=== PATIENT | female | born 1960 | race African-American/Black ===

== ENCOUNTER 2018-04-17 14:37 | Emergency (ER) | payer OTHER, SELFPAY ==
[2018-04-17 14:45] VITALS: BP 158/89; PULSE 60; RESP 20; TEMP 37.2; O2SAT 98; BMI 24.2
--- NOTE | 2018-04-17 14:45 | PC.NURSE ---
1438 Pt states has to go to the bathroom prior to Ekg.
--- NOTE | 2018-04-17 15:15 | DI.RAD.S_ITS ---
PROCEDURE: XR CHEST 1V INDICATIONS: chest pain TECHNIQUE: One view of the chest was acquired. COMPARISON: [facility], , CHEST 1 VIEW, 10/02/2017, 14:29. FINDINGS: Surgical changes and devices: None. Lungs and pleura: No pleural effusions or pneumothorax. Lungs are clear. Mediastinum: Mediastinal contours appear normal. Heart size is normal. Bones and chest wall: No suspicious bony lesions. Overlying soft tissues appear unremarkable. IMPRESSION: No acute cardiopulmonary disease process. Dictated by: Ursula Johnson MD, PhD on 04/17/2018 at 15:42 Approved by: Ursula Johnson MD, PhD on 04/17/2018 at 15:43
--- NOTE | 2018-04-17 15:15 | ED.CHESTPAIN ---
HPI - Chest Pain <Jolie Veloz PA-C - Last Filed: 04/17/18 20:27> General Chief Complaint: Chest Pain Stated Complaint: chest pain,numbness and tingling in her head Time Seen by Provider: 04/17/18 15:15 Source: patient Mode of arrival: ambulatory Limitations: no limitations History of Present Illness HPI narrative: This 58-year-old female presents to ED due to headache and chest pain. She has chronic headaches for which she is undergoing specialty workup including just having had cisternogram last week (she does not have results yet). She states she has had her usual headaches all week, but somewhat worse because she intermittently has a tightening and squeezing sensation in the back of her head. She states that she has some intermittent facial tingling that is not unusual for her. She does not have any facial weakness, difficulty chewing or talking. She states that she has had pain in her right arm, leg, and down the right side of her body with this headache that she describes as a dull pain, but denies any weakness or paresthesia. She states that she has also had intermittent pain on the left mid chest since Thursday. She thought that was heartburn initially but did not help with Zantac. She has very minimal nausea, no vomiting and states ?I love to eat?, no appetite change. She states that the pain radiates across her chest into both shoulders, not in her arm or neck. She has not been lightheaded and has been going about her usual activities caring for her grandson. She has not had any new cough, fever, cold symptoms, or other new symptoms with this. She came in mainly due to persistent symptoms not improving with OTC ibuprofen or Tylenol. She states also she did not want to delay her cisternogram so did not seek evaluation earlier. Related Data Home Medications Medication Instructions Recorded Confirmed CA PANTOTHENATE/FOLIC ACID/VIT 1 tab PO QDAY #0 01/25/13 03/03/18 (MULTIVITAMIN) hydrochlorothiazide 12.5 mg PO QDAY #0 10/02/17 03/03/18 Previous Rx's Medication Instructions Recorded metaxalone [Skelaxin] 800 mg PO TID-QID PRN #10 tab 04/17/18 Allergies Allergy/AdvReac Type Severity Reaction Status Date / Time ciprofloxacin [CIPROFLOXACIN] Allergy Unknown LEG PAIN Verified 04/17/18 15:38 levofloxacin [LEVOFLOXACIN] AdvReac Mild CAN'T LIFT Verified 04/17/18 15:38 ARMS AFTERWARD Review of Systems <LILY Peralta Last Filed: 04/17/18 20:27> Review of Systems All systems reviewed & are unremarkable except as noted in HPI and below Exam <LILY Peralta Last Filed: 04/17/18 20:27> Narrative Exam Narrative: GENERAL APPEARANCE: Patient sitting comfortably, in no distress. Appears well HEENT: EOMI, normal oropharynx, TMs intact with normal light reflexes NECK/THYROID: Neck supple, no masses, no JVD noted LUNGS: Clear to auscultation bilaterally. CHEST: Tender over the mid to inferior sternum HEART: Regular rate and rhythm without murmur, normal S1, S2, no S3 or S4. ABDOMEN: Soft, NT, ND, + BS x 4 quadrants EXTREMITIES: No cyanosis or edema. No point tenderness over the calves. Minimal generalized tenderness over the right upper and lower extremities MUSCULOSKELETAL: Moderate tenderness over the cervical strap muscles, more on the left. Decreased right rotation and left lateral bend secondary to tenderness. Normal range of motion of the extremities NEUROLOGIC: Alert and oriented, normal speech, gait and coordination. Initial Vital Signs Initial Vital Signs: Vital Signs Temperature 98.9 F 04/17/18 14:45 Pulse Rate 60 04/17/18 14:45 Respiratory Rate 20 04/17/18 14:45 Blood Pressure 158/89 H 04/17/18 14:45 Pulse Oximetry 98 04/17/18 14:45 <Juan Luis Jones DO - Last Filed: 04/18/18 07:34> Initial Vital Signs Initial Vital Signs: Vital Signs Temperature 98.9 F 04/17/18 14:45 Pulse Rate 60 04/17/18 14:45 Respiratory Rate 20 04/17/18 14:45 Blood Pressure 158/89 H 04/17/18 14:45 Pulse Oximetry 98 04/17/18 14:45 Course <LILY Peralta Last Filed: 04/17/18 20:27> Orders Ordered: ED Orders 04/17/18 15:12 Complete Blood Count AUTO DIFF Stat Comprehensive Metabolic Panel Stat Lipase Stat Partial Thromboplastin Time Stat Prothrombin Time INR Stat Troponin & CK Cardiac Panel Stat 04/17/18 15:15 XR chest 1V Stat EKG-12 Lead Stat 04/17/18 15:39 CT head/brain wo con Stat Vital Signs - 8 hr 04/17/18 14:45 04/17/18 16:30 Temperature 98.9 F Pulse Rate 60 74 Respiratory Rate 20 18 Blood Pressure 158/89 H Blood Pressure [Left Arm] 127/65 Pulse Oximetry 98 100 <Juan Luis Jones DO - Last Filed: 04/18/18 07:34> Orders Ordered: ED Orders 04/17/18 15:12 Complete Blood Count AUTO DIFF Stat Comprehensive Metabolic Panel Stat Lipase Stat Partial Thromboplastin Time Stat Prothrombin Time INR Stat Troponin & CK Cardiac Panel Stat 04/17/18 15:15 XR chest 1V Stat EKG-12 Lead Stat 04/17/18 15:39 CT head/brain wo con Stat Vital Signs - 8 hr 04/17/18 14:45 04/17/18 16:30 Temperature 98.9 F Pulse Rate 60 74 Respiratory Rate 20 18 Blood Pressure 158/89 H Blood Pressure [Left Arm] 127/65 Pulse Oximetry 98 100 MDM - Chest Pain <Jolie Veloz PA-C - Last Filed: 04/17/18 20:27> Lab Data Attestation: I reviewed the patient's lab results. Result diagrams: 04/17/18 15:12 04/17/18 15:12 Lab Results 04/17/18 04/17/18 04/17/18 Range/Units 15:12 15:12 15:12 WBC 4.3 L (4.5-11.0) X10^3/uL RBC 4.52 (4.0-5.2) X10^6/uL Hgb 13.3 (12.0-16.0) g/dL Hct 39.9 (36-46) % MCV 88.2 (80-100) fL MCH 29.4 (26-34) PG MCHC 33.4 (30-36) % RDW 12.8 (11.6-14.8) % Plt Count 216 (150-400) X10^3/uL Neut % (Auto) 53.3 (50-75) % Lymph % (Auto) 33.2 (25-40) % [place] % (Auto) 11.5 (3-14) % Eos % (Auto) 1.2 L (2-4) % Baso % (Auto) 0.8 (0-2) % Neut # (Auto) 2300 L (4352-0312) /uL PT 11.9 (10.1-12.7) SECONDS INR 1.1 (0.9-1.3) APTT 26 L (26.4-36.2) SECONDS Sodium 141 (137-145) mmol/L Potassium 4.0 (3.4-5.1) mmol/L Chloride 102 (98-107) mmol/L Carbon Dioxide 32 (22-32) mmol/L BUN 17 (7-17) mg/dL Creatinine 0.80 (0.52-1.04) mg/dL Estimated GFR > 60.0 (>60) mL/min BUN/Creatinine Ratio 21.3 (6-22) Glucose 79 (70-100) mg/dL Calcium 9.2 (8.4-10.2) mg/dL Total Bilirubin 0.9 (0.2-1.3) mg/dL AST 25 (14-36) IU/L ALT 26 (9-52) IU/L Alkaline Phosphatase 56 (38-126) U/L Total Creatine Kinase 138 H (30-135) U/L CK-MB (CK-2) 0.99 (<2.37) ng/mL CK-MB (CK-2) Rel Index 0.7 L (1.5-5.0) % Troponin I < 0.012 (0.01-0.034) ng/mL Total Protein 7.4 (6.3-8.2) g/dL Albumin 4.2 (3.5-5.0) g/dL Globulin 3.2 (1.7-4.1) g/dL Albumin/Globulin Ratio 1.3 (1.0-2.8) Lipase 60 (23-300) U/L Imaging Data Chest x-ray: Radiologist's impression: [address] [address] XRay Report Signed Patient: Mony Perez [facility]#: [id number] : 1Acct:[id number] Age/Sex: 79 / FDate of Service: 04/17/18 Loc: ED Accession Number: [id number] Procedure: XR ankle RT min 3V Ordering Provider: Jolie Veloz P.A-C PROCEDURE: XR ANKLE RT MIN 3V INDICATIONS: pain/fall TECHNIQUE: 3 views of the ankle were acquired. COMPARISON: None. FINDINGS: Bones: No fractures or dislocations. Ankle mortise is normally aligned. No suspicious bony lesions. Soft tissues: No tibiotalar joint effusion. Achilles tendon appears normal. Lateral soft tissue swelling is noted and ligamentous injury cannot be excluded. IMPRESSION: No fracture. No osseous lesion. If there are persistent symptoms or clinical suspicion for pathology, then repeat radiographs or advanced imaging (CT, MRI or bone scan) should be considered for further evaluation. Dictated by: Ursula Johnson MD, PhD on 04/17/2018 at 15:04 Approved by: Ursula Johnson MD, PhD on 04/17/2018 at 15:05 CT scan - head: Radiologist's impression: [place] [address] CT Scan Report Signed Patient: Krystal Kaminski [facility]#: [id number] : 2Acct:[id number] Age/Sex: 58 / FDate of Service: 04/17/18 Loc: ED Accession Number: [id number] Procedure: CT head/brain wo con Ordering Provider: Jolie Veloz P.A-C PROCEDURE: CT HEAD/BRAIN WO CON INDICATIONS: atypical DAVALOS, R. sided extremity pain TECHNIQUE: Noncontrast 4.5 mm thick angled axial sections acquired from the foramen magnum to the vertex, with coronal and sagittal reformats. For radiation dose reduction, the following was used: automated exposure control, adjustment of mA and/or kV according to patient size. COMPARISON: [facility], CT, HEAD WITHOUT CONTRAST, 10/02/2017, 14:40. FINDINGS: Image quality: Excellent. CSF spaces: Basal cisterns are patent. No extra-axial fluid collections. Ventricles are normal in size and shape. Brain: No midline shift. No intracranial masses or hemorrhage. Colby-white matter interface is normal. Skull and face: Calvarium and visualized facial bones are intact, without suspicious lesions. Sinuses: Visualized sinuses and mastoids are clear. IMPRESSION: No acute intracranial disease process. Dictated by: Ursula Johnson MD, PhD on 04/17/2018 at 15:50 Approved by: rUsula Johnson MD, PhD on 04/17/2018 at 15:52 ECG Data Attestation: I personally reviewed and interpreted this ECG as follows: (NSR, rate 61, normal axis) <Juan Luis Jones DO - Last Filed: 04/18/18 07:34> Lab Data Lab Results 04/17/18 04/17/18 04/17/18 Range/Units 15:12 15:12 15:12 WBC 4.3 L (4.5-11.0) X10^3/uL RBC 4.52 (4.0-5.2) X10^6/uL Hgb 13.3 (12.0-16.0) g/dL Hct 39.9 (36-46) % MCV 88.2 (80-100) fL MCH 29.4 (26-34) PG MCHC 33.4 (30-36) % RDW 12.8 (11.6-14.8) % Plt Count 216 (150-400) X10^3/uL Neut % (Auto) 53.3 (50-75) % Lymph % (Auto) 33.2 (25-40) % [place] % (Auto) 11.5 (3-14) % Eos % (Auto) 1.2 L (2-4) % Baso % (Auto) 0.8 (0-2) % Neut # (Auto) 2300 L (5482-0742) /uL PT 11.9 (10.1-12.7) SECONDS INR 1.1 (0.9-1.3) APTT 26 L (26.4-36.2) SECONDS Sodium 141 (137-145) mmol/L Potassium 4.0 (3.4-5.1) mmol/L Chloride 102 (98-107) mmol/L Carbon Dioxide 32 (22-32) mmol/L BUN 17 (7-17) mg/dL Creatinine 0.80 (0.52-1.04) mg/dL Estimated GFR > 60.0 (>60) mL/min BUN/Creatinine Ratio 21.3 (6-22) Glucose 79 (70-100) mg/dL Calcium 9.2 (8.4-10.2) mg/dL Total Bilirubin 0.9 (0.2-1.3) mg/dL AST 25 (14-36) IU/L ALT 26 (9-52) IU/L Alkaline Phosphatase 56 (38-126) U/L Total Creatine Kinase 138 H (30-135) U/L CK-MB (CK-2) 0.99 (<2.37) ng/mL CK-MB (CK-2) Rel Index 0.7 L (1.5-5.0) % Troponin I < 0.012 (0.01-0.034) ng/mL Total Protein 7.4 (6.3-8.2) g/dL Albumin 4.2 (3.5-5.0) g/dL Globulin 3.2 (1.7-4.1) g/dL Albumin/Globulin Ratio 1.3 (1.0-2.8) Lipase 60 (23-300) U/L Discharge Plan Departure Patient Disposition: Home Clinical Impression: Atypical chest pain, Headache, Cervical muscle strain Discharge Date/Time: 04/17/18 17:32 Interventions: ED Discharge Assessment Last Done: 04/17/18 17:32 Instructions: DI for Atypical Chest Pain, DI for Headache Activity Restrictions/Additional Instructions: Your tests on your heart and chest as well as your CT scan of your head do not show any acute findings today. It seems like your chronic headache may be exacerbated by significant muscle tension in your neck, so I have sent in a prescription for a new muscle relaxant for you to try since you were to sleepy to tolerate the 1 you tried before. The prescription that I sent in tends to cause less drowsiness then other muscle relaxant, and you may start with half a tab if you wish. (Do not drive until you know whether you get drowsy with it). Please try adding [id number] ibuprofen (Motrin) 400 mg every 6-8 hours with this to see if it helps your headache and chest and the pain. You should return as we talked about if you have any acutely worsening pain, or new symptoms such as vomiting, vision change or weakness. Otherwise, please follow-up with your headache specialist next week, and also see your PCP to determine whether to do any further heart workup such as a stress test. Prescriptions: New metaxalone [Skelaxin] 800 mg tablet 800 mg PO TID-QID PRN (Reason: muscle pain) Qty: 10 RF: 0 No Action CA PANTOTHENATE/FOLIC ACID/VIT (MULTIVITAMIN) 1 tab PO QDAY Qty: 0 RF: 0 hydrochlorothiazide 12.5 MG tablet 12.5 mg PO QDAY Qty: 0 RF: 0 Referrals: Sunday Giraldo CNP [Primary Care Provider] - Riaz López MD [Non-Staff] - <Juan Luis Jones DO - Last Filed: 04/18/18 07:34> Cosign ED Attending Giovannaature Attestation: I was immediately available in the department for consultation. Documentation has been reviewed. I agree with assessment and plan.
[2018-04-17 15:36] LABS: Add Manual Diff / Slide Review NO; Basophils Percent Auto 0.8 % (0-2); Eosinophils Percent Auto 1.2 % (2-4); Hematocrit 39.9 % (36-46); Hemoglobin 13.3 g/dL (12.0-16.0); Lymphocytes Percent Auto 33.2 % (25-40); Mean Corpuscular HGB Conc 33.4 % (30-36); Mean Corpuscular Hemoglobin 29.4 PG (26-34); Mean Corpuscular Volume 88.2 fL (80-100); Monocytes Percent Auto 11.5 % (3-14); Neutrophils Absolute Auto 2300 /uL (3000-5900); Neutrophils Percent Auto 53.3 % (50-75); Platelet Count 216 X10^3/uL (150-400); Red Blood Cell Count 4.52 X10^6/uL (4.0-5.2); Red Cell Distribution Width 12.8 % (11.6-14.8); White Blood Cell Count 4.3 X10^3/uL (4.5-11.0)
[2018-04-17 15:37] LABS: INR 1.1 (0.9-1.3); Prothrombin Time 11.9 SECONDS (10.1-12.7)
--- NOTE | 2018-04-17 15:39 | DI.CT.S_ITS ---
PROCEDURE: CT HEAD/BRAIN WO CON INDICATIONS: atypical DAVALOS, R. sided extremity pain TECHNIQUE: Noncontrast 4.5 mm thick angled axial sections acquired from the foramen magnum to the vertex, with coronal and sagittal reformats. For radiation dose reduction, the following was used: automated exposure control, adjustment of mA and/or kV according to patient size. COMPARISON: [facility], CT, HEAD WITHOUT CONTRAST, 10/02/2017, 14:40. FINDINGS: Image quality: Excellent. CSF spaces: Basal cisterns are patent. No extra-axial fluid collections. Ventricles are normal in size and shape. Brain: No midline shift. No intracranial masses or hemorrhage. Colby-white matter interface is normal. Skull and face: Calvarium and visualized facial bones are intact, without suspicious lesions. Sinuses: Visualized sinuses and mastoids are clear. IMPRESSION: No acute intracranial disease process. Dictated by: Ursula Johnson MD, PhD on 04/17/2018 at 15:50 Approved by: Ursula Johnson MD, PhD on 04/17/2018 at 15:52
[2018-04-17 15:40] LABS: PTT Partial Thromboplastin Tim 26 SECONDS (26.4-36.2)
[2018-04-17 15:43] LABS: Alanine Aminotransferase 26 IU/L (9-52); Albumin 4.2 g/dL (3.5-5.0); Albumin Globulin Ratio 1.3 (1.0-2.8); Alkaline Phosphatase 56 U/L (38-126); Aspartate Aminotransferase 25 IU/L (14-36); BUN Creatinine Ratio 21.3 (6-22); Bilirubin Total 0.9 mg/dL (0.2-1.3); Blood Urea Nitrogen 17 mg/dL (7-17); Calcium 9.2 mg/dL (8.4-10.2); Carbon Dioxide 32 mmol/L (22-32); Chloride 102 mmol/L (98-107); Creatine Kinase 138 U/L (30-135); Estimated Glomerular Filt Rate > 60.0 mL/min (>60); Globulin 3.2 g/dL (1.7-4.1); Glucose 79 mg/dL (70-100); HEMOLYSIS < 15 (0-50); Lipase 60 U/L (23-300); Sodium 141 mmol/L (137-145); Total Protein 7.4 g/dL (6.3-8.2)
--- NOTE | 2018-04-17 15:46 | ED_ITS ---
HPI - Chest Pain <Jolie Veloz PA-C - Last Filed: 04/17/18 20:27> General Chief Complaint: Chest Pain Stated Complaint: chest pain,numbness and tingling in her head Time Seen by Provider: 04/17/18 15:15 Source: patient Mode of arrival: ambulatory Limitations: no limitations History of Present Illness HPI narrative: This 58-year-old female presents to ED due to headache and chest pain. She has chronic headaches for which she is undergoing specialty workup including just having had cisternogram last week (she does not have results yet) . She states she has had her usual headaches all week, but somewhat worse because she intermittently has a tightening and squeezing sensation in the back of her head. She states that she has some intermittent facial tingling that is not unusual for her. She does not have any facial weakness, difficulty chewing or talking. She states that she has had pain in her right arm, leg, and down the right side of her body with this headache that she describes as a dull pain , but denies any weakness or paresthesia. She states that she has also had intermittent pain on the left mid chest since Thursday. She thought that was heartburn initially but did not help with Zantac. She has very minimal nausea, no vomiting and states ?I love to eat?, no appetite change. She states that the pain radiates across her chest into both shoulders, not in her arm or neck. She has not been lightheaded and has been going about her usual activities caring for her grandson. She has not had any new cough, fever, cold symptoms, or other new symptoms with this. She came in mainly due to persistent symptoms not improving with OTC ibuprofen or Tylenol. She states also she did not want to delay her cisternogram so did not seek evaluation earlier. Related Data Home Medications Medication Instructions Recorded Confirmed CA PANTOTHENATE/FOLIC ACID/VIT 1 tab PO QDAY #0 01/25/13 03/03/18 (MULTIVITAMIN) hydrochlorothiazide 12.5 mg PO QDAY #0 10/02/17 03/03/18 Previous Rx's Medication Instructions Recorded metaxalone [Skelaxin] 800 mg PO TID-QID PRN #10 tab 04/17/18 Allergies Allergy/AdvReac Type Severity Reaction Status Date / Time ciprofloxacin [CIPROFLOXACIN] Allergy Unknown LEG PAIN Verified 04/17/18 15:38 levofloxacin [LEVOFLOXACIN] AdvReac Mild CAN'T LIFT Verified 04/17/18 15:38 ARMS AFTERWARD Review of Systems <LILY Peralta Last Filed: 04/17/18 20:27> Review of Systems All systems reviewed & are unremarkable except as noted in HPI and below Exam <LILY Peralta Last Filed: 04/17/18 20:27> Narrative Exam Narrative: GENERAL APPEARANCE: Patient sitting comfortably, in no distress. Appears well HEENT: EOMI, normal oropharynx, TMs intact with normal light reflexes NECK/THYROID: Neck supple, no masses, no JVD noted LUNGS: Clear to auscultation bilaterally. CHEST: Tender over the mid to inferior sternum HEART: Regular rate and rhythm without murmur, normal S1, S2, no S3 or S4. ABDOMEN: Soft, NT, ND, + BS x 4 quadrants EXTREMITIES: No cyanosis or edema. No point tenderness over the calves. Minimal generalized tenderness over the right upper and lower extremities MUSCULOSKELETAL: Moderate tenderness over the cervical strap muscles, more on the left. Decreased right rotation and left lateral bend secondary to tenderness. Normal range of motion of the extremities NEUROLOGIC: Alert and oriented, normal speech, gait and coordination. Initial Vital Signs Initial Vital Signs: Vital Signs Temperature 98.9 F 04/17/18 14:45 Pulse Rate 60 04/17/18 14:45 Respiratory Rate 20 04/17/18 14:45 Blood Pressure 158/89 H 04/17/18 14:45 Pulse Oximetry 98 04/17/18 14:45 <Juan Luis Jones DO - Last Filed: 04/18/18 07:34> Initial Vital Signs Initial Vital Signs: Vital Signs Temperature 98.9 F 04/17/18 14:45 Pulse Rate 60 04/17/18 14:45 Respiratory Rate 20 04/17/18 14:45 Blood Pressure 158/89 H 04/17/18 14:45 Pulse Oximetry 98 04/17/18 14:45 Course <LILY Peralta Last Filed: 04/17/18 20:27> Orders Ordered: ED Orders 04/17/18 15:12 Complete Blood Count AUTO DIFF Stat Comprehensive Metabolic Panel Stat Lipase Stat Partial Thromboplastin Time Stat Prothrombin Time INR Stat Troponin & CK Cardiac Panel Stat 04/17/18 15:15 XR chest 1V Stat EKG-12 Lead Stat 04/17/18 15:39 CT head/brain wo con Stat Vital Signs - 8 hr 04/17/18 14:45 04/17/18 16:30 Temperature 98.9 F Pulse Rate 60 74 Respiratory Rate 20 18 Blood Pressure 158/89 H Blood Pressure [Left Arm] 127/65 Pulse Oximetry 98 100 <Juan Luis Jones DO - Last Filed: 04/18/18 07:34> Orders Ordered: ED Orders 04/17/18 15:12 Complete Blood Count AUTO DIFF Stat Comprehensive Metabolic Panel Stat Lipase Stat Partial Thromboplastin Time Stat Prothrombin Time INR Stat Troponin & CK Cardiac Panel Stat 04/17/18 15:15 XR chest 1V Stat EKG-12 Lead Stat 04/17/18 15:39 CT head/brain wo con Stat Vital Signs - 8 hr 04/17/18 14:45 04/17/18 16:30 Temperature 98.9 F Pulse Rate 60 74 Respiratory Rate 20 18 Blood Pressure 158/89 H Blood Pressure [Left Arm] 127/65 Pulse Oximetry 98 100 MDM - Chest Pain <Jolie Veloz PA-C - Last Filed: 04/17/18 20:27> Lab Data Attestation: I reviewed the patient's lab results. Result diagrams: 04/17/18 15:12 04/17/18 15:12 Lab Results 04/17/18 04/17/18 04/17/18 Range/Units 15:12 15:12 15:12 WBC 4.3 L (4.5-11.0) X10^3/uL RBC 4.52 (4.0-5.2) X10^6/uL Hgb 13.3 (12.0-16.0) g/dL Hct 39.9 (36-46) % MCV 88.2 (80-100) fL MCH 29.4 (26-34) PG MCHC 33.4 (30-36) % RDW 12.8 (11.6-14.8) % Plt Count 216 (150-400) X10^3/uL Neut % (Auto) 53.3 (50-75) % Lymph % (Auto) 33.2 (25-40) % Dunn % (Auto) 11.5 (3-14) % Eos % (Auto) 1.2 L (2-4) % Baso % (Auto) 0.8 (0-2) % Neut # (Auto) 2300 L (0184-9199) /uL PT 11.9 (10.1-12.7) SECONDS INR 1.1 (0.9-1.3) APTT 26 L (26.4-36.2) SECONDS Sodium 141 (137-145) mmol/L Potassium 4.0 (3.4-5.1) mmol/L Chloride 102 (98-107) mmol/L Carbon Dioxide 32 (22-32) mmol/L BUN 17 (7-17) mg/dL Creatinine 0.80 (0.52-1.04) mg/dL Estimated GFR > 60.0 (>60) mL/min BUN/Creatinine Ratio 21.3 (6-22) Glucose 79 (70-100) mg/dL Calcium 9.2 (8.4-10.2) mg/dL Total Bilirubin 0.9 (0.2-1.3) mg/dL AST 25 (14-36) IU/L ALT 26 (9-52) IU/L Alkaline Phosphatase 56 (38-126) U/L Total Creatine Kinase 138 H (30-135) U/L CK-MB (CK-2) 0.99 (<2.37) ng/mL CK-MB (CK-2) Rel Index 0.7 L (1.5-5.0) % Troponin I < 0.012 (0.01-0.034) ng/mL Total Protein 7.4 (6.3-8.2) g/dL Albumin 4.2 (3.5-5.0) g/dL Globulin 3.2 (1.7-4.1) g/dL Albumin/Globulin Ratio 1.3 (1.0-2.8) Lipase 60 (23-300) U/L Imaging Data Chest x-ray: Radiologist's impression: [address] [address] XRay Report Signed Patient: Mony Perez [facility]#: [id number] : 1Acct:[id number] Age/Sex: 79 / FDate of Service: 04/17/18 Loc: ED Accession Number: [id number] Procedure: XR ankle RT min 3V Ordering Provider: Jolie Veloz P.A-C PROCEDURE: XR ANKLE RT MIN 3V INDICATIONS: pain/fall TECHNIQUE: 3 views of the ankle were acquired. COMPARISON: None. FINDINGS: Bones: No fractures or dislocations. Ankle mortise is normally aligned. No suspicious bony lesions. Soft tissues: No tibiotalar joint effusion. Achilles tendon appears normal. Lateral soft tissue swelling is noted and ligamentous injury cannot be excluded. IMPRESSION: No fracture. No osseous lesion. If there are persistent symptoms or clinical suspicion for pathology, then repeat radiographs or advanced imaging (CT, MRI or bone scan) should be considered for further evaluation. Dictated by: Ursula Johnson MD, PhD on 04/17/2018 at 15:04 Approved by: Ursula Johnson MD, PhD on 04/17/2018 at 15:05 CT scan - head: Radiologist's impression: [place] [address] CT Scan Report Signed Patient: Krystal Kaminski [facility]#: [id number] : 2Acct:[id number] Age/Sex: 58 / FDate of Service: 04/17/18 Loc: ED Accession Number: [id number] Procedure: CT head/brain wo con Ordering Provider: Jolie Veloz P.A-C PROCEDURE: CT HEAD/BRAIN WO CON INDICATIONS: atypical DAVALOS, R. sided extremity pain TECHNIQUE: Noncontrast 4.5 mm thick angled axial sections acquired from the foramen magnum to the vertex, with coronal and sagittal reformats. For radiation dose reduction, the following was used: automated exposure control, adjustment of mA and/or kV according to patient size. COMPARISON: [facility], CT, HEAD WITHOUT CONTRAST, 10/02/2017, 14:40. FINDINGS: Image quality: Excellent. CSF spaces: Basal cisterns are patent. No extra-axial fluid collections. Ventricles are normal in size and shape. Brain: No midline shift. No intracranial masses or hemorrhage. Colby-white matter interface is normal. Skull and face: Calvarium and visualized facial bones are intact, without suspicious lesions. Sinuses: Visualized sinuses and mastoids are clear. IMPRESSION: No acute intracranial disease process. Dictated by: Ursula Johnson MD, PhD on 04/17/2018 at 15:50 Approved by: Ursula Johnson MD, PhD on 04/17/2018 at 15:52 ECG Data Attestation: I personally reviewed and interpreted this ECG as follows: (NSR, rate 61, normal axis) <Juan Luis Jones DO - Last Filed: 04/18/18 07:34> Lab Data Lab Results 04/17/18 04/17/18 04/17/18 Range/Units 15:12 15:12 15:12 WBC 4.3 L (4.5-11.0) X10^3/uL RBC 4.52 (4.0-5.2) X10^6/uL Hgb 13.3 (12.0-16.0) g/dL Hct 39.9 (36-46) % MCV 88.2 (80-100) fL MCH 29.4 (26-34) PG MCHC 33.4 (30-36) % RDW 12.8 (11.6-14.8) % Plt Count 216 (150-400) X10^3/uL Neut % (Auto) 53.3 (50-75) % Lymph % (Auto) 33.2 (25-40) % Dunn % (Auto) 11.5 (3-14) % Eos % (Auto) 1.2 L (2-4) % Baso % (Auto) 0.8 (0-2) % Neut # (Auto) 2300 L (3769-6463) /uL PT 11.9 (10.1-12.7) SECONDS INR 1.1 (0.9-1.3) APTT 26 L (26.4-36.2) SECONDS Sodium 141 (137-145) mmol/L Potassium 4.0 (3.4-5.1) mmol/L Chloride 102 (98-107) mmol/L Carbon Dioxide 32 (22-32) mmol/L BUN 17 (7-17) mg/dL Creatinine 0.80 (0.52-1.04) mg/dL Estimated GFR > 60.0 (>60) mL/min BUN/Creatinine Ratio 21.3 (6-22) Glucose 79 (70-100) mg/dL Calcium 9.2 (8.4-10.2) mg/dL Total Bilirubin 0.9 (0.2-1.3) mg/dL AST 25 (14-36) IU/L ALT 26 (9-52) IU/L Alkaline Phosphatase 56 (38-126) U/L Total Creatine Kinase 138 H (30-135) U/L CK-MB (CK-2) 0.99 (<2.37) ng/mL CK-MB (CK-2) Rel Index 0.7 L (1.5-5.0) % Troponin I < 0.012 (0.01-0.034) ng/mL Total Protein 7.4 (6.3-8.2) g/dL Albumin 4.2 (3.5-5.0) g/dL Globulin 3.2 (1.7-4.1) g/dL Albumin/Globulin Ratio 1.3 (1.0-2.8) Lipase 60 (23-300) U/L Discharge Plan Departure Patient Disposition: Home Clinical Impression: Atypical chest pain, Headache, Cervical muscle strain Discharge Date/Time: 04/17/18 17:32 Interventions: ED Discharge Assessment Last Done: 04/17/18 17:32 Instructions: DI for Atypical Chest Pain, DI for Headache Activity Restrictions/Additional Instructions: Your tests on your heart and chest as well as your CT scan of your head do not show any acute findings today. It seems like your chronic headache may be exacerbated by significant muscle tension in your neck, so I have sent in a prescription for a new muscle relaxant for you to try since you were to sleepy to tolerate the 1 you tried before. The prescription that I sent in tends to cause less drowsiness then other muscle relaxant, and you may start with half a tab if you wish. (Do not drive until you know whether you get drowsy with it). Please try adding [id number] ibuprofen (Motrin) 400 mg every 6-8 hours with this to see if it helps your headache and chest and the pain. You should return as we talked about if you have any acutely worsening pain, or new symptoms such as vomiting, vision change or weakness. Otherwise, please follow-up with your headache specialist next week, and also see your PCP to determine whether to do any further heart workup such as a stress test. Prescriptions: New metaxalone [Skelaxin] 800 mg tablet 800 mg PO TID-QID PRN (Reason: muscle pain) Qty: 10 RF: 0 No Action CA PANTOTHENATE/FOLIC ACID/VIT (MULTIVITAMIN) 1 tab PO QDAY Qty: 0 RF: 0 hydrochlorothiazide 12.5 MG tablet 12.5 mg PO QDAY Qty: 0 RF: 0 Referrals: Sunday Giraldo CNP [Primary Care Provider] - Riaz López MD [Non-Staff] - <Juan Luis Jones DO - Last Filed: 04/18/18 07:34> Cosign ED Attending Giovannaature Attestation: I was immediately available in the department for consultation. Documentation has been reviewed. I agree with assessment and plan.
[2018-04-17 15:58] LABS: CKMB % Relative Index 0.7 % (1.5-5.0); Creatine Kinase MB 0.99 ng/mL (<2.37); Troponin I < 0.012 ng/mL (0.01-0.034)
[2018-04-17 16:30] VITALS: BP 127/65; PULSE 74; RESP 18; O2SAT 100
== END 2018-04-17 17:32 | disposition home or self-care (01) ==
PROVIDERS: Emergency Provider Internal Medicine; PCP Registered Nurse Diabetes Educator
DX: R07.89 Other chest pain (principal); R51 Headache; S16.1XXA Strain of muscle, fascia and tendon at neck level, initial encounter
CPT/HCPCS: 36591; 70450; 71045; 80053; 82550; 82553; 83690; 84484; 85025; 85610; 85730; 93005; 93010; 99283; 99285

== ENCOUNTER 2018-10-03 09:33 | Emergency (ER) | payer OTHER, SELFPAY ==
[2018-10-03 09:40] VITALS: BP 157/86; PULSE 53; RESP 16; TEMP 36.5; O2SAT 100
--- NOTE | 2018-10-03 10:01 | DI.CT.S_ITS ---
PROCEDURE: CT HEAD/BRAIN WO CON INDICATIONS: headache on going for 1 week hx ofbreast ca TECHNIQUE: Noncontrast 4.5 mm thick angled axial sections acquired from the foramen magnum to the vertex, with coronal and sagittal reformats. For radiation dose reduction, the following was used: automated exposure control, adjustment of mA and/or kV according to patient size. COMPARISON: [facility], CT, CT HEAD/BRAIN WO CON, 04/17/2018, 15:34. FINDINGS: Image quality: Excellent. CSF spaces: Basal cisterns are patent. No extra-axial fluid collections. Ventricles are normal in size and shape. Brain: No midline shift. No intracranial masses or hemorrhage. Colby-white matter interface is normal. Skull and face: Calvarium and visualized facial bones are intact, without suspicious lesions. Sinuses: Visualized sinuses and mastoids are clear. IMPRESSION: No CT evidence of acute intracranial pathology. Dictated by: Sergey Talamantes M.D. on 10/03/2018 at 10:24 Approved by: Sergey Talamantes M.D. on 10/03/2018 at 10:25
--- NOTE | 2018-10-03 10:01 | DI.RAD.S_ITS ---
PROCEDURE: XR CHEST 1V INDICATIONS: chest pain TECHNIQUE: One view of the chest was acquired. COMPARISON: [facility], CR, XR CHEST 1V, 04/17/2018, 15:15. FINDINGS: Surgical changes and devices: None. Lungs and pleura: Mild pulmonary vascular congestion is seen. No focal infiltrate. No pleural effusions or pneumothorax. Mediastinum: Mediastinal contours appear normal. Heart size is normal. Bones and chest wall: No suspicious bony lesions. Overlying soft tissues appear unremarkable. IMPRESSION: Mild congestion. No focal infiltrate, pleural effusion or pneumothorax. Dictated by: Sergey Talamantes M.D. on 10/03/2018 at 10:51 Approved by: Sergey Talamantes M.D. on 10/03/2018 at 10:51
--- NOTE | 2018-10-03 10:05 | ED.HA ---
HPI - Headache General Chief Complaint: Headache Stated Complaint: Chest,neck and head pain Time Seen by Provider: 10/03/18 09:51 Source: patient Mode of arrival: ambulatory Limitations: no limitations History of Present Illness HPI Narrative: Patient is a 58-year-old female who presents with a variety of complaints. She has headache neck pain ongoing for 1 week no fever. She sometimes hand tingling. Her pain is worse with movement of her neck. She says her pain was quite bad this morning in fact she also had chest pain this morning they are small twinges lasting about once the center of her chest. She shortness of breath. he also has some abdominal pain, she thought it was yeast. She also noticed a vaginal laceration she denies any trauma she was seen by her PCP for this. Her biggest complaint today seems to be head and neck problems. MD Complaint: headache Related Data Home Medications Medication Instructions Recorded Confirmed CA PANTOTHENATE/FOLIC ACID/VIT 1 tab PO QDAY #0 01/25/13 07/09/18 (MULTIVITAMIN) hydrochlorothiazide 12.5 mg PO QDAY #0 10/02/17 07/09/18 atenolol 25 mg PO DAILY 07/09/18 07/09/18 Allergies Allergy/AdvReac Type Severity Reaction Status Date / Time ciprofloxacin [CIPROFLOXACIN] Allergy Unknown LEG PAIN Verified 04/17/18 15:38 levofloxacin [LEVOFLOXACIN] AdvReac Mild CAN'T LIFT Verified 04/17/18 15:38 ARMS AFTERWARD Review of Systems Review of Systems ROS Unobtainable: All systems reviewed & are unremarkable except as noted in HPI and below Constitutional Denies chills, Denies fever(s), Reports headache(s), Denies lethargy and Denies weakness Eyes Denies change in vision, Denies eye discharge, Denies irritation and Denies loss of vision ENT Ears, Nose, Mouth, and Throat: Reports headache(s) and Reports neck pain Cardiovascular Reports chest pain, Denies irregular heart rhythm, Denies lightheadedness, Denies palpitations, Denies dyspnea, Denies dyspnea on exertion and Denies orthopnea Respiratory Denies cough, Denies dyspnea, Denies dyspnea on exertion and Denies wheezing Gastrointestinal Gastrointestinal: Reports abdominal pain, Denies change in bowel habits, Denies diarrhea, Denies nausea and Denies vomiting Genitourinary Denies hematuria, Denies flank pain, Denies urinary incontinence and Denies urinary urgency Musculoskeletal Reports as per HPI, Denies back pain, Denies muscle weakness, Reports neck pain, Denies numbness and Reports tingling (Right hand) Neurologic Reports headache(s), Denies loss of vision, Denies numbness, Reports tingling (Right hand) and Denies weakness Endocrine Denies palpitations Allergic/Immunologic Denies wheezing [facility] Medical History Hypertension (Chronic) LVH (left ventricular hypertrophy) (Chronic) Dyspepsia (Chronic) Breast cancer (Acute) Chronic mixed headache syndrome (Chronic) Surgical History History of total mastectomy Status post hysterectomy Family History Father Diabetes mellitus Heart disease Hypertension High cholesterol Grandfather Diabetes mellitus Hypertension High cholesterol Grandmother Diabetes mellitus Mother Diabetes mellitus Heart disease Hypertension Social History Smoking Status: Never smoker Family History Father Diabetes mellitus Heart disease Hypertension High cholesterol Grandfather Diabetes mellitus Hypertension High cholesterol Grandmother Diabetes mellitus Mother Diabetes mellitus Heart disease Hypertension Social History Smoking Status: Never smoker Exam Initial Vital Signs Initial Vital Signs: Vital Signs Temperature 97.7 F 10/03/18 09:40 Pulse Rate 53 L 10/03/18 09:40 Respiratory Rate 16 10/03/18 09:40 Blood Pressure 157/86 H 10/03/18 09:40 Pulse Oximetry 100 10/03/18 09:40 GENERAL: Well-appearing, well-nourished and in no acute distress. HEENT: Head atraumatic,EOMI, pupils reactive, face symmetric, neck is supple no meningeal signs CARDIOVASCULAR: Regular rate and rhythm without murmurs, rubs or gallops. Mastectomy bilateral scars noted RESPIRATORY: Breath sounds equal bilaterally, no wheezes rales or rhonchi. ABDOMEN: Soft, nontender. Normoactive bowel sounds all 4 quadrants. No guarding or rebound. EXTREMITIES: Normal range of motion, no clubbing or edema. Neurovascularly intact NEUROLOGICAL: Alert and oriented x4.Normal gait and speech. Cranial nerves II through XII grossly intact. Good [id number], good [id number], strength equal bilaterally, no dysarthria or aphasia, sensation in tact to soft touch bilaterally, no visual changes, no facial droop SKIN: Warm, dry, no laceration, no petechiae, no rashes or lesions. Scores HEART Score Heart Score history: Slightly Suspicious Heart Score EKG: Normal Heart Score Age: 45-64 years old Heart Score risk factors: 1-2 risk factors Heart Score troponin: < or = to normal limit Heart Score Total: 2 NIH Stroke Scale Level of Conciousness: Alert, keenly responsive Ask month/age: Answers both questions correctly. Open/close eyes, close hand: Performs both tasks correctly Best gaze horizontal: Normal Visual parks: No visual loss Facial palsy: Normal symetrical movement Left arm drift: No drift for full 10 sec Right arm drift: No drift for full 10 sec Left leg drift: No drift for full 10 sec Right leg drift: No drift for full 10 sec Limb ataxia: Absent Sensory on face/arms/legs: Normal, no sensory loss Best language: No aphasia, normal Dysarthria: Normal Extinction or inattention: No abnormality Total NIH Stroke scale score: 0 Course Orders Ordered: ED Orders 10/03/18 10:01 CT head/brain wo con Stat XR chest 1V Stat EKG-12 Lead Stat 10/03/18 10:05 Complete Blood Count AUTO DIFF Stat Comprehensive Metabolic Panel Stat Lipase Stat Troponin & CK Cardiac Panel Stat Urine Microscopic Stat Discontinued Medications Acetaminophen (Tylenol) 975 mg PO NOW ONE Stop: 10/03/18 11:20 Last Admin: 10/03/18 11:29 Dose: 975 mg Sodium Chloride (Normal Saline 0.9%) 1,000 mls @ 150 mls/hr IV CONT ANGELA Last Infusion: 10/03/18 12:02 Dose: 150 mls/hr Admin: 10/03/18 10:22 Dose: 150 mls/hr Ketorolac Tromethamine (Toradol) 30 mg IV NOW ONE Stop: 10/03/18 10:02 Last Admin: 10/03/18 10:23 Dose: 30 mg Vital Signs - 8 hr 10/03/18 09:40 10/03/18 11:00 10/03/18 11:35 Temperature 97.7 F Pulse Rate 53 L 55 L 56 L Respiratory Rate 16 12 Blood Pressure 157/86 H Blood Pressure [Right Arm] 148/66 H Pulse Oximetry 100 100 100 MDM - Headache Lab Data Attestation: I reviewed the patient's lab results. Result diagrams: 10/03/18 10:05 10/03/18 10:05 Lab Results 10/03/18 10/03/18 10/03/18 Range/Units 10:05 10:05 10:05 WBC 3.7 L (4.5-11.0) X10^3/uL RBC 4.64 (4.0-5.2) X10^6/uL Hgb 13.7 (12.0-16.0) g/dL Hct 40.3 (36-46) % MCV 86.8 (80-100) fL MCH 29.6 (26-34) PG MCHC 34.1 (30-36) % RDW 13.1 (11.6-14.8) % Plt Count 202 (150-400) X10^3/uL Neut % (Auto) 60.5 (50-75) % Lymph % (Auto) 28.9 (25-40) % Donley % (Auto) 9.2 (3-14) % Eos % (Auto) 0.8 L (2-4) % Baso % (Auto) 0.6 (0-2) % Neut # (Auto) 2200 (7077-7484) /uL Lymph # (Auto) 1100 (2937-8409) /uL Donley # (Auto) 300 (0-900) /uL Eos # (Auto) 0 (0-450) /uL Baso # (Auto) 0 (0-100) /uL Sodium 138 (137-145) mmol/L Potassium 3.8 (3.4-5.1) mmol/L Chloride 102 (98-107) mmol/L Carbon Dioxide 27 (22-32) mmol/L BUN 18 H (7-17) mg/dL Creatinine 0.70 (0.52-1.04) mg/dL Estimated GFR > 60.0 (>60) mL/min BUN/Creatinine Ratio 25.7 H (6-22) Glucose 117 H (70-100) mg/dL Calcium 9.3 (8.4-10.2) mg/dL Total Bilirubin 0.8 (0.2-1.3) mg/dL AST 30 (14-36) IU/L ALT 29 (9-52) IU/L Alkaline Phosphatase 57 (38-126) U/L Total Creatine Kinase 214 H (30-135) U/L CK-MB (CK-2) 1.81 (<2.37) ng/mL CK-MB (CK-2) Rel Index 0.8 L (1.5-5.0) % Troponin I < 0.012 (0.01-0.034) ng/mL Total Protein 7.2 (6.3-8.2) g/dL Albumin 4.1 (3.5-5.0) g/dL Globulin 3.1 (1.7-4.1) g/dL Albumin/Globulin Ratio 1.3 (1.0-2.8) Lipase 50 (23-300) U/L Urine RBC 0-1/hpf (0-5/HPF) Urine WBC None seen (0-5/HPF) Urine Bacteria None seen (None) Ur Culture Indicated? Cult not indicated Micro UA Comment Microscopic normal Urine Dip Bedside Urine Glucose Negative Bedside Urine Bilirubin - Negative Bedside Urine Ketone - Negative Urine Specific [place] 1.015 Bedside Urine Occult Blood + Bedside Urine pH 6.0 Bedside Urine Protein - Negative Bedside Urine Urobilinogen - Negative Bedside Urine Nitrite - Negative Bedside Urine Leukocytes - Negative Esterase Imaging Data CT scan - head: Radiologist's impression: PROCEDURE: CT HEAD/BRAIN WO CON INDICATIONS: headache on going for 1 week hx ofbreast ca TECHNIQUE: Noncontrast 4.5 mm thick angled axial sections acquired from the foramen magnum to the vertex, with coronal and sagittal reformats. For radiation dose reduction, the following was used: automated exposure control, adjustment of mA and/or kV according to patient size. COMPARISON: [facility], CT, CT HEAD/BRAIN WO CON, 04/17/2018, 15:34. FINDINGS: Image quality: Excellent. CSF spaces: Basal cisterns are patent. No extra-axial fluid collections. Ventricles are normal in size and shape. Brain: No midline shift. No intracranial masses or hemorrhage. Colby-white matter interface is normal. Skull and face: Calvarium and visualized facial bones are intact, without suspicious lesions. Sinuses: Visualized sinuses and mastoids are clear. IMPRESSION: No CT evidence of acute intracranial pathology. Dictated by: Sergey Talamantes M.D. on 10/03/2018 at 10:24 Chest x-ray: Radiologist's impression: PROCEDURE: XR CHEST 1V INDICATIONS: chest pain TECHNIQUE: One view of the chest was acquired. COMPARISON: [facility], CR, XR CHEST 1V, 04/17/2018, 15:15. FINDINGS: Surgical changes and devices: None. Lungs and pleura: Mild pulmonary vascular congestion is seen. No focal infiltrate. No pleural effusions or pneumothorax. Mediastinum: Mediastinal contours appear normal. Heart size is normal. Bones and chest wall: No suspicious bony lesions. Overlying soft tissues appear unremarkable. IMPRESSION: Mild congestion. No focal infiltrate, pleural effusion or pneumothorax. Dictated by: Sergey Talamantes M.D. on 10/03/2018 at 10:51 ECG Data Attestation: I personally reviewed and interpreted this ECG as follows: Interpretation: Sinus rhythm rate 47 GA interval [address] changes no T-wave inversions MDM Narrative Medical decision making narrative: Records reviewed from 2017 she apparently had a cardiac catheterization at [facility] at that time no coronary artery disease. Today she is here more for her chronic ongoing worsening headache. She says she has been doing physical therapy and stretching she feels like it is getting worse seems to be more for neck rather than head. She is afebrile and seems to be moving her neck is with ease. No focal deficits. She has been in previously with the same variety of. Her abdomen is slightly tender however no guarding no rebound nonacute abdomen. Blood work is reassuring. I discussed with her re-evaluation by Neurology possible outpatient MRI of her head and neck. She does not take Tylenol ibuprofen on a regular basis I discussed possibly Tylenol twice a day it will hurt her stomach. She does not like Flexeril and it makes her very drowsy and she can do the things that she needs. At this time I have no reason or indication to do any further imaging. She is only feeling slightly better but no concerning physical exam signs. Discharge Plan Departure Patient Disposition: Home Clinical Impression: Headache Qualifiers: Headache type: unspecified Headache chronicity pattern: acute headache Intractability: not intractable Qualified Code(s): R51 - Headache Discharge Date/Time: 10/03/18 12:01 Interventions: ED Discharge Assessment Last Done: 10/03/18 12:01 Instructions: DI for Headache Activity Restrictions/Additional Instructions: *You have been diagnosed with headache *What to do: It was noted in [facility] emergency department stated that her heart rate did decrease into the low 40s, this may be too low and may be causing some of her headaches. Please discuss changing her medication with her PCP. Also recommend further physical therapy, he may require an outpatient MRI of her head and neck. *Continue to take medications as directed Tylenol 1000 mg twice a day for pain *Follow up with your primary care provider in 2-3 days *Return to ER if you should have passing out, fever, worsening pain or any new, worsening or concerning symptoms Prescriptions: No Action CA PANTOTHENATE/FOLIC ACID/VIT (MULTIVITAMIN) 1 tab PO QDAY Qty: 0 RF: 0 hydrochlorothiazide 12.5 MG tablet 12.5 mg PO QDAY Qty: 0 RF: 0 atenolol 25 mg Tablet 25 mg PO DAILY RF: 0 Referrals: Sunday Giraldo CNP [Primary Care Provider] -
--- NOTE | 2018-10-03 10:09 | ED_ITS ---
HPI - Headache General Chief Complaint: Headache Stated Complaint: Chest,neck and head pain Time Seen by Provider: 10/03/18 09:51 Source: patient Mode of arrival: ambulatory Limitations: no limitations History of Present Illness HPI Narrative: Patient is a 58-year-old female who presents with a variety of complaints. She has headache neck pain ongoing for 1 week no fever. She sometimes hand tingling. Her pain is worse with movement of her neck. She says her pain was quite bad this morning in fact she also had chest pain this morning they are small twinges lasting about once the center of her chest. She sh ortness of breath. he also has some abdominal pain, she thought it was yeast. She also noticed a vaginal laceration she denies any trauma she was seen by her PCP for this. Her biggest complaint today seems to be head and neck problems. MD Complaint: headache Related Data Home Medications Medication Instructions Recorded Confirmed CA PANTOTHENATE/FOLIC ACID/VIT 1 tab PO QDAY #0 01/25/13 07/09/18 (MULTIVITAMIN) hydrochlorothiazide 12.5 mg PO QDAY #0 10/02/17 07/09/18 atenolol 25 mg PO DAILY 07/09/18 07/09/18 Allergies Allergy/AdvReac Type Severity Reaction Status Date / Time ciprofloxacin [CIPROFLOXACIN] Allergy Unknown LEG PAIN Verified 04/17/18 15:38 levofloxacin [LEVOFLOXACIN] AdvReac Mild CAN'T LIFT Verified 04/17/18 15:38 ARMS AFTERWARD Review of Systems Review of Systems ROS Unobtainable: All systems reviewed & are unremarkable except as noted in HPI and below Constitutional Denies chills, Denies fever(s), Reports headache(s), Denies lethargy and Denies weakness Eyes Denies change in vision, Denies eye discharge, Denies irritation and Denies loss of vision ENT Ears, Nose, Mouth, and Throat: Reports headache(s) and Reports neck pain Cardiovascular Reports chest pain, Denies irregular heart rhythm, Denies lightheadedness, Denies palpitations, Denies dyspnea, Denies dyspnea on exertion and Denies orthopnea Respiratory Denies cough, Denies dyspnea, Denies dyspnea on exertion and Denies wheezing Gastrointestinal Gastrointestinal: Reports abdominal pain, Denies change in bowel habits, Denies diarrhea, Denies nausea and Denies vomiting Genitourinary Denies hematuria, Denies flank pain, Denies urinary incontinence and Denies urinary urgency Musculoskeletal Reports as per HPI, Denies back pain, Denies muscle weakness, Reports neck pain, Denies numbness and Reports tingling (Right hand) Neurologic Reports headache(s), Denies loss of vision, Denies numbness, Reports tingling (Right hand) and Denies weakness Endocrine Denies palpitations Allergic/Immunologic Denies wheezing [facility] Medical History Hypertension (Chronic) LVH (left ventricular hypertrophy) (Chronic) Dyspepsia (Chronic) Breast cancer (Acute) Chronic mixed headache syndrome (Chronic) Surgical History History of total mastectomy Status post hysterectomy Family History Father Diabetes mellitus Heart disease Hypertension High cholesterol Grandfather Diabetes mellitus Hypertension High cholesterol Grandmother Diabetes mellitus Mother Diabetes mellitus Heart disease Hypertension Social History Smoking Status: Never smoker Family History Father Diabetes mellitus Heart disease Hypertension High cholesterol Grandfather Diabetes mellitus Hypertension High cholesterol Grandmother Diabetes mellitus Mother Diabetes mellitus Heart disease Hypertension Social History Smoking Status: Never smoker Exam Initial Vital Signs Initial Vital Signs: Vital Signs Temperature 97.7 F 10/03/18 09:40 Pulse Rate 53 L 10/03/18 09:40 Respiratory Rate 16 10/03/18 09:40 Blood Pressure 157/86 H 10/03/18 09:40 Pulse Oximetry 100 10/03/18 09:40 GENERAL: Well-appearing, well-nourished and in no acute distress. HEENT: Head atraumatic,EOMI, pupils reactive, face symmetric, neck is supple no meningeal signs CARDIOVASCULAR: Regular rate and rhythm without murmurs, rubs or gallops. Mastectomy bilateral scars noted RESPIRATORY: Breath sounds equal bilaterally, no wheezes rales or rhonchi. ABDOMEN: Soft, nontender. Normoactive bowel sounds all 4 quadrants. No guarding or rebound. EXTREMITIES: Normal range of motion, no clubbing or edema. Neurovascularly intact NEUROLOGICAL: Alert and oriented x4.Normal gait and speech. Cranial nerves II through XII grossly intact. Good [id number], good [id number], strength equal bilaterally, no dysarthria or aphasia, sensation in tact to soft touch bilaterally, no visual changes, no facial droop SKIN: Warm, dry, no laceration, no petechiae, no rashes or lesions. Scores HEART Score Heart Score history: Slightly Suspicious Heart Score EKG: Normal Heart Score Age: 45-64 years old Heart Score risk factors: 1-2 risk factors Heart Score troponin: < or = to normal limit Heart Score Total: 2 NIH Stroke Scale Level of Conciousness: Alert, keenly responsive Ask month/age: Answers both questions correctly. Open/close eyes, close hand: Performs both tasks correctly Best gaze horizontal: Normal Visual parks: No visual loss Facial palsy: Normal symetrical movement Left arm drift: No drift for full 10 sec Right arm drift: No drift for full 10 sec Left leg drift: No drift for full 10 sec Right leg drift: No drift for full 10 sec Limb ataxia: Absent Sensory on face/arms/legs: Normal, no sensory loss Best language: No aphasia, normal Dysarthria: Normal Extinction or inattention: No abnormality Total NIH Stroke scale score: 0 Course Orders Ordered: ED Orders 10/03/18 10:01 CT head/brain wo con Stat XR chest 1V Stat EKG-12 Lead Stat 10/03/18 10:05 Complete Blood Count AUTO DIFF Stat Comprehensive Metabolic Panel Stat Lipase Stat Troponin & CK Cardiac Panel Stat Urine Microscopic Stat Discontinued Medications Acetaminophen (Tylenol) 975 mg PO NOW ONE Stop: 10/03/18 11:20 Last Admin: 10/03/18 11:29 Dose: 975 mg Sodium Chloride (Normal Saline 0.9%) 1,000 mls @ 150 mls/hr IV CONT ANGELA Last Infusion: 10/03/18 12:02 Dose: 150 mls/hr Admin: 10/03/18 10:22 Dose: 150 mls/hr Ketorolac Tromethamine (Toradol) 30 mg IV NOW ONE Stop: 10/03/18 10:02 Last Admin: 10/03/18 10:23 Dose: 30 mg Vital Signs - 8 hr 10/03/18 09:40 10/03/18 11:00 10/03/18 11:35 Temperature 97.7 F Pulse Rate 53 L 55 L 56 L Respiratory Rate 16 12 Blood Pressure 157/86 H Blood Pressure [Right Arm] 148/66 H Pulse Oximetry 100 100 100 MDM - Headache Lab Data Attestation: I reviewed the patient's lab results. Result diagrams: 10/03/18 10:05 10/03/18 10:05 Lab Results 10/03/18 10/03/18 10/03/18 Range/Units 10:05 10:05 10:05 WBC 3.7 L (4.5-11.0) X10^3/uL RBC 4.64 (4.0-5.2) X10^6/uL Hgb 13.7 (12.0-16.0) g/dL Hct 40.3 (36-46) % MCV 86.8 (80-100) fL MCH 29.6 (26-34) PG MCHC 34.1 (30-36) % RDW 13.1 (11.6-14.8) % Plt Count 202 (150-400) X10^3/uL Neut % (Auto) 60.5 (50-75) % Lymph % (Auto) 28.9 (25-40) % [place] % (Auto) 9.2 (3-14) % Eos % (Auto) 0.8 L (2-4) % Baso % (Auto) 0.6 (0-2) % Neut # (Auto) 2200 (7690-9702) /uL Lymph # (Auto) 1100 (8241-4975) /uL [place] # (Auto) 300 (0-900) /uL Eos # (Auto) 0 (0-450) /uL Baso # (Auto) 0 (0-100) /uL Sodium 138 (137-145) mmol/L Potassium 3.8 (3.4-5.1) mmol/L Chloride 102 (98-107) mmol/L Carbon Dioxide 27 (22-32) mmol/L BUN 18 H (7-17) mg/dL Creatinine 0.70 (0.52-1.04) mg/dL Estimated GFR > 60.0 (>60) mL/min BUN/Creatinine Ratio 25.7 H (6-22) Glucose 117 H (70-100) mg/dL Calcium 9.3 (8.4-10.2) mg/dL Total Bilirubin 0.8 (0.2-1.3) mg/dL AST 30 (14-36) IU/L ALT 29 (9-52) IU/L Alkaline Phosphatase 57 (38-126) U/L Total Creatine Kinase 214 H (30-135) U/L CK-MB (CK-2) 1.81 (<2.37) ng/mL CK-MB (CK-2) Rel Index 0.8 L (1.5-5.0) % Troponin I < 0.012 (0.01-0.034) ng/mL Total Protein 7.2 (6.3-8.2) g/dL Albumin 4.1 (3.5-5.0) g/dL Globulin 3.1 (1.7-4.1) g/dL Albumin/Globulin Ratio 1.3 (1.0-2.8) Lipase 50 (23-300) U/L Urine RBC 0-1/hpf (0-5/HPF) Urine WBC None seen (0-5/HPF) Urine Bacteria None seen (None) Ur Culture Indicated? Cult not indicated Micro UA Comment Microscopic normal Urine Dip Bedside Urine Glucose Negative Bedside Urine Bilirubin - Negative Bedside Urine Ketone - Negative Urine Specific [place] 1.015 Bedside Urine Occult Blood + Bedside Urine pH 6.0 Bedside Urine Protein - Negative Bedside Urine Urobilinogen - Negative Bedside Urine Nitrite - Negative Bedside Urine Leukocytes - Negative Esterase Imaging Data CT scan - head: Radiologist's impression: PROCEDURE: CT HEAD/BRAIN WO CON INDICATIONS: headache on going for 1 week hx ofbreast ca TECHNIQUE: Noncontrast 4.5 mm thick angled axial sections acquired from the foramen magnum to the vertex, with coronal and sagittal reformats. For radiation dose reduction, the following was used: automated exposure control, adjustment of mA and/or kV according to patient size. COMPARISON: [facility], CT, CT HEAD/BRAIN WO CON, 04/17/2018, 15:34. FINDINGS: Image quality: Excellent. CSF spaces: Basal cisterns are patent. No extra-axial fluid collections. Ventricles are normal in size and shape. Brain: No midline shift. No intracranial masses or hemorrhage. Colby-white matter interface is normal. Skull and face: Calvarium and visualized facial bones are intact, without suspicious lesions. Sinuses: Visualized sinuses and mastoids are clear. IMPRESSION: No CT evidence of acute intracranial pathology. Dictated by: Sergey Talamantes M.D. on 10/03/2018 at 10:24 Chest x-ray: Radiologist's impression: PROCEDURE: XR CHEST 1V INDICATIONS: chest pain TECHNIQUE: One view of the chest was acquired. COMPARISON: [facility], , XR CHEST 1V, 04/17/2018, 15:15. FINDINGS: Surgical changes and devices: None. Lungs and pleura: Mild pulmonary vascular congestion is seen. No focal infiltrate. No pleural effusions or pneumothorax. Mediastinum: Mediastinal contours appear normal. Heart size is normal. Bones and chest wall: No suspicious bony lesions. Overlying soft tissues appear unremarkable. IMPRESSION: Mild congestion. No focal infiltrate, pleural effusion or pneumothorax. Dictated by: Sergey Talamantes M.D. on 10/03/2018 at 10:51 ECG Data Attestation: I personally reviewed and interpreted this ECG as follows: Interpretation: Sinus rhythm rate 47 OH interval [address] changes no T-wave inversions MDM Narrative Medical decision making narrative: Records reviewed from 2017 she apparently had a cardiac catheterization at [facility] at that time no coronary artery disease. Today she is here more for her chronic ongoing worsening headache. She says she has been doing physical therapy and stretching she feels like it is getting worse seems to be more for neck rather than head. She is afebrile and seems to be moving her neck is with ease. No focal deficits. She has been in previously with the same variety of. Her abdomen is slightly tender however no guarding no rebound nonacute abdomen. Blood work is reassuring. I discussed with her re-evaluation by Neurology possible outpatient MRI of her head and neck. She does not take Tylenol ibuprofen on a regular basis I discussed possibly Tylenol twice a day it will hurt her stomach. She does not like Flexeril and it makes her very drowsy and she can do the things that she needs. At this time I have no reason or indication to do any further imaging. She is only feeling slightly better but no concerning physical exam signs. Discharge Plan Departure Patient Disposition: Home Clinical Impression: Headache Qualifiers: Headache type: unspecified Headache chronicity pattern: acute headache Intractability: not intractable Qualified Code(s): R51 - Headache Discharge Date/Time: 03/31/19 12:01 Interventions: ED Discharge Assessment Last Done: 10/03/18 12:01 Instructions: DI for Headache Activity Restrictions/Additional Instructions: *You have been diagnosed with headache *What to do: It was noted in [facility] emergency department stated that her heart rate did decrease into the low 40s, this may be too low and may be causing some of her headaches. Please discuss changing her medication with her PCP. Also recommend further physical therapy, he may require an outpatient MRI of her head and neck. *Continue to take medications as directed Tylenol 1000 mg twice a day for pain *Follow up with your primary care provider in 2-3 days *Return to ER if you should have passing out, fever, worsening pain or any new, worsening or concerning symptoms Prescriptions: No Action CA PANTOTHENATE/FOLIC ACID/VIT (MULTIVITAMIN) 1 tab PO QDAY Qty: 0 RF: 0 hydrochlorothiazide 12.5 MG tablet 12.5 mg PO QDAY Qty: 0 RF: 0 atenolol 25 mg Tablet 25 mg PO DAILY RF: 0 Referrals: Sunday Giraldo CNP [Primary Care Provider] -
[2018-10-03 10:12] LABS: Bacteria Urine None Seen; WBC Urine None Seen (0-5/HPF)
[2018-10-03 10:16] LABS: Add Manual Diff / Slide Review NO; Basophils Absolute Auto 0 /uL (0-100); Basophils Percent Auto 0.6 % (0-2); Eosinophils Absolute Auto 0 /uL (0-450); Eosinophils Percent Auto 0.8 % (2-4); Hematocrit 40.3 % (36-46); Hemoglobin 13.7 g/dL (12.0-16.0); Lymphocytes Absolute Auto 1100 /uL (1100-4500); Lymphocytes Percent Auto 28.9 % (25-40); Mean Corpuscular HGB Conc 34.1 % (30-36); Mean Corpuscular Hemoglobin 29.6 PG (26-34); Mean Corpuscular Volume 86.8 fL (80-100); Monocytes Absolute Auto 300 /uL (0-900); Monocytes Percent Auto 9.2 % (3-14); Neutrophils Absolute Auto 2200 /uL (1500-7000); Neutrophils Percent Auto 60.5 % (50-75); Platelet Count 202 X10^3/uL (150-400); Red Blood Cell Count 4.64 X10^6/uL (4.0-5.2); Red Cell Distribution Width 13.1 % (11.6-14.8); White Blood Cell Count 3.7 X10^3/uL (4.5-11.0)
[2018-10-03 10:22] LABS: Culture Indicated Urine Cult Not Indicated; RBC Urine 0-1/HPF (0-5/HPF); Urine Comments Microscopic Normal
[2018-10-03] MEDS: SODIUM CHLORIDE 0.9% 1,000 ML 150 ML IV (10:22)
[2018-10-03 10:23] LABS: Alanine Aminotransferase 29 IU/L (9-52); Albumin 4.1 g/dL (3.5-5.0); Albumin Globulin Ratio 1.3 (1.0-2.8); Alkaline Phosphatase 57 U/L (38-126); Aspartate Aminotransferase 30 IU/L (14-36); BUN Creatinine Ratio 25.7 (6-22); Bilirubin Total 0.8 mg/dL (0.2-1.3); Blood Urea Nitrogen 18 mg/dL (7-17); Calcium 9.3 mg/dL (8.4-10.2); Carbon Dioxide 27 mmol/L (22-32); Chloride 102 mmol/L (98-107); Creatine Kinase 214 U/L (30-135); Estimated Glomerular Filt Rate > 60.0 mL/min (>60); Globulin 3.1 g/dL (1.7-4.1); Glucose 117 mg/dL (70-100); HEMOLYSIS < 15 (0-50); Lipase 50 U/L (23-300); Potassium 3.8 mmol/L (3.4-5.1); Sodium 138 mmol/L (137-145); Total Protein 7.2 g/dL (6.3-8.2)
[2018-10-03] MEDS: KETOROLAC 60 MG/2 ML VIAL 30 MG IV (10:23)
[2018-10-03 10:35] LABS: Troponin I < 0.012 ng/mL (0.01-0.034)
[2018-10-03 10:39] LABS: CKMB % Relative Index 0.8 % (1.5-5.0); Creatine Kinase MB 1.81 ng/mL (<2.37)
[2018-10-03 11:00] VITALS: PULSE 55; O2SAT 100
[2018-10-03] MEDS: ACETAMINOPHEN 325 MG TABLET 975 MG PO (11:29)
[2018-10-03 11:35] VITALS: BP 148/66; PULSE 56; RESP 12; O2SAT 100
== END 2018-10-03 12:01 | disposition home or self-care (01) ==
PROVIDERS: Emergency Provider Emergency Medicine; PCP Registered Nurse Diabetes Educator
DX: R51 Headache (principal); R07.9 Chest pain, unspecified; M54.2 Cervicalgia; R10.9 Unspecified abdominal pain
CPT/HCPCS: 36591; 70450; 71045; 80053; 81003; 81015; 82550; 82553; 83690; 84484; 85025; 93005; 96361; 96374; 99283; 99285; J1885

== ENCOUNTER → 2018-11-18 12:35 | Outpatient (CLI) | payer OTHER, SELFPAY ==
[2018-11-18 12:56] LABS: Add Manual Diff / Slide Review NO; Basophils Absolute Auto 0 /uL (0-100); Basophils Percent Auto 0.7 % (0-2); Eosinophils Absolute Auto 0 /uL (0-450); Eosinophils Percent Auto 1.4 % (2-4); Hemoglobin 14.3 g/dL (12.0-16.0); Lymphocytes Absolute Auto 1100 /uL (1100-4500); Lymphocytes Percent Auto 35.6 % (25-40); Mean Corpuscular Hemoglobin 29.5 PG (26-34); Mean Corpuscular Volume 86.9 fL (80-100); Monocytes Absolute Auto 300 /uL (0-900); Monocytes Percent Auto 9.7 % (3-14); Neutrophils Absolute Auto 1600 /uL (1500-7000); Neutrophils Percent Auto 52.6 % (50-75); Platelet Count 232 X10^3/uL (150-400); Red Blood Cell Count 4.84 X10^6/uL (4.0-5.2); Red Cell Distribution Width 13.2 % (11.6-14.8)
[2018-11-18 13:30] LABS: Erythrocyte Sedimentation Rate 17 MM/HR (0-20)
[2018-11-18 14:06] LABS: Alanine Aminotransferase 32 IU/L (9-52); Albumin 4.7 g/dL (3.5-5.0); Albumin Globulin Ratio 1.3 (1.0-2.8); Alkaline Phosphatase 65 U/L (38-126); Aspartate Aminotransferase 39 IU/L (14-36); BUN Creatinine Ratio 18.8 (6-22); Bilirubin Total 1.2 mg/dL (0.2-1.3); Blood Urea Nitrogen 15 mg/dL (7-17); Calcium 9.8 mg/dL (8.4-10.2); Carbon Dioxide 32 mmol/L (22-32); Chloride 96 mmol/L (98-107); Estimated Glomerular Filt Rate > 60.0 mL/min (>60); Globulin 3.5 g/dL (1.7-4.1); Glucose 108 mg/dL (70-100); HEMOLYSIS < 15 (0-50); Potassium 3.6 mmol/L (3.4-5.1); Sodium 137 mmol/L (137-145); Total Protein 8.2 g/dL (6.3-8.2)
[2018-11-18 14:11] LABS: C-Reactive Protein Quant < 0.5 mg/dL (<1.0)
[2018-11-18 14:34] LABS: Thyroid Stimulating Hormone 0.61 uIU/mL (0.47-4.68)
== END ==
PROVIDERS: PCP Registered Nurse Diabetes Educator; Visit Provider Family Medicine
DX: R51 Headache (principal); C50.919 Malignant neoplasm of unspecified site of unspecified female breast
CPT/HCPCS: 36415; 80053; 84443; 85025; 85651; 86140; 99214

== ENCOUNTER → 2018-11-22 17:34 | Outpatient (CLI) | payer OTHER, SELFPAY ==
--- NOTE | 2018-11-22 17:37 | DI.MRI.S_ITS ---
PROCEDURE: MR HEAD/BRAIN WO CON INDICATIONS: Neck pain/stiffness with posterior headaches and occasional right arm numbness TECHNIQUE: Noncontrast axial T1 spin echo, axial T2 fast spin echo, sagittal and axial FLAIR, coronal T2 fast spin echo, axial gradient echo, axial diffusion and ADC through the brain. COMPARISON: [facility], MR, BRAIN W&WO CONTRAST, 10/19/2017, 18:11. [facility], MR, BRAIN WITH AND WITHOUT CONTRAS, 04/25/2008, 8:12. [facility], CT, CT HEAD/BRAIN WO CON, 10/03/2018, 10:05. [facility], CT, CT HEAD/BRAIN WO CON, 04/17/2018, 15:34. FINDINGS: Image quality: Excellent. CSF Spaces: Basal cisterns are patent. No extra-axial fluid collections. Ventricles are normal in size and shape. Brain: No intracranial masses or hemorrhage. Colby/white matter interface is normal. Brainstem appears normal. Diffusion-weighted images demonstrate no acute ischemic insult. No chronic ischemic insults. Normal intravascular flow voids are present. Skull and face: Calvarium has normal marrow signal. Orbits appear normal. Sinuses: Sinuses and mastoids are clear. IMPRESSION: Normal intracranial study, without an imaging explanation found for the patient's presenting symptoms. No findings of acute or subacute infarction can be seen. Dictated by: Sourav Zazueta M.D. on 11/22/2018 at 17:34 Approved by: Sourav Zazueta M.D. on 11/22/2018 at 17:35
--- NOTE | 2018-11-22 17:37 | DI.MRI.S_ITS ---
PROCEDURE: MR CERVICAL SPINE WO CON INDICATIONS: Neck pain x2 years. Also cephalgia TECHNIQUE: Noncontrast sagittal T1 spin echo and T2 fast spin echo, sagittal STIR, foraminal oblique sagittal T2 fast spin echo, and axial gradient echo or T2 fast spin echo through the cervical spine. COMPARISON: None. FINDINGS: Image quality: Excellent. Alignment and Curvature: Straightening of the normal cervical lordosis. Multilevel degenerative endplate sclerosis and spurring. Diffuse facet arthropathy. Bone Marrow: No evidence of acute fracture Spinal Cord: Visualized spinal cord has normal size and signal. No cerebellar tonsillar herniation. Paraspinous Soft Tissues: No paravertebral masses. Prevertebral soft tissues are normal in thickness. C2-C3: Normal appearance. C3-C4: Bilateral uncovertebral arthropathy and posterior intervening disc osteophyte complex, and facet disease. No definite central canal narrowing. Mild left foraminal stenosis with minimal nerve root compression. No right foraminal stenosis. No interval change C4-C5: Bilateral uncovertebral arthropathy and posterior intervening disc osteophyte complex, and bilateral facet arthropathy. No definite central canal narrowing. Severe right foraminal stenosis with nerve root compression. No left foraminal narrowing. No interval change C5-C6: Bilateral uncovertebral arthropathy and posterior intervening disc osteophyte complex, and bilateral facet arthropathy. Mild central canal narrowing with effacement of the anterior thecal sac and minimal mass effect on the cord. Severe right foraminal stenosis with nerve root compression. Moderate to severe left foraminal narrowing with nerve root compression.. No interval change C6-C7: Bilateral uncovertebral arthropathy and posterior intervening disc osteophyte complex, and bilateral facet disease. Minimal central canal narrowing. Mild right foraminal stenosis with minimal nerve root compression. No definite left foraminal narrowing. No interval change C7-T1: No central canal narrowing. Mild right foraminal stenosis with nerve root compression. No left foraminal stenosis. No interval change IMPRESSION: Straightening of the normal lordotic curvature. Diffuse cervical spondylosis and facet arthropathy. Multilevel bilateral foraminal stenoses as detailed above. Overall, no interval change since 10/19/17 No high-grade central canal narrowing. Dictated by: Josep Sauceda M.D. on 11/23/2018 at 8:45 Approved by: Josep Sauceda M.D. on 11/23/2018 at 8:52
== END ==
PROVIDERS: Visit Provider Family Medicine
DX: M54.2 Cervicalgia (principal); R51 Headache; M47.812 Spondylosis without myelopathy or radiculopathy, cervical region; M48.061 Spinal stenosis, lumbar region without neurogenic claudication; M43.6 Torticollis; R20.0 Anesthesia of skin
CPT/HCPCS: 70551; 72141

== ENCOUNTER 2019-02-26 21:36 | Emergency (ER) | payer OTHER, SELFPAY ==
[2019-02-26 21:44] VITALS: BP 157/90; PULSE 85; RESP 18; TEMP 36.6; O2SAT 100; BMI 24.7
--- NOTE | 2019-02-26 21:51 | DI.RAD.S_ITS ---
PROCEDURE: XR CHEST 1V INDICATIONS: Chest pain TECHNIQUE: One view of the chest was acquired. COMPARISON: [facility], CR, XR CHEST 1V, 10/03/2018, 10:09. FINDINGS: Surgical changes and devices: None. Lungs and pleura: Lungs are clear. No pleural effusions or pneumothorax. Mediastinum: Mediastinal contours appear normal. Heart size is normal. There is mild aortic atherosclerosis. Bones and chest wall: No suspicious bony lesions. Overlying soft tissues appear unremarkable. IMPRESSION: Stable chest. No acute cardiopulmonary process is suspected. Note: The preliminary ED findings and the final radiology report are concordant. Dictated by: Raymundo Chiu M.D. on 02/27/2019 at 6:33 Approved by: Raymundo Chiu M.D. on 02/27/2019 at 6:36
--- NOTE | 2019-02-26 21:56 | ED.CHESTPAIN ---
HPI - Chest Pain General Chief Complaint: Chest Pain Stated Complaint: chest pain right side, right arm and head ache Time Seen by Provider: 02/26/19 21:50 Source: patient Mode of arrival: ambulatory Limitations: no limitations History of Present Illness HPI narrative: Patient is a 58-year-old female here for evaluation of right-sided chest discomfort. She is not currently having any pain. She states that she has had it off and on for the past 24 hours. She states that it starts on the right side of her chest and it feels like it is ?electric ?that moves up and down and a line on the right side of her chest. No shortness of breath. but does not recall whether not it is worse with palpation or breathing or movement. States she has been diagnosed with costochondritis in the past on the left side of her chest however she states this feels somewhat different. Related Data Home Medications Medication Instructions Recorded Confirmed CA PANTOTHENATE/FOLIC ACID/VIT 1 tab PO QDAY #0 01/25/13 11/23/18 (MULTIVITAMIN) hydrochlorothiazide 12.5 mg tablet 25 mg PO QDAY #0 tab 11/18/18 11/23/18 propranolol 60 mg tablet 60 mg PO .qday tab 11/18/18 11/23/18 Allergies Allergy/AdvReac Type Severity Reaction Status Date / Time ciprofloxacin [CIPROFLOXACIN] Allergy Unknown LEG PAIN Verified 02/26/19 21:50 levofloxacin [LEVOFLOXACIN] AdvReac Mild CAN'T LIFT Verified 02/26/19 21:50 ARMS AFTERWARD Review of Systems Constitutional Denies fever(s) ENT Ears, Nose, Mouth, and Throat: Denies vertigo, Denies dizziness and Denies disequilibrium Cardiovascular Reports chest pain and Denies dyspnea Respiratory Denies dyspnea Gastrointestinal Gastrointestinal: Denies abdominal pain, Denies nausea and Denies vomiting Musculoskeletal Denies myalgias and Denies arthralgias Integumentary/Breasts Denies lesions and Denies rash Neurologic Denies vertigo, Denies dizziness and Denies disequilibrium Hematologic/Lymphatic Denies easy bleeding and Denies easy bruising [facility] Medical History Hypertension (Chronic) LVH (left ventricular hypertrophy) (Chronic) Dyspepsia (Chronic) Breast cancer (Acute) Chronic mixed headache syndrome (Chronic) Social History Smoking Status: Never smoker Exam Initial Vital Signs Initial Vital Signs: Vital Signs Temperature 97.8 F 02/26/19 21:44 Pulse Rate 85 02/26/19 21:44 Respiratory Rate 18 02/26/19 21:44 Blood Pressure 157/90 H 02/26/19 21:44 Pulse Oximetry 100 02/26/19 21:44 Const General: cooperative and comfortable Orientation: alert, awake and oriented x3 HENMT Head: normal to inspection and normocephalic Chest Chest: No crepitus and No tenderness Resp Effort & Inspection: normal respiratory effort Auscultation: clear to auscultation bilaterally Cardio Rate: regular rate Rhythm: regular rhythm Skin Lesions: no lesions Rashes: no rashes Neuro General: alert and awake Cognition: normal cognition Motor: muscle tone normal throughout Extrem General: normal to inspection and capillary refill normal Psych Appearance: grossly normal and well kempt Course Orders Ordered: ED Orders 02/26/19 21:49 EKG-12 Lead Stat 02/26/19 21:51 XR chest 1V Stat 02/26/19 22:00 Complete Blood Count AUTO DIFF Stat Comprehensive Metabolic Panel Stat Troponin I Stat Vital Signs - 8 hr 02/26/19 21:44 02/26/19 22:50 Temperature 97.8 F Pulse Rate 85 55 L Respiratory Rate 18 12 Blood Pressure 157/90 H 144/72 H Pulse Oximetry 100 100 MDM - Chest Pain Lab Data Attestation: I reviewed the patient's lab results. Result diagrams: 02/26/19 22:00 02/26/19 22:00 Lab Results 02/26/19 02/26/19 Range/Units 22:00 22:00 WBC 4.3 L (4.5-11.0) X10^3/uL RBC 4.31 (4.0-5.2) X10^6/uL Hgb 12.9 (12.0-16.0) g/dL Hct 37.5 (36-46) % MCV 86.9 (80-100) fL MCH 29.9 (26-34) PG MCHC 34.4 (30-36) % RDW 13.0 (11.6-14.8) % Plt Count 217 (150-400) X10^3/uL Neut % (Auto) 46.9 L (50-75) % Lymph % (Auto) 41.0 H (25-40) % [place] % (Auto) 8.8 (3-14) % Eos % (Auto) 2.2 (2-4) % Baso % (Auto) 1.1 (0-2) % Neut # (Auto) 2000 (2982-6652) /uL Lymph # (Auto) 1800 (2433-0521) /uL [place] # (Auto) 400 (0-900) /uL Eos # (Auto) 100 (0-450) /uL Baso # (Auto) 0 (0-100) /uL Sodium 139 (137-145) mmol/L Potassium 3.6 (3.4-5.1) mmol/L Chloride 101 (98-107) mmol/L Carbon Dioxide 30 (22-32) mmol/L BUN 15 (7-17) mg/dL Creatinine 0.70 (0.52-1.04) mg/dL Estimated GFR > 60.0 (>60) mL/min BUN/Creatinine Ratio 21.4 (6-22) Glucose 90 (70-100) mg/dL Calcium 9.2 (8.4-10.2) mg/dL Total Bilirubin 0.9 (0.2-1.3) mg/dL AST 41 H (14-36) IU/L ALT 30 (9-52) IU/L Alkaline Phosphatase 62 (38-126) U/L Troponin I < 0.012 (0.01-0.034) ng/mL Total Protein 7.3 (6.3-8.2) g/dL Albumin 4.2 (3.5-5.0) g/dL Globulin 3.1 (1.7-4.1) g/dL Albumin/Globulin Ratio 1.4 (1.0-2.8) Imaging Data Chest x-ray: Attestation: I personally reviewed and interpreted this imaging study as follows: My impression: Normal chest x-ray No pneumonia ECG Data Attestation: I personally reviewed and interpreted this ECG as follows: Prior ECG tracings: not available for review Interpretation: Sinus bradycardia Ventricular rate of 58 Left axis deviation QRS LVH No ST T wave changes MDM Narrative Medical decision making narrative: Patient's history and physical exam is not consistent with ACS. Chest x-ray is unremarkable. EKG shows no signs of ST elevation. Troponin is negative. I feel given her history and physical that further workup for cardiac is on warranted here in the emergency department. I do suspect musculoskeletal. I discussed this with the patient. She was given return precautions and follow-up instructions. She expressed understanding and agreement with plan. Discharge Plan Departure Patient Disposition: Home Clinical Impression: Atypical chest pain, Chest wall pain Discharge Date/Time: 02/26/19 22:50 Interventions: ED Discharge Assessment Last Done: 02/26/19 22:50 Instructions: DI for Atypical Chest Pain Activity Restrictions/Additional Instructions: Contact her primary care provider for a follow-up. Return to the emergency department for any new or worsening symptoms Prescriptions: No Action CA PANTOTHENATE/FOLIC ACID/VIT (MULTIVITAMIN) 1 tab PO QDAY Qty: 0 RF: 0 hydrochlorothiazide 12.5 mg tablet 25 mg PO QDAY Qty: 0 RF: 0 propranolol 60 mg tablet 60 mg PO .qday RF: 0
[2019-02-26 22:11] LABS: Add Manual Diff / Slide Review NO; Basophils Absolute Auto 0 /uL (0-100); Basophils Percent Auto 1.1 % (0-2); Eosinophils Absolute Auto 100 /uL (0-450); Eosinophils Percent Auto 2.2 % (2-4); Hematocrit 37.5 % (36-46); Hemoglobin 12.9 g/dL (12.0-16.0); Lymphocytes Absolute Auto 1800 /uL (1100-4500); Mean Corpuscular HGB Conc 34.4 % (30-36); Mean Corpuscular Hemoglobin 29.9 PG (26-34); Mean Corpuscular Volume 86.9 fL (80-100); Monocytes Absolute Auto 400 /uL (0-900); Monocytes Percent Auto 8.8 % (3-14); Neutrophils Absolute Auto 2000 /uL (1500-7000); Neutrophils Percent Auto 46.9 % (50-75); Platelet Count 217 X10^3/uL (150-400); Red Blood Cell Count 4.31 X10^6/uL (4.0-5.2); White Blood Cell Count 4.3 X10^3/uL (4.5-11.0)
[2019-02-26 22:21] LABS: Alanine Aminotransferase 30 IU/L (9-52); Albumin 4.2 g/dL (3.5-5.0); Albumin Globulin Ratio 1.4 (1.0-2.8); Alkaline Phosphatase 62 U/L (38-126); Aspartate Aminotransferase 41 IU/L (14-36); BUN Creatinine Ratio 21.4 (6-22); Bilirubin Total 0.9 mg/dL (0.2-1.3); Blood Urea Nitrogen 15 mg/dL (7-17); Calcium 9.2 mg/dL (8.4-10.2); Carbon Dioxide 30 mmol/L (22-32); Chloride 101 mmol/L (98-107); Estimated Glomerular Filt Rate > 60.0 mL/min (>60); Globulin 3.1 g/dL (1.7-4.1); Glucose 90 mg/dL (70-100); HEMOLYSIS 20 (0-50); Potassium 3.6 mmol/L (3.4-5.1); Sodium 139 mmol/L (137-145); Total Protein 7.3 g/dL (6.3-8.2)
[2019-02-26 22:33] LABS: Troponin I < 0.012 ng/mL (0.01-0.034)
[2019-02-26 22:50] VITALS: BP 144/72; PULSE 55; RESP 12; O2SAT 100
== END 2019-02-26 22:50 | disposition home or self-care (01) ==
PROVIDERS: Emergency Provider Emergency Medicine
DX: R07.89 Other chest pain (principal)
CPT/HCPCS: 36591; 71045; 80053; 84484; 85025; 93005; 99282; 99285

== ENCOUNTER 2019-04-21 20:54 | Emergency (ER) | payer OTHER, SELFPAY ==
[2019-04-21 21:03] VITALS: BP 165/78; PULSE 65; RESP 18; TEMP 36.9; O2SAT 96
--- NOTE | 2019-04-21 21:10 | DI.CT.S_ITS ---
PROCEDURE: CT ANGIO HEAD AND NECK INDICATIONS: severe headache, stroke symptoms down right arm/leg TECHNIQUE: Pre-contrast 4.5 mm thick sections acquired from the foramen magnum to the vertex. After the administration of intravenous contrast, 1 mm thick sections acquired from the aortic arch through the [place]. Post-contrast 4.5 mm thick sections then re-acquired from the foramen magnum to the vertex. 3-dimensional zfygjdo-mggldjpzf-bhmzuzhxhc (MIP) and/or volume rendering reformats were acquired of the central intracranial vasculature and neck separately. COMPARISON: None. FINDINGS: Image quality: Excellent. BRAIN: CSF spaces: Ventricles are normal in size and shape. Basal cisterns are patent. No extra-axial fluid collections. Brain: No midline shift. No intracranial bleeds or masses. [place]-white matter interface appears intact. Skull and face: Calvarium and facial bones appear intact, without suspicious lesions. Orbits appear normal. Sinuses: Sinuses and mastoids are clear. HEAD CT ANGIOGRAPHY: Anterior circulation: Intracranial internal carotid arteries are normal in size and flow. The flow within the paired anterior cerebral arteries is normal and symmetric. The flow within the middle cerebral arteries is normal and symmetric. The anterior communicating artery is seen. No aneurysms are seen. Posterior circulation: Visualized portions of the vertebral arteries demonstrate normal caliber, and join to form a normal appearing basilar artery. Flow within the posterior cerebral arteries is normal and symmetric. No aneurysms are seen. NECK CT ANGIOGRAPHY: Carotid system: The great vessels demonstrate a conventional anatomy as they arise from the aortic arch. The origins of the common carotid arteries appear patent. The common carotid arteries demonstrate normal caliber and courses. The bifurcation regions are both widely patent. The internal carotid arteries demonstrate normal calibers and courses. Posterior circulation: The origins of the vertebral arteries both appear widely patent. The more superior extracranial portions of both vertebral arteries also demonstrate normal courses and calibers. They join to form a normal appearing basilar artery. Soft tissues: Heterogeneous appearance of the thyroid with possible multiple nodules. This could be better assessed with dedicated thyroid ultrasound. Mild bronchiectasis and fibrotic changes present in the visualized left upper lobe. Bones: No suspicious bony lesions. Cervical spondylosis. IMPRESSION: No acute intracranial process. Normal head CTA. No focal ICA stenosis or occlusion. Heterogeneous multinodular appearance of the thyroid. This could be much better assessed with dedicated ultrasound as clinically warranted. Findings concordant with the preliminary study interpretation provided at the time of the exam. Any quantitative measurements of stenosis were performed using NASCET criteria. Dictated by: Josep Sauceda M.D. on 04/22/2019 at 8:17 Approved by: Josep Sauceda M.D. on 04/22/2019 at 8:25
[2019-04-21 21:21] LABS: Add Manual Diff / Slide Review NO; Basophils Absolute Auto 0 /uL (0-100); Basophils Percent Auto 0.7 % (0-2); Eosinophils Absolute Auto 100 /uL (0-450); Eosinophils Percent Auto 2.1 % (2-4); Hematocrit 38.1 % (36-46); Lymphocytes Absolute Auto 1800 /uL (1100-4500); Lymphocytes Percent Auto 33.5 % (25-40); Mean Corpuscular Hemoglobin 29.4 PG (26-34); Mean Corpuscular Volume 86.6 fL (80-100); Monocytes Absolute Auto 600 /uL (0-900); Monocytes Percent Auto 10.2 % (3-14); Neutrophils Absolute Auto 2900 /uL (1500-7000); Neutrophils Percent Auto 53.5 % (50-75); Platelet Count 213 X10^3/uL (150-400); Red Cell Distribution Width 13.1 % (11.6-14.8); White Blood Cell Count 5.4 X10^3/uL (4.5-11.0)
[2019-04-21 21:28] LABS: INR 1.1 (0.9-1.3); Prothrombin Time 12.2 SECONDS (10.1-12.7)
[2019-04-21] MEDS: SODIUM CHLORIDE 0.9% 1,000 ML 150 ML IV (21:30)
[2019-04-21 21:31] LABS: PTT Partial Thromboplastin Tim 30 SECONDS (26.4-36.2)
[2019-04-21 21:32] LABS: BUN Creatinine Ratio 27.1 (6-22); Blood Urea Nitrogen 19 mg/dL (7-17); Calcium 9.2 mg/dL (8.4-10.2); Carbon Dioxide 27 mmol/L (22-32); Chloride 105 mmol/L (98-107); Estimated Glomerular Filt Rate > 60.0 mL/min (>60); Glucose 108 mg/dL (70-100); HEMOLYSIS < 15 (0-50); Potassium 4.1 mmol/L (3.4-5.1); Sodium 138 mmol/L (137-145)
--- NOTE | 2019-04-21 22:05 | ED_ITS ---
HPI - Headache General Chief Complaint: Headache Stated Complaint: pain in back of head, right sided numbness Time Seen by Provider: 04/21/19 20:57 Source: patient Mode of arrival: Ambulatory Limitations: no limitations History of Present Illness HPI Narrative: 59F non smoker with history of HTN presents with the chief complaint of 2 months of gradually worsening occipital headache and R sided neck pain. She has seen her primary care provider on multiple occasions as well as chiropractic and physical therapy and is having no improvement and if anything worsening of symptoms. She presents today because she not only is having occipital headache with occasional blurred vision and right-sided numbness of her head but now sharp and stabbing pain down her right arm and leg which had resolved prior to her arrival. She denies any injury but has had chiropractic evaluation of her neck. She states that these episodes seem to have no provocation or palliation. She takes no blood thinners. She states that though her blood pressure is a bit up today that there does not seem to be any correlation between blood pressures and her symptoms as last week she was having the symptoms in her pressure was in the 120s. She did have a quick lip of chest pain much earlier in the day but that was very brief. Complaint: headache Onset (ago): month(s) Onset description: gradual Location: occipital Severity: moderate Quality: throbbing Relieving factors: nothing Exacerbating factors: none Associated symptoms: other Other symptoms: chest pain Treatments prior to arrival: none Related Data Home Medications Medication Instructions Recorded Confirmed CA PANTOTHENATE/FOLIC ACID/VIT 1 tab PO QDAY #0 01/25/13 11/23/18 (MULTIVITAMIN) hydrochlorothiazide 12.5 mg tablet 25 mg PO QDAY #0 tab 11/18/18 11/23/18 propranolol 60 mg tablet 60 mg PO .qday tab 11/18/18 11/23/18 Allergies Allergy/AdvReac Type Severity Reaction Status Date / Time ciprofloxacin [CIPROFLOXACIN] Allergy Unknown LEG PAIN Verified 02/26/19 21:50 levofloxacin [LEVOFLOXACIN] AdvReac Mild CAN'T LIFT Verified 02/26/19 21:50 ARMS AFTERWARD Review of Systems Constitutional Constitutional: Denies chills, Denies fatigue, Denies fever(s), Denies frequent falls, Reports headache(s), Denies lethargy and Denies weakness Eyes Eyes: Denies change in vision, Denies eye discharge, Denies irritation and Denies loss of vision ENT Ears, Nose, Mouth, and Throat: Denies change in voice, Denies dizziness, Reports headache(s), Denies neck pain, Denies sore throat and Denies throat swelling Cardiovascular Cardiovascular: Denies chest pain, Denies irregular heart rhythm, Denies lightheadedness, Denies palpitations, Denies dyspnea, Denies dyspnea on exertion and Denies orthopnea Respiratory Respiratory: Denies cough, Denies dyspnea, Denies dyspnea on exertion and Denies wheezing Gastrointestinal Gastrointestinal: Denies abdominal pain, Denies change in bowel habits, Denies diarrhea, Denies nausea and Denies vomiting Genitourinary Genitourinary: Denies hematuria, Denies flank pain, Denies urinary incontinence and Denies urinary urgency Musculoskeletal Musculoskeletal: Denies back pain, Denies muscle weakness, Denies neck pain, Denies numbness and Denies tingling Comments: Sharp stabbing pain down right arm and leg Integumentary/Breasts Skin/Breast: Denies pruritus, Denies erythema, Denies rash and Denies wounds Neurologic Neurologic: Denies behavioral changes, Denies confusion, Denies dizziness, Denies frequent falls, Reports headache(s), Denies loss of vision, Denies numbness, Denies tingling and Denies weakness Psychiatric Psychiatric: Denies anxiety, Denies behavioral changes, Denies confusion, Denies depression, Denies homicidal ideation and Denies suicidal ideation Endocrine Endocrine: Denies fatigue, Denies flushing and Denies palpitations Hematologic/Lymphatic Hematologic/Lymphatic: Denies easy bruising Allergic/Immunologic Allergic/Immunologic: Denies urticaria, Denies throat swelling and Denies wheezing Patient History Medical History Breast cancer (Acute) Chronic mixed headache syndrome (Chronic) Dyspepsia (Chronic) Hypertension (Chronic) LVH (left ventricular hypertrophy) (Chronic) Surgical History History of total mastectomy Status post hysterectomy Family History Father Diabetes mellitus Heart disease Hypertension High cholesterol Grandfather Diabetes mellitus Hypertension High cholesterol Grandmother Diabetes mellitus Mother Diabetes mellitus Heart disease Hypertension Social History Smoking Status: Never smoker Family History Father Diabetes mellitus Heart disease Hypertension High cholesterol Grandfather Diabetes mellitus Hypertension High cholesterol Grandmother Diabetes mellitus Mother Diabetes mellitus Heart disease Hypertension Social History Smoking Status: Never smoker alcohol intake frequency: 0-2 drinks per day Substance Use Type: does not use Exam Narrative Exam Narrative: GENERAL: [59] year old patient appears stated age. Well- nourished, well-developed patient, in mild distress. HEAD: Atraumatic. Normocephalic. EYES: Pupils equal round and reactive. Extraocular motions intact. No scleral icterus. No injection or drainage. ENT: Nose without bleeding, purulent drainage. Throat without erythema, tonsillar hypertrophy or exudate. Airway patent. NECK: Trachea midline. Non tender. No change with axial load CARDIOVASCULAR: Regular rate and rhythm without murmurs, gallops, or rubs. RESPIRATORY: Clear to auscultation. Breath sounds equal bilaterally. No wheezes, rales, or rhonchi. GASTROINTESTINAL: Abdomen soft, non-tender, nondistended. EXTREMITIES: No edema or joint tenderness. BACK: Nontender without deformity or crepitance. No flank tenderness. NEURO: AOx3. SKIN: No rash or erythema of visible areas NIH Stroke Scale 1a. LOC: Patient is alert and keenly responsive (0) 1b. LOC Questions: Patient answers both LOC questions accurately (0) 1c. LOC Commands: Patient performs both tasks correctly (0) 2. Best Gaze: Normal (0) 3. Visual: No visual loss (0) 4. Facial palsy: Normal symmetrical movements (0) 5. Motor arm: No drift (0) 6. Motor leg: No drift (0) 7. Limb ataxia: Absent (0) 8. Sensory: Normal (0) 9. Best language: No aphasia; normal (0) 10. Dysarthria: Normal (0) 11. Extinction and inattention: No abnormality (0) NIHSS: 0 Initial Vital Signs Initial Vital Signs: Vital Signs Temperature 98.5 F 04/21/19 21:03 Pulse Rate 65 04/21/19 21:03 Respiratory Rate 18 04/21/19 21:03 Blood Pressure 165/78 H 04/21/19 21:03 Pulse Oximetry 96 04/21/19 21:03 Course Orders Ordered: ED Orders 04/21/19 21:09 EKG-12 Lead Stat 04/21/19 21:10 CT angio head and neck Stat 04/21/19 21:12 Basic Metabolic Panel Stat Complete Blood Count AUTO DIFF Stat Partial Thromboplastin Time Stat Prothrombin Time INR Stat Urine Drug Screen, Rapid Stat Sodium Chloride (Normal Saline 0.9%) 1,000 mls @ 150 mls/hr IV CONT ANGELA Last Admin: 04/21/19 21:30 Dose: 150 mls/hr Documented by: KBROTEM Reevaluation(s) Reevaluation #1: Given combination of pain and neurologic symptoms which travels dissection is considered hence the CTA of head and neck. She has been having these symptoms off and on for quite some time. She has seen various specialists and claims to have had unremarkable MRIs of the head and neck as well. Vital Signs Vital signs: Vital Signs - 8 hr 04/21/19 21:03 Temperature 98.5 F Pulse Rate 65 Respiratory Rate 18 Blood Pressure 165/78 H Pulse Oximetry 96 MDM - Headache Lab Data Result diagrams: 04/21/19 21:12 04/21/19 21:12 Labs: Lab Results 04/21/19 04/21/19 04/21/19 Range/Units 21:12 21:12 21:12 WBC 5.4 (4.5-11.0) X10^3/uL RBC 4.40 (4.0-5.2) X10^6/uL Hgb 13.0 (12.0-16.0) g/dL Hct 38.1 (36-46) % MCV 86.6 (80-100) fL MCH 29.4 (26-34) PG MCHC 34.0 (30-36) % RDW 13.1 (11.6-14.8) % Plt Count 213 (150-400) X10^3/uL Neut % (Auto) 53.5 (50-75) % Lymph % (Auto) 33.5 (25-40) % [place] % (Auto) 10.2 (3-14) % Eos % (Auto) 2.1 (2-4) % Baso % (Auto) 0.7 (0-2) % Neut # (Auto) 2900 (6572-5339) /uL Lymph # (Auto) 1800 (2058-6790) /uL [place] # (Auto) 600 (0-900) /uL Eos # (Auto) 100 (0-450) /uL Baso # (Auto) 0 (0-100) /uL PT 12.2 (10.1-12.7) SECONDS INR 1.1 (0.9-1.3) APTT 30 D (26.4-36.2) SECONDS Sodium 138 (137-145) mmol/L Potassium 4.1 (3.4-5.1) mmol/L Chloride 105 (98-107) mmol/L Carbon Dioxide 27 (22-32) mmol/L BUN 19 H (7-17) mg/dL Creatinine 0.70 (0.52-1.04) mg/dL Estimated GFR > 60.0 (>60) mL/min BUN/Creatinine Ratio 27.1 H (6-22) Glucose 108 H (70-100) mg/dL Calcium 9.2 (8.4-10.2) mg/dL Imaging Data CTA Head/Neck: My impression: Radiologist's impression: No acute findings MDM Narrative Medical decision making narrative: 59-year-old female with chronic history of atypical type headaches occasionally with neurologic symptoms. 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 No significant findings found. Physical exam very reassuring. She has close follow-up scheduled, physical therapy is being lined up. She has an existing relationship with a local headache clinic and has even seen our chronic Pain Specialist. For what is worse she states that she never had any these symptoms prior to the chemotherapy to treat her breast cancer, whether there is any cause allergy is unclear but worth considering. Furthermore she has been evaluated for Lyme disease which was unremarkable. She has been given extensive return precautions and had questions answered to her apparent satisfaction. Discharge Plan Departure Patient Disposition: Home Clinical Impression: Cephalgia Qualifiers: Headache type: unspecified Headache chronicity pattern: chronic headache Intractability: not intractable Qualified Code(s): R51 - Headache Instructions: DI for Headache Activity Restrictions/Additional Instructions: *You have been diagnosed with [acute on chronic headache] *What to do: *Take medications as directed *Follow up with your primary care provider in 2-3 days, call for an appointment. Let them know you were seen in the Emergency Department and that we ask that you be seen in follow up *Return to ER if you should have any new, worsening or concerning symptoms Prescriptions: No Action CA PANTOTHENATE/FOLIC ACID/VIT (MULTIVITAMIN) 1 tab PO QDAY Qty: 0 RF: 0 hydrochlorothiazide 12.5 mg tablet 25 mg PO QDAY Qty: 0 RF: 0 propranolol 60 mg tablet 60 mg PO .qday RF: 0
[2019-04-21 23:18] VITALS: BP 130/74; PULSE 75; RESP 15; O2SAT 96
== END 2019-04-21 23:19 | disposition home or self-care (01) ==
PROVIDERS: Emergency Provider Emergency Medicine
DX: R51 Headache (principal)
CPT/HCPCS: 36415; 70496; 70498; 80048; 85025; 85610; 85730; 96360; 96361; 99283; 99284; Q9967

== ENCOUNTER → 2019-07-13 15:54 | Outpatient (CLI) | payer OTHER, SELFPAY ==
--- NOTE | 2019-07-13 | DI.MRI.S_ITS ---
PROCEDURE: MR LUMBAR SPINE WO CON INDICATIONS: radiculopathy, lumbar region TECHNIQUE: Noncontrast sagittal T1 spin echo and T2 fast echo, sagittal STIR, axial T1 and T2 fast spin echo through the lumbar spine. In cases with scoliosis, additional coronal T2 fast spin echo may be performed. COMPARISON: [facility] [place], CR, SPINE LUMB 6+VW, 05/19/2016, 9:45. [facility], CR, XR LUMBAR SPINAL PUNCTURE DIAGNOSTIC, 05/13/2018, 11:47. FINDINGS: Image quality: Excellent. Alignment and Curvature: 4 lumbar type vertebral bodies are present by plain film. There is normal bony alignment. Bone Marrow: Marrow is of normal overall signal. No acute vertebral body compression fractures. Minimal reactive signal within the endplates adjacent to the 1 L2 and L2-L3 intervertebral discs. Spinal Cord: Conus medullaris terminates at the mid L1 level. Visualized cord demonstrates normal signal and size. Paraspinous Soft Tissues: No paravertebral masses. T12-L1: Normal appearance. L1-L2: Mild disc height loss and desiccation. Mild diffuse disc bulge. Mild canal stenosis. Mild bilateral foraminal stenosis. L2-L3: Mild disc height loss and desiccation. Mild diffuse disc bulge. Mild facet and ligament flavum hypertrophy. Mild canal stenosis. Mild bilateral foraminal stenosis. L3-L4: Mild disc desiccation. Mild diffuse disc bulge. Moderate facet and ligamentum flavum hypertrophy. Mild canal stenosis. Mild bilateral foraminal stenosis. L4-S1: Mild bilateral facet hypertrophy. No significant canal stenosis. Mild bilateral foraminal stenosis. IMPRESSION: 1. Atypical numbering system with 4 lumbar type vertebral bodies. 2. Multilevel degenerative disc and facet disease, causing mild canal and foraminal stenoses as described above. No neural impingement. Dictated by: Bear Luther M.D. on 07/13/2019 at 16:51 Approved by: Bear Luther M.D. on 07/13/2019 at 16:54
== END ==
PROVIDERS: Visit Provider Physical Medicine & Rehabilitation
DX: M51.16 Intervertebral disc disorders with radiculopathy, lumbar region (principal); M48.061 Spinal stenosis, lumbar region without neurogenic claudication
CPT/HCPCS: 72148

== ENCOUNTER 2020-06-16 15:19 | Emergency (ER) | payer OTHER, SELFPAY ==
[2020-06-16] VITALS (7 sets, daily range): BP systolic 128–159; BP diastolic 65–86; PULSE 58–82; RESP 16–18; TEMP 36.8; O2SAT 98–100; BMI 24.7
--- NOTE | 2020-06-16 15:33 | DI.RAD.S_ITS ---
PROCEDURE: XR CHEST 1V INDICATIONS: chest pain TECHNIQUE: One view of the chest was acquired. COMPARISON: [facility], CT, CT KUB, 06/16/2019, 19:35. [facility], CT, CT ANGIO HEAD AND NECK, 04/21/2019, 21:38. [facility], CR, XR CHEST 1V, 02/26/2019, 22:04. [facility], CR, XR CHEST 1V, 10/03/2018, 10:09. FINDINGS: Surgical changes and devices: None. Lungs and pleura: Lungs are clear. No pleural effusions or pneumothorax. Mediastinum: Mediastinal contours appear normal. Heart size is normal. Bones and chest wall: No suspicious bony lesions. Overlying soft tissues appear unremarkable. IMPRESSION: No acute cardiopulmonary abnormality. Dictated by: Julio Salamanca M.D. on 06/16/2020 at 15:04 Approved by: Julio Salamanca M.D. on 06/16/2020 at 15:06
[2020-06-16 15:51] LABS: INR 1.1 (0.9-1.3); Prothrombin Time 12.4 SECONDS (10.1-12.7)
[2020-06-16 15:54] LABS: Alanine Aminotransferase 21 IU/L (<35); Albumin 4.4 g/dL (3.5-5.0); Albumin Globulin Ratio 1.2 (1.0-2.8); Alkaline Phosphatase 65 U/L (38-126); Aspartate Aminotransferase 30 IU/L (14-36); BUN Creatinine Ratio 28.6 (6-22); Bilirubin Total 0.9 mg/dL (0.2-1.3); Blood Urea Nitrogen 18 mg/dL (7-17); Calcium 9.2 mg/dL (8.4-10.2); Carbon Dioxide 31 mmol/L (22-32); Chloride 101 mmol/L (98-107); Creatine Kinase 176 U/L (30-135); Estimated Glomerular Filt Rate > 60.0 mL/min (>60); Globulin 3.6 g/dL (1.7-4.1); Glucose 122 mg/dL (70-100); HEMOLYSIS < 15 (0-50); Lipase 78 U/L (23-300); PTT Partial Thromboplastin Tim 29 SECONDS (26.4-36.2); Potassium 3.7 mmol/L (3.4-5.1); Sodium 137 mmol/L (137-145)
[2020-06-16 16:06] LABS: Troponin I < 0.012 ng/mL (0.01-0.034)
[2020-06-16 16:09] LABS: CKMB % Relative Index 0.8 % (1.5-5.0); Creatine Kinase MB 1.44 ng/mL (<2.37)
[2020-06-16 16:12] LABS: Add Manual Diff / Slide Review NO; Basophils Absolute Auto 100 /uL (0-100); Basophils Percent Auto 1.3 % (0-2); Eosinophils Absolute Auto 100 /uL (0-450); Eosinophils Percent Auto 1.3 % (2-4); Hemoglobin 13.9 g/dL (12.0-16.0); Lymphocytes Absolute Auto 1500 /uL (1100-4500); Lymphocytes Percent Auto 32.8 % (25-40); Mean Corpuscular HGB Conc 33.8 % (30-36); Mean Corpuscular Hemoglobin 29.5 PG (26-34); Mean Corpuscular Volume 87.4 fL (80-100); Monocytes Absolute Auto 400 /uL (0-900); Monocytes Percent Auto 8.2 % (3-14); Neutrophils Absolute Auto 2600 /uL (1500-7000); Neutrophils Percent Auto 56.4 % (50-75); Platelet Count 236 X10^3/uL (150-400); Red Blood Cell Count 4.69 X10^6/uL (4.0-5.2); White Blood Cell Count 4.7 X10^3/uL (4.5-11.0)
[2020-06-16 16:22] LABS: Bacteria Urine None Seen; WBC Urine None Seen (0-5/HPF)
--- NOTE | 2020-06-16 16:29 | ED_ITS ---
HPI - General Adult General Chief complaint: Hypertension Stated complaint: states high blood pressure,headache,CP,arm pain Time Seen by Provider: 06/16/20 16:27 Source: patient Mode of arrival: Ambulatory Limitations: no limitations History of Present Illness HPI narrative: 60-year-old woman with a history of chronic headache for the last year and intermittently chronic right arm pain both of which she has been seen in the emergency room for within the last number of months. She notes that she has had elevated blood pressures and 210/101 and 193/101 range over the last couple of days. She is wondering if headaches might be causing the blood pressure or the elevated blood pressure might be causing headaches. She has also noticed some bilateral calf pain and spasm is wondering if the hydrochlorothiazide that she takes for her blood pressure might be causing some electrolyte abnormalities. Related Data Home Medications Medication Instructions Recorded Confirmed CA PANTOTHENATE/FOLIC ACID/VIT 1 tab PO QDAY #0 01/25/13 01/05/20 (MULTIVITAMIN) hydrochlorothiazide 12.5 mg tablet 25 mg PO QDAY #0 tab 11/18/18 01/05/20 Previous Rx's Medication Instructions Recorded atenolol 25 mg PO DAILY #30 tab 06/16/20 Allergies Allergy/AdvReac Type Severity Reaction Status Date / Time ciprofloxacin [CIPROFLOXACIN] Allergy Unknown LEG PAIN Verified 06/16/20 15:28 levofloxacin [LEVOFLOXACIN] AdvReac Mild CAN'T LIFT Verified 06/16/20 15:28 ARMS AFTERWARD Review of Systems Review of Systems Narrative: Pertinent positive and negative findings as per HPI Remainder of review of systems is otherwise unremarkable for Constitutional: Fevers, chills, weakness ENT: No sore throat, ear pain CV: Chest pain, palpitations, dyspnea on exertion Respiratory: Cough, wheeze, dyspnea GI: Nausea, vomiting, diarrhea, change in bowel habits, black or bloody stools : Dysuria, hematuria, flank pain MS: Muscle weakness, numbness, joint swelling or warmth Skin: Rashes, nonhealing lesions Neuro: Syncope, dizziness, tingling Patient History Medical History (Updated 06/16/20 @ 17:44 by Tamera Guzman MD) Breast cancer Chronic mixed headache syndrome Dyspepsia Hypertension LVH (left ventricular hypertrophy) Surgical History History of total mastectomy Status post hysterectomy Family History Father Diabetes mellitus Heart disease Hypertension High cholesterol Grandfather Diabetes mellitus Hypertension High cholesterol Grandmother Diabetes mellitus Mother Diabetes mellitus Heart disease Hypertension Social History Smoking Status: Never smoker Smoking Status: Never smoker alcohol intake frequency: holidays/special occasions only Substance Use Type: does not use Exam Narrative Exam Narrative: General: Healthy appearing, in no acute distress. Able to give a complete and coherent history. Well-nourished well-developed HEENT: Moist mucous membranes, normal sclera with reactive pupils, Neck: No JVD, supple Respiratory: Lungs are clear to auscultation, no wheezing no rales no rhonchi. Full and symmetrical air movement Cardiac: Regular rate and rhythm, 2/6 systolic ejection murmur without bruit Abdomen: Soft nontender good bowel tones, no flank pain Skin: Warm and dry, no rashes Neurologic: Grossly neurologically intact with no obvious asymmetries or abnormalities Extremities: No trauma, well perfused Psych: Cooperative, appropriate insight and affect Initial Vital Signs Initial Vital Signs: Vital Signs Temperature 98.3 F 06/16/20 15:27 Pulse Rate 82 06/16/20 15:27 Blood Pressure 155/81 H 06/16/20 15:27 Pulse Oximetry 98 06/16/20 15:27 Course Orders Ordered: ED Orders 06/16/20 15:32 Complete Blood Count AUTO DIFF Stat Comprehensive Metabolic Panel Stat Lipase Stat Partial Thromboplastin Time Stat Prothrombin Time INR Stat Troponin & CK Cardiac Panel Stat 06/16/20 15:33 XR chest 1V Stat EKG-12 Lead Stat 06/16/20 15:35 Urine Microscopic Stat Discontinued Medications Atenolol (Atenolol 25 Mg Tablet) 25 mg PO NOW ONE Stop: 06/16/20 17:00 Last Admin: 06/16/20 17:25 Dose: 25 mg Documented by: Vital Signs Vital signs: Vital Signs - 8 hr 06/16/20 15:27 06/16/20 15:30 06/16/20 16:00 Temperature 98.3 F Pulse Rate 82 80 67 Respiratory Rate 17 Blood Pressure 155/81 H 159/86 H 139/67 Pulse Oximetry 98 99 100 06/16/20 16:30 06/16/20 17:00 06/16/20 17:30 Temperature Pulse Rate 63 67 65 Respiratory Rate 16 18 16 Blood Pressure 147/68 H 137/69 128/66 Pulse Oximetry 99 99 99 Medical Decision Making Medical Records Medical records reviewed: Yes I reviewed the patient's medical records. Lab Data Lab results reviewed: Yes I reviewed the patient's lab results. Result diagrams: 06/16/20 15:32 06/16/20 15:32 Labs: Lab Results 06/16/20 06/16/20 06/16/20 Range/Units 15:32 15:32 15:32 WBC 4.7 (4.5-11.0) X10^3/uL RBC 4.69 (4.0-5.2) X10^6/uL Hgb 13.9 (12.0-16.0) g/dL Hct 41.0 (36-46) % MCV 87.4 (80-100) fL MCH 29.5 (26-34) PG MCHC 33.8 (30-36) % RDW 13.0 (11.6-14.8) % Plt Count 236 (150-400) X10^3/uL Neut % (Auto) 56.4 (50-75) % Lymph % (Auto) 32.8 (25-40) % [place] % (Auto) 8.2 (3-14) % Eos % (Auto) 1.3 L (2-4) % Baso % (Auto) 1.3 (0-2) % Neut # (Auto) 2600 (8609-9454) /uL Lymph # (Auto) 1500 (3101-4531) /uL [place] # (Auto) 400 (0-900) /uL Eos # (Auto) 100 (0-450) /uL Baso # (Auto) 100 (0-100) /uL PT 12.4 (10.1-12.7) SECONDS INR 1.1 (0.9-1.3) APTT 29 (26.4-36.2) SECONDS Sodium 137 (137-145) mmol/L Potassium 3.7 (3.4-5.1) mmol/L Chloride 101 (98-107) mmol/L Carbon Dioxide 31 (22-32) mmol/L BUN 18 H (7-17) mg/dL Creatinine 0.63 (0.52-1.04) mg/dL Estimated GFR > 60.0 (>60) mL/min BUN/Creatinine Ratio 28.6 H (6-22) Glucose 122 H (70-100) mg/dL Calcium 9.2 (8.4-10.2) mg/dL Total Bilirubin 0.9 (0.2-1.3) mg/dL AST 30 (14-36) IU/L ALT 21 (<35) IU/L Alkaline Phosphatase 65 (38-126) U/L Total Creatine Kinase 176 H (30-135) U/L CK-MB (CK-2) 1.44 (<2.37) ng/mL CK-MB (CK-2) Rel Index 0.8 L (1.5-5.0) % Troponin I < 0.012 (0.01-0.034) ng/mL Total Protein 8.0 (6.3-8.2) g/dL Albumin 4.4 (3.5-5.0) g/dL Globulin 3.6 (1.7-4.1) g/dL Albumin/Globulin Ratio 1.2 (1.0-2.8) Lipase 78 (23-300) U/L Urine RBC (0-5/HPF) Urine WBC (0-5/HPF) Urine Bacteria (None) Ur Culture Indicated? 06/16/20 Range/Units 15:35 WBC (4.5-11.0) X10^3/uL RBC (4.0-5.2) X10^6/uL Hgb (12.0-16.0) g/dL Hct (36-46) % MCV (80-100) fL MCH (26-34) PG MCHC (30-36) % RDW (11.6-14.8) % Plt Count (150-400) X10^3/uL Neut % (Auto) (50-75) % Lymph % (Auto) (25-40) % [place] % (Auto) (3-14) % Eos % (Auto) (2-4) % Baso % (Auto) (0-2) % Neut # (Auto) (6889-6702) /uL Lymph # (Auto) (3526-4385) /uL [place] # (Auto) (0-900) /uL Eos # (Auto) (0-450) /uL Baso # (Auto) (0-100) /uL PT (10.1-12.7) SECONDS INR (0.9-1.3) APTT (26.4-36.2) SECONDS Sodium (137-145) mmol/L Potassium (3.4-5.1) mmol/L Chloride (98-107) mmol/L Carbon Dioxide (22-32) mmol/L BUN (7-17) mg/dL Creatinine (0.52-1.04) mg/dL Estimated GFR (>60) mL/min BUN/Creatinine Ratio (6-22) Glucose (70-100) mg/dL Calcium (8.4-10.2) mg/dL Total Bilirubin (0.2-1.3) mg/dL AST (14-36) IU/L ALT (<35) IU/L Alkaline Phosphatase (38-126) U/L Total Creatine Kinase (30-135) U/L CK-MB (CK-2) (<2.37) ng/mL CK-MB (CK-2) Rel Index (1.5-5.0) % Troponin I (0.01-0.034) ng/mL Total Protein (6.3-8.2) g/dL Albumin (3.5-5.0) g/dL Globulin (1.7-4.1) g/dL Albumin/Globulin Ratio (1.0-2.8) Lipase (23-300) U/L Urine RBC 1-5/hpf (0-5/HPF) Urine WBC None seen (0-5/HPF) Urine Bacteria None seen (None) Ur Culture Indicated? Cult not indicated Urine Dip Bedside Urine Glucose Negative Bedside Urine Bilirubin - Negative Bedside Urine Ketone - Negative Urine Specific [place] 1.015 Bedside Urine Occult Blood + Bedside Urine pH 6 Bedside Urine Protein - Negative Bedside Urine Urobilinogen - Negative Bedside Urine Nitrite - Negative Bedside Urine Leukocytes - Negative Esterase Point of care testing: Urine Dip Bedside Urine Glucose Negative Bedside Urine Bilirubin - Negative Bedside Urine Ketone - Negative Urine Specific [place] 1.015 Bedside Urine Occult Blood + Bedside Urine pH 6 Bedside Urine Protein - Negative Bedside Urine Urobilinogen - Negative Bedside Urine Nitrite - Negative Bedside Urine Leukocytes - Negative Esterase ECG Data Attestation: I personally reviewed and interpreted this ECG as follows: Interpretation: Sinus rhythm at a rate of 68 Left ventricular hypertrophy with J-point elevation Normal axis No acute ischemic changes Pacemaker function: pacemaker associated dysrhythmia MDM Narrative Medical decision making narrative: 60-year-old woman with chronic headache chronic right shoulder pain and now 2 days of elevated blood pressures. She is on hydrochlorothiazide for blood pressure and has not been on any headache prophylactic medications. Will suggest is to start 25 mg of atenolol continue the 25 mg of hydrochlorothiazide. Keep track of blood pressures, reassured her that she does not need to respond to either high or low blood pressures if she is asymptomatic, and have her keep her follow-up appointment with her primary care physician in the next week. Will have her review her chronic issues including the shoulder pain headache and hypertension at that time. She is safe for home discharge Discharge Plan Departure Patient Disposition: Home Clinical Impression: Hypertension Qualifiers: Hypertension type: essential hypertension Qualified Code(s): I10 - Essential (primary) hypertension Chronic headache Qualifiers: Headache type: unspecified Intractability: not intractable Qualified Code(s): R51.9 - Headache, unspecified Instructions: DI for High Blood Pressure Activity Restrictions/Additional Instructions: Thank you for coming in today Your blood work was reassuring. There is no evidence of an acute coronary syndrome or heart attack like problem today. I am going suggest that we add a blood pressure called atenolol to your blood pressure and headache regimen. Not only does it help lower blood pressure but if used chronically can help reduce chronic daily headache symptoms as well. 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 You will need to check your blood pressures regularly and do keep your follow-up appointment next week with your regular doctor to review this medication and see if continuing it is going to be appropriate for you If you have new or concerning symptoms, please feel free to return to the [facility] department. I hope this makes a difference with her headaches Prescriptions: New atenolol 25 mg tablet 25 mg PO DAILY Qty: 30 RF: 0 No Action CA PANTOTHENATE/FOLIC ACID/VIT (MULTIVITAMIN) 1 tab PO QDAY Qty: 0 RF: 0 hydrochlorothiazide 12.5 mg tablet 25 mg PO QDAY Qty: 0 RF: 0
[2020-06-16 16:46] LABS: Culture Indicated Urine Cult Not Indicated; RBC Urine 1-5/HPF (0-5/HPF)
[2020-06-16] MEDS: atenoloL 25 MG TABLET PO (17:25)
== END 2020-06-16 18:15 | disposition home or self-care (01) ==
PROVIDERS: Emergency Provider Emergency Medicine
DX: I10 Essential (primary) hypertension (principal); R51.9 Headache, unspecified; M79.605 Pain in left leg; M79.604 Pain in right leg; M62.838 Other muscle spasm; I50.1 Left ventricular failure, unspecified; Z95.0 Presence of cardiac pacemaker
CPT/HCPCS: 36415; 71045; 80053; 81003; 81015; 82550; 82553; 83690; 84484; 85025; 85610; 85730; 93005; 93010; 99283; 99284

== ENCOUNTER 2020-10-08 10:30 | Outpatient (RCR) | payer OTHER, SELFPAY ==
--- NOTE | 2020-07-09 18:10 | PT.OIE ---
Current Diagnoses Otalgia, bilateral (07/09/20) Unspecified temporomandibular joint disorder, unspecified side (07/09/20) Cervicalgia (07/09/20) Muscle weakness (generalized) (07/09/20) Abnormal posture (07/09/20) Headache, unspecified (07/09/20) Past Medical History (Last Reviewed 06/16/20 @ 17:37 by Tamera Guzman MD) Breast cancer Chronic mixed headache syndrome Dyspepsia Hypertension LVH (left ventricular hypertrophy) Past Surgical History (Last Reviewed 06/16/20 @ 17:37 by Tamera Guzman MD) History of total mastectomy Status post hysterectomy Visit Care Team Role Provider Type Antonio Macias DO Primary Care Provider Non-Staff Specialty: [facility] Address: [address] [place] [address], [id number] Email: Tuan Mina MD Attending Provider Physician Referring Provider Specialty: Ear, Nose, Throat Address: [address] [place] [address], [address] Email: [email or web address] Physical Therapy Initial Evaluation PT-OP-A Visit Information Start: 07/09/20 12:04 Freq: Status: Active Protocol: Document 07/09/20 16:07 [facility] (Rec: 07/09/20 17:01 [facility] [id number]) Out-Patient Physical Therapy Visit Information Visit Information Visit Type Initial Evaluation Visit Start Time 16:06 Visit Stop Time 16:50 Total Visit Minutes 43 Visit Number 1 Number of SAFETY TECH Visits 0 PT-OP-B Current Condition Start: 07/09/20 12:04 Freq: Status: Active Protocol: Document 07/09/20 16:07 [facility] (Rec: 07/09/20 17:01 [facility] [id number]) Current Condition History of Current Condition Onset Date a few years ago Current Complaints DAVALOS History of Current Condition Pt reports head pain is in post occiput. Pt has occasional jaw pain. Pt had MD think that jaw may be the cause of of the DAVALOS. SHe has done PT for head and neck pain but it didn't help. Pt has mouth guard d/t clenching that she has had for 1 year from dentist. Does not think seh clenches during the day. no issues with opening and closing jaw or with eating. Uses CPAP and follows up w/ sleep specialist. Pt had diverticulitis in 2015 and took levofloxican and was unable to lift arms then felt like all mm tone left my body . Then 2016 she thinks that is when she started getting DAVALOS . Pt has no known cause. Pt notes sometimes arms and neck feel weak. Sometiems has R shoulder pain in UT region. Pt reports since November she thought she had an ear infection but MD said no. Pt reports B ear pain that goes along with head and neck pain. Pt notes sometimes when bends over then comes back up, she frequently gets lightheaded (like blood rushed to head). Last only 1 sec or 2 Prior Treatments and Tests OMT treatment 4x, pain specialist Dr. Agustin-1x today and 1x last year- discussed doing some numbing to nerves to see if that helps with DAVALOS, chiro-did not help-said was so stiff it was hard to manip, PT-2 months ago (about 10 times), massage-feels good in the moment Treatment Goals Patient/Caregiver Goals Get rid of DAVALOS and avoid clenching PT-OP-C Subjective Start: 07/09/20 12:04 Freq: Status: Active Protocol: Document 07/09/20 16:07 [facility] (Rec: 07/09/20 17:01 [facility] [id number]) Patient Questionnaires Neck Disability Index NDI Score 12/50 Quick Dash- Upper Extremity Quick Dash UE Score 11.36 Other Questionnaire Name and Score Patient self assessment of Occlusal condition: easy & comfortable to close w/back teeth together. when tapping teeth together feel back teeth touching B and do feel front teeth touch also with heavier contact on front teeth. When closing mouth w/back teeth goether feels: uneven OP-PT Pain Assessment Location neck pain Pain Location Details upper cervical at base of skull Intensity 6 Scale Used Numeric (0 - 10) Description- Other stiff, head feels like it swells Frequency Daily Radiating Location post occiput Other Pain Aggravating Factors wakes up head hurts, unsure what makes it worse Other Pain Alleviating Factors nothing jaw pain Other Pain Aggravating Factors to palpation only PT-OP-F Manual Assessment Start: 07/09/20 12:04 Freq: Status: Active Protocol: Document 07/09/20 16:07 [facility] (Rec: 07/09/20 17:01 [facility] [id number]) Manual Assessments Soft Tissue Assessment Soft Tissue Mobility Assessment R>L UT, LS, cervical parapinals, pecs tight Joint Mobility Assessment Joint Mobility Assessment R 1st rib elevated PT-OP-J Posture/Palpation/Skin Start: 07/09/20 12:04 Freq: Status: Active Protocol: Document 07/09/20 16:07 [facility] (Rec: 07/09/20 17:01 [facility] [id number]) Posture Evaluation [facility] Postural Classification System Sonia Postural Classifications Posterior/Posterior Vertebral Compression Test 1 Elbow Flexion Test 3 PT-OP-K Range of Motion Start: 07/09/20 12:04 Freq: Status: Active Protocol: Document 07/09/20 16:07 [facility] (Rec: 07/09/20 17:01 [facility] [id number]) Cervical Spine Range of Motion Cervical Spine Active Degrees Flexion 50 Extension 41 Rotation Left 43 Rotation Right 42 Lateral Flexion Left 24 Lateral Flexion Right 25 Comments pain in head with all motions, R pain w/SB B TMJ Range of Motion Jaw Openning Jaw Openning (mm) 42 Comments Comments tightness in R, crunchy with jaw opening. Deviation equal ROM B, some L deviation w/jaw opening. PT-OP-L Special Tests Start: 07/09/20 12:04 Freq: Status: Active Protocol: Document 07/09/20 16:07 [facility] (Rec: 07/09/20 17:01 [facility] [id number]) Special Tests Cervical Spine Special Tests Transverse Ligament Comments neg Spurling's Test Test Results neg Vertebral Artery Test Results neg PT-OP-M Strength Start: 07/09/20 12:04 Freq: Status: Active Protocol: Document 07/09/20 16:07 [facility] (Rec: 07/09/20 17:01 [facility] [id number]) Cervical Spine Strength Cervical Spine Manual Muscle Testing Flexion (C1-2) 4 Good Extension 5 Normal Rotation Left 5 Normal Rotation Right 5 Normal Lateral Flexion Left (C3) 5 Normal Lateral Flexion Right (C3) 5 Normal PT-OP-T Assessment and Plan Start: 07/09/20 12:04 Freq: Status: Active Protocol: Document 07/09/20 16:07 [facility] (Rec: 07/09/20 17:01 [facility] [id number]) Physical Therapy Assessment Rehab Potential Rehabilitation Potential Good Evaluation Complexity Number of Personal Factors/Comorbidities 3 or More Number of Body Systems Impaired 4 or More Clinical Presentation at Evaluation Evolving Impairments Impairments Activity Tolerance,Pain, Posture,ROM,Soft Tissue Mobility,Strength Goals pain Short Term Goal (STG) Pt will have improved sleep posture to dec pain upon first waking up and during night. STG Duration 08/09/20 Custodial Goal (LTG) Pt will report DAVALOS, neck pain, ear pain and jaw pain no greater than 1/10 during a typical week. LTG Duration 09/06/20 posture Channel Man Goal (LTG) Pt will have improved posture to dec load on C-spine & TMJ as evidenced by EFT of 4/5 and VCT of at least 4/5. LTG Duration 09/06/20 ROM Short Term Goal (STG) Pt will improve rotation B to at least 60 deg to improve ability for needed head turning motions like driving. STG Duration 08/09/20 Channel Man Goal (LTG) Pt will have full cervical ROM without inc head or ear pain. LTG Duration 09/06/20 NDI Impairment 12/50 Short Term Goal (STG) Pt will improve to no greater than 7/50 to show improved function. Custodial Goal (LTG) Pt will improve to no greater than 2/50 to show improved function. LTG Duration 09/06/20 Assessment Summary Assessment Pt presents with chronic daily DAVALOS for past about 3 years along with neck stiffness/pain and some mild TMJ discomfort along with otalgia starting in November this year. She has had multiple treatments, which have not improved her DAVALOS and pt reports MD is questioning possible TMD causing DAVALOS and otalgia. She does have impaired posture, along with dec cervical ROM with inc pain in head & ears at end ranges. It is likely the jaw pain and ear pain is related to cervical & TMJ dysfunction and pt would benefit from skilled PT to work on these deficits. Physical Therapy Plan Frequency and Duration Frequency of Treatment 1-2x/week Duration of Treatment 2 months Plan of Care Start Date 07/09/20 Plan of Care End Date 09/06/20 Therapeutic Interventions Therapeutic Interventions Home Exercise Program,Joint Mobilizations,Manual Therapy, Neuromuscular Re-education, Patient/Caregiver Education, Self-Care/Home Management,Soft Tissue Mobilization,Taping, Therapeutic Activities, Therapeutic Exercises, Vestibular Rehabilitation Modalities Cold Pack/Ice Massage,Hot Packs Next Visit Focus/Plan Next Note Type Treatment Note Next Visit Plan [place] 6x6, wall posture, cranial mobs & soft tissue work
--- NOTE | 2020-07-09 18:10 | PT.OPPOC ---
Physical, Occupational & Speech Therapy At [facility] Current Diagnoses Otalgia, bilateral (07/09/20) Unspecified temporomandibular joint disorder, unspecified side (07/09/20) Cervicalgia (07/09/20) Muscle weakness (generalized) (07/09/20) Abnormal posture (07/09/20) Headache, unspecified (07/09/20) Visit Care Team Role Provider Type Antonio Macias DO Primary Care Provider Non-Staff Specialty: Family Practice Address: [address] [place] [address], [address] Email: Tuan Mina MD Attending Provider Physician Referring Provider Specialty: Ear, Nose, Throat Address: [address] [place] [address], [address] Email: [email or web address] Plan Of Care PT-OP-T Assessment and Plan Start: 07/09/20 12:04 Freq: Status: Active Protocol: Document 07/09/20 16:07 [facility] (Rec: 07/09/20 17:01 [facility] [id number]) Physical Therapy Assessment Rehab Potential Rehabilitation Potential Good Evaluation Complexity Number of Personal Factors/Comorbidities 3 or More Number of Body Systems Impaired 4 or More Clinical Presentation at Evaluation Evolving Impairments Impairments Activity Tolerance,Pain, Posture,ROM,Soft Tissue Mobility,Strength Goals pain Short Term Goal (STG) Pt will have improved sleep posture to dec pain upon first waking up and during night. STG Duration 08/09/20 Prison Goal (LTG) Pt will report DAVALOS, neck pain, ear pain and jaw pain no greater than 1/10 during a typical week. LTG Duration 09/06/20 posture Prison Goal (LTG) Pt will have improved posture to dec load on C-spine & TMJ as evidenced by EFT of 4/5 and VCT of at least 4/5. LTG Duration 09/06/20 ROM Short Term Goal (STG) Pt will improve rotation B to at least 60 deg to improve ability for needed head turning motions like driving. STG Duration 08/09/20 Prison Goal (LTG) Pt will have full cervical ROM without inc head or ear pain. LTG Duration 09/06/20 NDI Impairment 12/50 Short Term Goal (STG) Pt will improve to no greater than 7/50 to show improved function. Prison Goal (LTG) Pt will improve to no greater than 2/50 to show improved function. LTG Duration 09/06/20 Assessment Summary Assessment Pt presents with chronic daily DAVALOS for past about 3 years along with neck stiffness/pain and some mild TMJ discomfort along with otalgia starting in November this year. She has had multiple treatments, which have not improved her DAVALOS and pt reports MD is questioning possible TMD causing DAVALOS and otalgia. She does have impaired posture, along with dec cervical ROM with inc pain in head & ears at end ranges. It is likely the jaw pain and ear pain is related to cervical & TMJ dysfunction and pt would benefit from skilled PT to work on these deficits. Physical Therapy Plan Frequency and Duration Frequency of Treatment 1-2x/week Duration of Treatment 2 months Plan of Care Start Date 07/09/20 Plan of Care End Date 09/06/20 Therapeutic Interventions Therapeutic Interventions Home Exercise Program,Joint Mobilizations,Manual Therapy, Neuromuscular Re-education, Patient/Caregiver Education, Self-Care/Home Management,Soft Tissue Mobilization,Taping, Therapeutic Activities, Therapeutic Exercises, Vestibular Rehabilitation Modalities Cold Pack/Ice Massage,Hot Packs Next Visit Focus/Plan Next Note Type Treatment Note Next Visit Plan [place] 6x6, wall posture, cranial mobs & soft tissue work Plan of Care Dates Plan of Care Start Date 07/09/20 Plan of Care End Date 09/06/20 Electronically Signed by: Jill Mina, PT 07/09/20 [id number] Please Sign and Return: I have reviewed this Plan of Care and certify that the skilled therapy services above are required to meet the patient?s needs. Physician Signature Date Printed Name and Credentials Clinical Instructor Signature Printed Name and Credentials
--- NOTE | 2020-07-10 16:36 | PT.OTN ---
Current Diagnoses Otalgia, bilateral (07/10/20) Unspecified temporomandibular joint disorder, unspecified side (07/10/20) Cervicalgia (07/10/20) Muscle weakness (generalized) (07/10/20) Abnormal posture (07/10/20) Headache, unspecified (07/10/20) Physical Therapy Treatment Note PT-OP-A Visit Information Start: 07/09/20 12:04 Freq: Status: Active Protocol: Document 07/10/20 16:27 [facility] (Rec: 07/11/20 08:36 [facility] [id number]) Out-Patient Physical Therapy Visit Information Visit Information Visit Type Treatment Note Visit Start Time 09:48 Visit Stop Time 10:30 Total Visit Minutes 42 Visit Number 2 Number of PRE WAVE ASSEMBLER Visits 0 PT-OP-B Current Condition Start: 07/09/20 12:04 Freq: Status: Active Protocol: Document 07/09/20 16:07 [facility] (Rec: 07/09/20 17:01 [facility] [id number]) Current Condition History of Current Condition Onset Date a few years ago Current Complaints DAVALOS History of Current Condition Pt reports head pain is in post occiput. Pt has occasional jaw pain. Pt had MD think that jaw may be the cause of of the DAVALOS. SHe has done PT for head and neck pain but it didn't help. Pt has mouth guard d/t clenching that she has had for 1 year from dentist. Does not think seh clenches during the day. no issues with opening and closing jaw or with eating. Uses CPAP and follows up w/ sleep specialist. Pt had diverticulitis in 2015 and took levofloxican and was unable to lift arms then felt like all mm tone left my body . Then 2016 she thinks that is when she started getting DAVALOS . Pt has no known cause. Pt notes sometimes arms and neck feel weak. Sometiems has R shoulder pain in [place] region. Pt reports since November she thought she had an ear infection but MD said no. Pt reports B ear pain that goes along with head and neck pain. Pt notes sometimes when bends over then comes back up, she frequently gets lightheaded (like blood rushed to head). Last only 1 sec or 2 Prior Treatments and Tests OMT treatment 4x, pain specialist Dr. Agustin-1x today and 1x last year- discussed doing some numbing to nerves to see if that helps with DAVALOS, chiro-did not help-said was so stiff it was hard to manip, PT-2 months ago (about 10 times), massage-feels good in the moment Treatment Goals Patient/Caregiver Goals Get rid of DAVALOS and avoid clenching PT-OP-C Subjective Start: 07/09/20 12:04 Freq: Status: Active Protocol: Document 07/10/20 16:27 [facility] (Rec: 07/11/20 08:36 [facility] [id number]) OP-PT Subjective Patient Comments Patient Comments Pt ready to get HEP PT-OP-F Manual Assessment Start: 07/09/20 12:04 Freq: Status: Active Protocol: Document 07/09/20 16:07 [facility] (Rec: 07/09/20 17:01 [facility] [id number]) Manual Assessments Soft Tissue Assessment Soft Tissue Mobility Assessment R>L UT, LS, cervical parapinals, pecs tight Joint Mobility Assessment Joint Mobility Assessment R 1st rib elevated PT-OP-J Posture/Palpation/Skin Start: 07/09/20 12:04 Freq: Status: Active Protocol: Document 07/09/20 16:07 [facility] (Rec: 07/09/20 17:01 [facility] [id number]) Posture Evaluation Sonia Postural Classification System Sonia Postural Classifications Posterior/Posterior Vertebral Compression Test 1 Elbow Flexion Test 3 PT-OP-K Range of Motion Start: 07/09/20 12:04 Freq: Status: Active Protocol: Document 07/09/20 16:07 [facility] (Rec: 07/09/20 17:01 [facility] [id number]) Cervical Spine Range of Motion Cervical Spine Active Degrees Flexion 50 Extension 41 Rotation Left 43 Rotation Right 42 Lateral Flexion Left 24 Lateral Flexion Right 25 Comments pain in head with all motions, R pain w/SB B TMJ Range of Motion Jaw Openning Jaw Openning (mm) 42 Comments Comments tightness in R, crunchy with jaw opening. Deviation equal ROM B, some L deviation w/jaw opening. PT-OP-L Special Tests Start: 07/09/20 12:04 Freq: Status: Active Protocol: Document 07/09/20 16:07 [facility] (Rec: 07/09/20 17:01 [facility] [id number]) Special Tests Cervical Spine Special Tests Transverse Ligament Comments neg Spurling's Test Test Results neg Vertebral Artery Test Results neg PT-OP-M Strength Start: 07/09/20 12:04 Freq: Status: Active Protocol: Document 07/09/20 16:07 [facility] (Rec: 07/09/20 17:01 [facility] [id number]) Cervical Spine Strength Cervical Spine Manual Muscle Testing Flexion (C1-2) 4 Good Extension 5 Normal Rotation Left 5 Normal Rotation Right 5 Normal Lateral Flexion Left (C3) 5 Normal Lateral Flexion Right (C3) 5 Normal PT-OP-Q Treatments Start: 07/09/20 12:04 Freq: Status: Active Protocol: Document 07/10/20 16:27 [facility] (Rec: 07/11/20 08:36 [facility] [id number]) Therapeutic Exercises Sitting Exercises rocabado Sitting Exercise Name 6x6 per hand out in chart Comments max cueing Standing Exercises wall posture Standing Exercise Name wall roll up w/90/90 ER Side bilateral Reps/Minutes 8 Manual Therapy Treatment Soft Tissue Mobilization cranium Body Location temporalis & cranial fascia Mobilization Type Myofascial Release,Rolling Intensity/Depth Superficial Body Position Hooklying Manual Traction Cervical Details gentle manual traction PT-OP-T Assessment and Plan Start: 07/09/20 12:04 Freq: Status: Active Protocol: Document 07/10/20 16:27 [facility] (Rec: 07/11/20 08:36 [facility] [id number]) Physical Therapy Assessment Goals pain Short Term Goal (STG) Pt will have improved sleep posture to dec pain upon first waking up and during night. STG Duration 08/09/20 Ship Keeper Goal (LTG) Pt will report DAVALOS, neck pain, ear pain and jaw pain no greater than 1/10 during a typical week. LTG Duration 09/06/20 posture Senior Care Goal (LTG) Pt will have improved posture to dec load on C-spine & TMJ as evidenced by EFT of 4/5 and VCT of at least 4/5. LTG Duration 09/06/20 ROM Short Term Goal (STG) Pt will improve rotation B to at least 60 deg to improve ability for needed head turning motions like driving. STG Duration 08/09/20 Senior Care Goal (LTG) Pt will have full cervical ROM without inc head or ear pain. LTG Duration 09/06/20 NDI Impairment 12/50 Short Term Goal (STG) Pt will improve to no greater than 7/50 to show improved function. Ship Keeper Goal (LTG) Pt will improve to no greater than 2/50 to show improved function. LTG Duration 09/06/20 Assessment Summary Assessment Pt did well with exercises w/o c/o of inc pain. She has significant tightness of cranial fascia which likely affects jaw movement along with neck motion/DAVALOS. R>L tightness notable Physical Therapy Plan Frequency and Duration Frequency of Treatment 1-2x/week Duration of Treatment 2 months Plan of Care Start Date 07/09/20 Plan of Care End Date 09/06/20 Next Visit Focus/Plan Next Note Type Treatment Note Next Visit Plan review exercises, cont to work cranial soft tissue & cranium work & upper cervical/jaw mobs
--- NOTE | 2020-07-11 08:36 | PT.OTN ---
Current Diagnoses Otalgia, bilateral (07/10/20) Unspecified temporomandibular joint disorder, unspecified side (07/10/20) Cervicalgia (07/10/20) Muscle weakness (generalized) (07/10/20) Abnormal posture (07/10/20) Headache, unspecified (07/10/20) Physical Therapy Treatment Note PT-OP-A Visit Information Start: 07/09/20 12:04 Freq: Status: Active Protocol: Document 07/10/20 16:27 [facility] (Rec: 07/11/20 08:36 [facility] [id number]) Out-Patient Physical Therapy Visit Information Visit Information Visit Type Treatment Note Visit Start Time 09:48 Visit Stop Time 10:30 Total Visit Minutes 42 Visit Number 2 Number of CLINICAL RADIOLOGIST Visits 0 PT-OP-B Current Condition Start: 07/09/20 12:04 Freq: Status: Active Protocol: Document 07/09/20 16:07 [facility] (Rec: 07/09/20 17:01 [facility] [id number]) Current Condition History of Current Condition Onset Date a few years ago Current Complaints DAVALOS History of Current Condition Pt reports head pain is in post occiput. Pt has occasional jaw pain. Pt had MD think that jaw may be the cause of of the DAVALOS. SHe has done PT for head and neck pain but it didn't help. Pt has mouth guard d/t clenching that she has had for 1 year from dentist. Does not think seh clenches during the day. no issues with opening and closing jaw or with eating. Uses CPAP and follows up w/ sleep specialist. Pt had diverticulitis in 2015 and took levofloxican and was unable to lift arms then felt like all mm tone left my body . Then 2016 she thinks that is when she started getting DAVALOS . Pt has no known cause. Pt notes sometimes arms and neck feel weak. Sometiems has R shoulder pain in [place] region. Pt reports since November she thought she had an ear infection but MD said no. Pt reports B ear pain that goes along with head and neck pain. Pt notes sometimes when bends over then comes back up, she frequently gets lightheaded (like blood rushed to head). Last only 1 sec or 2 Prior Treatments and Tests OMT treatment 4x, pain specialist Dr. Agustin-1x today and 1x last year- discussed doing some numbing to nerves to see if that helps with DAVALOS, chiro-did not help-said was so stiff it was hard to manip, PT-2 months ago (about 10 times), massage-feels good in the moment Treatment Goals Patient/Caregiver Goals Get rid of DAVALOS and avoid clenching PT-OP-C Subjective Start: 07/09/20 12:04 Freq: Status: Active Protocol: Document 07/10/20 16:27 [facility] (Rec: 07/11/20 08:36 [facility] [id number]) OP-PT Subjective Patient Comments Patient Comments Pt ready to get HEP PT-OP-F Manual Assessment Start: 07/09/20 12:04 Freq: Status: Active Protocol: Document 07/09/20 16:07 [facility] (Rec: 07/09/20 17:01 [facility] [id number]) Manual Assessments Soft Tissue Assessment Soft Tissue Mobility Assessment R>L UT, LS, cervical parapinals, pecs tight Joint Mobility Assessment Joint Mobility Assessment R 1st rib elevated PT-OP-J Posture/Palpation/Skin Start: 07/09/20 12:04 Freq: Status: Active Protocol: Document 07/09/20 16:07 [facility] (Rec: 07/09/20 17:01 [facility] [id number]) Posture Evaluation Sonia Postural Classification System Sonia Postural Classifications Posterior/Posterior Vertebral Compression Test 1 Elbow Flexion Test 3 PT-OP-K Range of Motion Start: 07/09/20 12:04 Freq: Status: Active Protocol: Document 07/09/20 16:07 [facility] (Rec: 07/09/20 17:01 [facility] [id number]) Cervical Spine Range of Motion Cervical Spine Active Degrees Flexion 50 Extension 41 Rotation Left 43 Rotation Right 42 Lateral Flexion Left 24 Lateral Flexion Right 25 Comments pain in head with all motions, R pain w/SB B TMJ Range of Motion Jaw Openning Jaw Openning (mm) 42 Comments Comments tightness in R, crunchy with jaw opening. Deviation equal ROM B, some L deviation w/jaw opening. PT-OP-L Special Tests Start: 07/09/20 12:04 Freq: Status: Active Protocol: Document 07/09/20 16:07 [facility] (Rec: 07/09/20 17:01 [facility] [id number]) Special Tests Cervical Spine Special Tests Transverse Ligament Comments neg Spurling's Test Test Results neg Vertebral Artery Test Results neg PT-OP-M Strength Start: 07/09/20 12:04 Freq: Status: Active Protocol: Document 07/09/20 16:07 [facility] (Rec: 07/09/20 17:01 [facility] [id number]) Cervical Spine Strength Cervical Spine Manual Muscle Testing Flexion (C1-2) 4 Good Extension 5 Normal Rotation Left 5 Normal Rotation Right 5 Normal Lateral Flexion Left (C3) 5 Normal Lateral Flexion Right (C3) 5 Normal PT-OP-Q Treatments Start: 07/09/20 12:04 Freq: Status: Active Protocol: Document 07/10/20 16:27 [facility] (Rec: 07/11/20 08:36 [facility] [id number]) Therapeutic Exercises Sitting Exercises rocabado Sitting Exercise Name 6x6 per hand out in chart Comments max cueing Standing Exercises wall posture Standing Exercise Name wall roll up w/90/90 ER Side bilateral Reps/Minutes 8 Manual Therapy Treatment Soft Tissue Mobilization cranium Body Location temporalis & cranial fascia Mobilization Type Myofascial Release,Rolling Intensity/Depth Superficial Body Position Hooklying Manual Traction Cervical Details gentle manual traction PT-OP-T Assessment and Plan Start: 07/09/20 12:04 Freq: Status: Active Protocol: Document 07/10/20 16:27 [facility] (Rec: 07/11/20 08:36 [facility] [id number]) Physical Therapy Assessment Goals pain Short Term Goal (STG) Pt will have improved sleep posture to dec pain upon first waking up and during night. STG Duration 08/09/20 Flag Football Coach Goal (LTG) Pt will report DAVALOS, neck pain, ear pain and jaw pain no greater than 1/10 during a typical week. LTG Duration 09/06/20 posture Longterm Goal (LTG) Pt will have improved posture to dec load on C-spine & TMJ as evidenced by EFT of 4/5 and VCT of at least 4/5. LTG Duration 09/06/20 ROM Short Term Goal (STG) Pt will improve rotation B to at least 60 deg to improve ability for needed head turning motions like driving. STG Duration 08/09/20 Longterm Goal (LTG) Pt will have full cervical ROM without inc head or ear pain. LTG Duration 09/06/20 NDI Impairment 12/50 Short Term Goal (STG) Pt will improve to no greater than 7/50 to show improved function. Flag Football Coach Goal (LTG) Pt will improve to no greater than 2/50 to show improved function. LTG Duration 09/06/20 Assessment Summary Assessment Pt did well with exercises w/o c/o of inc pain. She has significant tightness of cranial fascia which likely affects jaw movement along with neck motion/DAVALOS. R>L tightness notable Physical Therapy Plan Frequency and Duration Frequency of Treatment 1-2x/week Duration of Treatment 2 months Plan of Care Start Date 07/09/20 Plan of Care End Date 09/06/20 Next Visit Focus/Plan Next Note Type Treatment Note Next Visit Plan review exercises, cont to work cranial soft tissue & cranium work & upper cervical/jaw mobs
--- NOTE | 2020-07-17 17:29 | PT.OTN ---
Current Diagnoses Otalgia, bilateral (07/17/20) Unspecified temporomandibular joint disorder, unspecified side (07/17/20) Cervicalgia (07/17/20) Muscle weakness (generalized) (07/17/20) Abnormal posture (07/17/20) Headache, unspecified (07/17/20) Physical Therapy Treatment Note PT-OP-A Visit Information Start: 07/09/20 12:04 Freq: Status: Active Protocol: Document 07/17/20 17:24 [facility] (Rec: 07/17/20 17:29 [facility] [id number]) Out-Patient Physical Therapy Visit Information Visit Information Visit Type Treatment Note Visit Start Time 13:00 Visit Stop Time 14:00 Total Visit Minutes 60 Visit Number 3 Number of SUPERVISOR PAPER TESTING Visits 0 PT-OP-B Current Condition Start: 07/09/20 12:04 Freq: Status: Active Protocol: Document 07/09/20 16:07 [facility] (Rec: 07/09/20 17:01 [facility] [id number]) Current Condition History of Current Condition Onset Date a few years ago Current Complaints DAVALOS History of Current Condition Pt reports head pain is in post occiput. Pt has occasional jaw pain. Pt had MD think that jaw may be the cause of of the DAVALOS. SHe has done PT for head and neck pain but it didn't help. Pt has mouth guard d/t clenching that she has had for 1 year from dentist. Does not think seh clenches during the day. no issues with opening and closing jaw or with eating. Uses CPAP and follows up w/ sleep specialist. Pt had diverticulitis in 2015 and took levofloxican and was unable to lift arms then felt like all mm tone left my body . Then 2016 she thinks that is when she started getting DAVALOS . Pt has no known cause. Pt notes sometimes arms and neck feel weak. Sometiems has R shoulder pain in [place] region. Pt reports since November she thought she had an ear infection but MD said no. Pt reports B ear pain that goes along with head and neck pain. Pt notes sometimes when bends over then comes back up, she frequently gets lightheaded (like blood rushed to head). Last only 1 sec or 2 Prior Treatments and Tests OMT treatment 4x, pain specialist Dr. Agustin-1x today and 1x last year- discussed doing some numbing to nerves to see if that helps with DAVALOS, chiro-did not help-said was so stiff it was hard to manip, PT-2 months ago (about 10 times), massage-feels good in the moment Treatment Goals Patient/Caregiver Goals Get rid of DAVALOS and avoid clenching PT-OP-C Subjective Start: 07/09/20 12:04 Freq: Status: Active Protocol: Document 07/17/20 17:24 [facility] (Rec: 07/17/20 17:29 [facility] [id number]) OP-PT Subjective Patient Comments Patient Comments pt reports doing HEP consistantly. PT-OP-F Manual Assessment Start: 07/09/20 12:04 Freq: Status: Active Protocol: Document 07/09/20 16:07 [facility] (Rec: 07/09/20 17:01 [facility] [id number]) Manual Assessments Soft Tissue Assessment Soft Tissue Mobility Assessment R>L UT, LS, cervical parapinals, pecs tight Joint Mobility Assessment Joint Mobility Assessment R 1st rib elevated PT-OP-J Posture/Palpation/Skin Start: 07/09/20 12:04 Freq: Status: Active Protocol: Document 07/09/20 16:07 [facility] (Rec: 07/09/20 17:01 [facility] [id number]) Posture Evaluation Sonia Postural Classification System Sonia Postural Classifications Posterior/Posterior Vertebral Compression Test 1 Elbow Flexion Test 3 PT-OP-K Range of Motion Start: 07/09/20 12:04 Freq: Status: Active Protocol: Document 07/09/20 16:07 [facility] (Rec: 07/09/20 17:01 [facility] [id number]) Cervical Spine Range of Motion Cervical Spine Active Degrees Flexion 50 Extension 41 Rotation Left 43 Rotation Right 42 Lateral Flexion Left 24 Lateral Flexion Right 25 Comments pain in head with all motions, R pain w/SB B TMJ Range of Motion Jaw Openning Jaw Openning (mm) 42 Comments Comments tightness in R, crunchy with jaw opening. Deviation equal ROM B, some L deviation w/jaw opening. PT-OP-L Special Tests Start: 07/09/20 12:04 Freq: Status: Active Protocol: Document 07/09/20 16:07 [facility] (Rec: 07/09/20 17:01 [facility] [id number]) Special Tests Cervical Spine Special Tests Transverse Ligament Comments neg Spurling's Test Test Results neg Vertebral Artery Test Results neg PT-OP-M Strength Start: 07/09/20 12:04 Freq: Status: Active Protocol: Document 07/09/20 16:07 [facility] (Rec: 07/09/20 17:01 [facility] [id number]) Cervical Spine Strength Cervical Spine Manual Muscle Testing Flexion (C1-2) 4 Good Extension 5 Normal Rotation Left 5 Normal Rotation Right 5 Normal Lateral Flexion Left (C3) 5 Normal Lateral Flexion Right (C3) 5 Normal PT-OP-Q Treatments Start: 07/09/20 12:04 Freq: Status: Active Protocol: Document 07/17/20 17:24 [facility] (Rec: 07/17/20 17:29 [facility] [id number]) Therapeutic Exercises Sitting Exercises rocabado Sitting Exercise Name 6x6 per hand out in chart Comments max cueing Standing Exercises wall posture Standing Exercise Name wall roll up w/90/90 ER Side bilateral Reps/Minutes 8 Therapeutic Activity Therapeutic Activity sleep Name supine, s/l, partial prone sleep positioning for neutral spine Comments Discsused w/ pt talking to sleep re: what her requirements are for CPAP and seeing difference btwn pain when not using it vs using mouth insert vs CPAP Manual Therapy Treatment Soft Tissue Mobilization SOR Body Location SOR Mobilization Type Sustained Pressure Intensity/Depth Moderate Body Position Hooklying SCM/scalenes Body Location R>L Mobilization Type Sustained Pressure,Trigger Point Release Intensity/Depth Moderate Body Position Hooklying cranium Body Location temporalis & cranial fascia Mobilization Type Myofascial Release,Rolling Intensity/Depth Superficial Body Position Hooklying PT-OP-T Assessment and Plan Start: 07/09/20 12:04 Freq: Status: Active Protocol: Document 07/17/20 17:24 [facility] (Rec: 07/17/20 17:29 [facility] [id number]) Physical Therapy Assessment Goals pain Short Term Goal (STG) Pt will have improved sleep posture to dec pain upon first waking up and during night. STG Duration 08/09/20 Chcf Goal (LTG) Pt will report DAVALOS, neck pain, ear pain and jaw pain no greater than 1/10 during a typical week. LTG Duration 09/06/20 posture Credit Assessment Analyst Goal (LTG) Pt will have improved posture to dec load on C-spine & TMJ as evidenced by EFT of 4/5 and VCT of at least 4/5. LTG Duration 09/06/20 ROM Short Term Goal (STG) Pt will improve rotation B to at least 60 deg to improve ability for needed head turning motions like driving. STG Duration 08/09/20 Credit Assessment Analyst Goal (LTG) Pt will have full cervical ROM without inc head or ear pain. LTG Duration 09/06/20 NDI Impairment 12/50 Short Term Goal (STG) Pt will improve to no greater than 7/50 to show improved function. Chcf Goal (LTG) Pt will improve to no greater than 2/50 to show improved function. LTG Duration 09/06/20 Assessment Summary Assessment Pt required cueing for tongue on soft pallete during jaw exercises, cueing for slow roll up w/ wall posture to achieve neutral LB positioning & for focus on expansion of belly vs elevation of shoulder girdle. Physical Therapy Plan Frequency and Duration Frequency of Treatment 1-2x/week Duration of Treatment 2 months Plan of Care Start Date 07/09/20 Plan of Care End Date 09/06/20 Next Visit Focus/Plan Next Note Type Treatment Note Next Visit Plan review exercises, cont to work cranial soft tissue & cranium work & upper cervical/jaw mobs
--- NOTE | 2020-07-25 10:38 | PT.OTN ---
Current Diagnoses Otalgia, bilateral (07/25/20) Unspecified temporomandibular joint disorder, unspecified side (07/25/20) Cervicalgia (07/25/20) Muscle weakness (generalized) (07/25/20) Abnormal posture (07/25/20) Headache, unspecified (07/25/20) Physical Therapy Treatment Note PT-OP-A Visit Information Start: 07/09/20 12:04 Freq: Status: Active Protocol: Document 07/25/20 09:44 [facility] (Rec: 07/25/20 10:38 [facility] [id number]) Out-Patient Physical Therapy Visit Information Visit Information Visit Type Treatment Note Visit Start Time 09:45 Visit Stop Time 10:43 Total Visit Minutes 58 Visit Number 4 Number of SHAPE BRICK MOLDER Visits 0 PT-OP-B Current Condition Start: 07/09/20 12:04 Freq: Status: Active Protocol: Document 07/09/20 16:07 [facility] (Rec: 07/09/20 17:01 [facility] [id number]) Current Condition History of Current Condition Onset Date a few years ago Current Complaints DAVALOS History of Current Condition Pt reports head pain is in post occiput. Pt has occasional jaw pain. Pt had MD think that jaw may be the cause of of the DAVALOS. SHe has done PT for head and neck pain but it didn't help. Pt has mouth guard d/t clenching that she has had for 1 year from dentist. Does not think seh clenches during the day. no issues with opening and closing jaw or with eating. Uses CPAP and follows up w/ sleep specialist. Pt had diverticulitis in 2015 and took levofloxican and was unable to lift arms then felt like all mm tone left my body . Then 2016 she thinks that is when she started getting DAVALOS . Pt has no known cause. Pt notes sometimes arms and neck feel weak. Sometiems has R shoulder pain in [place] region. Pt reports since November she thought she had an ear infection but MD said no. Pt reports B ear pain that goes along with head and neck pain. Pt notes sometimes when bends over then comes back up, she frequently gets lightheaded (like blood rushed to head). Last only 1 sec or 2 Prior Treatments and Tests OMT treatment 4x, pain specialist Dr. Agustin-1x today and 1x last year- discussed doing some numbing to nerves to see if that helps with DAVALOS, chiro-did not help-said was so stiff it was hard to manip, PT-2 months ago (about 10 times), massage-feels good in the moment Treatment Goals Patient/Caregiver Goals Get rid of DAVALOS and avoid clenching PT-OP-C Subjective Start: 07/09/20 12:04 Freq: Status: Active Protocol: Document 07/25/20 09:44 [facility] (Rec: 07/25/20 10:38 [facility] [id number]) OP-PT Subjective Patient Comments Patient Comments Pt reprots she feels like pain is less storrng Patient Reported Progress Improving PT-OP-F Manual Assessment Start: 07/09/20 12:04 Freq: Status: Active Protocol: Document 07/09/20 16:07 [facility] (Rec: 07/09/20 17:01 [facility] [id number]) Manual Assessments Soft Tissue Assessment Soft Tissue Mobility Assessment R>L UT, LS, cervical parapinals, pecs tight Joint Mobility Assessment Joint Mobility Assessment R 1st rib elevated PT-OP-J Posture/Palpation/Skin Start: 07/09/20 12:04 Freq: Status: Active Protocol: Document 07/09/20 16:07 [facility] (Rec: 07/09/20 17:01 [facility] [id number]) Posture Evaluation Sonia Postural Classification System Sonia Postural Classifications Posterior/Posterior Vertebral Compression Test 1 Elbow Flexion Test 3 PT-OP-K Range of Motion Start: 07/09/20 12:04 Freq: Status: Active Protocol: Document 07/09/20 16:07 [facility] (Rec: 07/09/20 17:01 [facility] [id number]) Cervical Spine Range of Motion Cervical Spine Active Degrees Flexion 50 Extension 41 Rotation Left 43 Rotation Right 42 Lateral Flexion Left 24 Lateral Flexion Right 25 Comments pain in head with all motions, R pain w/SB B TMJ Range of Motion Jaw Openning Jaw Openning (mm) 42 Comments Comments tightness in R, crunchy with jaw opening. Deviation equal ROM B, some L deviation w/jaw opening. PT-OP-L Special Tests Start: 07/09/20 12:04 Freq: Status: Active Protocol: Document 07/09/20 16:07 [facility] (Rec: 07/09/20 17:01 [facility] [id number]) Special Tests Cervical Spine Special Tests Transverse Ligament Comments neg Spurling's Test Test Results neg Vertebral Artery Test Results neg PT-OP-M Strength Start: 07/09/20 12:04 Freq: Status: Active Protocol: Document 07/09/20 16:07 [facility] (Rec: 07/09/20 17:01 [facility] [id number]) Cervical Spine Strength Cervical Spine Manual Muscle Testing Flexion (C1-2) 4 Good Extension 5 Normal Rotation Left 5 Normal Rotation Right 5 Normal Lateral Flexion Left (C3) 5 Normal Lateral Flexion Right (C3) 5 Normal PT-OP-Q Treatments Start: 07/09/20 12:04 Freq: Status: Active Protocol: Document 07/25/20 09:44 [facility] (Rec: 07/25/20 10:38 [facility] [id number]) Therapeutic Exercises Sitting Exercises rocabado Sitting Exercise Name 6x6 per hand out in chart Comments min cueing Standing Exercises rows Side bilateral Equipment Used L2 Reps/Minutes 15 chin tuck Standing Exercise Name forearms on wall Equipment Used L1 Reps/Minutes 12 wall posture Standing Exercise Name wall roll up w/90/90 ER Side bilateral Reps/Minutes 8 Manual Therapy Treatment Soft Tissue Mobilization cervical paraspinals Body Location L Mobilization Type Rolling SOR Body Location SOR Mobilization Type Sustained Pressure Intensity/Depth Moderate Body Position Hooklying SCM/scalenes Body Location R>L Mobilization Type Sustained Pressure,Trigger Point Release Intensity/Depth Moderate Body Position Hooklying cranium Body Location temporalis & cranial fascia & into masseter Mobilization Type Myofascial Release,Rolling Intensity/Depth Superficial Body Position Hooklying Manual Traction Cervical Details gentle manual traction PT-OP-T Assessment and Plan Start: 07/09/20 12:04 Freq: Status: Active Protocol: Document 07/25/20 09:44 [facility] (Rec: 07/25/20 10:38 [facility] [id number]) Physical Therapy Assessment Goals pain Short Term Goal (STG) Pt will have improved sleep posture to dec pain upon first waking up and during night. STG Duration 08/09/20 Alf Goal (LTG) Pt will report DAVALOS, neck pain, ear pain and jaw pain no greater than 1/10 during a typical week. LTG Duration 09/06/20 posture Alf Goal (LTG) Pt will have improved posture to dec load on C-spine & TMJ as evidenced by EFT of 4/5 and VCT of at least 4/5. LTG Duration 09/06/20 ROM Short Term Goal (STG) Pt will improve rotation B to at least 60 deg to improve ability for needed head turning motions like driving. STG Duration 08/09/20 Alf Goal (LTG) Pt will have full cervical ROM without inc head or ear pain. LTG Duration 09/06/20 NDI Impairment 12/50 Short Term Goal (STG) Pt will improve to no greater than 7/50 to show improved function. Alf Goal (LTG) Pt will improve to no greater than 2/50 to show improved function. LTG Duration 09/06/20 Assessment Summary Assessment Pt did well with manual work with significant cervical tenderness especially on L side w/tightness. This likely affects her DAVALOS and makes them worse. Pt was able to tolerate all manual work and is so far noticing imrpovements w/PT. Doing wellw ith exercises and was able to progerss w/o inc pain Physical Therapy Plan Frequency and Duration Frequency of Treatment 1-2x/week Duration of Treatment 2 months Plan of Care Start Date 07/09/20 Plan of Care End Date 09/06/20 Next Visit Focus/Plan Next Note Type Treatment Note Next Visit Plan cont to work cranial soft tissue & cranium work & upper cervical/jaw mobs
--- NOTE | 2020-07-30 10:18 | PT.OTN ---
Current Diagnoses Otalgia, bilateral (07/30/20) Unspecified temporomandibular joint disorder, unspecified side (07/30/20) Cervicalgia (07/30/20) Muscle weakness (generalized) (07/30/20) Abnormal posture (07/30/20) Headache, unspecified (07/30/20) Physical Therapy Treatment Note PT-OP-A Visit Information Start: 07/09/20 12:04 Freq: Status: Active Protocol: Document 07/30/20 10:12 [facility] (Rec: 07/30/20 10:18 [facility] [id number]) Out-Patient Physical Therapy Visit Information Visit Information Visit Type Treatment Note Visit Start Time 09:00 Visit Stop Time 10:00 Total Visit Minutes 60 Visit Number 5 Number of FILM VAULT SUPERVISOR Visits 0 PT-OP-B Current Condition Start: 07/09/20 12:04 Freq: Status: Active Protocol: Document 07/09/20 16:07 [facility] (Rec: 07/09/20 17:01 [facility] [id number]) Current Condition History of Current Condition Onset Date a few years ago Current Complaints DAVALOS History of Current Condition Pt reports head pain is in post occiput. Pt has occasional jaw pain. Pt had MD think that jaw may be the cause of of the DAVALOS. SHe has done PT for head and neck pain but it didn't help. Pt has mouth guard d/t clenching that she has had for 1 year from dentist. Does not think seh clenches during the day. no issues with opening and closing jaw or with eating. Uses CPAP and follows up w/ sleep specialist. Pt had diverticulitis in 2015 and took levofloxican and was unable to lift arms then felt like all mm tone left my body . Then 2016 she thinks that is when she started getting DAVALOS . Pt has no known cause. Pt notes sometimes arms and neck feel weak. Sometiems has R shoulder pain in [place] region. Pt reports since November she thought she had an ear infection but MD said no. Pt reports B ear pain that goes along with head and neck pain. Pt notes sometimes when bends over then comes back up, she frequently gets lightheaded (like blood rushed to head). Last only 1 sec or 2 Prior Treatments and Tests OMT treatment 4x, pain specialist Dr. Agustin-1x today and 1x last year- discussed doing some numbing to nerves to see if that helps with DAVALOS, chiro-did not help-said was so stiff it was hard to manip, PT-2 months ago (about 10 times), massage-feels good in the moment Treatment Goals Patient/Caregiver Goals Get rid of DAVALOS and avoid clenching PT-OP-C Subjective Start: 07/09/20 12:04 Freq: Status: Active Protocol: Document 07/30/20 10:12 [facility] (Rec: 07/30/20 10:18 [facility] [id number]) OP-PT Subjective Patient Comments Patient Comments Pt reports she did not notice much pain during the couple days [facility] was skiing. Notes pain is overall less Patient Reported Progress Improving PT-OP-F Manual Assessment Start: 07/09/20 12:04 Freq: Status: Active Protocol: Document 07/09/20 16:07 [facility] (Rec: 07/09/20 17:01 [facility] [id number]) Manual Assessments Soft Tissue Assessment Soft Tissue Mobility Assessment R>L UT, LS, cervical parapinals, pecs tight Joint Mobility Assessment Joint Mobility Assessment R 1st rib elevated PT-OP-J Posture/Palpation/Skin Start: 07/09/20 12:04 Freq: Status: Active Protocol: Document 07/09/20 16:07 [facility] (Rec: 07/09/20 17:01 [facility] [id number]) Posture Evaluation Sonia Postural Classification System Sonia Postural Classifications Posterior/Posterior Vertebral Compression Test 1 Elbow Flexion Test 3 PT-OP-K Range of Motion Start: 07/09/20 12:04 Freq: Status: Active Protocol: Document 07/09/20 16:07 [facility] (Rec: 07/09/20 17:01 [facility] [id number]) Cervical Spine Range of Motion Cervical Spine Active Degrees Flexion 50 Extension 41 Rotation Left 43 Rotation Right 42 Lateral Flexion Left 24 Lateral Flexion Right 25 Comments pain in head with all motions, R pain w/SB B TMJ Range of Motion Jaw Openning Jaw Openning (mm) 42 Comments Comments tightness in R, crunchy with jaw opening. Deviation equal ROM B, some L deviation w/jaw opening. PT-OP-L Special Tests Start: 07/09/20 12:04 Freq: Status: Active Protocol: Document 07/09/20 16:07 [facility] (Rec: 07/09/20 17:01 [facility] [id number]) Special Tests Cervical Spine Special Tests Transverse Ligament Comments neg Spurling's Test Test Results neg Vertebral Artery Test Results neg PT-OP-M Strength Start: 07/09/20 12:04 Freq: Status: Active Protocol: Document 07/09/20 16:07 [facility] (Rec: 07/09/20 17:01 [facility] [id number]) Cervical Spine Strength Cervical Spine Manual Muscle Testing Flexion (C1-2) 4 Good Extension 5 Normal Rotation Left 5 Normal Rotation Right 5 Normal Lateral Flexion Left (C3) 5 Normal Lateral Flexion Right (C3) 5 Normal PT-OP-Q Treatments Start: 07/09/20 12:04 Freq: Status: Active Protocol: Document 07/30/20 10:12 [facility] (Rec: 07/30/20 10:18 [facility] [id number]) Therapeutic Exercises Supine Exercises axial elongation Reps/Minutes 5sec x6 Standing Exercises rows Side bilateral Equipment Used L2 Reps/Minutes 15 chin tuck Standing Exercise Name forearms on wall Equipment Used L1 Reps/Minutes 12 Manual Therapy Treatment Soft Tissue Mobilization cervical paraspinals Body Location B Mobilization Type Rolling SOR Body Location SOR Mobilization Type Sustained Pressure Intensity/Depth Moderate Body Position Hooklying SCM/scalenes Body Location R>L Mobilization Type Sustained Pressure,Trigger Point Release Intensity/Depth Moderate Body Position Hooklying cranium Body Location temporalis & cranial fascia & into masseter Mobilization Type Myofascial Release,Rolling Intensity/Depth Superficial Body Position Hooklying Joint Mobilizations mastoid Joint L Direction AP Self-Care/Home Management Treatment Education Other Education edu to consistantly check posture & relax jaw/shoudlers/ neck, edu to try yoga for relaxation & stretching, edu w / pics of thoracic/cervical anatomy & importance of posture PT-OP-R Modalities Start: 07/09/20 12:04 Freq: Status: Active Protocol: Document 07/30/20 10:12 [facility] (Rec: 07/30/20 10:18 [facility] [id number]) Hot Pack/Cold Pack Treatment Cold Pack Location cervical Patient Position Hooklying Treatment Duration (minutes) 10 PT-OP-T Assessment and Plan Start: 07/09/20 12:04 Freq: Status: Active Protocol: Document 07/30/20 10:12 [facility] (Rec: 07/30/20 10:18 [facility] [id number]) Physical Therapy Assessment Goals pain Short Term Goal (STG) Pt will have improved sleep posture to dec pain upon first waking up and during night. STG Duration 08/09/20 Installation Superintendent Goal (LTG) Pt will report DAVALOS, neck pain, ear pain and jaw pain no greater than 1/10 during a typical week. LTG Duration 09/06/20 posture Usp Goal (LTG) Pt will have improved posture to dec load on C-spine & TMJ as evidenced by EFT of 4/5 and VCT of at least 4/5. LTG Duration 09/06/20 ROM Short Term Goal (STG) Pt will improve rotation B to at least 60 deg to improve ability for needed head turning motions like driving. STG Duration 08/09/20 Usp Goal (LTG) Pt will have full cervical ROM without inc head or ear pain. LTG Duration 09/06/20 NDI Impairment 12/50 Short Term Goal (STG) Pt will improve to no greater than 7/50 to show improved function. Usp Goal (LTG) Pt will improve to no greater than 2/50 to show improved function. LTG Duration 09/06/20 Assessment Summary Assessment Pt noted some inc ache after resisted chin tuck so stopped that with HEP and added axial elongation vs gravity in supien w/o any inc pain. She is improving with soft tissue mobility and discussed w/ pt using yoga/breathing for relaxation & doing frequent posture checks. Physical Therapy Plan Frequency and Duration Frequency of Treatment 1-2x/week Duration of Treatment 2 months Plan of Care Start Date 07/09/20 Plan of Care End Date 09/06/20 Next Visit Focus/Plan Next Note Type Treatment Note Next Visit Plan cont to work cranial soft tissue & cranium work & upper cervical/jaw mobs, work on cervical soft tissue. Progress cervical stability
--- NOTE | 2020-08-01 15:16 | PT.OTN ---
Current Diagnoses Otalgia, bilateral (08/01/20) Unspecified temporomandibular joint disorder, unspecified side (08/01/20) Cervicalgia (08/01/20) Muscle weakness (generalized) (08/01/20) Abnormal posture (08/01/20) Headache, unspecified (08/01/20) Physical Therapy Treatment Note PT-OP-A Visit Information Start: 07/09/20 12:04 Freq: Status: Active Protocol: Document 08/01/20 14:35 [facility] (Rec: 08/01/20 15:16 [facility] [id number]) Out-Patient Physical Therapy Visit Information Visit Information Visit Type Treatment Note Visit Start Time 14:34 Visit Stop Time 15:12 Total Visit Minutes 38 Visit Number 6 Number of BERRY PICKER Visits 0 PT-OP-B Current Condition Start: 07/09/20 12:04 Freq: Status: Active Protocol: Document 07/09/20 16:07 [facility] (Rec: 07/09/20 17:01 [facility] [id number]) Current Condition History of Current Condition Onset Date a few years ago Current Complaints DAVALOS History of Current Condition Pt reports head pain is in post occiput. Pt has occasional jaw pain. Pt had MD think that jaw may be the cause of of the DAVALOS. SHe has done PT for head and neck pain but it didn't help. Pt has mouth guard d/t clenching that she has had for 1 year from dentist. Does not think seh clenches during the day. no issues with opening and closing jaw or with eating. Uses CPAP and follows up w/ sleep specialist. Pt had diverticulitis in 2015 and took levofloxican and was unable to lift arms then felt like all mm tone left my body . Then 2016 she thinks that is when she started getting DAVALOS . Pt has no known cause. Pt notes sometimes arms and neck feel weak. Sometiems has R shoulder pain in [place] region. Pt reports since November she thought she had an ear infection but MD said no. Pt reports B ear pain that goes along with head and neck pain. Pt notes sometimes when bends over then comes back up, she frequently gets lightheaded (like blood rushed to head). Last only 1 sec or 2 Prior Treatments and Tests OMT treatment 4x, pain specialist Dr. Agustin-1x today and 1x last year- discussed doing some numbing to nerves to see if that helps with DAVALOS, chiro-did not help-said was so stiff it was hard to manip, PT-2 months ago (about 10 times), massage-feels good in the moment Treatment Goals Patient/Caregiver Goals Get rid of DAVALOS and avoid clenching PT-OP-C Subjective Start: 07/09/20 12:04 Freq: Status: Active Protocol: Document 08/01/20 14:35 [facility] (Rec: 08/01/20 15:16 [facility] [id number]) OP-PT Subjective Patient Comments Patient Comments pain cont to be less PT-OP-F Manual Assessment Start: 07/09/20 12:04 Freq: Status: Active Protocol: Document 07/09/20 16:07 [facility] (Rec: 07/09/20 17:01 [facility] [id number]) Manual Assessments Soft Tissue Assessment Soft Tissue Mobility Assessment R>L UT, LS, cervical parapinals, pecs tight Joint Mobility Assessment Joint Mobility Assessment R 1st rib elevated PT-OP-J Posture/Palpation/Skin Start: 07/09/20 12:04 Freq: Status: Active Protocol: Document 07/09/20 16:07 [facility] (Rec: 07/09/20 17:01 [facility] [id number]) Posture Evaluation Sonia Postural Classification System Sonia Postural Classifications Posterior/Posterior Vertebral Compression Test 1 Elbow Flexion Test 3 PT-OP-K Range of Motion Start: 07/09/20 12:04 Freq: Status: Active Protocol: Document 07/09/20 16:07 [facility] (Rec: 07/09/20 17:01 [facility] [id number]) Cervical Spine Range of Motion Cervical Spine Active Degrees Flexion 50 Extension 41 Rotation Left 43 Rotation Right 42 Lateral Flexion Left 24 Lateral Flexion Right 25 Comments pain in head with all motions, R pain w/SB B TMJ Range of Motion Jaw Openning Jaw Openning (mm) 42 Comments Comments tightness in R, crunchy with jaw opening. Deviation equal ROM B, some L deviation w/jaw opening. PT-OP-L Special Tests Start: 07/09/20 12:04 Freq: Status: Active Protocol: Document 07/09/20 16:07 [facility] (Rec: 07/09/20 17:01 [facility] [id number]) Special Tests Cervical Spine Special Tests Transverse Ligament Comments neg Spurling's Test Test Results neg Vertebral Artery Test Results neg PT-OP-M Strength Start: 07/09/20 12:04 Freq: Status: Active Protocol: Document 07/09/20 16:07 [facility] (Rec: 07/09/20 17:01 [facility] [id number]) Cervical Spine Strength Cervical Spine Manual Muscle Testing Flexion (C1-2) 4 Good Extension 5 Normal Rotation Left 5 Normal Rotation Right 5 Normal Lateral Flexion Left (C3) 5 Normal Lateral Flexion Right (C3) 5 Normal PT-OP-Q Treatments Start: 07/09/20 12:04 Freq: Status: Active Protocol: Document 08/01/20 14:35 [facility] (Rec: 08/01/20 15:16 [facility] [id number]) Therapeutic Exercises Supine Exercises axial elongation Reps/Minutes 5sec x6 Prone Exercises axial elongation Reps/Minutes 10 sec x5 Standing Exercises rows Side bilateral Equipment Used L2 Reps/Minutes 15 Therapeutic Activity Therapeutic Activity posture Name standing posture in mirror PT-OP-R Modalities Start: 07/09/20 12:04 Freq: Status: Active Protocol: Document 07/30/20 10:12 [facility] (Rec: 07/30/20 10:18 [facility] [id number]) Hot Pack/Cold Pack Treatment Cold Pack Location cervical Patient Position Hooklying Treatment Duration (minutes) 10 PT-OP-T Assessment and Plan Start: 07/09/20 12:04 Freq: Status: Active Protocol: Document 08/01/20 14:35 [facility] (Rec: 08/01/20 15:16 [facility] [id number]) Physical Therapy Assessment Goals pain Short Term Goal (STG) Pt will have improved sleep posture to dec pain upon first waking up and during night. STG Duration 08/09/20 Senior Care Goal (LTG) Pt will report DAVALOS, neck pain, ear pain and jaw pain no greater than 1/10 during a typical week. LTG Duration 09/06/20 posture Senior Care Goal (LTG) Pt will have improved posture to dec load on C-spine & TMJ as evidenced by EFT of 4/5 and VCT of at least 4/5. LTG Duration 09/06/20 ROM Short Term Goal (STG) Pt will improve rotation B to at least 60 deg to improve ability for needed head turning motions like driving. STG Duration 08/09/20 Senior Care Goal (LTG) Pt will have full cervical ROM without inc head or ear pain. LTG Duration 09/06/20 NDI Impairment 12/50 Short Term Goal (STG) Pt will improve to no greater than 7/50 to show improved function. Senior Care Goal (LTG) Pt will improve to no greater than 2/50 to show improved function. LTG Duration 09/06/20 Assessment Summary Assessment Pt tended to activate SCM when doing axial elongation in supine so adjusted to prone and pt was able to do with more appopriate activiation. During rows, pt required cueing for avoid TL junction extension. Able to adjsut posture well with use of mirror. Physical Therapy Plan Frequency and Duration Frequency of Treatment 1-2x/week Duration of Treatment 2 months Plan of Care Start Date 07/09/20 Plan of Care End Date 09/06/20 Next Visit Focus/Plan Next Note Type Treatment Note Next Visit Plan cont to work cranial soft tissue & cranium work & upper cervical/jaw mobs, work on cervical soft tissue. Progress cervical stability
--- NOTE | 2020-08-07 09:52 | PT.OTN ---
Current Diagnoses Otalgia, bilateral (08/07/20) Unspecified temporomandibular joint disorder, unspecified side (08/07/20) Cervicalgia (08/07/20) Muscle weakness (generalized) (08/07/20) Abnormal posture (08/07/20) Headache, unspecified (08/07/20) Physical Therapy Treatment Note PT-OP-A Visit Information Start: 07/09/20 12:04 Freq: Status: Active Protocol: Document 08/07/20 09:04 [facility] (Rec: 08/07/20 09:52 [facility] [id number]) Out-Patient Physical Therapy Visit Information Visit Information Visit Type Treatment Note Visit Start Time 09:05 Visit Stop Time 09:55 Total Visit Minutes 50 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 Pt has occasional jaw pain. Pt had MD think that jaw may be the cause of of the DAVALOS. SHe has done PT for head and neck pain but it didn't help. Pt has mouth guard d/t clenching that she has had for 1 year from dentist. Does not think seh clenches during the day. no issues with opening and closing jaw or with eating. Uses CPAP and follows up w/ sleep specialist. Pt had diverticulitis in 2016 and took levofloxican and was unable to lift arms then felt like all mm tone left my body . Then 2016 she thinks that is when she started getting DAVALOS . Pt has no known cause. Pt notes sometimes arms and neck feel weak. Sometiems has R shoulder pain in UT region. Pt reports since November she thought she had an ear infection but MD said no. Pt reports B ear pain that goes along with head and neck pain. Pt notes sometimes when bends over then comes back up, she frequently gets lightheaded (like blood rushed to head). Last only 1 sec or 2 Prior Treatments and Tests OMT treatment 4x, pain specialist Dr. Agustin-1x today and 1x last year- discussed doing some numbing to nerves to see if that helps with DAVALOS, chiro-did not help-said was so stiff it was hard to manip, PT-2 months ago (about 10 times), massage-feels good in the moment Treatment Goals Patient/Caregiver Goals Get rid of DAVALOS and avoid clenching PT-OP-C Subjective Start: 07/09/20 12:04 Freq: Status: Active Protocol: Document 08/07/20 09:04 [facility] (Rec: 08/07/20 09:52 [facility] [id number]) OP-PT Subjective Patient Comments Patient Comments Pt reports after skiing she had some soreness the past few days all day in post head & lat head. PT-OP-F Manual Assessment Start: 07/09/20 12:04 Freq: Status: Active Protocol: Document 07/09/20 16:07 [facility] (Rec: 07/09/20 17:01 [facility] [id number]) Manual Assessments Soft Tissue Assessment Soft Tissue Mobility Assessment R>L UT, LS, cervical parapinals, pecs tight Joint Mobility Assessment Joint Mobility Assessment R 1st rib elevated PT-OP-J Posture/Palpation/Skin Start: 07/09/20 12:04 Freq: Status: Active Protocol: Document 07/09/20 16:07 [facility] (Rec: 07/09/20 17:01 [facility] [id number]) Posture Evaluation Sonia Postural Classification System Sonia Postural Classifications Posterior/Posterior Vertebral Compression Test 1 Elbow Flexion Test 3 PT-OP-K Range of Motion Start: 07/09/20 12:04 Freq: Status: Active Protocol: Document 07/09/20 16:07 [facility] (Rec: 07/09/20 17:01 [facility] [id number]) Cervical Spine Range of Motion Cervical Spine Active Degrees Flexion 50 Extension 41 Rotation Left 43 Rotation Right 42 Lateral Flexion Left 24 Lateral Flexion Right 25 Comments pain in head with all motions, R pain w/SB B TMJ Range of Motion Jaw Openning Jaw Openning (mm) 42 Comments Comments tightness in R, crunchy with jaw opening. Deviation equal ROM B, some L deviation w/jaw opening. PT-OP-L Special Tests Start: 07/09/20 12:04 Freq: Status: Active Protocol: Document 07/09/20 16:07 [facility] (Rec: 07/09/20 17:01 [facility] [id number]) Special Tests Cervical Spine Special Tests Transverse Ligament Comments neg Spurling's Test Test Results neg Vertebral Artery Test Results neg PT-OP-M Strength Start: 07/09/20 12:04 Freq: Status: Active Protocol: Document 07/09/20 16:07 [facility] (Rec: 07/09/20 17:01 [facility] [id number]) Cervical Spine Strength Cervical Spine Manual Muscle Testing Flexion (C1-2) 4 Good Extension 5 Normal Rotation Left 5 Normal Rotation Right 5 Normal Lateral Flexion Left (C3) 5 Normal Lateral Flexion Right (C3) 5 Normal PT-OP-Q Treatments Start: 07/09/20 12:04 Freq: Status: Active Protocol: Document 08/07/20 09:04 [facility] (Rec: 08/07/20 09:52 [facility] [id number]) Therapeutic Exercises Prone Exercises axial elongation Reps/Minutes 10 sec x5 Other Exercises quadruped Other Exercise Name 1.shoulder flex 2. shoulder Habd Side bilateral Reps/Minutes 20 ea Comments alt working on head positon & core stability Manual Therapy Treatment Soft Tissue Mobilization cervical paraspinals Body Location B Mobilization Type Rolling SOR Body Location SOR Mobilization Type Sustained Pressure Intensity/Depth Moderate Body Position Hooklying SCM/scalenes Body Location R>L Mobilization Type Sustained Pressure,Trigger Point Release Intensity/Depth Moderate Body Position Hooklying cranium Body Location temporalis & cranial fascia & into masseter Mobilization Type Myofascial Release,Rolling Intensity/Depth Superficial Body Position Hooklying Joint Mobilizations C1 Joint Transverse L Grade II PT-OP-R Modalities Start: 07/09/20 12:04 Freq: Status: Active Protocol: Document 08/07/20 09:04 [facility] (Rec: 08/07/20 09:52 [facility] [id number]) Hot Pack/Cold Pack Treatment Cold Pack Location cervical Patient Position Hooklying Treatment Duration (minutes) 10 PT-OP-T Assessment and Plan Start: 07/09/20 12:04 Freq: Status: Active Protocol: Document 08/07/20 09:04 [facility] (Rec: 08/07/20 09:52 [facility] [id number]) Physical Therapy Assessment Goals pain Short Term Goal (STG) Pt will have improved sleep posture to dec pain upon first waking up and during night. STG Duration 08/09/20 Scow Captain Goal (LTG) Pt will report DAVALOS, neck pain, ear pain and jaw pain no greater than 1/10 during a typical week. LTG Duration 09/06/20 posture Halfway Goal (LTG) Pt will have improved posture to dec load on C-spine & TMJ as evidenced by EFT of 4/5 and VCT of at least 4/5. LTG Duration 09/06/20 ROM Short Term Goal (STG) Pt will improve rotation B to at least 60 deg to improve ability for needed head turning motions like driving. STG Duration 08/09/20 Scow Captain Goal (LTG) Pt will have full cervical ROM without inc head or ear pain. LTG Duration 09/06/20 NDI Impairment 12/50 Short Term Goal (STG) Pt will improve to no greater than 7/50 to show improved function. Halfway Goal (LTG) Pt will improve to no greater than 2/50 to show improved function. LTG Duration 09/06/20 Physical Therapy Plan Frequency and Duration Frequency of Treatment 1-2x/week Duration of Treatment 2 months Plan of Care Start Date 07/09/20 Plan of Care End Date 09/06/20 Next Visit Focus/Plan Next Note Type Treatment Note Next Visit Plan cont to work cranial soft tissue & cranium work & upper cervical/jaw mobs, work on cervical soft tissue. Progress cervical stability
--- NOTE | 2020-08-13 09:55 | PT.OTN ---
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 Pt has occasional jaw pain. Pt had MD think that jaw may be the cause of of the DAVALOS. SHe has done PT for head and neck pain but it didn't help. Pt has mouth guard d/t clenching that she has had for 1 year from dentist. Does not think seh clenches during the day. no issues with opening and closing jaw or with eating. Uses CPAP and follows up w/ sleep specialist. Pt had diverticulitis in 2015 and took levofloxican and was unable to lift arms then felt like all mm tone left my body . Then 2016 she thinks that is when she started getting DAVALOS . Pt has no known cause. Pt notes sometimes arms and neck feel weak. Sometiems has R shoulder pain in [place] region. Pt reports since November she thought she had an ear infection but MD said no. Pt reports B ear pain that goes along with head and neck pain. Pt notes sometimes when bends over then comes back up, she frequently gets lightheaded (like blood rushed to head). Last only 1 sec or 2 Prior Treatments and Tests OMT treatment 4x, pain specialist Dr. Agustin-1x today and 1x last year- discussed doing some numbing to nerves to see if that helps with DAVALOS, chiro-did not help-said was so stiff it was hard to manip, PT-2 months ago (about 10 times), massage-feels good in the moment Treatment Goals Patient/Caregiver Goals Get rid of DAVALOS and avoid clenching PT-OP-C Subjective Start: 07/09/20 12:04 Freq: Status: Active Protocol: Document 08/13/20 09:05 [facility] (Rec: 08/13/20 12:10 [facility] [id number]) OP-PT Subjective Patient Comments Patient Comments Pt reports is having tightness over posterior neck at base of occiput like someone is squeezing her muscles and her jaw is feeling normal no concerns. PT-OP-F Manual Assessment Start: 07/09/20 12:04 Freq: Status: Active Protocol: Document 07/09/20 16:07 [facility] (Rec: 07/09/20 17:01 [facility] [id number]) Manual Assessments Soft Tissue Assessment Soft Tissue Mobility Assessment R>L UT, LS, cervical parapinals, pecs tight Joint Mobility Assessment Joint Mobility Assessment R 1st rib elevated PT-OP-J Posture/Palpation/Skin Start: 07/09/20 12:04 Freq: Status: Active Protocol: Document 07/09/20 16:07 [facility] (Rec: 07/09/20 17:01 [facility] [id number]) Posture Evaluation Sonia Postural Classification System Sonia Postural Classifications Posterior/Posterior Vertebral Compression Test 1 Elbow Flexion Test 3 PT-OP-K Range of Motion Start: 07/09/20 12:04 Freq: Status: Active Protocol: Document 07/09/20 16:07 [facility] (Rec: 07/09/20 17:01 [facility] [id number]) Cervical Spine Range of Motion Cervical Spine Active Degrees Flexion 50 Extension 41 Rotation Left 43 Rotation Right 42 Lateral Flexion Left 24 Lateral Flexion Right 25 Comments pain in head with all motions, R pain w/SB B TMJ Range of Motion Jaw Openning Jaw Openning (mm) 42 Comments Comments tightness in R, crunchy with jaw opening. Deviation equal ROM B, some L deviation w/jaw opening. PT-OP-L Special Tests Start: 07/09/20 12:04 Freq: Status: Active Protocol: Document 07/09/20 16:07 [facility] (Rec: 07/09/20 17:01 [facility] [id number]) Special Tests Cervical Spine Special Tests Transverse Ligament Comments neg Spurling's Test Test Results neg Vertebral Artery Test Results neg PT-OP-M Strength Start: 07/09/20 12:04 Freq: Status: Active Protocol: Document 07/09/20 16:07 [facility] (Rec: 07/09/20 17:01 [facility] [id number]) Cervical Spine Strength Cervical Spine Manual Muscle Testing Flexion (C1-2) 4 Good Extension 5 Normal Rotation Left 5 Normal Rotation Right 5 Normal Lateral Flexion Left (C3) 5 Normal Lateral Flexion Right (C3) 5 Normal PT-OP-Q Treatments Start: 07/09/20 12:04 Freq: Status: Active Protocol: Document 08/13/20 09:05 [facility] (Rec: 08/13/20 12:10 [facility] [id number]) Therapeutic Exercises Supine Exercises axial elongation Reps/Minutes 5sec x6 Sitting Exercises rocabado Sitting Exercise Name 6x6 per hand out in chart Comments min cueing Other Exercises racquetball roll at wall, theracane Other Exercise Name Self manual STMs: R upper trap , Lev scap, interscapular, MWM post neck cane Equipment Used racq ball back to wall, theracane Manual Therapy Treatment Soft Tissue Mobilization intraoral TMJ Body Location L masseter, Med pterygoid, lat pterygoid, sub mandible MM Mobilization Type Cross-Friction,Other Intensity/Depth Moderate Body Position Supine Comments pincer kneading manual then instruction on self- good response cervical paraspinals Body Location B Mobilization Type Rolling,Sustained Pressure, Other Intensity/Depth Moderate Comments supine and standing manual then instruction on self using theracane MWM in standing- good response SOR Body Location SOR Mobilization Type Sustained Pressure Intensity/Depth Moderate Body Position Hooklying Comments cued for pause conversation to allow releases into retracted positioning. SCM/scalenes Body Location R>L Mobilization Type Sustained Pressure,Trigger Point Release,Other Intensity/Depth Moderate Body Position Hooklying Comments manual then instruction on self including pincer kneading or MWM w/ SCM chin nods/ turns- good response cranium Body Location temporalis & cranial fascia & into masseter Mobilization Type Myofascial Release,Rolling Intensity/Depth Superficial Body Position Hooklying Comments manual then instruction on self- good response Self-Care/Home Management Treatment Education Patient Education Home Exercise Program,Pain Management,Posture Other Education Extra time spent for education on posture, alignment and self application of STMs to allow eleviate and or prevent pain. Pt verbalized understanding and demonstration. PT-OP-R Modalities Start: 07/09/20 12:04 Freq: Status: Active Protocol: Document 08/07/20 09:04 [facility] (Rec: 08/07/20 09:52 [facility] [id number]) Hot Pack/Cold Pack Treatment Cold Pack Location cervical Patient Position Hooklying Treatment Duration (minutes) 10 PT-OP-T Assessment and Plan Start: 07/09/20 12:04 Freq: Status: Active Protocol: Document 08/13/20 09:05 [facility] (Rec: 08/13/20 12:10 [facility] [id number]) Physical Therapy Assessment Goals pain Short Term Goal (STG) Pt will have improved sleep posture to dec pain upon first waking up and during night. STG Duration 08/09/20 Is Technician Goal (LTG) Pt will report DAVALOS, neck pain, ear pain and jaw pain no greater than 1/10 during a typical week. LTG Duration 09/06/20 posture Skilled Nursing Goal (LTG) Pt will have improved posture to dec load on C-spine & TMJ as evidenced by EFT of 4/5 and VCT of at least 4/5. LTG Duration 09/06/20 ROM Short Term Goal (STG) Pt will improve rotation B to at least 60 deg to improve ability for needed head turning motions like driving. STG Duration 08/09/20 Skilled Nursing Goal (LTG) Pt will have full cervical ROM without inc head or ear pain. LTG Duration 09/06/20 NDI Impairment 12/50 Short Term Goal (STG) Pt will improve to no greater than 7/50 to show improved function. Is Technician Goal (LTG) Pt will improve to no greater than 2/50 to show improved function. LTG Duration 09/06/20 Assessment Summary Assessment Pt tolerated tx well, performed manual then extra time spent for selfcare application using racquetball and theracane for home with good response that feels alot better pain posterior neck/ head 6-7/10 pre tx to 3/10 post tx. Briefly reviewed chin nods and elongation HEP during supine and standing positioning. Will continue DNF ther ex in various positions next tx, recommended continue performance within tolerance. Physical Therapy Plan Frequency and Duration Frequency of Treatment 1-2x/week Duration of Treatment 2 months Plan of Care Start Date 07/09/20 Plan of Care End Date 09/06/20 Therapeutic Interventions Therapeutic Interventions Home Exercise Program,Joint Mobilizations,Manual Therapy, Neuromuscular Re-education, Patient/Caregiver Education, Self-Care/Home Management,Soft Tissue Mobilization,Taping, Therapeutic Activities, Therapeutic Exercises, Vestibular Rehabilitation Modalities Cold Pack/Ice Massage,Hot Packs Next Visit Focus/Plan Next Note Type Treatment Note Next Visit Plan Assess response to manual and self care STM instruction then posture/ alignment cont to work cranial soft tissue & cranium work & upper cervical/ jaw mobs, work on cervical soft tissue. Progress cervical stability
--- NOTE | 2020-08-15 11:30 | PT.OTN ---
Current Diagnoses Otalgia, bilateral (08/15/20) Unspecified temporomandibular joint disorder, unspecified side (08/15/20) Cervicalgia (08/15/20) Muscle weakness (generalized) (08/15/20) Abnormal posture (08/15/20) Headache, unspecified (08/15/20) Physical Therapy Treatment Note PT-OP-A Visit Information Start: 07/09/20 12:04 Freq: Status: Active Protocol: Document 08/15/20 10:17 [facility] (Rec: 08/15/20 11:30 [facility] [id number]) Out-Patient Physical Therapy Visit Information Visit Information Visit Type Treatment Note Visit Start Time 10:31 Visit Stop Time 11:30 Total Visit Minutes 59 Visit Number 9 Number of EARRING MAKER Visits 0 PT-OP-B Current Condition Start: 07/09/20 12:04 Freq: Status: Active Protocol: Document 07/09/20 16:07 [facility] (Rec: 07/09/20 17:01 [facility] [id number]) Current Condition History of Current Condition Onset Date a few years ago Current Complaints DAVALOS History of Current Condition Pt reports head pain is in post occiput. Pt has occasional jaw pain. Pt had MD think that jaw may be the cause of of the DAVALOS. SHe has done PT for head and neck pain but it didn't help. Pt has mouth guard d/t clenching that she has had for 1 year from dentist. Does not think seh clenches during the day. no issues with opening and closing jaw or with eating. Uses CPAP and follows up w/ sleep specialist. Pt had diverticulitis in 2015 and took levofloxican and was unable to lift arms then felt like all mm tone left my body . Then 2016 she thinks that is when she started getting DAVALOS . Pt has no known cause. Pt notes sometimes arms and neck feel weak. Sometiems has R shoulder pain in [place] region. Pt reports since November she thought she had an ear infection but MD said no. Pt reports B ear pain that goes along with head and neck pain. Pt notes sometimes when bends over then comes back up, she frequently gets lightheaded (like blood rushed to head). Last only 1 sec or 2 Prior Treatments and Tests OMT treatment 4x, pain specialist Dr. Agustin-1x today and 1x last year- discussed doing some numbing to nerves to see if that helps with DAVALOS, chiro-did not help-said was so stiff it was hard to manip, PT-2 months ago (about 10 times), massage-feels good in the moment Treatment Goals Patient/Caregiver Goals Get rid of DAVALOS and avoid clenching PT-OP-C Subjective Start: 07/09/20 12:04 Freq: Status: Active Protocol: Document 08/15/20 10:17 [facility] (Rec: 08/15/20 11:30 [facility] [id number]) OP-PT Subjective Patient Comments Patient Comments Pt doesnt remember pain when skiing or ont heir way back but apin the day after. Pt reports pain w/ SB & feels tight. PT-OP-F Manual Assessment Start: 07/09/20 12:04 Freq: Status: Active Protocol: Document 07/09/20 16:07 [facility] (Rec: 07/09/20 17:01 [facility] [id number]) Manual Assessments Soft Tissue Assessment Soft Tissue Mobility Assessment R>L UT, LS, cervical parapinals, pecs tight Joint Mobility Assessment Joint Mobility Assessment R 1st rib elevated PT-OP-J Posture/Palpation/Skin Start: 07/09/20 12:04 Freq: Status: Active Protocol: Document 07/09/20 16:07 [facility] (Rec: 07/09/20 17:01 [facility] [id number]) Posture Evaluation [facility] Postural Classification System Sonia Postural Classifications Posterior/Posterior Vertebral Compression Test 1 Elbow Flexion Test 3 PT-OP-K Range of Motion Start: 07/09/20 12:04 Freq: Status: Active Protocol: Document 07/09/20 16:07 [facility] (Rec: 07/09/20 17:01 [facility] [id number]) Cervical Spine Range of Motion Cervical Spine Active Degrees Flexion 50 Extension 41 Rotation Left 43 Rotation Right 42 Lateral Flexion Left 24 Lateral Flexion Right 25 Comments pain in head with all motions, R pain w/SB B TMJ Range of Motion Jaw Openning Jaw Openning (mm) 42 Comments Comments tightness in R, crunchy with jaw opening. Deviation equal ROM B, some L deviation w/jaw opening. PT-OP-L Special Tests Start: 07/09/20 12:04 Freq: Status: Active Protocol: Document 07/09/20 16:07 [facility] (Rec: 07/09/20 17:01 [facility] [id number]) Special Tests Cervical Spine Special Tests Transverse Ligament Comments neg Spurling's Test Test Results neg Vertebral Artery Test Results neg PT-OP-M Strength Start: 07/09/20 12:04 Freq: Status: Active Protocol: Document 07/09/20 16:07 [facility] (Rec: 07/09/20 17:01 [facility] [id number]) Cervical Spine Strength Cervical Spine Manual Muscle Testing Flexion (C1-2) 4 Good Extension 5 Normal Rotation Left 5 Normal Rotation Right 5 Normal Lateral Flexion Left (C3) 5 Normal Lateral Flexion Right (C3) 5 Normal PT-OP-Q Treatments Start: 07/09/20 12:04 Freq: Status: Active Protocol: Document 08/15/20 10:17 [facility] (Rec: 08/15/20 11:30 [facility] [id number]) Therapeutic Exercises Supine Exercises foam roll Supine Exercise Name Habd, abd, flex Side bilateral Reps/Minutes 10 Therapeutic Activity Therapeutic Activity posture Name posture in seated & standing & working on hip hinge & squat w/neck alignmen Manual Therapy Treatment Soft Tissue Mobilization cervical paraspinals Body Location B Mobilization Type Rolling,Sustained Pressure, Other Intensity/Depth Moderate Comments supine and standing manual then instruction on self using theracane MWM in standing- good response SOR Body Location SOR Mobilization Type Sustained Pressure Intensity/Depth Moderate Body Position Hooklying Comments cued for pause conversation to allow releases into retracted positioning. SCM/scalenes Body Location R>L Mobilization Type Sustained Pressure,Trigger Point Release,Other Intensity/Depth Moderate Body Position Hooklying Comments manual then instruction on self including pincer kneading or MWM w/ SCM chin nods/ turns- good response Joint Mobilizations C2 Joint transverse L C1 Joint Transverse R & UPA R & AP L Grade II mastoid Joint L PA PT-OP-R Modalities Start: 07/09/20 12:04 Freq: Status: Active Protocol: Document 08/15/20 10:17 [facility] (Rec: 08/15/20 11:30 [facility] [id number]) Hot Pack/Cold Pack Treatment Hot Pack Location cervical Patient Position Hooklying Treatment Duration (minutes) 15 PT-OP-T Assessment and Plan Start: 07/09/20 12:04 Freq: Status: Active Protocol: Document 08/15/20 10:17 [facility] (Rec: 08/15/20 11:30 [facility] [id number]) Physical Therapy Assessment Goals pain Short Term Goal (STG) Pt will have improved sleep posture to dec pain upon first waking up and during night. STG Duration 08/09/20 Community Life Director Goal (LTG) Pt will report DAVALOS, neck pain, ear pain and jaw pain no greater than 1/10 during a typical week. LTG Duration 09/06/20 posture Community Life Director Goal (LTG) Pt will have improved posture to dec load on C-spine & TMJ as evidenced by EFT of 4/5 and VCT of at least 4/5. LTG Duration 09/06/20 ROM Short Term Goal (STG) Pt will improve rotation B to at least 60 deg to improve ability for needed head turning motions like driving. STG Duration 08/09/20 Jail Goal (LTG) Pt will have full cervical ROM without inc head or ear pain. LTG Duration 09/06/20 NDI Impairment 12/50 Short Term Goal (STG) Pt will improve to no greater than 7/50 to show improved function. Jail Goal (LTG) Pt will improve to no greater than 2/50 to show improved function. LTG Duration 09/06/20 Assessment Summary Assessment After manual, pt had dec tightness in head and with change in posture wasable to do dec tightness further. Receptive to edu & foam roll exercises Physical Therapy Plan Frequency and Duration Frequency of Treatment 1-2x/week Duration of Treatment 2 months Plan of Care Start Date 07/09/20 Plan of Care End Date 09/06/20 Next Visit Focus/Plan Next Note Type Treatment Note Next Visit Plan cotn to work on postural movments with good mehcancis & uperr cervical mobility
--- NOTE | 2020-08-20 11:21 | PT.OTN ---
Current Diagnoses Otalgia, bilateral (08/20/20) Unspecified temporomandibular joint disorder, unspecified side (08/20/20) Cervicalgia (08/20/20) Muscle weakness (generalized) (08/20/20) Abnormal posture (08/20/20) Headache, unspecified (08/20/20) Physical Therapy Treatment Note PT-OP-A Visit Information Start: 07/09/20 12:04 Freq: Status: Active Protocol: Document 08/20/20 10:34 [facility] (Rec: 08/20/20 11:21 [facility] [id number]) Out-Patient Physical Therapy Visit Information Visit Information Visit Type Treatment Note Visit Start Time 10:32 Visit Stop Time 11:14 Total Visit Minutes 42 Visit Number 10 Number of BUILDING GUARD DEPUTY SHERIFF Visits 0 PT-OP-B Current Condition Start: 07/09/20 12:04 Freq: Status: Active Protocol: Document 07/09/20 16:07 [facility] (Rec: 07/09/20 17:01 [facility] [id number]) Current Condition History of Current Condition Onset Date a few years ago Current Complaints DAVALOS History of Current Condition Pt reports head pain is in post occiput. Pt has occasional jaw pain. Pt had MD think that jaw may be the cause of of the DAVALOS. SHe has done PT for head and neck pain but it didn't help. Pt has mouth guard d/t clenching that she has had for 1 year from dentist. Does not think seh clenches during the day. no issues with opening and closing jaw or with eating. Uses CPAP and follows up w/ sleep specialist. Pt had diverticulitis in 2015 and took levofloxican and was unable to lift arms then felt like all mm tone left my body . Then 2016 she thinks that is when she started getting DAVALOS . Pt has no known cause. Pt notes sometimes arms and neck feel weak. Sometiems has R shoulder pain in [place] region. Pt reports since November she thought she had an ear infection but MD said no. Pt reports B ear pain that goes along with head and neck pain. Pt notes sometimes when bends over then comes back up, she frequently gets lightheaded (like blood rushed to head). Last only 1 sec or 2 Prior Treatments and Tests OMT treatment 4x, pain specialist Dr. Agustin-1x today and 1x last year- discussed doing some numbing to nerves to see if that helps with DAVALOS, chiro-did not help-said was so stiff it was hard to manip, PT-2 months ago (about 10 times), massage-feels good in the moment Treatment Goals Patient/Caregiver Goals Get rid of DAVALOS and avoid clenching PT-OP-C Subjective Start: 07/09/20 12:04 Freq: Status: Active Protocol: Document 08/20/20 10:34 [facility] (Rec: 08/20/20 11:21 [facility] [id number]) OP-PT Subjective Patient Comments Patient Comments Pt reports pain is better. more like a 4 PT-OP-F Manual Assessment Start: 07/09/20 12:04 Freq: Status: Active Protocol: Document 07/09/20 16:07 [facility] (Rec: 07/09/20 17:01 [facility] [id number]) Manual Assessments Soft Tissue Assessment Soft Tissue Mobility Assessment R>L UT, LS, cervical parapinals, pecs tight Joint Mobility Assessment Joint Mobility Assessment R 1st rib elevated PT-OP-J Posture/Palpation/Skin Start: 07/09/20 12:04 Freq: Status: Active Protocol: Document 07/09/20 16:07 [facility] (Rec: 07/09/20 17:01 [facility] [id number]) Posture Evaluation Sonia Postural Classification System Sonia Postural Classifications Posterior/Posterior Vertebral Compression Test 1 Elbow Flexion Test 3 PT-OP-K Range of Motion Start: 07/09/20 12:04 Freq: Status: Active Protocol: Document 07/09/20 16:07 [facility] (Rec: 07/09/20 17:01 [facility] [id number]) Cervical Spine Range of Motion Cervical Spine Active Degrees Flexion 50 Extension 41 Rotation Left 43 Rotation Right 42 Lateral Flexion Left 24 Lateral Flexion Right 25 Comments pain in head with all motions, R pain w/SB B TMJ Range of Motion Jaw Openning Jaw Openning (mm) 42 Comments Comments tightness in R, crunchy with jaw opening. Deviation equal ROM B, some L deviation w/jaw opening. PT-OP-L Special Tests Start: 07/09/20 12:04 Freq: Status: Active Protocol: Document 07/09/20 16:07 [facility] (Rec: 07/09/20 17:01 [facility] [id number]) Special Tests Cervical Spine Special Tests Transverse Ligament Comments neg Spurling's Test Test Results neg Vertebral Artery Test Results neg PT-OP-M Strength Start: 07/09/20 12:04 Freq: Status: Active Protocol: Document 07/09/20 16:07 [facility] (Rec: 07/09/20 17:01 [facility] [id number]) Cervical Spine Strength Cervical Spine Manual Muscle Testing Flexion (C1-2) 4 Good Extension 5 Normal Rotation Left 5 Normal Rotation Right 5 Normal Lateral Flexion Left (C3) 5 Normal Lateral Flexion Right (C3) 5 Normal PT-OP-Q Treatments Start: 07/09/20 12:04 Freq: Status: Active Protocol: Document 08/20/20 10:34 [facility] (Rec: 08/20/20 11:21 [facility] [id number]) Therapeutic Exercises Standing Exercises squat Side bilateral Reps/Minutes 2x15 Comments focus on neutral head and back hip hinge Standing Exercise Name focus on neutral spine Side bilateral Reps/Minutes 15 Comments yard stick rows Standing Exercise Name squat rows Side bilateral Reps/Minutes 2x10 Comments focus on posture of head neck and back Manual Therapy Treatment Soft Tissue Mobilization SOR Body Location SOR Mobilization Type Sustained Pressure Intensity/Depth Moderate Body Position Hooklying Comments cued for pause conversation to allow releases into retracted positioning. SCM/scalenes Body Location R>L Mobilization Type Sustained Pressure,Trigger Point Release,Other Intensity/Depth Moderate Body Position Hooklying Comments manual then instruction on self including pincer kneading or MWM w/ SCM chin nods/ turns- good response cranium Body Location temporalis & cranial fascia & into masseter Mobilization Type Myofascial Release,Rolling Intensity/Depth Superficial Body Position Hooklying Comments manual then instruction on self- good response Joint Mobilizations cervical Joint C3 Direction transverse R PT-OP-R Modalities Start: 07/09/20 12:04 Freq: Status: Active Protocol: Document 08/15/20 10:17 [facility] (Rec: 08/15/20 11:30 [facility] [id number]) Hot Pack/Cold Pack Treatment Hot Pack Location cervical Patient Position Hooklying Treatment Duration (minutes) 15 PT-OP-T Assessment and Plan Start: 07/09/20 12:04 Freq: Status: Active Protocol: Document 08/20/20 10:34 [facility] (Rec: 08/20/20 11:21 [facility] [id number]) Physical Therapy Assessment Goals pain Short Term Goal (STG) Pt will have improved sleep posture to dec pain upon first waking up and during night. STG Duration 08/09/20 Implementation Director Goal (LTG) Pt will report DAVALOS, neck pain, ear pain and jaw pain no greater than 1/10 during a typical week. LTG Duration 09/06/20 posture Implementation Director Goal (LTG) Pt will have improved posture to dec load on C-spine & TMJ as evidenced by EFT of 4/5 and VCT of at least 4/5. LTG Duration 09/06/20 ROM Short Term Goal (STG) Pt will improve rotation B to at least 60 deg to improve ability for needed head turning motions like driving. STG Duration 08/09/20 Implementation Director Goal (LTG) Pt will have full cervical ROM without inc head or ear pain. LTG Duration 09/06/20 NDI Impairment 12/50 Short Term Goal (STG) Pt will improve to no greater than 7/50 to show improved function. [facility] Goal (LTG) Pt will improve to no greater than 2/50 to show improved function. LTG Duration 09/06/20 Assessment Summary Assessment Pt required max ceuign during exercises for posture of spine & head but imrpoved with reps . She reports relief with session Focus was on movement mechanics with lifting like activities to dec pain Physical Therapy Plan Frequency and Duration Frequency of Treatment 1-2x/week Duration of Treatment 2 months Plan of Care Start Date 07/09/20 Plan of Care End Date 09/06/20 Next Visit Focus/Plan Next Note Type Treatment Note Next Visit Plan cotn to work on postural movments with good mehcancis & uperr cervical mobility
--- NOTE | 2020-08-22 09:49 | PT.OTN ---
Current Diagnoses Otalgia, bilateral (08/22/20) Unspecified temporomandibular joint disorder, unspecified side (08/22/20) Cervicalgia (08/22/20) Muscle weakness (generalized) (08/22/20) Abnormal posture (08/22/20) Headache, unspecified (08/22/20) Physical Therapy Treatment Note PT-OP-A Visit Information Start: 07/09/20 12:04 Freq: Status: Active Protocol: Document 08/22/20 08:40 [facility] (Rec: 08/22/20 09:49 [facility] [id number]) Out-Patient Physical Therapy Visit Information Visit Information Visit Type Treatment Note Visit Start Time 08:16 Visit Stop Time 09:13 Total Visit Minutes 57 Visit Number 11 Number of REEL MAN Visits 0 PT-OP-B Current Condition Start: 07/09/20 12:04 Freq: Status: Active Protocol: Document 07/09/20 16:07 [facility] (Rec: 07/09/20 17:01 [facility] [id number]) Current Condition History of Current Condition Onset Date a few years ago Current Complaints DAVALOS History of Current Condition Pt reports head pain is in post occiput. Pt has occasional jaw pain. Pt had MD think that jaw may be the cause of of the DAVALOS. SHe has done PT for head and neck pain but it didn't help. Pt has mouth guard d/t clenching that she has had for 1 year from dentist. Does not think seh clenches during the day. no issues with opening and closing jaw or with eating. Uses CPAP and follows up w/ sleep specialist. Pt had diverticulitis in 2015 and took levofloxican and was unable to lift arms then felt like all mm tone left my body . Then 2016 she thinks that is when she started getting DAVALOS . Pt has no known cause. Pt notes sometimes arms and neck feel weak. Sometiems has R shoulder pain in [place] region. Pt reports since November she thought she had an ear infection but MD said no. Pt reports B ear pain that goes along with head and neck pain. Pt notes sometimes when bends over then comes back up, she frequently gets lightheaded (like blood rushed to head). Last only 1 sec or 2 Prior Treatments and Tests OMT treatment 4x, pain specialist Dr. Agustin-1x today and 1x last year- discussed doing some numbing to nerves to see if that helps with DAVALOS, chiro-did not help-said was so stiff it was hard to manip, PT-2 months ago (about 10 times), massage-feels good in the moment Treatment Goals Patient/Caregiver Goals Get rid of DAVALOS and avoid clenching PT-OP-C Subjective Start: 07/09/20 12:04 Freq: Status: Active Protocol: Document 08/22/20 08:40 [facility] (Rec: 08/22/20 09:49 [facility] [id number]) OP-PT Subjective Patient Comments Patient Comments Pt reports pain less recently and hasn't' had pain since last session except as driving here. [place] on her posture [employer] activities Patient Reported Progress Improving PT-OP-F Manual Assessment Start: 07/09/20 12:04 Freq: Status: Active Protocol: Document 07/09/20 16:07 [facility] (Rec: 07/09/20 17:01 [facility] [id number]) Manual Assessments Soft Tissue Assessment Soft Tissue Mobility Assessment R>L UT, LS, cervical parapinals, pecs tight Joint Mobility Assessment Joint Mobility Assessment R 1st rib elevated PT-OP-J Posture/Palpation/Skin Start: 07/09/20 12:04 Freq: Status: Active Protocol: Document 07/09/20 16:07 [facility] (Rec: 07/09/20 17:01 [facility] [id number]) Posture Evaluation [facility] Postural Classification System Sonia Postural Classifications Posterior/Posterior Vertebral Compression Test 1 Elbow Flexion Test 3 PT-OP-K Range of Motion Start: 07/09/20 12:04 Freq: Status: Active Protocol: Document 07/09/20 16:07 [facility] (Rec: 07/09/20 17:01 [facility] [id number]) Cervical Spine Range of Motion Cervical Spine Active Degrees Flexion 50 Extension 41 Rotation Left 43 Rotation Right 42 Lateral Flexion Left 24 Lateral Flexion Right 25 Comments pain in head with all motions, R pain w/SB B TMJ Range of Motion Jaw Openning Jaw Openning (mm) 42 Comments Comments tightness in R, crunchy with jaw opening. Deviation equal ROM B, some L deviation w/jaw opening. PT-OP-L Special Tests Start: 07/09/20 12:04 Freq: Status: Active Protocol: Document 07/09/20 16:07 [facility] (Rec: 07/09/20 17:01 [facility] [id number]) Special Tests Cervical Spine Special Tests Transverse Ligament Comments neg Spurling's Test Test Results neg Vertebral Artery Test Results neg PT-OP-M Strength Start: 07/09/20 12:04 Freq: Status: Active Protocol: Document 07/09/20 16:07 [facility] (Rec: 07/09/20 17:01 [facility] [id number]) Cervical Spine Strength Cervical Spine Manual Muscle Testing Flexion (C1-2) 4 Good Extension 5 Normal Rotation Left 5 Normal Rotation Right 5 Normal Lateral Flexion Left (C3) 5 Normal Lateral Flexion Right (C3) 5 Normal PT-OP-Q Treatments Start: 07/09/20 12:04 Freq: Status: Active Protocol: Document 08/22/20 08:40 [facility] (Rec: 08/22/20 09:49 [facility] [id number]) Therapeutic Exercises Supine Exercises foam roll Supine Exercise Name Habd, abd, flex Side bilateral Reps/Minutes 10 Prone Exercises axial elongation Reps/Minutes 10 sec x3 Standing Exercises squat Standing Exercise Name 1 set squats and 1 set lifting Side bilateral Reps/Minutes 2x15 Comments focus on neutral head and back hip hinge Standing Exercise Name focus on neutral spine Side bilateral Reps/Minutes 15 Comments yard stick rows Standing Exercise Name squat row Side bilateral Equipment Used L3 Reps/Minutes 10 Comments focus on neutral spine & head position Manual Therapy Treatment Soft Tissue Mobilization SOR Body Location SOR Mobilization Type Sustained Pressure Intensity/Depth Moderate Body Position Hooklying Comments cued for pause conversation to allow releases into retracted positioning. SCM/scalenes Body Location R>L Mobilization Type Sustained Pressure,Trigger Point Release,Other Intensity/Depth Moderate Body Position Hooklying Comments manual then instruction on self including pincer kneading or MWM w/ SCM chin nods/ turns- good response Joint Mobilizations cervical Joint C3 Direction transverse R PT-OP-R Modalities Start: 07/09/20 12:04 Freq: Status: Active Protocol: Document 08/15/20 10:17 [facility] (Rec: 08/15/20 11:30 [facility] [id number]) Hot Pack/Cold Pack Treatment Hot Pack Location cervical Patient Position Hooklying Treatment Duration (minutes) 15 PT-OP-T Assessment and Plan Start: 07/09/20 12:04 Freq: Status: Active Protocol: Document 08/22/20 08:40 [facility] (Rec: 08/22/20 09:49 [facility] [id number]) Physical Therapy Assessment Goals pain Short Term Goal (STG) Pt will have improved sleep posture to dec pain upon first waking up and during night. STG Duration 08/09/20 Chcf Goal (LTG) Pt will report DAVALOS, neck pain, ear pain and jaw pain no greater than 1/10 during a typical week. LTG Duration 09/06/20 posture Optical Brightener Maker Helper Goal (LTG) Pt will have improved posture to dec load on C-spine & TMJ as evidenced by EFT of 4/5 and VCT of at least 4/5. LTG Duration 09/06/20 ROM Short Term Goal (STG) Pt will improve rotation B to at least 60 deg to improve ability for needed head turning motions like driving. STG Duration 08/09/20 [facility] Goal (LTG) Pt will have full cervical ROM without inc head or ear pain. LTG Duration 09/06/20 NDI Impairment 12/50 Short Term Goal (STG) Pt will improve to no greater than 7/50 to show improved function. [facility]cf Goal (LTG) Pt will improve to no greater than 2/50 to show improved function. LTG Duration 09/06/20 Assessment Summary Assessment Pt did wellwith all exercies with much less cueing needed today. Still some cuieng duirng hip hinges and squats but all others with better performance. Less soft tissue tightness notable today also during release. Physical Therapy Plan Frequency and Duration Frequency of Treatment 1-2x/week Duration of Treatment 2 months Plan of Care Start Date 07/09/20 Plan of Care End Date 09/06/20 Next Visit Focus/Plan Next Note Type Treatment Note Next Visit Plan cotn to work on postural movments with good mehcancis & uperr cervical mobility
--- NOTE | 2020-08-22 09:50 | PT.OTN ---
Current Diagnoses Otalgia, bilateral (08/22/20) Unspecified temporomandibular joint disorder, unspecified side (08/22/20) Cervicalgia (08/22/20) Muscle weakness (generalized) (08/22/20) Abnormal posture (08/22/20) Headache, unspecified (08/22/20) Physical Therapy Treatment Note PT-OP-A Visit Information Start: 07/09/20 12:04 Freq: Status: Active Protocol: Document 08/22/20 08:40 [facility] (Rec: 08/22/20 09:49 [facility] [id number]) Out-Patient Physical Therapy Visit Information Visit Information Visit Type Treatment Note Visit Start Time 08:16 Visit Stop Time 09:13 Total Visit Minutes 57 Visit Number 11 Number of ANALYSIS LEAD Visits 0 PT-OP-B Current Condition Start: 07/09/20 12:04 Freq: Status: Active Protocol: Document 07/09/20 16:07 [facility] (Rec: 07/09/20 17:01 [facility] [id number]) Current Condition History of Current Condition Onset Date a few years ago Current Complaints DAVALOS History of Current Condition Pt reports head pain is in post occiput. Pt has occasional jaw pain. Pt had MD think that jaw may be the cause of of the DAVALOS. SHe has done PT for head and neck pain but it didn't help. Pt has mouth guard d/t clenching that she has had for 1 year from dentist. Does not think seh clenches during the day. no issues with opening and closing jaw or with eating. Uses CPAP and follows up w/ sleep specialist. Pt had diverticulitis in 2015 and took levofloxican and was unable to lift arms then felt like all mm tone left my body . Then 2016 she thinks that is when she started getting DAVALOS . Pt has no known cause. Pt notes sometimes arms and neck feel weak. Sometiems has R shoulder pain in [place] region. Pt reports since November she thought she had an ear infection but MD said no. Pt reports B ear pain that goes along with head and neck pain. Pt notes sometimes when bends over then comes back up, she frequently gets lightheaded (like blood rushed to head). Last only 1 sec or 2 Prior Treatments and Tests OMT treatment 4x, pain specialist Dr. Agustin-1x today and 1x last year- discussed doing some numbing to nerves to see if that helps with DAVALOS, chiro-did not help-said was so stiff it was hard to manip, PT-2 months ago (about 10 times), massage-feels good in the moment Treatment Goals Patient/Caregiver Goals Get rid of DAVALOS and avoid clenching PT-OP-C Subjective Start: 07/09/20 12:04 Freq: Status: Active Protocol: Document 08/22/20 08:40 [facility] (Rec: 08/22/20 09:49 [facility] [id number]) OP-PT Subjective Patient Comments Patient Comments Pt reports pain less recently and hasn't' had pain since last session except as driving here. [place] on her posture [employer] activities Patient Reported Progress Improving PT-OP-F Manual Assessment Start: 07/09/20 12:04 Freq: Status: Active Protocol: Document 07/09/20 16:07 [facility] (Rec: 07/09/20 17:01 [facility] [id number]) Manual Assessments Soft Tissue Assessment Soft Tissue Mobility Assessment R>L UT, LS, cervical parapinals, pecs tight Joint Mobility Assessment Joint Mobility Assessment R 1st rib elevated PT-OP-J Posture/Palpation/Skin Start: 07/09/20 12:04 Freq: Status: Active Protocol: Document 07/09/20 16:07 [facility] (Rec: 07/09/20 17:01 [facility] [id number]) Posture Evaluation [facility] Postural Classification System Sonia Postural Classifications Posterior/Posterior Vertebral Compression Test 1 Elbow Flexion Test 3 PT-OP-K Range of Motion Start: 07/09/20 12:04 Freq: Status: Active Protocol: Document 07/09/20 16:07 [facility] (Rec: 07/09/20 17:01 [facility] [id number]) Cervical Spine Range of Motion Cervical Spine Active Degrees Flexion 50 Extension 41 Rotation Left 43 Rotation Right 42 Lateral Flexion Left 24 Lateral Flexion Right 25 Comments pain in head with all motions, R pain w/SB B TMJ Range of Motion Jaw Openning Jaw Openning (mm) 42 Comments Comments tightness in R, crunchy with jaw opening. Deviation equal ROM B, some L deviation w/jaw opening. PT-OP-L Special Tests Start: 07/09/20 12:04 Freq: Status: Active Protocol: Document 07/09/20 16:07 [facility] (Rec: 07/09/20 17:01 [facility] [id number]) Special Tests Cervical Spine Special Tests Transverse Ligament Comments neg Spurling's Test Test Results neg Vertebral Artery Test Results neg PT-OP-M Strength Start: 07/09/20 12:04 Freq: Status: Active Protocol: Document 07/09/20 16:07 [facility] (Rec: 07/09/20 17:01 [facility] [id number]) Cervical Spine Strength Cervical Spine Manual Muscle Testing Flexion (C1-2) 4 Good Extension 5 Normal Rotation Left 5 Normal Rotation Right 5 Normal Lateral Flexion Left (C3) 5 Normal Lateral Flexion Right (C3) 5 Normal PT-OP-Q Treatments Start: 07/09/20 12:04 Freq: Status: Active Protocol: Document 08/22/20 08:40 [facility] (Rec: 08/22/20 09:49 [facility] [id number]) Therapeutic Exercises Supine Exercises foam roll Supine Exercise Name Habd, abd, flex Side bilateral Reps/Minutes 10 Prone Exercises axial elongation Reps/Minutes 10 sec x3 Standing Exercises squat Standing Exercise Name 1 set squats and 1 set lifting Side bilateral Reps/Minutes 2x15 Comments focus on neutral head and back hip hinge Standing Exercise Name focus on neutral spine Side bilateral Reps/Minutes 15 Comments yard stick rows Standing Exercise Name squat row Side bilateral Equipment Used L3 Reps/Minutes 10 Comments focus on neutral spine & head position Manual Therapy Treatment Soft Tissue Mobilization SOR Body Location SOR Mobilization Type Sustained Pressure Intensity/Depth Moderate Body Position Hooklying Comments cued for pause conversation to allow releases into retracted positioning. SCM/scalenes Body Location R>L Mobilization Type Sustained Pressure,Trigger Point Release,Other Intensity/Depth Moderate Body Position Hooklying Comments manual then instruction on self including pincer kneading or MWM w/ SCM chin nods/ turns- good response Joint Mobilizations cervical Joint C3 Direction transverse R PT-OP-R Modalities Start: 07/09/20 12:04 Freq: Status: Active Protocol: Document 08/15/20 10:17 [facility] (Rec: 08/15/20 11:30 [facility] [id number]) Hot Pack/Cold Pack Treatment Hot Pack Location cervical Patient Position Hooklying Treatment Duration (minutes) 15 PT-OP-T Assessment and Plan Start: 07/09/20 12:04 Freq: Status: Active Protocol: Document 08/22/20 08:40 [facility] (Rec: 08/22/20 09:49 [facility] [id number]) Physical Therapy Assessment Goals pain Short Term Goal (STG) Pt will have improved sleep posture to dec pain upon first waking up and during night. STG Duration 08/09/20 Skilled Nursing Goal (LTG) Pt will report DAVALOS, neck pain, ear pain and jaw pain no greater than 1/10 during a typical week. LTG Duration 09/06/20 posture International [employer] Coordinator Goal (LTG) Pt will have improved posture to dec load on C-spine & TMJ as evidenced by EFT of 4/5 and VCT of at least 4/5. LTG Duration 09/06/20 ROM Short Term Goal (STG) Pt will improve rotation B to at least 60 deg to improve ability for needed head turning motions like driving. STG Duration 08/09/20 Skilled Nursing Goal (LTG) Pt will have full cervical ROM without inc head or ear pain. LTG Duration 09/06/20 NDI Impairment 12/50 Short Term Goal (STG) Pt will improve to no greater than 7/50 to show improved function. Skilled Nursing Goal (LTG) Pt will improve to no greater than 2/50 to show improved function. LTG Duration 09/06/20 Assessment Summary Assessment Pt did wellwith all exercies with much less cueing needed today. Still some cuieng duirng hip hinges and squats but all others with better performance. Less soft tissue tightness notable today also during release. Physical Therapy Plan Frequency and Duration Frequency of Treatment 1-2x/week Duration of Treatment 2 months Plan of Care Start Date 07/09/20 Plan of Care End Date 09/06/20 Next Visit Focus/Plan Next Note Type Treatment Note Next Visit Plan cotn to work on postural movments with good mehcancis & uperr cervical mobility
--- NOTE | 2020-08-27 12:17 | PT.OTN ---
Current Diagnoses Otalgia, bilateral (08/27/20) Unspecified temporomandibular joint disorder, unspecified side (08/27/20) Cervicalgia (08/27/20) Muscle weakness (generalized) (08/27/20) Abnormal posture (08/27/20) Headache, unspecified (08/27/20) Physical Therapy Treatment Note PT-OP-A Visit Information Start: 07/09/20 12:04 Freq: Status: Active Protocol: Document 08/27/20 11:17 [facility] (Rec: 08/27/20 12:09 [facility] [id number]) Out-Patient Physical Therapy Visit Information Visit Information Visit Type Treatment Note Visit Start Time 10:36 Visit Stop Time 11:30 Total Visit Minutes 56 Visit Number 12 Number of VIDEO COORDINATOR Visits 0 PT-OP-B Current Condition Start: 07/09/20 12:04 Freq: Status: Active Protocol: Document 07/09/20 16:07 [facility] (Rec: 07/09/20 17:01 [facility] [id number]) Current Condition History of Current Condition Onset Date a few years ago Current Complaints DAVALOS History of Current Condition Pt reports head pain is in post occiput. Pt has occasional jaw pain. Pt had MD think that jaw may be the cause of of the DAVALOS. SHe has done PT for head and neck pain but it didn't help. Pt has mouth guard d/t clenching that she has had for 1 year from dentist. Does not think seh clenches during the day. no issues with opening and closing jaw or with eating. Uses CPAP and follows up w/ sleep specialist. Pt had diverticulitis in 2015 and took levofloxican and was unable to lift arms then felt like all mm tone left my body . Then 2016 she thinks that is when she started getting DAVALOS . Pt has no known cause. Pt notes sometimes arms and neck feel weak. Sometiems has R shoulder pain in UT region. Pt reports since November she thought she had an ear infection but MD said no. Pt reports B ear pain that goes along with head and neck pain. Pt notes sometimes when bends over then comes back up, she frequently gets lightheaded (like blood rushed to head). Last only 1 sec or 2 Prior Treatments and Tests OMT treatment 4x, pain specialist Dr. Agustin-1x today and 1x last year- discussed doing some numbing to nerves to see if that helps with DAVALOS, chiro-did not help-said was so stiff it was hard to manip, PT-2 months ago (about 10 times), massage-feels good in the moment Treatment Goals Patient/Caregiver Goals Get rid of DAVALOS and avoid clenching PT-OP-C Subjective Start: 07/09/20 12:04 Freq: Status: Active Protocol: Document 08/27/20 11:17 [facility] (Rec: 08/27/20 12:09 [facility] [id number]) OP-PT Subjective Patient Comments Patient Comments Pt reports doing okay overal lthis weekend but during walk this AM felt tight in head and neck. Notes she unsure why. Notes occ pain down RUE. No longer ear pain/ringing inear or jaw pain PT-OP-F Manual Assessment Start: 07/09/20 12:04 Freq: Status: Active Protocol: Document 07/09/20 16:07 [facility] (Rec: 07/09/20 17:01 [facility] [id number]) Manual Assessments Soft Tissue Assessment Soft Tissue Mobility Assessment R>L UT, LS, cervical parapinals, pecs tight Joint Mobility Assessment Joint Mobility Assessment R 1st rib elevated PT-OP-J Posture/Palpation/Skin Start: 07/09/20 12:04 Freq: Status: Active Protocol: Document 07/09/20 16:07 [facility] (Rec: 07/09/20 17:01 [facility] [id number]) Posture Evaluation [facility] Postural Classification System Sonia Postural Classifications Posterior/Posterior Vertebral Compression Test 1 Elbow Flexion Test 3 PT-OP-K Range of Motion Start: 07/09/20 12:04 Freq: Status: Active Protocol: Document 07/09/20 16:07 [facility] (Rec: 07/09/20 17:01 [facility] [id number]) Cervical Spine Range of Motion Cervical Spine Active Degrees Flexion 50 Extension 41 Rotation Left 43 Rotation Right 42 Lateral Flexion Left 24 Lateral Flexion Right 25 Comments pain in head with all motions, R pain w/SB B TMJ Range of Motion Jaw Openning Jaw Openning (mm) 42 Comments Comments tightness in R, crunchy with jaw opening. Deviation equal ROM B, some L deviation w/jaw opening. PT-OP-L Special Tests Start: 07/09/20 12:04 Freq: Status: Active Protocol: Document 07/09/20 16:07 [facility] (Rec: 07/09/20 17:01 [facility] [id number]) Special Tests Cervical Spine Special Tests Transverse Ligament Comments neg Spurling's Test Test Results neg Vertebral Artery Test Results neg PT-OP-M Strength Start: 07/09/20 12:04 Freq: Status: Active Protocol: Document 07/09/20 16:07 [facility] (Rec: 07/09/20 17:01 [facility] [id number]) Cervical Spine Strength Cervical Spine Manual Muscle Testing Flexion (C1-2) 4 Good Extension 5 Normal Rotation Left 5 Normal Rotation Right 5 Normal Lateral Flexion Left (C3) 5 Normal Lateral Flexion Right (C3) 5 Normal PT-OP-Q Treatments Start: 07/09/20 12:04 Freq: Status: Active Protocol: Document 08/27/20 11:17 [facility] (Rec: 08/27/20 12:09 [facility] [id number]) Therapeutic Exercises Sitting Exercises 1st rib Sitting Exercise Name self 1st rib mob Side right Manual Therapy Treatment Soft Tissue Mobilization cervical paraspinals Body Location R Mobilization Type Rolling,Sustained Pressure, Other Intensity/Depth Moderate SOR Body Location SOR Mobilization Type Sustained Pressure Intensity/Depth Moderate Body Position Hooklying SCM/scalenes Body Location R>L Mobilization Type Sustained Pressure,Trigger Point Release,Other Intensity/Depth Moderate Body Position Hooklying Joint Mobilizations 1st rib Joint R Direction caudal FM PT-OP-R Modalities Start: 07/09/20 12:04 Freq: Status: Active Protocol: Document 08/27/20 11:17 [facility] (Rec: 08/27/20 12:09 [facility] [id number]) Hot Pack/Cold Pack Treatment Hot Pack Location cervical Patient Position Hooklying Treatment Duration (minutes) 15 PT-OP-T Assessment and Plan Start: 07/09/20 12:04 Freq: Status: Active Protocol: Document 08/27/20 11:17 [facility] (Rec: 08/27/20 12:09 [facility] [id number]) Physical Therapy Assessment Goals pain Short Term Goal (STG) Pt will have improved sleep posture to dec pain upon first waking up and during night. STG Duration 08/09/20 [facility] Goal (LTG) Pt will report DAVALOS, neck pain, ear pain and jaw pain no greater than 1/10 during a typical week. LTG Duration 09/06/20 posture [employer] Goal (LTG) Pt will have improved posture to dec load on C-spine & TMJ as evidenced by EFT of 4/5 and VCT of at least 4/5. LTG Duration 09/06/20 ROM Short Term Goal (STG) Pt will improve rotation B to at least 60 deg to improve ability for needed head turning motions like driving. STG Duration 08/09/20 [facility] Goal (LTG) Pt will have full cervical ROM without inc head or ear pain. LTG Duration 09/06/20 NDI Impairment 1250 Short Term Goal (STG) Pt will improve to no greater than 750 to show improved function. [facility] Goal (LTG) Pt will improve to no greater than to show improved function. LTG Duration 09/06/20 Assessment Summary Assessment Pt had excessive R lat lean w/ gait which may be a cause towards neck pain and head tightness with her walk. SHe was able to improve with cuieng. SHe has R>L sided tightness again today and likely has elevation of 1st rib that contributest to her tightness into head and pain into neck/head Physical Therapy Plan Frequency and Duration Frequency of Treatment 1-2x/week Duration of Treatment 2 months Plan of Care Start Date 07/09/20 Plan of Care End Date 09/06/20 Next Visit Focus/Plan Next Note Type Treatment Note Next Visit Plan cotn to work on postural movments with good mehcancis & uperr cervical mobility, work on 1st rib mobility
--- NOTE | 2020-09-03 12:06 | PT.OTN ---
Current Diagnoses Otalgia, bilateral (09/03/20) Unspecified temporomandibular joint disorder, unspecified side (09/03/20) Cervicalgia (09/03/20) Muscle weakness (generalized) (09/03/20) Abnormal posture (09/03/20) Headache, unspecified (09/03/20) Physical Therapy Treatment Note PT-OP-A Visit Information Start: 07/09/20 12:04 Freq: Status: Active Protocol: Document 09/03/20 10:39 [facility] (Rec: 09/03/20 11:20 [facility] [id number]) Out-Patient Physical Therapy Visit Information Visit Information Visit Type Progress Note Visit Start Time 10:37 Visit Stop Time 11:30 Total Visit Minutes 53 Visit Number 13 Number of RUG DRY ROOM ATTENDANT Visits 0 PT-OP-B Current Condition Start: 07/09/20 12:04 Freq: Status: Active Protocol: Document 07/09/20 16:07 [facility] (Rec: 07/09/20 17:01 [facility] [id number]) Current Condition History of Current Condition Onset Date a few years ago Current Complaints DAVALOS History of Current Condition Pt reports head pain is in post occiput. Pt has occasional jaw pain. Pt had MD think that jaw may be the cause of of the DAVALOS. SHe has done PT for head and neck pain but it didn't help. Pt has mouth guard d/t clenching that she has had for 1 year from dentist. Does not think seh clenches during the day. no issues with opening and closing jaw or with eating. Uses CPAP and follows up w/ sleep specialist. Pt had diverticulitis in 2015 and took levofloxican and was unable to lift arms then felt like all mm tone left my body . Then 2016 she thinks that is when she started getting DAVALOS . Pt has no known cause. Pt notes sometimes arms and neck feel weak. Sometiems has R shoulder pain in UT region. Pt reports since November she thought she had an ear infection but MD said no. Pt reports B ear pain that goes along with head and neck pain. Pt notes sometimes when bends over then comes back up, she frequently gets lightheaded (like blood rushed to head). Last only 1 sec or 2 Prior Treatments and Tests OMT treatment 4x, pain specialist Dr. Agustin-1x today and 1x last year- discussed doing some numbing to nerves to see if that helps with DAVALOS, chiro-did not help-said was so stiff it was hard to manip, PT-2 months ago (about 10 times), massage-feels good in the moment Treatment Goals Patient/Caregiver Goals Get rid of DAVALOS and avoid clenching PT-OP-C Subjective Start: 07/09/20 12:04 Freq: Status: Active Protocol: Document 09/03/20 10:39 [facility] (Rec: 09/03/20 11:20 [facility] [id number]) OP-PT Subjective Patient Comments Patient Comments Some pain in jaw region today. Pt reports had 1 day that she had the squeeze pain in head (8/10) Otherwise been dull pain (3-4/10) but its not miserable. Pain everyday but been dull Patient Reported Progress Improving PT-OP-F Manual Assessment Start: 07/09/20 12:04 Freq: Status: Active Protocol: Document 07/09/20 16:07 [facility] (Rec: 07/09/20 17:01 [facility] [id number]) Manual Assessments Soft Tissue Assessment Soft Tissue Mobility Assessment R>L UT, LS, cervical parapinals, pecs tight Joint Mobility Assessment Joint Mobility Assessment R 1st rib elevated PT-OP-J Posture/Palpation/Skin Start: 07/09/20 12:04 Freq: Status: Active Protocol: Document 09/03/20 10:39 [facility] (Rec: 09/03/20 11:20 [facility] [id number]) Posture Evaluation Sonia Postural Classification System Vertebral Compression Test 1 Elbow Flexion Test 3 Comments Posture Comments R shoulder giving w/EFT, L 5/5 , able to improve VCT to 5/5 w /posture cuieng PT-OP-K Range of Motion Start: 07/09/20 12:04 Freq: Status: Active Protocol: Document 09/03/20 10:39 [facility] (Rec: 09/03/20 11:20 [facility] [id number]) Cervical Spine Range of Motion Cervical Spine Active Degrees Flexion 56 Extension 60 Rotation Left 50 Rotation Right 54 Lateral Flexion Left 45 Lateral Flexion Right 44 Comments no pain PT-OP-L Special Tests Start: 07/09/20 12:04 Freq: Status: Active Protocol: Document 07/09/20 16:07 [facility] (Rec: 07/09/20 17:01 [facility] [id number]) Special Tests Cervical Spine Special Tests Transverse Ligament Comments neg Spurling's Test Test Results neg Vertebral Artery Test Results neg PT-OP-M Strength Start: 07/09/20 12:04 Freq: Status: Active Protocol: Document 07/09/20 16:07 [facility] (Rec: 07/09/20 17:01 [facility] [id number]) Cervical Spine Strength Cervical Spine Manual Muscle Testing Flexion (C1-2) 4 Good Extension 5 Normal Rotation Left 5 Normal Rotation Right 5 Normal Lateral Flexion Left (C3) 5 Normal Lateral Flexion Right (C3) 5 Normal PT-OP-Q Treatments Start: 07/09/20 12:04 Freq: Status: Active Protocol: Document 09/03/20 10:39 [facility] (Rec: 09/03/20 11:20 [facility] [id number]) Manual Therapy Treatment Soft Tissue Mobilization SCM/scalenes Body Location B Mobilization Type Sustained Pressure,Trigger Point Release,Other Intensity/Depth Moderate Body Position Hooklying Comments w/rotation Joint Mobilizations 1st rib Joint R Direction caudal FM Self-Care/Home Management Treatment Education Other Education reveiw of walking mechancs & edu for relaxed arms & full swing along w/lean through ft vs trunk or head,edu to try shower later in day to determine if its timing vs shower inc pain PT-OP-R Modalities Start: 07/09/20 12:04 Freq: Status: Active Protocol: Document 09/03/20 10:39 [facility] (Rec: 09/03/20 11:20 [facility] [id number]) Hot Pack/Cold Pack Treatment Hot Pack Location cervical Patient Position Hooklying Treatment Duration (minutes) 15 PT-OP-T Assessment and Plan Start: 07/09/20 12:04 Freq: Status: Active Protocol: Document 09/03/20 10:39 [facility] (Rec: 09/03/20 11:20 [facility] [id number]) Physical Therapy Assessment Goals pain Short Term Goal (STG) Pt will have improved sleep posture to dec pain upon first waking up and during night. 3/1-pain mostly during day and typicall after shower, pain is less. STG Duration 10/04/20 [employer] Goal (LTG) Pt will report DAVALOS, neck pain, ear pain and jaw pain no greater than 1/10 during a typical week. 3/1-pain less LTG Duration 11/03/20 posture [employer] Goal (LTG) Pt will have improved posture to dec load on C-spine & TMJ as evidenced by EFT of 4/5 and VCT of at least 4/5. 09/03-requires cuieng for posture to imrpove VCT score, dec R scap stability w/lower EFT on R>L LTG Duration 11/03 ROM Short Term Goal (STG) Pt will improve rotation B to at least 60 deg to improve ability for needed head turning motions like driving. 09/03-improved about 10 deg but still limited STG Duration 09/21/20 [employer] [facility] Goal (LTG) Pt will have full cervical ROM without inc head or ear pain 09/03-full ROM in all planes except rotation but no pain. LTG Duration 11/03/20 NDI Impairment 12/50 Short Term Goal (STG) Pt will improve to no greater than 7/50 to show improved function. 09/03-no change STG Duration 10/04/20 [employer] Goal (LTG) Pt will improve to no greater than 2/50 to show improved function. LTG Duration 11/03/20 Assessment Summary Assessment Pt is improving with pain. She rarely has jaw pain an no longer gets ear pain but still gets head tension/DAVALOS but with less frequency and less pain. She is working on posture and mechanics with typical daily activities which helps but does reuqire cueing to imrpove posture and would bneeift from cont PT to cont to dec head and facial pain along w/ dec neck pain in order ot imrpove pt's ability to do typical activities. Physical Therapy Plan Frequency and Duration Frequency of Treatment 1-2x/week Duration of Treatment 2 months Plan of Care Start Date 09/03/20 Plan of Care End Date 11/03/20 Therapeutic Interventions Therapeutic Interventions Home Exercise Program,Joint Mobilizations,Manual Therapy, Neuromuscular Re-education, Patient/Caregiver Education, Self-Care/Home Management,Soft Tissue Mobilization,Taping, Therapeutic Activities, Therapeutic Exercises, Vestibular Rehabilitation Modalities Cold Pack/Ice Massage,Hot Packs Next Visit Focus/Plan Next Note Type Treatment Note Next Visit Plan cotn to work on postural movments with good mehcancis & uperr cervical mobility, work on 1st rib mobility R
--- NOTE | 2020-09-03 12:06 | PT.OPPOC ---
Physical, Occupational & Speech Therapy At [facility] Current Diagnoses Otalgia, bilateral (09/03/20) Unspecified temporomandibular joint disorder, unspecified side (09/03/20) Cervicalgia (09/03/20) Muscle weakness (generalized) (09/03/20) Abnormal posture (09/03/20) Headache, unspecified (09/03/20) Visit Care Team Role Provider Type Antonio Macias DO Primary Care Provider Non-Staff Specialty: Family Practice Address: [address] [place] [address], [id number] Email: Tuan Mina MD Attending Provider Physician Referring Provider Specialty: Ear, Nose, Throat Address: [address] [place] [address], [id number] Email: [email or web address] Plan Of Care PT-OP-T Assessment and Plan Start: 07/09/20 12:04 Freq: Status: Active Protocol: Document 09/03/20 10:39 [facility] (Rec: 09/03/20 11:20 [facility] [id number]) Physical Therapy Assessment Goals pain Short Term Goal (STG) Pt will have improved sleep posture to dec pain upon first waking up and during night. 09/03-pain mostly during day and typicall after shower, pain is less. STG Duration 10/04/20 [employer] Goal (LTG) Pt will report DAVALOS, neck pain, ear pain and jaw pain no greater than 1/10 during a typical week. 3-pain less LTG Duration 11/03/20 posture [employer] Goal (LTG) Pt will have improved posture to dec load on C-spine & TMJ as evidenced by EFT of 4/5 and VCT of at least 4/5. 09/03-requires cuieng for posture to imrpove VCT score, dec R scap stability w/lower EFT on R>L LTG Duration 11/03 ROM Short Term Goal (STG) Pt will improve rotation B to at least 60 deg to improve ability for needed head turning motions like driving. 09/03-improved about 10 deg but still limited STG Duration 09/21/20 [employer] Goal (LTG) Pt will have full cervical ROM without inc head or ear pain 09/03-full ROM in all planes except rotation but no pain. LTG Duration 11/03/20 NDI Impairment 12/50 Short Term Goal (STG) Pt will improve to no greater than 7/50 to show improved function. 09/03-no change STG Duration 10/04/20 [employer] Goal (LTG) Pt will improve to no greater than 2/50 to show improved function. LTG Duration 11/03/20 Assessment Summary Assessment Pt is improving with pain. She rarely has jaw pain an no longer gets ear pain but still gets head tension/DAVALOS but with less frequency and less pain. She is working on posture and mechanics with typical daily activities which helps but does reuqire cueing to imrpove posture and would bneeift from cont PT to cont to dec head and facial pain along w/ dec neck pain in order ot imrpove pt's ability to do typical activities. Physical Therapy Plan Frequency and Duration Frequency of Treatment 1-2x/week Duration of Treatment 2 months Plan of Care Start Date 09/03/20 Plan of Care End Date 11/03/20 Therapeutic Interventions Therapeutic Interventions Home Exercise Program,Joint Mobilizations,Manual Therapy, Neuromuscular Re-education, Patient/Caregiver Education, Self-Care/Home Management,Soft Tissue Mobilization,Taping, Therapeutic Activities, Therapeutic Exercises, Vestibular Rehabilitation Modalities Cold Pack/Ice Massage,Hot Packs Next Visit Focus/Plan Next Note Type Treatment Note Next Visit Plan cotn to work on postural movments with good mehcancis & uperr cervical mobility, work on 1st rib mobility R Plan of Care Dates Plan of Care Start Date 09/03/20 Plan of Care End Date 11/03/20 Electronically Signed by: Jill Mina, PT 09/03/20 1207 Please Sign and Return: I have reviewed this Plan of Care and certify that the skilled therapy services above are required to meet the patient?s needs. Physician Signature Date Printed Name and Credentials Clinical Instructor Signature Printed Name and Credentials
--- NOTE | 2020-09-10 11:25 | PT.OTN ---
Current Diagnoses Otalgia, bilateral (09/10/20) Unspecified temporomandibular joint disorder, unspecified side (09/10/20) Cervicalgia (09/10/20) Muscle weakness (generalized) (09/10/20) Abnormal posture (09/10/20) Headache, unspecified (09/10/20) Physical Therapy Treatment Note PT-OP-A Visit Information Start: 07/09/20 12:04 Freq: Status: Active Protocol: Document 09/10/20 10:33 [facility] (Rec: 09/10/20 11:25 [facility] [id number]) Out-Patient Physical Therapy Visit Information Visit Information Visit Type Treatment Note Visit Start Time 10:32 Visit Stop Time 11:28 Total Visit Minutes 56 Visit Number 14 Number of RADIAL DRILL PRESS OPERATOR Visits 0 PT-OP-B Current Condition Start: 07/09/20 12:04 Freq: Status: Active Protocol: Document 07/09/20 16:07 [facility] (Rec: 07/09/20 17:01 [facility] [id number]) Current Condition History of Current Condition Onset Date a few years ago Current Complaints DAVALOS History of Current Condition Pt reports head pain is in post occiput. Pt has occasional jaw pain. Pt had MD think that jaw may be the cause of of the DAVALOS. SHe has done PT for head and neck pain but it didn't help. Pt has mouth guard d/t clenching that she has had for 1 year from dentist. Does not think seh clenches during the day. no issues with opening and closing jaw or with eating. Uses CPAP and follows up w/ sleep specialist. Pt had diverticulitis in 2015 and took levofloxican and was unable to lift arms then felt like all mm tone left my body . Then 2016 she thinks that is when she started getting DAVALOS . Pt has no known cause. Pt notes sometimes arms and neck feel weak. Sometiems has R shoulder pain in UT region. Pt reports since November she thought she had an ear infection but MD said no. Pt reports B ear pain that goes along with head and neck pain. Pt notes sometimes when bends over then comes back up, she frequently gets lightheaded (like blood rushed to head). Last only 1 sec or 2 Prior Treatments and Tests OMT treatment 4x, pain specialist Dr. Agustin-1x today and 1x last year- discussed doing some numbing to nerves to see if that helps with DAVALOS, chiro-did not help-said was so stiff it was hard to manip, PT-2 months ago (about 10 times), massage-feels good in the moment Treatment Goals Patient/Caregiver Goals Get rid of DAVALOS and avoid clenching PT-OP-C Subjective Start: 07/09/20 12:04 Freq: Status: Active Protocol: Document 09/10/20 10:33 [facility] (Rec: 09/10/20 11:25 [facility] [id number]) OP-PT Subjective Patient Comments Patient Comments Pt reports only 1 bad day since last session. She did ski and felt great. She has a ljittle ache this AM PT-OP-F Manual Assessment Start: 07/09/20 12:04 Freq: Status: Active Protocol: Document 07/09/20 16:07 [facility] (Rec: 07/09/20 17:01 [facility] [id number]) Manual Assessments Soft Tissue Assessment Soft Tissue Mobility Assessment R>L UT, LS, cervical parapinals, pecs tight Joint Mobility Assessment Joint Mobility Assessment R 1st rib elevated PT-OP-J Posture/Palpation/Skin Start: 07/09/20 12:04 Freq: Status: Active Protocol: Document 09/03/20 10:39 [facility] (Rec: 09/03/20 11:20 [facility] [id number]) Posture Evaluation Sonia Postural Classification System Vertebral Compression Test 1 Elbow Flexion Test 3 Comments Posture Comments R shoulder giving w/EFT, L 5/5 , able to improve VCT to 5/5 w /posture cuieng PT-OP-K Range of Motion Start: 07/09/20 12:04 Freq: Status: Active Protocol: Document 09/03/20 10:39 [facility] (Rec: 09/03/20 11:20 [facility] [id number]) Cervical Spine Range of Motion Cervical Spine Active Degrees Flexion 56 Extension 60 Rotation Left 50 Rotation Right 54 Lateral Flexion Left 45 Lateral Flexion Right 44 Comments no pain PT-OP-L Special Tests Start: 07/09/20 12:04 Freq: Status: Active Protocol: Document 07/09/20 16:07 [facility] (Rec: 07/09/20 17:01 [facility] [id number]) Special Tests Cervical Spine Special Tests Transverse Ligament Comments neg Spurling's Test Test Results neg Vertebral Artery Test Results neg PT-OP-M Strength Start: 07/09/20 12:04 Freq: Status: Active Protocol: Document 07/09/20 16:07 [facility] (Rec: 07/09/20 17:01 [facility] [id number]) Cervical Spine Strength Cervical Spine Manual Muscle Testing Flexion (C1-2) 4 Good Extension 5 Normal Rotation Left 5 Normal Rotation Right 5 Normal Lateral Flexion Left (C3) 5 Normal Lateral Flexion Right (C3) 5 Normal PT-OP-Q Treatments Start: 07/09/20 12:04 Freq: Status: Active Protocol: Document 09/10/20 10:33 [facility] (Rec: 09/10/20 11:25 [facility] [id number]) Therapeutic Exercises Standing Exercises wall posture Standing Exercise Name wall roll up w/90/90 ER Side bilateral Reps/Minutes 15 Manual Therapy Treatment Soft Tissue Mobilization UT Body Location R UT/LS Mobilization Type Rolling Joint Mobilizations GH Direction inf & post AC Joint R gapping SC Joint R inf glide FM 1st rib Joint R Direction caudal FM Self-Care/Home Management Treatment Education Other Education edu of improtance of making sure posture is good first this in am and doing wall posture when feeling pain start PT-OP-R Modalities Start: 07/09/20 12:04 Freq: Status: Active Protocol: Document 09/10/20 10:33 [facility] (Rec: 09/10/20 11:25 [facility] [id number]) Hot Pack/Cold Pack Treatment Hot Pack Location cervical Patient Position Hooklying Treatment Duration (minutes) 15 PT-OP-T Assessment and Plan Start: 07/09/20 12:04 Freq: Status: Active Protocol: Document 09/10/20 10:33 [facility] (Rec: 09/10/20 11:25 [facility] [id number]) Physical Therapy Assessment Goals pain Short Term Goal (STG) Pt will have improved sleep posture to dec pain upon first waking up and during night. 3/1-pain mostly during day and typicall after shower, pain is less. STG Duration 10/04/20 [employer] Teacher Goal (LTG) Pt will report DAVALOS, neck pain, ear pain and jaw pain no greater than 1/10 during a typical week. 3/1-pain less LTG Duration 11/03/20 posture Prison Goal (LTG) Pt will have improved posture to dec load on C-spine & TMJ as evidenced by EFT of 4/5 and VCT of at least 4/5. 09/03-requires cuieng for posture to imrpove VCT score, dec R scap stability w/lower EFT on R>L LTG Duration 11/03 ROM Short Term Goal (STG) Pt will improve rotation B to at least 60 deg to improve ability for needed head turning motions like driving. 09/03-improved about 10 deg but still limited STG Duration 09/21/20 [employer] Teacher Goal (LTG) Pt will have full cervical ROM without inc head or ear pain 09/03-full ROM in all planes except rotation but no pain. LTG Duration 11/03/20 NDI Impairment 12/50 Short Term Goal (STG) Pt will improve to no greater than 7/50 to show improved function. 09/03-no change STG Duration 10/04/20 Prison Goal (LTG) Pt will improve to no greater than 2/50 to show improved function. LTG Duration 11/03/20 Assessment Summary Assessment Pt had no pain in head after treatment today. She has dec ROM of mid tspine which likely creates fwd head pain which likely contributes to head and facial issues d/tmecahnics & positioning. She cannot get full cervical retraction to good positioning w/TL junction ext prior to manual but was mateo to after manual. Physical Therapy Plan Frequency and Duration Frequency of Treatment 1-2x/week Duration of Treatment 2 months Plan of Care Start Date 09/03/20 Plan of Care End Date 11/03/20 Next Visit Focus/Plan Next Note Type Treatment Note Next Visit Plan R UT and work on scap mechanics avoiding UT& scalene activation
--- NOTE | 2020-09-17 11:22 | PT.OTN ---
Current Diagnoses Otalgia, bilateral (09/17/20) Unspecified temporomandibular joint disorder, unspecified side (09/17/20) Cervicalgia (09/17/20) Muscle weakness (generalized) (09/17/20) Abnormal posture (09/17/20) Headache, unspecified (09/17/20) Physical Therapy Treatment Note PT-OP-A Visit Information Start: 07/09/20 12:04 Freq: Status: Active Protocol: Document 09/17/20 10:38 [facility] (Rec: 09/17/20 11:21 [facility] [id number]) Out-Patient Physical Therapy Visit Information Visit Information Visit Type Treatment Note Visit Start Time 10:35 Visit Stop Time 11:15 Total Visit Minutes 40 Visit Number 15 Number of PRESSER FIRST Visits 0 PT-OP-B Current Condition Start: 07/09/20 12:04 Freq: Status: Active Protocol: Document 07/09/20 16:07 [facility] (Rec: 07/09/20 17:01 [facility] [id number]) Current Condition History of Current Condition Onset Date a few years ago Current Complaints DAVALOS History of Current Condition Pt reports head pain is in post occiput. Pt has occasional jaw pain. Pt had MD think that jaw may be the cause of of the DAVALOS. SHe has done PT for head and neck pain but it didn't help. Pt has mouth guard d/t clenching that she has had for 1 year from dentist. Does not think seh clenches during the day. no issues with opening and closing jaw or with eating. Uses CPAP and follows up w/ sleep specialist. Pt had diverticulitis in 2015 and took levofloxican and was unable to lift arms then felt like all mm tone left my body . Then 2016 she thinks that is when she started getting DAVALOS . Pt has no known cause. Pt notes sometimes arms and neck feel weak. Sometiems has R shoulder pain in UT region. Pt reports since November she thought she had an ear infection but MD said no. Pt reports B ear pain that goes along with head and neck pain. Pt notes sometimes when bends over then comes back up, she frequently gets lightheaded (like blood rushed to head). Last only 1 sec or 2 Prior Treatments and Tests OMT treatment 4x, pain specialist Dr. Agustin-1x today and 1x last year- discussed doing some numbing to nerves to see if that helps with DAVALOS, chiro-did not help-said was so stiff it was hard to manip, PT-2 months ago (about 10 times), massage-feels good in the moment Treatment Goals Patient/Caregiver Goals Get rid of DAVALOS and avoid clenching PT-OP-C Subjective Start: 07/09/20 12:04 Freq: Status: Active Protocol: Document 09/17/20 10:38 [facility] (Rec: 09/17/20 11:21 [facility] [id number]) OP-PT Subjective Patient Comments Patient Comments Pt rports she she felt great after last appt for 3 days. Arm felt great and head felt good until Fri when she started to feel stiff and tight. PT-OP-F Manual Assessment Start: 07/09/20 12:04 Freq: Status: Active Protocol: Document 07/09/20 16:07 [facility] (Rec: 07/09/20 17:01 [facility] [id number]) Manual Assessments Soft Tissue Assessment Soft Tissue Mobility Assessment R>L UT, LS, cervical parapinals, pecs tight Joint Mobility Assessment Joint Mobility Assessment R 1st rib elevated PT-OP-J Posture/Palpation/Skin Start: 07/09/20 12:04 Freq: Status: Active Protocol: Document 09/03/20 10:39 [facility] (Rec: 09/03/20 11:20 [facility] [id number]) Posture Evaluation Sonia Postural Classification System Vertebral Compression Test 1 Elbow Flexion Test 3 Comments Posture Comments R shoulder giving w/EFT, L 5/5 , able to improve VCT to 5/5 w /posture cuieng PT-OP-K Range of Motion Start: 07/09/20 12:04 Freq: Status: Active Protocol: Document 09/03/20 10:39 [facility] (Rec: 09/03/20 11:20 [facility] [id number]) Cervical Spine Range of Motion Cervical Spine Active Degrees Flexion 56 Extension 60 Rotation Left 50 Rotation Right 54 Lateral Flexion Left 45 Lateral Flexion Right 44 Comments no pain PT-OP-L Special Tests Start: 07/09/20 12:04 Freq: Status: Active Protocol: Document 07/09/20 16:07 [facility] (Rec: 07/09/20 17:01 [facility] [id number]) Special Tests Cervical Spine Special Tests Transverse Ligament Comments neg Spurling's Test Test Results neg Vertebral Artery Test Results neg PT-OP-M Strength Start: 07/09/20 12:04 Freq: Status: Active Protocol: Document 07/09/20 16:07 [facility] (Rec: 07/09/20 17:01 [facility] [id number]) Cervical Spine Strength Cervical Spine Manual Muscle Testing Flexion (C1-2) 4 Good Extension 5 Normal Rotation Left 5 Normal Rotation Right 5 Normal Lateral Flexion Left (C3) 5 Normal Lateral Flexion Right (C3) 5 Normal PT-OP-Q Treatments Start: 07/09/20 12:04 Freq: Status: Active Protocol: Document 09/17/20 10:38 [facility] (Rec: 09/17/20 11:21 [facility] [id number]) Therapeutic Exercises Supine Exercises flex Supine Exercise Name B shoulder flex focus on mechanics Comments started in hooklying w/gradual progression to straight legs B Sidelying Exercises 1st rib Sidelying Exercise Name self 1st rib mob Side right Reps/Minutes 10 Sitting Exercises 1st rib Sitting Exercise Name self 1st rib mob Side right Equipment Used towel Reps/Minutes 10 Standing Exercises flex Standing Exercise Name shoulder flex Side bilateral Reps/Minutes ~15 reps ea w/cues Comments 1. against wall 2. standing normal Manual Therapy Treatment Soft Tissue Mobilization UT Body Location R UT/LS Mobilization Type Rolling SOR Body Location SOR Mobilization Type Sustained Pressure Intensity/Depth Moderate Body Position Hooklying SCM/scalenes Body Location R Mobilization Type Sustained Pressure,Trigger Point Release,Other Intensity/Depth Moderate Body Position Hooklying Comments w/rotation Joint Mobilizations GH Joint R Direction inf and distraciton w/overhead motion PT-OP-R Modalities Start: 07/09/20 12:04 Freq: Status: Active Protocol: Document 09/10/20 10:33 [facility] (Rec: 09/10/20 11:25 [facility] [id number]) Hot Pack/Cold Pack Treatment Hot Pack Location cervical Patient Position Hooklying Treatment Duration (minutes) 15 PT-OP-T Assessment and Plan Start: 07/09/20 12:04 Freq: Status: Active Protocol: Document 09/17/20 10:38 [facility] (Rec: 09/17/20 11:21 [facility] [id number]) Physical Therapy Assessment Goals pain Short Term Goal (STG) Pt will have improved sleep posture to dec pain upon first waking up and during night. 3/1-pain mostly during day and typicall after shower, pain is less. STG Duration 10/04/20 Detention Goal (LTG) Pt will report DAVALOS, neck pain, ear pain and jaw pain no greater than 1/10 during a typical week. 09/03-pain less LTG Duration 11/03/20 posture Detention Goal (LTG) Pt will have improved posture to dec load on C-spine & TMJ as evidenced by EFT of 4/5 and VCT of at least 4/5. 09/03-requires cuieng for posture to imrpove VCT score, dec R scap stability w/lower EFT on R>L LTG Duration 11/03 ROM Short Term Goal (STG) Pt will improve rotation B to at least 60 deg to improve ability for needed head turning motions like driving. 09/03-improved about 10 deg but still limited STG Duration 09/21/20 Detention Goal (LTG) Pt will have full cervical ROM without inc head or ear pain 09/03-full ROM in all planes except rotation but no pain. LTG Duration 11/03/20 NDI Impairment 12/50 Short Term Goal (STG) Pt will improve to no greater than 7/50 to show improved function. 09/03-no change STG Duration 10/04/20 Personal Injury Specialist Goal (LTG) Pt will improve to no greater than 2/50 to show improved function. LTG Duration 11/03/20 Assessment Summary Assessment Pt had imrpoved B SB after self rib mobs. W/observation, pt able to see how she elevates her scap & scalenes w /overhead work. AFter manual, she had irmpoved shoulder motion to be able to reach overhead and after training supine and progressed to standing, seh was able to reach overhead better Physical Therapy Plan Frequency and Duration Frequency of Treatment 1-2x/week Duration of Treatment 2 months Plan of Care Start Date 09/03/20 Plan of Care End Date 11/03/20 Next Visit Focus/Plan Next Note Type Treatment Note Next Visit Plan R UT and work on scap mechanics avoiding UT& scalene activation
--- NOTE | 2020-09-25 11:24 | PT.OTN ---
Current Diagnoses Otalgia, bilateral (09/25/20) Unspecified temporomandibular joint disorder, unspecified side (09/25/20) Cervicalgia (09/25/20) Muscle weakness (generalized) (09/25/20) Abnormal posture (09/25/20) Headache, unspecified (09/25/20) Physical Therapy Treatment Note PT-OP-A Visit Information Start: 07/09/20 12:04 Freq: Status: Active Protocol: Document 09/25/20 10:44 [facility] (Rec: 09/25/20 11:24 [facility] [id number]) Out-Patient Physical Therapy Visit Information Visit Information Visit Type Treatment Note Visit Start Time 10:36 Visit Stop Time 11:15 Total Visit Minutes 39 Visit Number 16 Number of GROUND OPERATIONS SUPERVISOR Visits 0 PT-OP-B Current Condition Start: 07/09/20 12:04 Freq: Status: Active Protocol: Document 07/09/20 16:07 [facility] (Rec: 07/09/20 17:01 [facility] [id number]) Current Condition History of Current Condition Onset Date a few years ago Current Complaints DAVALOS History of Current Condition Pt reports head pain is in post occiput. Pt has occasional jaw pain. Pt had MD think that jaw may be the cause of of the DAVALOS. SHe has done PT for head and neck pain but it didn't help. Pt has mouth guard d/t clenching that she has had for 1 year from dentist. Does not think seh clenches during the day. no issues with opening and closing jaw or with eating. Uses CPAP and follows up w/ sleep specialist. Pt had diverticulitis in 2015 and took levofloxican and was unable to lift arms then felt like all mm tone left my body . Then 2016 she thinks that is when she started getting DAVALOS . Pt has no known cause. Pt notes sometimes arms and neck feel weak. Sometiems has R shoulder pain in UT region. Pt reports since November she thought she had an ear infection but MD said no. Pt reports B ear pain that goes along with head and neck pain. Pt notes sometimes when bends over then comes back up, she frequently gets lightheaded (like blood rushed to head). Last only 1 sec or 2 Prior Treatments and Tests OMT treatment 4x, pain specialist Dr. Agustin-1x today and 1x last year- discussed doing some numbing to nerves to see if that helps with DAVALOS, chiro-did not help-said was so stiff it was hard to manip, PT-2 months ago (about 10 times), massage-feels good in the moment Treatment Goals Patient/Caregiver Goals Get rid of DAVALOS and avoid clenching PT-OP-C Subjective Start: 07/09/20 12:04 Freq: Status: Active Protocol: Document 09/25/20 10:44 [facility] (Rec: 09/25/20 11:24 [facility] [id number]) OP-PT Subjective Patient Comments Patient Comments 7/10 in post head daily starting in AM and occ goes away PT-OP-F Manual Assessment Start: 07/09/20 12:04 Freq: Status: Active Protocol: Document 07/09/20 16:07 [facility] (Rec: 07/09/20 17:01 [facility] [id number]) Manual Assessments Soft Tissue Assessment Soft Tissue Mobility Assessment R>L UT, LS, cervical parapinals, pecs tight Joint Mobility Assessment Joint Mobility Assessment R 1st rib elevated PT-OP-J Posture/Palpation/Skin Start: 07/09/20 12:04 Freq: Status: Active Protocol: Document 09/03/20 10:39 [facility] (Rec: 09/03/20 11:20 [facility] [id number]) Posture Evaluation Sonia Postural Classification System Vertebral Compression Test 1 Elbow Flexion Test 3 Comments Posture Comments R shoulder giving w/EFT, L 5/5 , able to improve VCT to 5/5 w /posture cuieng PT-OP-K Range of Motion Start: 07/09/20 12:04 Freq: Status: Active Protocol: Document 09/03/20 10:39 [facility] (Rec: 09/03/20 11:20 [facility] [id number]) Cervical Spine Range of Motion Cervical Spine Active Degrees Flexion 56 Extension 60 Rotation Left 50 Rotation Right 54 Lateral Flexion Left 45 Lateral Flexion Right 44 Comments no pain PT-OP-L Special Tests Start: 07/09/20 12:04 Freq: Status: Active Protocol: Document 07/09/20 16:07 [facility] (Rec: 07/09/20 17:01 [facility] [id number]) Special Tests Cervical Spine Special Tests Transverse Ligament Comments neg Spurling's Test Test Results neg Vertebral Artery Test Results neg PT-OP-M Strength Start: 07/09/20 12:04 Freq: Status: Active Protocol: Document 07/09/20 16:07 [facility] (Rec: 07/09/20 17:01 [facility] [id number]) Cervical Spine Strength Cervical Spine Manual Muscle Testing Flexion (C1-2) 4 Good Extension 5 Normal Rotation Left 5 Normal Rotation Right 5 Normal Lateral Flexion Left (C3) 5 Normal Lateral Flexion Right (C3) 5 Normal PT-OP-Q Treatments Start: 07/09/20 12:04 Freq: Status: Active Protocol: Document 09/25/20 10:44 [facility] (Rec: 09/25/20 11:24 [facility] [id number]) Therapeutic Exercises Prone Exercises plank Prone Exercise Name forearm & knees Side bilateral Reps/Minutes 20 sec , 30 sec x2 Sidelying Exercises side plank Side bilateral Reps/Minutes 30 secx2 ea Standing Exercises wall posture Standing Exercise Name wall roll up w/90/90 ER Side bilateral Reps/Minutes 15 Other Exercises quadruped Other Exercise Name 1.shoulder flex 2. alt hip ext Side bilateral Reps/Minutes 10 ea Comments alt working on head positon & core stability Manual Therapy Treatment Soft Tissue Mobilization intraoral TMJ Body Location lat pterygoid, MM Mobilization Type Sustained Pressure Intensity/Depth Moderate Body Position Supine cervical paraspinals Body Location B MFR to post c spine fascia w /looking down Mobilization Type Myofascial Release Intensity/Depth Moderate SOR Body Location SOR Mobilization Type Sustained Pressure Intensity/Depth Moderate Body Position Hooklying SCM/scalenes Body Location B Mobilization Type Sustained Pressure,Trigger Point Release,Other Intensity/Depth Moderate Body Position Hooklying Comments w/jaw opening cranium Body Location temporalis & cranial fascia & into masseter Mobilization Type Myofascial Release,Rolling Intensity/Depth Superficial Body Position Hooklying Joint Mobilizations TMJ Joint c/r retrusion C1 Joint transverse L Grade II PT-OP-R Modalities Start: 07/09/20 12:04 Freq: Status: Active Protocol: Document 09/10/20 10:33 [facility] (Rec: 09/10/20 11:25 [facility] [id number]) Hot Pack/Cold Pack Treatment Hot Pack Location cervical Patient Position Hooklying Treatment Duration (minutes) 15 PT-OP-T Assessment and Plan Start: 07/09/20 12:04 Freq: Status: Active Protocol: Document 09/25/20 10:44 [facility] (Rec: 09/25/20 11:24 [facility] [id number]) Physical Therapy Assessment Goals pain Short Term Goal (STG) Pt will have improved sleep posture to dec pain upon first waking up and during night. 09/03-pain mostly during day and typicall after shower, pain is less. STG Duration 10/04/20 Clamshell Operator Goal (LTG) Pt will report DAVALOS, neck pain, ear pain and jaw pain no greater than 1/10 during a typical week. 09/03-pain less LTG Duration 11/03/20 posture Half-Way Goal (LTG) Pt will have improved posture to dec load on C-spine & TMJ as evidenced by EFT of 4/5 and VCT of at least 4/5. 09/03-requires cuieng for posture to imrpove VCT score, dec R scap stability w/lower EFT on R>L LTG Duration 11/03 ROM Short Term Goal (STG) Pt will improve rotation B to at least 60 deg to improve ability for needed head turning motions like driving. 09/03-improved about 10 deg but still limited STG Duration 09/21/20 Clamshell Operator Goal (LTG) Pt will have full cervical ROM without inc head or ear pain 09/03-full ROM in all planes except rotation but no pain. LTG Duration 11/03/20 NDI Impairment 12/50 Short Term Goal (STG) Pt will improve to no greater than 7/50 to show improved function. 09/03-no change STG Duration 10/04/20 Half-Way Goal (LTG) Pt will improve to no greater than 2/50 to show improved function. LTG Duration 11/03/20 Assessment Summary Assessment Pt had imrpoved jaw motion w/ manual treatment. Max cueing required with all exercises for scap position & to dec UT activation which may be contributed to cranial pain. Edu to do self MFR to post c spine Physical Therapy Plan Frequency and Duration Frequency of Treatment 1-2x/week Duration of Treatment 2 months Plan of Care Start Date 09/03/20 Plan of Care End Date 11/03/20 Next Visit Focus/Plan Next Note Type Treatment Note Next Visit Plan R UT and work on scap mechanics avoiding UT& scalene activation
--- NOTE | 2020-10-01 17:44 | PT.OTN ---
Current Diagnoses Otalgia, bilateral (10/01/20) Unspecified temporomandibular joint disorder, unspecified side (10/01/20) Cervicalgia (10/01/20) Muscle weakness (generalized) (10/01/20) Abnormal posture (10/01/20) Headache, unspecified (10/01/20) Physical Therapy Treatment Note PT-OP-A Visit Information Start: 07/09/20 12:04 Freq: Status: Active Protocol: Document 10/01/20 09:48 [facility] (Rec: 10/01/20 12:13 [facility] [id number]) Out-Patient Physical Therapy Visit Information Visit Information Visit Type Treatment Note Visit Start Time 09:04 Visit Stop Time 09:45 Total Visit Minutes 41 Visit Number 17 Number of CORSAGE MAKER Visits 0 PT-OP-B Current Condition Start: 07/09/20 12:04 Freq: Status: Active Protocol: Document 07/09/20 16:07 [facility] (Rec: 07/09/20 17:01 [facility] [id number]) Current Condition History of Current Condition Onset Date a few years ago Current Complaints DAVALOS History of Current Condition Pt reports head pain is in post occiput. Pt has occasional jaw pain. Pt had MD think that jaw may be the cause of of the DAVALOS. SHe has done PT for head and neck pain but it didn't help. Pt has mouth guard d/t clenching that she has had for 1 year from dentist. Does not think seh clenches during the day. no issues with opening and closing jaw or with eating. Uses CPAP and follows up w/ sleep specialist. Pt had diverticulitis in 2015 and took levofloxican and was unable to lift arms then felt like all mm tone left my body . Then 2016 she thinks that is when she started getting DAVALOS . Pt has no known cause. Pt notes sometimes arms and neck feel weak. Sometiems has R shoulder pain in UT region. Pt reports since November she thought she had an ear infection but MD said no. Pt reports B ear pain that goes along with head and neck pain. Pt notes sometimes when bends over then comes back up, she frequently gets lightheaded (like blood rushed to head). Last only 1 sec or 2 Prior Treatments and Tests OMT treatment 4x, pain specialist Dr. Agustin-1x today and 1x last year- discussed doing some numbing to nerves to see if that helps with DAVALOS, chiro-did not help-said was so stiff it was hard to manip, PT-2 months ago (about 10 times), massage-feels good in the moment Treatment Goals Patient/Caregiver Goals Get rid of DAVALOS and avoid clenching PT-OP-C Subjective Start: 07/09/20 12:04 Freq: Status: Active Protocol: Document 10/01/20 09:48 [facility] (Rec: 10/01/20 12:13 [facility] [id number]) OP-PT Subjective Patient Comments Patient Comments Pt went to the ER re: R arm pain a few days ago d/t pain at night. They gave her a shot and she didn't notice imrovement but the next day flet better. Notes she had some head pain this AM when rushing grandson but got better when relaxed again PT-OP-F Manual Assessment Start: 07/09/20 12:04 Freq: Status: Active Protocol: Document 07/09/20 16:07 [facility] (Rec: 07/09/20 17:01 [facility] [id number]) Manual Assessments Soft Tissue Assessment Soft Tissue Mobility Assessment R>L UT, LS, cervical parapinals, pecs tight Joint Mobility Assessment Joint Mobility Assessment R 1st rib elevated PT-OP-J Posture/Palpation/Skin Start: 07/09/20 12:04 Freq: Status: Active Protocol: Document 09/03/20 10:39 [facility] (Rec: 09/03/20 11:20 [facility] [id number]) Posture Evaluation Sonia Postural Classification System Vertebral Compression Test 1 Elbow Flexion Test 3 Comments Posture Comments R shoulder giving w/EFT, L 5/5 , able to improve VCT to 5/5 w /posture cuieng PT-OP-K Range of Motion Start: 07/09/20 12:04 Freq: Status: Active Protocol: Document 09/03/20 10:39 [facility] (Rec: 09/03/20 11:20 [facility] [id number]) Cervical Spine Range of Motion Cervical Spine Active Degrees Flexion 56 Extension 60 Rotation Left 50 Rotation Right 54 Lateral Flexion Left 45 Lateral Flexion Right 44 Comments no pain PT-OP-L Special Tests Start: 07/09/20 12:04 Freq: Status: Active Protocol: Document 07/09/20 16:07 [facility] (Rec: 07/09/20 17:01 [facility] [id number]) Special Tests Cervical Spine Special Tests Transverse Ligament Comments neg Spurling's Test Test Results neg Vertebral Artery Test Results neg PT-OP-M Strength Start: 07/09/20 12:04 Freq: Status: Active Protocol: Document 07/09/20 16:07 [facility] (Rec: 07/09/20 17:01 [facility] [id number]) Cervical Spine Strength Cervical Spine Manual Muscle Testing Flexion (C1-2) 4 Good Extension 5 Normal Rotation Left 5 Normal Rotation Right 5 Normal Lateral Flexion Left (C3) 5 Normal Lateral Flexion Right (C3) 5 Normal PT-OP-Q Treatments Start: 07/09/20 12:04 Freq: Status: Active Protocol: Document 10/01/20 09:48 [facility] (Rec: 10/01/20 12:13 [facility] [id number]) Therapeutic Activity Therapeutic Activity posture Comments 1. seated posture (unsuported) 2. seated wt shift & hip hinge training 3. standing posture w/PT assist for positon then w/ pt self set up mult times 4. standing hip hinge 5. hip hinge applied to washing dishes & hip hinge over sink Self-Care/Home Management Treatment Education Other Education edu for diaphramatic breathing when stressed to try to calm system and relax body & neck tension, edu to talk to re: shoulder pain and arm pain PT-OP-R Modalities Start: 07/09/20 12:04 Freq: Status: Active Protocol: Document 09/10/20 10:33 [facility] (Rec: 09/10/20 11:25 [facility] [id number]) Hot Pack/Cold Pack Treatment Hot Pack Location cervical Patient Position Hooklying Treatment Duration (minutes) 15 PT-OP-T Assessment and Plan Start: 07/09/20 12:04 Freq: Status: Active Protocol: Document 10/01/20 09:48 [facility] (Rec: 10/01/20 12:13 [facility] [id number]) Physical Therapy Assessment Goals pain Short Term Goal (STG) Pt will have improved sleep posture to dec pain upon first waking up and during night. 3/1-pain mostly during day and typicall after shower, pain is less. STG Duration 10/04/20 Alf Goal (LTG) Pt will report DAVALOS, neck pain, ear pain and jaw pain no greater than 1/10 during a typical week. 09/03-pain less LTG Duration 11/03/20 posture Alf Goal (LTG) Pt will have improved posture to dec load on C-spine & TMJ as evidenced by EFT of 4/5 and VCT of at least 4/5. 09/03-requires cuieng for posture to imrpove VCT score, dec R scap stability w/lower EFT on R>L LTG Duration 11/03 ROM Short Term Goal (STG) Pt will improve rotation B to at least 60 deg to improve ability for needed head turning motions like driving. 09/03-improved about 10 deg but still limited STG Duration 09/21/20 Lettuce Cutter Goal (LTG) Pt will have full cervical ROM without inc head or ear pain 09/03-full ROM in all planes except rotation but no pain. LTG Duration 11/03/20 NDI Impairment 12/50 Short Term Goal (STG) Pt will improve to no greater than 7/50 to show improved function. 09/03-no change STG Duration 10/04/20 Alf Goal (LTG) Pt will improve to no greater than 2/50 to show improved function. LTG Duration 11/03/20 Assessment Summary Assessment Pt able to improve posture significantly with cuieng and edu but still tends to want to have ribcage post over pelvis but did improve and see why this was important after treatmetn. Was able to work on functional tasks without pain today. Physical Therapy Plan Frequency and Duration Frequency of Treatment 1-2x/week Duration of Treatment 2 months Plan of Care Start Date 09/03/20 Plan of Care End Date 11/03/20 Next Visit Focus/Plan Next Note Type Treatment Note Next Visit Plan cont to work on posture and core first strategies, work on lifting & push/pull
--- NOTE | 2020-10-08 11:21 | PT.OTN ---
Current Diagnoses Otalgia, bilateral (10/08/20) Unspecified temporomandibular joint disorder, unspecified side (10/08/20) Cervicalgia (10/08/20) Muscle weakness (generalized) (10/08/20) Abnormal posture (10/08/20) Headache, unspecified (10/08/20) Physical Therapy Treatment Note PT-OP-A Visit Information Start: 07/09/20 12:04 Freq: Status: Active Protocol: Document 10/08/20 10:33 [facility] (Rec: 10/08/20 11:20 [facility] [id number]) Out-Patient Physical Therapy Visit Information Visit Information Visit Type Treatment Note Visit Start Time 10:33 Visit Stop Time 11:23 Total Visit Minutes 50 Visit Number 18 Number of PEDIATRIC CLINICAL DIETICIAN Visits 0 PT-OP-B Current Condition Start: 07/09/20 12:04 Freq: Status: Active Protocol: Document 07/09/20 16:07 [facility] (Rec: 07/09/20 17:01 [facility] [id number]) Current Condition History of Current Condition Onset Date a few years ago Current Complaints DAVALOS History of Current Condition Pt reports head pain is in post occiput. Pt has occasional jaw pain. Pt had MD think that jaw may be the cause of of the DAVALOS. SHe has done PT for head and neck pain but it didn't help. Pt has mouth guard d/t clenching that she has had for 1 year from dentist. Does not think seh clenches during the day. no issues with opening and closing jaw or with eating. Uses CPAP and follows up w/ sleep specialist. Pt had diverticulitis in 2015 and took levofloxican and was unable to lift arms then felt like all mm tone left my body . Then 2016 she thinks that is when she started getting DAVALOS . Pt has no known cause. Pt notes sometimes arms and neck feel weak. Sometiems has R shoulder pain in UT region. Pt reports since November she thought she had an ear infection but MD said no. Pt reports B ear pain that goes along with head and neck pain. Pt notes sometimes when bends over then comes back up, she frequently gets lightheaded (like blood rushed to head). Last only 1 sec or 2 Prior Treatments and Tests OMT treatment 4x, pain specialist Dr. Agustin-1x today and 1x last year- discussed doing some numbing to nerves to see if that helps with DAVALOS, chiro-did not help-said was so stiff it was hard to manip, PT-2 months ago (about 10 times), massage-feels good in the moment Treatment Goals Patient/Caregiver Goals Get rid of DAVALOS and avoid clenching PT-OP-C Subjective Start: 07/09/20 12:04 Freq: Status: Active Protocol: Document 10/08/20 10:33 [facility] (Rec: 10/08/20 11:20 [facility] [id number]) OP-PT Subjective Patient Comments Patient Comments Pt reprots head pain a little in AM but gets better later in the day PT-OP-F Manual Assessment Start: 07/09/20 12:04 Freq: Status: Active Protocol: Document 07/09/20 16:07 [facility] (Rec: 07/09/20 17:01 [facility] [id number]) Manual Assessments Soft Tissue Assessment Soft Tissue Mobility Assessment R>L UT, LS, cervical parapinals, pecs tight Joint Mobility Assessment Joint Mobility Assessment R 1st rib elevated PT-OP-J Posture/Palpation/Skin Start: 07/09/20 12:04 Freq: Status: Active Protocol: Document 09/03/20 10:39 [facility] (Rec: 09/03/20 11:20 [facility] [id number]) Posture Evaluation Sonia Postural Classification System Vertebral Compression Test 1 Elbow Flexion Test 3 Comments Posture Comments R shoulder giving w/EFT, L 5/5 , able to improve VCT to 5/5 w /posture cuieng PT-OP-K Range of Motion Start: 07/09/20 12:04 Freq: Status: Active Protocol: Document 09/03/20 10:39 [facility] (Rec: 09/03/20 11:20 [facility] [id number]) Cervical Spine Range of Motion Cervical Spine Active Degrees Flexion 56 Extension 60 Rotation Left 50 Rotation Right 54 Lateral Flexion Left 45 Lateral Flexion Right 44 Comments no pain PT-OP-L Special Tests Start: 07/09/20 12:04 Freq: Status: Active Protocol: Document 07/09/20 16:07 [facility] (Rec: 07/09/20 17:01 [facility] [id number]) Special Tests Cervical Spine Special Tests Transverse Ligament Comments neg Spurling's Test Test Results neg Vertebral Artery Test Results neg PT-OP-M Strength Start: 07/09/20 12:04 Freq: Status: Active Protocol: Document 07/09/20 16:07 [facility] (Rec: 07/09/20 17:01 [facility] [id number]) Cervical Spine Strength Cervical Spine Manual Muscle Testing Flexion (C1-2) 4 Good Extension 5 Normal Rotation Left 5 Normal Rotation Right 5 Normal Lateral Flexion Left (C3) 5 Normal Lateral Flexion Right (C3) 5 Normal PT-OP-Q Treatments Start: 07/09/20 12:04 Freq: Status: Active Protocol: Document 10/08/20 10:33 [facility] (Rec: 10/08/20 11:20 [facility] [id number]) Therapeutic Activity Therapeutic Activity posture Comments 1. seated posture (unsuported) 2. seated wt shift & hip hinge training 3. standing posture w/PT assist for positon then w/ pt self set up mult times 4. standing hip hinge 5. hip alysa leaned against surface Manual Therapy Treatment Soft Tissue Mobilization UT Body Location R UT Mobilization Type Rolling cervical paraspinals Body Location R Mobilization Type Myofascial Release,Rolling SCM/scalenes Body Location R Mobilization Type Sustained Pressure,Trigger Point Release,Other Intensity/Depth Moderate Body Position Hooklying Comments w/jaw opening PT-OP-R Modalities Start: 07/09/20 12:04 Freq: Status: Active Protocol: Document 10/08/20 10:33 [facility] (Rec: 10/08/20 11:20 [facility] [id number]) Hot Pack/Cold Pack Treatment Cold Pack Location cervical Patient Position Hooklying Treatment Duration (minutes) 10 PT-OP-T Assessment and Plan Start: 07/09/20 12:04 Freq: Status: Active Protocol: Document 10/08/20 10:33 [facility] (Rec: 10/08/20 11:20 [facility] [id number]) Physical Therapy Assessment Goals pain Short Term Goal (STG) Pt will have improved sleep posture to dec pain upon first waking up and during night. 3/1-pain mostly during day and typicall after shower, pain is less. STG Duration 10/04/20 Change Management Manager Goal (LTG) Pt will report DAVALOS, neck pain, ear pain and jaw pain no greater than 1/10 during a typical week. 3/1-pain less LTG Duration 11/03/20 posture Longterm Goal (LTG) Pt will have improved posture to dec load on C-spine & TMJ as evidenced by EFT of 4/5 and VCT of at least 4/5. 09/03-requires cuieng for posture to imrpove VCT score, dec R scap stability w/lower EFT on R>L LTG Duration 11/03 ROM Short Term Goal (STG) Pt will improve rotation B to at least 60 deg to improve ability for needed head turning motions like driving. 09/03-improved about 10 deg but still limited STG Duration 09/21/20 Longterm Goal (LTG) Pt will have full cervical ROM without inc head or ear pain 09/03-full ROM in all planes except rotation but no pain. LTG Duration 11/03/20 NDI Impairment 12/50 Short Term Goal (STG) Pt will improve to no greater than 7/50 to show improved function. 09/03-no change STG Duration 10/04/20 Longterm Goal (LTG) Pt will improve to no greater than 2/50 to show improved function. LTG Duration 11/03/20 Assessment Summary Assessment Pt did better with posture today. She still requires cueing in sitting and standing but showed better understandign at end. tightness more notable on R neck. Physical Therapy Plan Frequency and Duration Frequency of Treatment 1-2x/week Duration of Treatment 2 months Plan of Care Start Date 09/03/20 Plan of Care End Date 11/03/20 Next Visit Focus/Plan Next Note Type Treatment Note Next Visit Plan cont to work on posture and core first strategies, work on lifting & push/pull
--- NOTE | 2020-10-11 15:47 | PT.OPDS ---
Current Diagnoses Otalgia, bilateral (10/08/20) Unspecified temporomandibular joint disorder, unspecified side (10/08/20) Cervicalgia (10/08/20) Muscle weakness (generalized) (10/08/20) Abnormal posture (10/08/20) Headache, unspecified (10/08/20) Visit Care Team Role Provider Type Antonio Macias DO Primary Care Provider Non-Staff Specialty: Family [facility] Address: [address] [place] [address], [id number] Email: Tuan Mina MD Attending Provider Physician Referring Provider Specialty: Ear, Nose, Throat Address: [address] [place] [address], [id number] Email: [email or web address] Visit Number Visit Number 18 Discharge Summary PT-OP-B Current Condition Start: 07/09/20 12:04 Freq: Status: Active Protocol: Document 07/09/20 16:07 [facility] (Rec: 07/09/20 17:01 [facility] [id number]) Current Condition History of Current Condition Onset Date a few years ago Current Complaints DAVALOS History of Current Condition Pt reports head pain is in post occiput. Pt has occasional jaw pain. Pt had MD think that jaw may be the cause of of the DAVALOS. SHe has done PT for head and neck pain but it didn't help. Pt has mouth guard d/t clenching that she has had for 1 year from dentist. Does not think seh clenches during the day. no issues with opening and closing jaw or with eating. Uses CPAP and follows up w/ sleep specialist. Pt had diverticulitis in 2016 and took levofloxican and was unable to lift arms then felt like all mm tone left my body . Then 2016 she thinks that is when she started getting DAVALOS . Pt has no known cause. Pt notes sometimes arms and neck feel weak. Sometiems has R shoulder pain in UT region. Pt reports since November she thought she had an ear infection but MD said no. Pt reports B ear pain that goes along with head and neck pain. Pt notes sometimes when bends over then comes back up, she frequently gets lightheaded (like blood rushed to head). Last only 1 sec or 2 Prior Treatments and Tests OMT treatment 4x, pain specialist Dr. Agustin-1x today and 1x last year- discussed doing some numbing to nerves to see if that helps with DAVALOS, chiro-did not help-said was so stiff it was hard to manip, PT-2 months ago (about 10 times), massage-feels good in the moment Treatment Goals Patient/Caregiver Goals Get rid of DAVALOS and avoid clenching PT-OP-C Subjective Start: 07/09/20 12:04 Freq: Status: Active Protocol: Document 10/08/20 10:33 [facility] (Rec: 10/08/20 11:20 [facility] [id number]) OP-PT Subjective Patient Comments Patient Comments Pt reprots head pain a little in AM but gets better later in the day PT-OP-F Manual Assessment Start: 07/09/20 12:04 Freq: Status: Active Protocol: Document 07/09/20 16:07 [facility] (Rec: 07/09/20 17:01 [facility] [id number]) Manual Assessments Soft Tissue Assessment Soft Tissue Mobility Assessment R>L UT, LS, cervical parapinals, pecs tight Joint Mobility Assessment Joint Mobility Assessment R 1st rib elevated PT-OP-J Posture/Palpation/Skin Start: 07/09/20 12:04 Freq: Status: Active Protocol: Document 09/03/20 10:39 [facility] (Rec: 09/03/20 11:20 [facility] [id number]) Posture Evaluation Sonia Postural Classification System Vertebral Compression Test 1 Elbow Flexion Test 3 Comments Posture Comments R shoulder giving w/EFT, L 5/5 , able to improve VCT to 5/5 w /posture cuieng PT-OP-K Range of Motion Start: 07/09/20 12:04 Freq: Status: Active Protocol: Document 09/03/20 10:39 [facility] (Rec: 09/03/20 11:20 [facility] [id number]) Cervical Spine Range of Motion Cervical Spine Active Degrees Flexion 56 Extension 60 Rotation Left 50 Rotation Right 54 Lateral Flexion Left 45 Lateral Flexion Right 44 Comments no pain PT-OP-L Special Tests Start: 07/09/20 12:04 Freq: Status: Active Protocol: Document 07/09/20 16:07 [facility] (Rec: 07/09/20 17:01 [facility] [id number]) Special Tests Cervical Spine Special Tests Transverse Ligament Comments neg Spurling's Test Test Results neg Vertebral Artery Test Results neg PT-OP-M Strength Start: 07/09/20 12:04 Freq: Status: Active Protocol: Document 07/09/20 16:07 [facility] (Rec: 07/09/20 17:01 [facility] [id number]) Cervical Spine Strength Cervical Spine Manual Muscle Testing Flexion (C1-2) 4 Good Extension 5 Normal Rotation Left 5 Normal Rotation Right 5 Normal Lateral Flexion Left (C3) 5 Normal Lateral Flexion Right (C3) 5 Normal PT-OP-T Assessment and Plan Start: 07/09/20 12:04 Freq: Status: Active Protocol: Document 10/11/20 15:44 [facility] (Rec: 10/11/20 15:47 [facility] [id number]) Physical Therapy Assessment Assessment Summary Assessment Pt is dc at this time for this account as she is no longer having jaw pain, has dec head pain and neck pain overall. She is improving with posture and mechacnis and no longer has any ear pain. DC this case as pt is improvign for intial symptoms and primary plans to send her for R shoulder & neck pain/DAVALOS. Physical Therapy Plan Discharge Physical Therapy Discharge Reasons Goals Met Discharge Comments Change to new auth
== END 2020-10-12 07:51 | disposition home or self-care (01) ==
LOC: PHYS 10:30
PROVIDERS: PCP Student in an Organized Health Care Education/Training Program; Referring Provider Otolaryngology; Visit Provider Otolaryngology
DX: H92.03 Otalgia, bilateral (principal); M26.609 Unspecified temporomandibular joint disorder, unspecified side; M54.2 Cervicalgia; R51.9 Headache, unspecified; R29.3 Abnormal posture; M62.81 Muscle weakness (generalized)
CPT/HCPCS: 97010; 97110; 97116; 97140; 97162; 97530; 97535

== ENCOUNTER 2020-11-28 08:22 | Emergency (ER) | payer OTHER, SELFPAY ==
[2020-11-28 08:30] VITALS: BP 186/85; PULSE 57; PULSE 65; RESP 16; RESP 21; TEMP 36.9; O2SAT 100; O2SAT 98; BMI 25.3
--- NOTE | 2020-11-28 08:30 | DI.RAD.S_ITS ---
PROCEDURE: XR CHEST 1V INDICATIONS: Chest pain TECHNIQUE: One view of the chest was acquired. COMPARISON: [facility], CR, XR CHEST 1V, 06/16/2020, 15:37. FINDINGS: Surgical changes and devices: None. Lungs and pleura: Lungs are clear. No pleural effusions or pneumothorax. Mediastinum: Mediastinal contours appear normal. Heart size is normal. Bones and chest wall: No suspicious bony lesions. Overlying soft tissues appear unremarkable. IMPRESSION: No acute pulmonary process. Dictated by: Tamela Ellis M.D. on 11/28/2020 at 9:44 Approved by: Tamela Ellis M.D. on 11/28/2020 at 9:44
--- NOTE | 2020-11-28 08:32 | ED_ITS ---
HPI - General Adult General Chief complaint: Chest Pain Stated complaint: pain in upper back radiating to chest Time Seen by Provider: 11/28/20 08:24 Source: patient Mode of arrival: Ambulatory Limitations: no limitations History of Present Illness HPI narrative: Patient is a 60-year-old female. Has a prior history of breast cancer. Has not received any treatment since . She is here for evaluation of 1 week of back discomfort and also epigastric discomfort. Yesterday she had some nausea but no vomiting. Otherwise no other GI complaints. No urinary complaints. She thinks that the symptoms did get better/resolved after eating but she is not 100% sure this. Her back does get worse when you touch it. She also has approximately 1 month of right shoulder discomfort. She has seen her primary doctor about the shoulder issues and is under the care physical therapy for this. She denies any rashes. Related Data Home Medications Medication Instructions Recorded Confirmed CA PANTOTHENATE/FOLIC ACID/VIT 1 tab PO QDAY #0 01/25/13 01/05/20 (MULTIVITAMIN) hydrochlorothiazide 12.5 mg tablet 25 mg PO QDAY #0 tab 11/18/18 01/05/20 Previous Rx's Medication Instructions Recorded atenolol 25 mg PO DAILY #30 tab 06/16/20 Allergies Allergy/AdvReac Type Severity Reaction Status Date / Time ciprofloxacin [CIPROFLOXACIN] Allergy Unknown LEG PAIN Verified 06/16/20 15:28 levofloxacin [LEVOFLOXACIN] AdvReac Mild CAN'T LIFT Verified 06/16/20 15:28 ARMS AFTERWARD Review of Systems Constitutional Constitutional: Denies fever(s) Cardiovascular Cardiovascular: Reports chest pain and Denies dyspnea Respiratory Respiratory: Denies dyspnea Gastrointestinal Gastrointestinal: Reports abdominal pain (Epigastric pain), Reports nausea and Denies vomiting Genitourinary Genitourinary: Denies dysuria Genitourinary: Denies abnormal vaginal bleeding and Denies dysuria Musculoskeletal Musculoskeletal: Reports back pain Integumentary/Breasts Skin/Breast: Denies rash Hematologic/Lymphatic On Anticoagulants: No Allergic/Immunologic Allergic/Immunologic: Reports system reviewed and no additional complaints, except as documented Patient History Medical History (Updated 11/28/20 @ 09:41 by Jeb Ngo DO) Breast cancer Chronic mixed headache syndrome Dyspepsia Hypertension LVH (left ventricular hypertrophy) Surgical History History of total mastectomy Status post hysterectomy Family History Father Diabetes mellitus Heart disease Hypertension High cholesterol Grandfather Diabetes mellitus Hypertension High cholesterol Grandmother Diabetes mellitus Mother Diabetes mellitus Heart disease Hypertension Social History Smoking Status: Never smoker Smoking Status: Never smoker alcohol intake frequency: holidays/special occasions only Substance Use Type: does not use Exam Initial Vital Signs Initial Vital Signs: Vital Signs Temperature 98.4 F 11/28/20 08:30 Pulse Rate 65 11/28/20 08:30 Respiratory Rate 16 11/28/20 08:30 Blood Pressure 186/85 H 11/28/20 08:30 Pulse Oximetry 98 11/28/20 08:30 Const General: cooperative and comfortable Limitations: mental status not altered HENMT Head: normal to inspection and normocephalic Resp Effort & Inspection: normal respiratory effort Auscultation: clear to auscultation bilaterally Cardio Rate: regular rate Rhythm: regular rhythm GI Inspection: non-distended Palpation: soft, No firm and No tender Back/Spine/Pelvis Back: No CVA tenderness Thoracic/Lumbar Spine: thoracic spinal tenderness and No lumbar spinal tenderness Skin Lesions: no lesions Rashes: no rashes Neuro General: patient alert and patient awake Cognition: normal cognition Speech: speech normal Extrem General: capillary refill normal Psych Appearance: grossly normal and well kempt Course Orders Ordered: ED Orders 11/28/20 08:25 EKG-12 Lead Stat 11/28/20 08:30 XR chest 1V Stat Complete Blood Count AUTO DIFF Stat Comprehensive Metabolic Panel Stat Lipase Stat Troponin & CK Cardiac Panel Stat Vital Signs Vital signs: Vital Signs - 8 hr 11/28/20 08:30 Temperature 98.4 F Pulse Rate 65 Respiratory Rate 16 Blood Pressure 186/85 H Pulse Oximetry 98 Medical Decision Making Lab Data Lab results reviewed: Yes I reviewed the patient's lab results. Result diagrams: 11/28/20 08:40 11/28/20 08:40 Labs: Lab Results 11/28/20 11/28/20 Range/Units 08:40 08:40 WBC 4.8 (4.5-11.0) X10^3/uL RBC 4.72 (4.0-5.2) X10^6/uL Hgb 14.0 (12.0-16.0) g/dL Hct 41.4 (36-46) % MCV 87.8 (80-100) fL MCH 29.8 (26-34) PG MCHC 33.9 (30-36) % RDW 13.0 (11.6-14.8) % Plt Count 210 (150-400) X10^3/uL Neut % (Auto) 62.4 (50-75) % Lymph % (Auto) 27.0 (25-40) % [place] % (Auto) 8.8 (3-14) % Eos % (Auto) 1.1 L (2-4) % Baso % (Auto) 0.7 (0-2) % Neut # (Auto) 3000 (2955-5348) /uL Lymph # (Auto) 1300 (3362-3539) /uL [place] # (Auto) 400 (0-900) /uL Eos # (Auto) 100 (0-450) /uL Baso # (Auto) 0 (0-100) /uL Sodium 139 (137-145) mmol/L Potassium 3.4 (3.4-5.1) mmol/L Chloride 101 (98-107) mmol/L Carbon Dioxide 31 (22-32) mmol/L BUN 15 (7-17) mg/dL Creatinine 0.77 (0.52-1.04) mg/dL Estimated GFR > 60.0 (>60) mL/min BUN/Creatinine Ratio 19.5 (6-22) Glucose 106 H (70-100) mg/dL Calcium 9.7 (8.4-10.2) mg/dL Total Bilirubin 1.0 (0.2-1.3) mg/dL AST 35 (14-36) IU/L ALT 27 (<35) IU/L Alkaline Phosphatase 78 (38-126) U/L Total Creatine Kinase 199 H (30-135) U/L CK-MB (CK-2) 1.10 (<2.37) ng/mL CK-MB (CK-2) Rel Index 0.6 L (1.5-5.0) % Troponin I < 0.012 (0.01-0.034) ng/mL Total Protein 8.1 (6.3-8.2) g/dL Albumin 4.4 (3.5-5.0) g/dL Globulin 3.7 (1.7-4.1) g/dL Albumin/Globulin Ratio 1.2 (1.0-2.8) Lipase 144 (23-300) U/L ECG Data Attestation: I personally reviewed and interpreted this ECG as follows: Prior ECG tracings: not available for review Interpretation: Sinus bradycardia Ventricular rate of 53 Normal axis Normal QRS Normal QTC LVH No ST T wave changes MDM Narrative Medical decision making narrative: EKG is unremarkable, chest x-ray is unremarkable, has had symptoms for 1 week. Troponin is negative. Has reproducible back pain. I have low suspicion that this is ACS. Low suspicion for pneumonia, low suspicion for pulmonary embolism based on her presenting symptoms. She states that she does potentially get some improvement with eating. Because of this I have a higher suspicion that this is a GI pathology. She has not had any changes in her bowel habits. Low indication for any bleeding. I feel that we can hold on any radiologic studies for now. She has had history of diverticulitis but she states this does not feel like her prior episode in would be very unusual presentation for this. Will start the patient on an H2 magdiel to see if this does not improve some of her symptoms. We did discuss strict return precautions and follow-up instructions. She expressed understanding and agreement. Discharge Plan Departure Patient Disposition: Home Clinical Impression: Epigastric pain, Back pain Instructions: DI for Abdominal Pain-Adult Activity Restrictions/Additional Instructions: Your workup today to include your EKGs and chest x-ray and labs are very reassuring. I have very low suspicion that your symptoms today are caused by your heart. I do recommend that you start on a medication called famotidin e/Pepcid. You can purchase this [id number]. Recommend that you take it on a daily basis for the next week and then as needed afterwards. If your symptoms do not improve with this contact your primary provider for further evaluation. If your symptoms worsen or change please return to the emergency department for further evaluation. Prescriptions: No Action CA PANTOTHENATE/FOLIC ACID/VIT (MULTIVITAMIN) 1 tab PO QDAY Qty: 0 RF: 0 hydrochlorothiazide 12.5 mg tablet 25 mg PO QDAY Qty: 0 RF: 0 atenolol 25 mg tablet 25 mg PO DAILY Qty: 30 RF: 0 Referrals: Kerrie Langford MD [Primary Care Provider] -
[2020-11-28 08:46] LABS: Add Manual Diff / Slide Review NO; Basophils Absolute Auto 0 /uL (0-100); Basophils Percent Auto 0.7 % (0-2); Eosinophils Absolute Auto 100 /uL (0-450); Eosinophils Percent Auto 1.1 % (2-4); Hematocrit 41.4 % (36-46); Lymphocytes Absolute Auto 1300 /uL (1100-4500); Mean Corpuscular HGB Conc 33.9 % (30-36); Mean Corpuscular Hemoglobin 29.8 PG (26-34); Mean Corpuscular Volume 87.8 fL (80-100); Monocytes Absolute Auto 400 /uL (0-900); Monocytes Percent Auto 8.8 % (3-14); Neutrophils Absolute Auto 3000 /uL (1500-7000); Neutrophils Percent Auto 62.4 % (50-75); Platelet Count 210 X10^3/uL (150-400); Red Blood Cell Count 4.72 X10^6/uL (4.0-5.2); White Blood Cell Count 4.8 X10^3/uL (4.5-11.0)
--- NOTE | 2020-11-28 08:52 | PC.NURSE ---
patient states she was nauseated yesterday but better today. she said it has been going on for 1.5 wks and today while at Physical therapy she thought she should get checked out at the ED.
[2020-11-28 08:55] VITALS: BP 145/70; PULSE 59; RESP 15; O2SAT 100
[2020-11-28 09:00] VITALS: BP 145/74; PULSE 52; RESP 15; O2SAT 100
[2020-11-28 09:00] LABS: Alanine Aminotransferase 27 IU/L (<35); Albumin 4.4 g/dL (3.5-5.0); Albumin Globulin Ratio 1.2 (1.0-2.8); Alkaline Phosphatase 78 U/L (38-126); Aspartate Aminotransferase 35 IU/L (14-36); BUN Creatinine Ratio 19.5 (6-22); Blood Urea Nitrogen 15 mg/dL (7-17); Calcium 9.7 mg/dL (8.4-10.2); Carbon Dioxide 31 mmol/L (22-32); Chloride 101 mmol/L (98-107); Creatine Kinase 199 U/L (30-135); Estimated Glomerular Filt Rate > 60.0 mL/min (>60); Globulin 3.7 g/dL (1.7-4.1); Glucose 106 mg/dL (70-100); HEMOLYSIS < 15 (0-50); Lipase 144 U/L (23-300); Potassium 3.4 mmol/L (3.4-5.1); Sodium 139 mmol/L (137-145); Total Protein 8.1 g/dL (6.3-8.2)
[2020-11-28 09:11] LABS: Troponin I < 0.012 ng/mL (0.01-0.034)
[2020-11-28 09:15] LABS: CKMB % Relative Index 0.6 % (1.5-5.0)
[2020-11-28 09:30] VITALS: BP 149/68; PULSE 54; RESP 12; O2SAT 100
== END 2020-11-28 09:51 | disposition home or self-care (01) ==
PROVIDERS: Emergency Provider Emergency Medicine; PCP Student in an Organized Health Care Education/Training Program
DX: R10.13 Epigastric pain (principal); M54.9 Dorsalgia, unspecified; R11.0 Nausea; R07.9 Chest pain, unspecified
CPT/HCPCS: 36415; 71045; 80053; 82550; 82553; 83690; 84484; 85025; 93005; 99284

== ENCOUNTER 2021-01-02 08:15 | Outpatient (RCR) | payer OTHER, SELFPAY ==
--- NOTE | 2020-10-15 17:15 | PT.OIE ---
Current Diagnoses Cervical root disorders, not elsewhere classified (10/15/20) Arthralgia of temporomandibular joint, unspecified side (10/15/20) Abnormal posture (10/15/20) Headache, unspecified (10/15/20) Weakness (10/15/20) Past Medical History (Last Reviewed 06/16/20 @ 17:37 by Tamera Guzman MD) Breast cancer Chronic mixed headache syndrome Dyspepsia Hypertension LVH (left ventricular hypertrophy) Past Surgical History (Last Reviewed 06/16/20 @ 17:37 by Tamera Guzman MD) History of total mastectomy Status post hysterectomy Visit Care Team Role Provider Type Kerrie Langford MD Attending Provider Non-Staff Primary Care Provider Referring Provider Specialty: Medical Address: [address] [place] [address], [facility] Email: Physical Therapy Initial Evaluation PT-OP-A Visit Information Start: 10/11/20 15:35 Freq: Status: Active Protocol: Document 10/15/20 08:18 [facility] (Rec: 10/15/20 08:59 [facility] [id number]) Out-Patient Physical Therapy Visit Information Visit Information Visit Type Initial Evaluation Visit Start Time 08:18 Visit Stop Time 09:00 Total Visit Minutes 42 Visit Number 1 Number of DRAINAGE DESIGN COORDINATOR Visits 0 PT-OP-B Current Condition Start: 10/11/20 15:35 Freq: Status: Active Protocol: Document 10/15/20 08:18 [facility] (Rec: 10/15/20 08:59 [facility] [id number]) Current Condition History of Current Condition Current Complaints neck pain, head pain, arm pain History of Current Condition 10/15-Pt reports still getting tightness at back of head at a 5/10 daily. No jaw pain or ear pain or ringing in ears. Pain in head starts at the beginning of the day and it decreases towards the end of the day. Gets to a point at the end where she may not notice it. Does not notice pain when is very active like skiing. Pt is c/o neck and arm pain that is bothering her now daily. Notes she woke up last nighta nd wrist and hand were giving her pain. Notes she feels like her R wrist is swollen and Dr thought she had dec mm tone. From prior evaluation & referral:07/09-Pt reports head pain is in post occiput. Pt has occasional jaw pain. Pt had MD think that jaw may be the cause of of the DAVALOS. SHe has done PT for head and neck pain but it didn't help. Pt has mouth guard d/t clenching that she has had for 1 year from dentist. Does not think seh clenches during the day. no issues with opening and closing jaw or with eating. Uses CPAP and follows up w/ sleep specialist. Pt had diverticulitis in 2015 and took levofloxican and was unable to lift arms then felt like all mm tone left my body . Then 2016 she thinks that is when she started getting DAVALOS . Pt has no known cause. Pt notes sometimes arms and neck feel weak. Sometiems has R shoulder pain in UT region. Pt reports since November she thought she had an ear infection but MD said no. Pt reports B ear pain that goes along with head and neck pain. Pt notes sometimes when bends over then comes back up, she frequently gets lightheaded (like blood rushed to head). Last only 1 sec or 2 Prior Treatments and Tests OMT treatment 4x, pain specialist Dr. Agustin-1x today and 1x last year- discussed doing some numbing to nerves to see if that helps with DAVALOS, chiro-did not help-said was so stiff it was hard to manip, PT-2 months ago (about 10 times), massage-feels good in the moment, PT for jaw and head imrpoved pain in head Treatment Goals Patient/Caregiver Goals Be painfree, dec pain to help w/motivation of doing things as sometimes pain dec pt wanting move as much PT-OP-C Subjective Start: 10/11/20 15:35 Freq: Status: Active Protocol: Document 10/15/20 08:18 [facility] (Rec: 10/15/20 08:59 [facility] [id number]) Patient Questionnaires Neck Disability Index NDI Score 12/50 Quick Dash- Upper Extremity Quick Dash UE Score 43.2 OP-PT Pain Assessment Location neck pain Pain Location Details neck & arm R sided Description- Other throbbing weird pain, fatigued, stiff Radiating Location post head, UT region-entire brachium and lower arm & wrist , lat hand Variations/Patterns L wrist/hand Other Pain Aggravating Factors grabbing, wrist movement, Pain Alleviating Factors Cold Other Pain Alleviating Factors unsure PT-OP-F Manual Assessment Start: 10/11/20 15:35 Freq: Status: Active Protocol: Document 10/15/20 08:18 [facility] (Rec: 10/15/20 08:59 [facility] [id number]) Manual Assessments Soft Tissue Assessment Soft Tissue Mobility Assessment R>L cervical tightness Joint Mobility Assessment Joint Mobility Assessment elevated 1st Rib R & clavice, scap winging B PT-OP-J Posture/Palpation/Skin Start: 10/11/20 15:35 Freq: Status: Active Protocol: Document 10/15/20 08:18 [facility] (Rec: 10/15/20 08:59 [facility] [id number]) Posture Evaluation Sonia Postural Classification System Sonia Postural Classifications Posterior/Posterior Vertebral Compression Test 2 Elbow Flexion Test 1 PT-OP-K Range of Motion Start: 10/11/20 15:35 Freq: Status: Active Protocol: Document 10/15/20 08:18 [facility] (Rec: 10/15/20 08:59 [facility] [id number]) Cervical Spine Range of Motion Cervical Spine Active Degrees Flexion 61 Extension 35 Rotation Left 51 Rotation Right 52 Lateral Flexion Left 45 Lateral Flexion Right 47 Comments pain in head w/ext, crunching w/SB, tight w/rot R Shoulder Goniometric Range of Motion Shoulder ROM Limitations Comments some discomfort in B shoulder w/90/90 ER, pain in R wrist w/ IR behind back R PT-OP-L Special Tests Start: 10/11/20 15:35 Freq: Status: Active Protocol: Document 10/15/20 08:18 [facility] (Rec: 10/15/20 08:59 [facility] [id number]) Special Tests Cervical Spine Special Tests Transverse Ligament Comments neg Spurling's Test Test Results neg Vertebral Artery Test Results neg Neural Special Tests- Upper Body Phalen's Test Results neg B Tinel Sign Test Results median n R-neg Ulnar Nerve Tension Test Results neg B Radial Nerve Tension Test Results neg B Median Nerve Tension Test Results neg B Upper Limb Tension Test Test Results 110 L w/slight shoulder discomfort, R 80 w/pain into neck PT-OP-M Strength Start: 10/11/20 15:35 Freq: Status: Active Protocol: Document 10/15/20 08:18 [facility] (Rec: 10/15/20 08:59 [facility] [id number]) Shoulder Strength Shoulder Manual Muscle Testing Right Flexion 5 Normal Extension 5 Normal Abduction (C5) 5 Normal External Rotation 5 Normal Internal Rotation 5 Normal Horizontal Abduction 5 Normal Horizontal Adduction 5 Normal Left Flexion 5 Normal Extension 5 Normal Abduction (C5) 5 Normal External Rotation 5 Normal Internal Rotation 5 Normal Horizontal Abduction 5 Normal Horizontal Adduction 5 Normal Elbow/Forearm Strength Elbow and Forearm Manual Muscle Testing Right Flexion (C6) 5 Normal Extension (C7) 5 Normal Pronation 5 Normal Supination 5 Normal Left Flexion (C6) 5 Normal Extension (C7) 5 Normal Pronation 5 Normal Supination 5 Normal Wrist Strength Wrist Manual Muscle Testing Right Flexion (C7) 4- Good- Extension (C6) 4- Good- Ulnar Deviation 4 Good Radial Deviation 4- Good- Comments pain w/radial deviation Left Flexion (C7) 5 Normal Extension (C6) 4+ Good+ Ulnar Deviation 5 Normal Radial Deviation 4+ Good+ Hand Computational Mathematician/Pinch Strength Hand Strength Right Computational Mathematician (lbs) 86 Left Computational Mathematician (lbs) 87 PT-OP-Q Treatments Start: 10/11/20 15:35 Freq: Status: Active Protocol: Document 10/15/20 08:18 [facility] (Rec: 10/15/20 09:12 [facility] [id number]) Self-Care/Home Management Treatment Education Other Education discussed pillow set up and what to look for in a pillow. Edu to look for down or something that will not resist and will mold and support neck and head PT-OP-T Assessment and Plan Start: 10/11/20 15:35 Freq: Status: Active Protocol: Document 10/15/20 08:18 [facility] (Rec: 10/15/20 08:59 [facility] [id number]) Physical Therapy Assessment Rehab Potential Rehabilitation Potential Good Evaluation Complexity Number of Personal Factors/Comorbidities 3 or More Number of Body Systems Impaired 4 or More Clinical Presentation at Evaluation Evolving Impairments Impairments Activity Tolerance,Functional Activities,Functional Mobility ,Pain,Posture,ROM,Soft Tissue Mobility,Strength Goals quickdash Impairment 43.2 Short Term Goal (STG) Pt will imrpove quick dash score to 33 to show improved functional ability. STG Duration 11/14/20 Web Applications Developer Goal (LTG) Pt will improve quick dash score to 13 to show improved functional ability. LTG Duration 12/15/20 pain Web Applications Developer Goal (LTG) Pt will be able to awake without inc pain after sleeping. LTG Duration 12/15/20 posture Residential Goal (LTG) Pt will improve posture as evidenced by improved VCT to 4 /5. LTG Duration 12/15/20 ROM Short Term Goal (STG) Pt will have full cervical rotation & ext w/o inc pain. STG Duration 11/14/20 Residential Goal (LTG) Pt will have full ROM & strenth of UE without increased pain. LTG Duration 12/15/20 Assessment Summary Assessment Pt presents w/cervical pain that causes radiation of pain down RUE and up into R head & post head that bothers her daily at this time.S he did PT focusing on jaw and cerivcal posture which helped signfiicantly but is still noting pain in neck/UE along w /head that improves as day goes on but is worse in the AM . Pt does report difficulty with activities d/t this pain but still does them despite pain. She has dec R wrist strength d/t pain, equal od grinder operator strength although R is her dominant side and impaired posture. She would beneift from PT to work on her deficits to dec neck pain, DAVALOS and associated arm pain. Despite no positive testing for neutral tension today, due to arm pain coming when neck pain is present,t hey are likely related. Physical Therapy Plan Frequency and Duration Frequency of Treatment 1-2x/week Duration of Treatment 2 months Plan of Care Start Date 10/15/20 Plan of Care End Date 12/15/20 Therapeutic Interventions Therapeutic Interventions Gait Training,Home Exercise Program,Joint Mobilizations, Manual Therapy,Neuromuscular Re-education,Patient/Caregiver Education,Self-Care/Home Management,Soft Tissue Mobilization,Taping, Therapeutic Activities, Therapeutic Exercises Modalities Cold Pack/Ice Massage,Electric Stimulation,Hot Packs, Traction- Mechanical, Ultrasound Next Visit Focus/Plan Next Note Type Treatment Note Next Visit Plan scap mobs, STM to pecs & lats,
--- NOTE | 2020-10-15 17:15 | PT.OPPOC ---
Physical, Occupational & Speech Therapy At [facility] Current Diagnoses Cervical root disorders, not elsewhere classified (10/15/20) Arthralgia of temporomandibular joint, unspecified side (10/15/20) Abnormal posture (10/15/20) Headache, unspecified (10/15/20) Weakness (10/15/20) Visit Care Team Role Provider Type Kerrie Langford MD Attending Provider Non-Staff Primary Care Provider Referring Provider Specialty: Medical Address: [address] [place] [address], [id number] Email: Plan Of Care PT-OP-T Assessment and Plan Start: 10/11/20 15:35 Freq: Status: Active Protocol: Document 10/15/20 08:18 [facility] (Rec: 10/15/20 08:59 [facility] [id number]) Physical Therapy Assessment Rehab Potential Rehabilitation Potential Good Evaluation Complexity Number of Personal Factors/Comorbidities 3 or More Number of Body Systems Impaired 4 or More Clinical Presentation at Evaluation Evolving Impairments Impairments Activity Tolerance,Functional Activities,Functional Mobility ,Pain,Posture,ROM,Soft Tissue Mobility,Strength Goals quickdash Impairment 43.2 Short Term Goal (STG) Pt will imrpove quick dash score to 33 to show improved functional ability. STG Duration 11/14/20 Head Athletic Trainer Goal (LTG) Pt will improve quick dash score to 13 to show improved functional ability. LTG Duration 12/15/20 pain Chcf Goal (LTG) Pt will be able to awake without inc pain after sleeping. LTG Duration 12/15/20 posture Head Athletic Trainer Goal (LTG) Pt will improve posture as evidenced by improved VCT to 4 /5. LTG Duration 12/15/20 ROM Short Term Goal (STG) Pt will have full cervical rotation & ext w/o inc pain. STG Duration 11/14/20 Chcf Goal (LTG) Pt will have full ROM & strenth of UE without increased pain. LTG Duration 12/15/20 Assessment Summary Assessment Pt presents w/cervical pain that causes radiation of pain down RUE and up into R head & post head that bothers her daily at this time.S he did PT focusing on jaw and cerivcal posture which helped signfiicantly but is still noting pain in neck/UE along w /head that improves as day goes on but is worse in the AM . Pt does report difficulty with activities d/t this pain but still does them despite pain. She has dec R wrist strength d/t pain, equal manager behavioral strength although R is her dominant side and impaired posture. She would beneift from PT to work on her deficits to dec neck pain, DAVALOS and associated arm pain. Despite no positive testing for neutral tension today, due to arm pain coming when neck pain is present,t hey are likely related. Physical Therapy Plan Frequency and Duration Frequency of Treatment 1-2x/week Duration of Treatment 2 months Plan of Care Start Date 10/15/20 Plan of Care End Date 12/15/20 Therapeutic Interventions Therapeutic Interventions Gait Training,Home Exercise Program,Joint Mobilizations, Manual Therapy,Neuromuscular Re-education,Patient/Caregiver Education,Self-Care/Home Management,Soft Tissue Mobilization,Taping, Therapeutic Activities, Therapeutic Exercises Modalities Cold Pack/Ice Massage,Electric Stimulation,Hot Packs, Traction- Mechanical, Ultrasound Next Visit Focus/Plan Next Note Type Treatment Note Next Visit Plan scap mobs, STM to pecs & lats, Plan of Care Dates Plan of Care Start Date 10/15/20 Plan of Care End Date 12/15/20 Electronically Signed by: Jill Mina, PT 10/15/20 2674 Please Sign and Return: I have reviewed this Plan of Care and certify that the skilled therapy services above are required to meet the patient?s needs. Physician Signature Date Printed Name and Credentials Clinical Instructor Signature Printed Name and Credentials
--- NOTE | 2020-10-22 10:34 | PT.OTN ---
Current Diagnoses Cervical root disorders, not elsewhere classified (10/22/20) Arthralgia of temporomandibular joint, unspecified side (10/22/20) Abnormal posture (10/22/20) Headache, unspecified (10/22/20) Weakness (10/22/20) Physical Therapy Treatment Note PT-OP-A Visit Information Start: 10/11/20 15:35 Freq: Status: Active Protocol: Document 10/22/20 09:49 [facility] (Rec: 10/22/20 10:34 [facility] [id number]) Out-Patient Physical Therapy Visit Information Visit Information Visit Type Treatment Note Visit Start Time 09:49 Visit Stop Time 10:29 Total Visit Minutes 40 Visit Number 2 Number of NARCOTICS AND/OR VICE DETECTIVE Visits 0 PT-OP-B Current Condition Start: 10/11/20 15:35 Freq: Status: Active Protocol: Document 10/15/20 08:18 [facility] (Rec: 10/15/20 08:59 [facility] [id number]) Current Condition History of Current Condition Current Complaints neck pain, head pain, arm pain History of Current Condition 10/15-Pt reports still getting tightness at back of head at a 5/10 daily. No jaw pain or ear pain or ringing in ears. Pain in head starts at the beginning of the day and it decreases towards the end of the day. Gets to a point at the end where she may not notice it. Does not notice pain when is very active like skiing. Pt is c/o neck and arm pain that is bothering her now daily. Notes she woke up last nighta nd wrist and hand were giving her pain. Notes she feels like her R wrist is swollen and Dr thought she had dec mm tone. From prior evaluation & referral:07/09-Pt reports head pain is in post occiput. Pt has occasional jaw pain. Pt had MD think that jaw may be the cause of of the DAVALOS. SHe has done PT for head and neck pain but it didn't help. Pt has mouth guard d/t clenching that she has had for 1 year from dentist. Does not think seh clenches during the day. no issues with opening and closing jaw or with eating. Uses CPAP and follows up w/ sleep specialist. Pt had diverticulitis in 2016 and took levofloxican and was unable to lift arms then felt like all mm tone left my body . Then 2016 she thinks that is when she started getting DAVALOS . Pt has no known cause. Pt notes sometimes arms and neck feel weak. Sometiems has R shoulder pain in [place] region. Pt reports since November she thought she had an ear infection but MD said no. Pt reports B ear pain that goes along with head and neck pain. Pt notes sometimes when bends over then comes back up, she frequently gets lightheaded (like blood rushed to head). Last only 1 sec or 2 Prior Treatments and Tests OMT treatment 4x, pain specialist Dr. Agustin-1x today and 1x last year- discussed doing some numbing to nerves to see if that helps with DAVALOS, chiro-did not help-said was so stiff it was hard to manip, PT-2 months ago (about 10 times), massage-feels good in the moment, PT for jaw and head imrpoved pain in head Treatment Goals Patient/Caregiver Goals Be painfree, dec pain to help w/motivation of doing things as sometimes pain dec pt wanting move as much PT-OP-C Subjective Start: 10/11/20 15:35 Freq: Status: Active Protocol: Document 10/22/20 09:49 [facility] (Rec: 10/22/20 10:34 [facility] [id number]) OP-PT Subjective Patient Comments Patient Comments Pt reprots pain better which changing pillows. Pt saw ortho who said thumb paina ppears to be more of a tendon issue. Shoulder has been doing okay PT-OP-F Manual Assessment Start: 10/11/20 15:35 Freq: Status: Active Protocol: Document 10/15/20 08:18 [facility] (Rec: 10/15/20 08:59 [facility] [id number]) Manual Assessments Soft Tissue Assessment Soft Tissue Mobility Assessment R>L cervical tightness Joint Mobility Assessment Joint Mobility Assessment elevated 1st Rib R & clavice, scap winging B PT-OP-J Posture/Palpation/Skin Start: 10/11/20 15:35 Freq: Status: Active Protocol: Document 10/15/20 08:18 [facility] (Rec: 10/15/20 08:59 [facility] [id number]) Posture Evaluation Sonia Postural Classification System Sonia Postural Classifications Posterior/Posterior Vertebral Compression Test 2 Elbow Flexion Test 1 PT-OP-K Range of Motion Start: 10/11/20 15:35 Freq: Status: Active Protocol: Document 10/15/20 08:18 [facility] (Rec: 10/15/20 08:59 [facility] [id number]) Cervical Spine Range of Motion Cervical Spine Active Degrees Flexion 61 Extension 35 Rotation Left 51 Rotation Right 52 Lateral Flexion Left 45 Lateral Flexion Right 47 Comments pain in head w/ext, crunching w/SB, tight w/rot R Shoulder Goniometric Range of Motion Shoulder ROM Limitations Comments some discomfort in B shoulder w/90/90 ER, pain in R wrist w/ IR behind back R PT-OP-L Special Tests Start: 10/11/20 15:35 Freq: Status: Active Protocol: Document 10/15/20 08:18 [facility] (Rec: 10/15/20 08:59 [facility] [id number]) Special Tests Cervical Spine Special Tests Transverse Ligament Comments neg Spurling's Test Test Results neg Vertebral Artery Test Results neg Neural Special Tests- Upper Body Phalen's Test Results neg B Tinel Sign Test Results median n R-neg Ulnar Nerve Tension Test Results neg B Radial Nerve Tension Test Results neg B Median Nerve Tension Test Results neg B Upper Limb Tension Test Test Results 110 L w/slight shoulder discomfort, R 80 w/pain into neck PT-OP-M Strength Start: 10/11/20 15:35 Freq: Status: Active Protocol: Document 10/15/20 08:18 [facility] (Rec: 10/15/20 08:59 [facility] [id number]) Shoulder Strength Shoulder Manual Muscle Testing Right Flexion 5 Normal Extension 5 Normal Abduction (C5) 5 Normal External Rotation 5 Normal Internal Rotation 5 Normal Horizontal Abduction 5 Normal Horizontal Adduction 5 Normal Left Flexion 5 Normal Extension 5 Normal Abduction (C5) 5 Normal External Rotation 5 Normal Internal Rotation 5 Normal Horizontal Abduction 5 Normal Horizontal Adduction 5 Normal Elbow/Forearm Strength Elbow and Forearm Manual Muscle Testing Right Flexion (C6) 5 Normal Extension (C7) 5 Normal Pronation 5 Normal Supination 5 Normal Left Flexion (C6) 5 Normal Extension (C7) 5 Normal Pronation 5 Normal Supination 5 Normal Wrist Strength Wrist Manual Muscle Testing Right Flexion (C7) 4- Good- Extension (C6) 4- Good- Ulnar Deviation 4 Good Radial Deviation 4- Good- Comments pain w/radial deviation Left Flexion (C7) 5 Normal Extension (C6) 4+ Good+ Ulnar Deviation 5 Normal Radial Deviation 4+ Good+ Hand Registered Pharmacy Technician/Pinch Strength Hand Strength Right Registered Pharmacy Technician (lbs) 86 Left Registered Pharmacy Technician (lbs) 87 PT-OP-Q Treatments Start: 10/11/20 15:35 Freq: Status: Active Protocol: Document 10/22/20 09:49 [facility] (Rec: 10/22/20 10:34 [facility] [id number]) Therapeutic Exercises Supine Exercises serratus Supine Exercise Name punch Side bilateral Reps/Minutes 12 Prone Exercises scaption Prone Exercise Name over tball Side bilateral Reps/Minutes 15 Habd Prone Exercise Name over tball Side bilateral Reps/Minutes 20 Comments focus on head position & scap movement plank Prone Exercise Name knees and hands Side bilateral Reps/Minutes 20 sec x2 Comments focus on scap position max cues Other Exercises quadruped Other Exercise Name 1. serratus punch 2. alt hip ext Side bilateral Reps/Minutes 1.20 2. 12 B Manual Therapy Treatment Soft Tissue Mobilization scap Body Location R lats & teres Mobilization Type Rolling,Strumming Intensity/Depth Moderate Body Position Sidelying UT Body Location R UT, LS, scalenes Mobilization Type Rolling Intensity/Depth Moderate Body Position Sidelying Joint Mobilizations scap Direction inf glide, med/lat rotation Self-Care/Home Management Treatment Education Other Education edu on how to prop pillow under head and if sleep partial prone how to prop entire body appropriately PT-OP-T Assessment and Plan Start: 10/11/20 15:35 Freq: Status: Active Protocol: Document 10/22/20 09:49 [facility] (Rec: 10/22/20 10:34 [facility] [id number]) Physical Therapy Assessment Goals quickdash Impairment 43.2 Short Term Goal (STG) Pt will imrpove quick dash score to 33 to show improved functional ability. STG Duration 11/14/20 Rougher Helper Goal (LTG) Pt will improve quick dash score to 13 to show improved functional ability. LTG Duration 12/15/20 pain Rougher Helper Goal (LTG) Pt will be able to awake without inc pain after sleeping. LTG Duration 12/15/20 posture Fdc Goal (LTG) Pt will improve posture as evidenced by improved VCT to 4 /5. LTG Duration 12/15/20 ROM Short Term Goal (STG) Pt will have full cervical rotation & ext w/o inc pain. STG Duration 11/14/20 Fdc Goal (LTG) Pt will have full ROM & strenth of UE without increased pain. LTG Duration 12/15/20 Assessment Summary Assessment Max cueing required during exercises w/difficulty w/R side avoiding elevationo f scap. Pt improved scap mobility after manual treatmetn Physical Therapy Plan Frequency and Duration Frequency of Treatment 1-2x/week Duration of Treatment 2 months Plan of Care Start Date 10/15/20 Plan of Care End Date 12/15/20 Next Visit Focus/Plan Next Note Type Treatment Note Next Visit Plan review exercises
--- NOTE | 2020-10-29 10:31 | PT.OTN ---
Current Diagnoses Cervical root disorders, not elsewhere classified (10/29/20) Arthralgia of temporomandibular joint, unspecified side (10/29/20) Abnormal posture (10/29/20) Headache, unspecified (10/29/20) Weakness (10/29/20) Physical Therapy Treatment Note PT-OP-A Visit Information Start: 10/11/20 15:35 Freq: Status: Active Protocol: Document 10/29/20 09:46 [facility] (Rec: 10/29/20 10:31 [facility] [id number]) Out-Patient Physical Therapy Visit Information Visit Information Visit Type Treatment Note Visit Start Time 09:47 Visit Stop Time 10:27 Total Visit Minutes 40 Visit Number 3 Number of GYM TEACHER Visits 0 PT-OP-B Current Condition Start: 10/11/20 15:35 Freq: Status: Active Protocol: Document 10/15/20 08:18 [facility] (Rec: 10/15/20 08:59 [facility] [id number]) Current Condition History of Current Condition Current Complaints neck pain, head pain, arm pain History of Current Condition 10/15-Pt reports still getting tightness at back of head at a 5/10 daily. No jaw pain or ear pain or ringing in ears. Pain in head starts at the beginning of the day and it decreases towards the end of the day. Gets to a point at the end where she may not notice it. Does not notice pain when is very active like skiing. Pt is c/o neck and arm pain that is bothering her now daily. Notes she woke up last nighta nd wrist and hand were giving her pain. Notes she feels like her R wrist is swollen and Dr thought she had dec mm tone. From prior evaluation & referral:07/09-Pt reports head pain is in post occiput. Pt has occasional jaw pain. Pt had MD think that jaw may be the cause of of the DAVALOS. SHe has done PT for head and neck pain but it didn't help. Pt has mouth guard d/t clenching that she has had for 1 year from dentist. Does not think seh clenches during the day. no issues with opening and closing jaw or with eating. Uses CPAP and follows up w/ sleep specialist. Pt had diverticulitis in 2016 and took levofloxican and was unable to lift arms then felt like all mm tone left my body . Then 2016 she thinks that is when she started getting DAVALOS . Pt has no known cause. Pt notes sometimes arms and neck feel weak. Sometiems has R shoulder pain in [place] region. Pt reports since November she thought she had an ear infection but MD said no. Pt reports B ear pain that goes along with head and neck pain. Pt notes sometimes when bends over then comes back up, she frequently gets lightheaded (like blood rushed to head). Last only 1 sec or 2 Prior Treatments and Tests OMT treatment 4x, pain specialist Dr. Agustin-1x today and 1x last year- discussed doing some numbing to nerves to see if that helps with DAVALOS, chiro-did not help-said was so stiff it was hard to manip, PT-2 months ago (about 10 times), massage-feels good in the moment, PT for jaw and head imrpoved pain in head Treatment Goals Patient/Caregiver Goals Be painfree, dec pain to help w/motivation of doing things as sometimes pain dec pt wanting move as much PT-OP-C Subjective Start: 10/11/20 15:35 Freq: Status: Active Protocol: Document 10/29/20 09:46 [facility] (Rec: 10/29/20 10:31 [facility] [id number]) OP-PT Subjective Patient Comments Patient Comments Pt reports shoulder doing well . pain in arm only 1 day a little. some head pain. Hs been able to get pillow better set up PT-OP-F Manual Assessment Start: 10/11/20 15:35 Freq: Status: Active Protocol: Document 10/15/20 08:18 [facility] (Rec: 10/15/20 08:59 [facility] [id number]) Manual Assessments Soft Tissue Assessment Soft Tissue Mobility Assessment R>L cervical tightness Joint Mobility Assessment Joint Mobility Assessment elevated 1st Rib R & clavice, scap winging B PT-OP-J Posture/Palpation/Skin Start: 10/11/20 15:35 Freq: Status: Active Protocol: Document 10/15/20 08:18 [facility] (Rec: 10/15/20 08:59 [facility] [id number]) Posture Evaluation Sonia Postural Classification System Sonia Postural Classifications Posterior/Posterior Vertebral Compression Test 2 Elbow Flexion Test 1 PT-OP-K Range of Motion Start: 10/11/20 15:35 Freq: Status: Active Protocol: Document 10/15/20 08:18 [facility] (Rec: 10/15/20 08:59 [facility] [id number]) Cervical Spine Range of Motion Cervical Spine Active Degrees Flexion 61 Extension 35 Rotation Left 51 Rotation Right 52 Lateral Flexion Left 45 Lateral Flexion Right 47 Comments pain in head w/ext, crunching w/SB, tight w/rot R Shoulder Goniometric Range of Motion Shoulder ROM Limitations Comments some discomfort in B shoulder w/90/90 ER, pain in R wrist w/ IR behind back R PT-OP-L Special Tests Start: 10/11/20 15:35 Freq: Status: Active Protocol: Document 10/15/20 08:18 [facility] (Rec: 10/15/20 08:59 [facility] [id number]) Special Tests Cervical Spine Special Tests Transverse Ligament Comments neg Spurling's Test Test Results neg Vertebral Artery Test Results neg Neural Special Tests- Upper Body Phalen's Test Results neg B Tinel Sign Test Results median n R-neg Ulnar Nerve Tension Test Results neg B Radial Nerve Tension Test Results neg B Median Nerve Tension Test Results neg B Upper Limb Tension Test Test Results 110 L w/slight shoulder discomfort, R 80 w/pain into neck PT-OP-M Strength Start: 10/11/20 15:35 Freq: Status: Active Protocol: Document 10/15/20 08:18 [facility] (Rec: 10/15/20 08:59 [facility] [id number]) Shoulder Strength Shoulder Manual Muscle Testing Right Flexion 5 Normal Extension 5 Normal Abduction (C5) 5 Normal External Rotation 5 Normal Internal Rotation 5 Normal Horizontal Abduction 5 Normal Horizontal Adduction 5 Normal Left Flexion 5 Normal Extension 5 Normal Abduction (C5) 5 Normal External Rotation 5 Normal Internal Rotation 5 Normal Horizontal Abduction 5 Normal Horizontal Adduction 5 Normal Elbow/Forearm Strength Elbow and Forearm Manual Muscle Testing Right Flexion (C6) 5 Normal Extension (C7) 5 Normal Pronation 5 Normal Supination 5 Normal Left Flexion (C6) 5 Normal Extension (C7) 5 Normal Pronation 5 Normal Supination 5 Normal Wrist Strength Wrist Manual Muscle Testing Right Flexion (C7) 4- Good- Extension (C6) 4- Good- Ulnar Deviation 4 Good Radial Deviation 4- Good- Comments pain w/radial deviation Left Flexion (C7) 5 Normal Extension (C6) 4+ Good+ Ulnar Deviation 5 Normal Radial Deviation 4+ Good+ Hand Account Contact Associate/Pinch Strength Hand Strength Right Account Contact Associate (lbs) 86 Left Account Contact Associate (lbs) 87 PT-OP-Q Treatments Start: 10/11/20 15:35 Freq: Status: Active Protocol: Document 10/29/20 09:46 [facility] (Rec: 10/29/20 10:31 [facility] [id number]) Therapeutic Exercises Supine Exercises serratus Supine Exercise Name punch Side bilateral Equipment Used 2# Reps/Minutes 15 Prone Exercises ext Prone Exercise Name over tball Side bilateral Equipment Used 1# Reps/Minutes 2x15 Comments focus on scap position mod cues scaption Prone Exercise Name over tball Side bilateral Equipment Used 1# Reps/Minutes 2x12 Comments focus on scap position mod cues Habd Prone Exercise Name over tball Side bilateral Equipment Used 1# Reps/Minutes 2x15 Comments focus on head position & scap movement plank Prone Exercise Name knees and hands Side bilateral Reps/Minutes 30 sec x2 Comments focus on scap position Other Exercises quadruped Other Exercise Name 1. serratus punch 2. alt hip ext Side bilateral Reps/Minutes 1.15 2. 12 B Manual Therapy Treatment Soft Tissue Mobilization scap Body Location R lats & teres Mobilization Type Rolling,Strumming Intensity/Depth Moderate Body Position Sidelying UT Body Location R UT, LS Mobilization Type Rolling Intensity/Depth Moderate Body Position Sidelying SOR Body Location SOR Mobilization Type Sustained Pressure Intensity/Depth Moderate Body Position Hooklying SCM/scalenes Body Location R Mobilization Type Sustained Pressure,Trigger Point Release,Other Intensity/Depth Moderate Body Position Hooklying Comments w/jaw opening Joint Mobilizations scap Direction inf glide, med/lat rotation AC Joint R gapping PT-OP-T Assessment and Plan Start: 10/11/20 15:35 Freq: Status: Active Protocol: Document 10/29/20 09:46 [facility] (Rec: 10/29/20 10:31 [facility] [id number]) Physical Therapy Assessment Goals quickdash Impairment 43.2 Short Term Goal (STG) Pt will imrpove quick dash score to 33 to show improved functional ability. STG Duration 11/14/20 Fpc Goal (LTG) Pt will improve quick dash score to 13 to show improved functional ability. LTG Duration 12/15/20 pain Pull Over Goal (LTG) Pt will be able to awake without inc pain after sleeping. LTG Duration 12/15/20 posture Fpc Goal (LTG) Pt will improve posture as evidenced by improved VCT to 4 /5. LTG Duration 12/15/20 ROM Short Term Goal (STG) Pt will have full cervical rotation & ext w/o inc pain. STG Duration 11/14/20 Fpc Goal (LTG) Pt will have full ROM & strenth of UE without increased pain. LTG Duration 12/15/20 Assessment Summary Assessment Pt had much better performancw ith exercises with less cueing needed. Intial scaption set , pt did require a lot of cues but 2nd set was better.. improved ability to get serratus punch today but still more difficult on L to avoid scap elevation. Physical Therapy Plan Frequency and Duration Frequency of Treatment 1-2x/week Duration of Treatment 2 months Plan of Care Start Date 10/15/20 Plan of Care End Date 12/15/20 Next Visit Focus/Plan Next Note Type Treatment Note Next Visit Plan review exercises, cont to work manul to dec pain
--- NOTE | 2020-11-05 08:22 | PT.OTN ---
Current Diagnoses Cervical root disorders, not elsewhere classified (11/05/20) Arthralgia of temporomandibular joint, unspecified side (11/05/20) Abnormal posture (11/05/20) Headache, unspecified (11/05/20) Weakness (11/05/20) Physical Therapy Treatment Note PT-OP-A Visit Information Start: 10/11/20 15:35 Freq: Status: Active Protocol: Document 11/05/20 07:31 SP (Rec: 11/05/20 08:36 SP [id number]) Out-Patient Physical Therapy Visit Information Visit Information Visit Start Time 07:31 Visit Stop Time 08:22 Total Visit Minutes 51 Visit Number 4 Number of CREAM CHEESE MAKER Visits 1 PT-OP-B Current Condition Start: 10/11/20 15:35 Freq: Status: Active Protocol: Document 10/15/20 08:18 [facility] (Rec: 10/15/20 08:59 [facility] [id number]) Current Condition History of Current Condition Current Complaints neck pain, head pain, arm pain History of Current Condition 10/15-Pt reports still getting tightness at back of head at a 5/10 daily. No jaw pain or ear pain or ringing in ears. Pain in head starts at the beginning of the day and it decreases towards the end of the day. Gets to a point at the end where she may not notice it. Does not notice pain when is very active like skiing. Pt is c/o neck and arm pain that is bothering her now daily. Notes she woke up last nighta nd wrist and hand were giving her pain. Notes she feels like her R wrist is swollen and Dr thought she had dec mm tone. From prior evaluation & referral:07/09-Pt reports head pain is in post occiput. Pt has occasional jaw pain. Pt had MD think that jaw may be the cause of of the DAVALOS. SHe has done PT for head and neck pain but it didn't help. Pt has mouth guard d/t clenching that she has had for 1 year from dentist. Does not think seh clenches during the day. no issues with opening and closing jaw or with eating. Uses CPAP and follows up w/ sleep specialist. Pt had diverticulitis in 2015 and took levofloxican and was unable to lift arms then felt like all mm tone left my body . Then 2016 she thinks that is when she started getting DAVALOS . Pt has no known cause. Pt notes sometimes arms and neck feel weak. Sometiems has R shoulder pain in UT region. Pt reports since November she thought she had an ear infection but MD said no. Pt reports B ear pain that goes along with head and neck pain. Pt notes sometimes when bends over then comes back up, she frequently gets lightheaded (like blood rushed to head). Last only 1 sec or 2 Prior Treatments and Tests OMT treatment 4x, pain specialist Dr. Agustin-1x today and 1x last year- discussed doing some numbing to nerves to see if that helps with DAVALOS, chiro-did not help-said was so stiff it was hard to manip, PT-2 months ago (about 10 times), massage-feels good in the moment, PT for jaw and head imrpoved pain in head Treatment Goals Patient/Caregiver Goals Be painfree, dec pain to help w/motivation of doing things as sometimes pain dec pt wanting move as much PT-OP-C Subjective Start: 10/11/20 15:35 Freq: Status: Active Protocol: Document 11/05/20 07:31 SP (Rec: 11/05/20 08:36 SP [id number]) OP-PT Subjective Patient Comments Patient Comments Pt stated this pas week pain over over UT and posterior neck about 8/10, 6/10 upon arrival. She stated there is nothing that she does that can think of that triggers the pain. PT-OP-F Manual Assessment Start: 10/11/20 15:35 Freq: Status: Active Protocol: Document 10/15/20 08:18 [facility] (Rec: 10/15/20 08:59 [facility] [id number]) Manual Assessments Soft Tissue Assessment Soft Tissue Mobility Assessment R>L cervical tightness Joint Mobility Assessment Joint Mobility Assessment elevated 1st Rib R & clavice, scap winging B PT-OP-J Posture/Palpation/Skin Start: 10/11/20 15:35 Freq: Status: Active Protocol: Document 10/15/20 08:18 [facility] (Rec: 10/15/20 08:59 [facility] [id number]) Posture Evaluation Sonia Postural Classification System Sonia Postural Classifications Posterior/Posterior Vertebral Compression Test 2 Elbow Flexion Test 1 PT-OP-K Range of Motion Start: 10/11/20 15:35 Freq: Status: Active Protocol: Document 10/15/20 08:18 [facility] (Rec: 10/15/20 08:59 [facility] [id number]) Cervical Spine Range of Motion Cervical Spine Active Degrees Flexion 61 Extension 35 Rotation Left 51 Rotation Right 52 Lateral Flexion Left 45 Lateral Flexion Right 47 Comments pain in head w/ext, crunching w/SB, tight w/rot R Shoulder Goniometric Range of Motion Shoulder ROM Limitations Comments some discomfort in B shoulder w/90/90 ER, pain in R wrist w/ IR behind back R PT-OP-L Special Tests Start: 10/11/20 15:35 Freq: Status: Active Protocol: Document 10/15/20 08:18 [facility] (Rec: 10/15/20 08:59 [facility] [id number]) Special Tests Cervical Spine Special Tests Transverse Ligament Comments neg Spurling's Test Test Results neg Vertebral Artery Test Results neg Neural Special Tests- Upper Body Phalen's Test Results neg B Tinel Sign Test Results median n R-neg Ulnar Nerve Tension Test Results neg B Radial Nerve Tension Test Results neg B Median Nerve Tension Test Results neg B Upper Limb Tension Test Test Results 110 L w/slight shoulder discomfort, R 80 w/pain into neck PT-OP-M Strength Start: 10/11/20 15:35 Freq: Status: Active Protocol: Document 10/15/20 08:18 [facility] (Rec: 10/15/20 08:59 [facility] [id number]) Shoulder Strength Shoulder Manual Muscle Testing Right Flexion 5 Normal Extension 5 Normal Abduction (C5) 5 Normal External Rotation 5 Normal Internal Rotation 5 Normal Horizontal Abduction 5 Normal Horizontal Adduction 5 Normal Left Flexion 5 Normal Extension 5 Normal Abduction (C5) 5 Normal External Rotation 5 Normal Internal Rotation 5 Normal Horizontal Abduction 5 Normal Horizontal Adduction 5 Normal Elbow/Forearm Strength Elbow and Forearm Manual Muscle Testing Right Flexion (C6) 5 Normal Extension (C7) 5 Normal Pronation 5 Normal Supination 5 Normal Left Flexion (C6) 5 Normal Extension (C7) 5 Normal Pronation 5 Normal Supination 5 Normal Wrist Strength Wrist Manual Muscle Testing Right Flexion (C7) 4- Good- Extension (C6) 4- Good- Ulnar Deviation 4 Good Radial Deviation 4- Good- Comments pain w/radial deviation Left Flexion (C7) 5 Normal Extension (C6) 4+ Good+ Ulnar Deviation 5 Normal Radial Deviation 4+ Good+ Hand Dental Treatment Coordinator/Pinch Strength Hand Strength Right Dental Treatment Coordinator (lbs) 86 Left Dental Treatment Coordinator (lbs) 87 PT-OP-Q Treatments Start: 10/11/20 15:35 Freq: Status: Active Protocol: Document 11/05/20 07:31 SP (Rec: 11/05/20 08:36 SP [id number]) Therapeutic Exercises Sidelying Exercises open book Side bilateral Resistance AROM Reps/Minutes x10 Comments cued awareness of scap depress /retract stabilization during fluid movement Other Exercises racquetball roll at wall, theracane Other Exercise Name Self manual STMs: R upper trap , Lev scap, interscapular, MWM post neck cane Side bilateral Equipment Used racq ball back to wall, theracane Comments review for HEP self care- extra time spent for self application Manual Therapy Treatment Soft Tissue Mobilization scap Body Location R lats & teres Mobilization Type Rolling,Strumming Intensity/Depth Moderate Body Position Sidelying UT Body Location R UT, LS Mobilization Type Rolling Intensity/Depth Moderate Body Position Sidelying Comments MWM head turn/ nod cervical paraspinals Body Location R Mobilization Type Myofascial Release,Rolling Comments MWM head turn/ nod SOR Body Location SOR Mobilization Type Sustained Pressure Intensity/Depth Moderate Body Position Hooklying SCM/scalenes Body Location R Mobilization Type Sustained Pressure,Trigger Point Release,Other Intensity/Depth Moderate Body Position Hooklying Comments head turn nod cranium Body Location temporalis & cranial fascia & occipitalis Mobilization Type Myofascial Release,Strumming, Other Intensity/Depth Superficial Body Position Hooklying Joint Mobilizations scap Direction inf glide, med/lat rotation Comments during open book Self-Care/Home Management Treatment Education Patient Education Body Mechanics,Home Exercise Program,Pain Management, Posture Other Education Extra time spent on education of anatomy of neck, head, scap complex and selfcare use of theracane, racquetball (post manual), then carry over with alignment sleeping w/ pillow and postural awareness positioning during standing activities w/ hip hinge muscles facilitating during HEP. Discussion on HEP but did not perform this tx. PT-OP-T Assessment and Plan Start: 10/11/20 15:35 Freq: Status: Active Protocol: Document 11/05/20 07:31 SP (Rec: 11/05/20 08:36 SP [id number]) Physical Therapy Assessment Goals quickdash Impairment 43.2 Short Term Goal (STG) Pt will imrpove quick dash score to 33 to show improved functional ability. STG Duration 11/14/20 Manager Books Goal (LTG) Pt will improve quick dash score to 13 to show improved functional ability. LTG Duration 12/15/20 pain Detention Goal (LTG) Pt will be able to awake without inc pain after sleeping. LTG Duration 12/15/20 posture Detention Goal (LTG) Pt will improve posture as evidenced by improved VCT to 4 /5. LTG Duration 12/15/20 ROM Short Term Goal (STG) Pt will have full cervical rotation & ext w/o inc pain. STG Duration 11/14/20 Detention Goal (LTG) Pt will have full ROM & strenth of UE without increased pain. LTG Duration 12/15/20 Assessment Summary Assessment Pt responded well to tx. I feel so much looser and able to turn head and move shoulders batter. Tx inititated on manual then self care application w/ education on postural awareness with functional movement during daily activities with good understanding on how can and applying during her day. I am better about my posture brushing my teeth now. I am going to use theses tools at home as well to get more relaxed muscles at home as well. Pt is compliant with HEP, no adverse affects, they are challenging but good. Physical Therapy Plan Frequency and Duration Frequency of Treatment 1-2x/week Duration of Treatment 2 months Plan of Care Start Date 10/15/20 Plan of Care End Date 12/15/20 Therapeutic Interventions Therapeutic Interventions Gait Training,Home Exercise Program,Joint Mobilizations, Manual Therapy,Neuromuscular Re-education,Patient/Caregiver Education,Self-Care/Home Management,Soft Tissue Mobilization,Taping, Therapeutic Activities, Therapeutic Exercises Modalities Cold Pack/Ice Massage,Electric Stimulation,Hot Packs, Traction- Mechanical, Ultrasound Next Visit Focus/Plan Next Note Type Treatment Note Next Visit Plan review exercises, cont to work manul to dec pain
--- NOTE | 2020-11-12 09:00 | PT.OTN ---
Current Diagnoses Cervical root disorders, not elsewhere classified (11/12/20) Arthralgia of temporomandibular joint, unspecified side (11/12/20) Abnormal posture (11/12/20) Headache, unspecified (11/12/20) Weakness (11/12/20) Physical Therapy Treatment Note PT-OP-A Visit Information Start: 10/11/20 15:35 Freq: Status: Active Protocol: Document 11/12/20 08:15 SP (Rec: 11/12/20 09:02 SP [id number]) Out-Patient Physical Therapy Visit Information Visit Information Visit Type Treatment Note Visit Start Time 08:15 Visit Stop Time 09:00 Total Visit Minutes 45 Visit Number 5 Number of THERAPIST'S ASSISTANT Visits 2 PT-OP-B Current Condition Start: 10/11/20 15:35 Freq: Status: Active Protocol: Document 10/15/20 08:18 LR (Rec: 10/15/20 08:59 [facility] [id number]) Current Condition History of Current Condition Current Complaints neck pain, head pain, arm pain History of Current Condition 10/15-Pt reports still getting tightness at back of head at a 5/10 daily. No jaw pain or ear pain or ringing in ears. Pain in head starts at the beginning of the day and it decreases towards the end of the day. Gets to a point at the end where she may not notice it. Does not notice pain when is very active like skiing. Pt is c/o neck and arm pain that is bothering her now daily. Notes she woke up last nighta nd wrist and hand were giving her pain. Notes she feels like her R wrist is swollen and Dr thought she had dec mm tone. From prior evaluation & referral:07/09-Pt reports head pain is in post occiput. Pt has occasional jaw pain. Pt had MD think that jaw may be the cause of of the DAVALOS. SHe has done PT for head and neck pain but it didn't help. Pt has mouth guard d/t clenching that she has had for 1 year from dentist. Does not think seh clenches during the day. no issues with opening and closing jaw or with eating. Uses CPAP and follows up w/ sleep specialist. Pt had diverticulitis in 2016 and took levofloxican and was unable to lift arms then felt like all mm tone left my body . Then 2016 she thinks that is when she started getting DAVALOS . Pt has no known cause. Pt notes sometimes arms and neck feel weak. Sometiems has R shoulder pain in UT region. Pt reports since November she thought she had an ear infection but MD said no. Pt reports B ear pain that goes along with head and neck pain. Pt notes sometimes when bends over then comes back up, she frequently gets lightheaded (like blood rushed to head). Last only 1 sec or 2 Prior Treatments and Tests OMT treatment 4x, pain specialist Dr. Agustin-1x today and 1x last year- discussed doing some numbing to nerves to see if that helps with DAVALOS, chiro-did not help-said was so stiff it was hard to manip, PT-2 months ago (about 10 times), massage-feels good in the moment, PT for jaw and head imrpoved pain in head Treatment Goals Patient/Caregiver Goals Be painfree, dec pain to help w/motivation of doing things as sometimes pain dec pt wanting move as much PT-OP-C Subjective Start: 10/11/20 15:35 Freq: Status: Active Protocol: Document 11/12/20 08:15 SP (Rec: 11/12/20 09:02 SP [id number]) OP-PT Subjective Patient Comments Patient Comments Pt stated good this am, R posterolateral neck just started to tighten up on ride to PT appt but was fine at home. Compliant with theracane or racquetball atwall for self STMs at home when needed and helpful. Doing exercises daily. PT-OP-F Manual Assessment Start: 10/11/20 15:35 Freq: Status: Active Protocol: Document 10/15/20 08:18 [facility] (Rec: 10/15/20 08:59 [facility] [id number]) Manual Assessments Soft Tissue Assessment Soft Tissue Mobility Assessment R>L cervical tightness Joint Mobility Assessment Joint Mobility Assessment elevated 1st Rib R & clavice, scap winging B PT-OP-J Posture/Palpation/Skin Start: 10/11/20 15:35 Freq: Status: Active Protocol: Document 10/15/20 08:18 [facility] (Rec: 10/15/20 08:59 [facility] [id number]) Posture Evaluation Sonia Postural Classification System Sonia Postural Classifications Posterior/Posterior Vertebral Compression Test 2 Elbow Flexion Test 1 PT-OP-K Range of Motion Start: 10/11/20 15:35 Freq: Status: Active Protocol: Document 10/15/20 08:18 [facility] (Rec: 10/15/20 08:59 [facility] [id number]) Cervical Spine Range of Motion Cervical Spine Active Degrees Flexion 61 Extension 35 Rotation Left 51 Rotation Right 52 Lateral Flexion Left 45 Lateral Flexion Right 47 Comments pain in head w/ext, crunching w/SB, tight w/rot R Shoulder Goniometric Range of Motion Shoulder ROM Limitations Comments some discomfort in B shoulder w/90/90 ER, pain in R wrist w/ IR behind back R PT-OP-L Special Tests Start: 10/11/20 15:35 Freq: Status: Active Protocol: Document 10/15/20 08:18 [facility] (Rec: 10/15/20 08:59 [facility] [id number]) Special Tests Cervical Spine Special Tests Transverse Ligament Comments neg Spurling's Test Test Results neg Vertebral Artery Test Results neg Neural Special Tests- Upper Body Phalen's Test Results neg B Tinel Sign Test Results median n R-neg Ulnar Nerve Tension Test Results neg B Radial Nerve Tension Test Results neg B Median Nerve Tension Test Results neg B Upper Limb Tension Test Test Results 110 L w/slight shoulder discomfort, R 80 w/pain into neck PT-OP-M Strength Start: 10/11/20 15:35 Freq: Status: Active Protocol: Document 10/15/20 08:18 [facility] (Rec: 10/15/20 08:59 [facility] [id number]) Shoulder Strength Shoulder Manual Muscle Testing Right Flexion 5 Normal Extension 5 Normal Abduction (C5) 5 Normal External Rotation 5 Normal Internal Rotation 5 Normal Horizontal Abduction 5 Normal Horizontal Adduction 5 Normal Left Flexion 5 Normal Extension 5 Normal Abduction (C5) 5 Normal External Rotation 5 Normal Internal Rotation 5 Normal Horizontal Abduction 5 Normal Horizontal Adduction 5 Normal Elbow/Forearm Strength Elbow and Forearm Manual Muscle Testing Right Flexion (C6) 5 Normal Extension (C7) 5 Normal Pronation 5 Normal Supination 5 Normal Left Flexion (C6) 5 Normal Extension (C7) 5 Normal Pronation 5 Normal Supination 5 Normal Wrist Strength Wrist Manual Muscle Testing Right Flexion (C7) 4- Good- Extension (C6) 4- Good- Ulnar Deviation 4 Good Radial Deviation 4- Good- Comments pain w/radial deviation Left Flexion (C7) 5 Normal Extension (C6) 4+ Good+ Ulnar Deviation 5 Normal Radial Deviation 4+ Good+ Hand Medical Educator/Pinch Strength Hand Strength Right Medical Educator (lbs) 86 Left Medical Educator (lbs) 87 PT-OP-Q Treatments Start: 10/11/20 15:35 Freq: Status: Active Protocol: Document 11/12/20 08:15 SP (Rec: 11/12/20 09:02 SP [id number]) Therapeutic Exercises Supine Exercises serratus Supine Exercise Name punch Side bilateral Resistance 3# DB Equipment Used foam roller Reps/Minutes x30 foam roll Supine Exercise Name pec stretch Side bilateral Reps/Minutes 2 min Prone Exercises FF/ Lat stretch Prone Exercise Name on knees red 55cm tball Reps/Minutes 30 X2 ext Prone Exercise Name over red 55cm tball Side bilateral Equipment Used 2# Reps/Minutes x20 Comments focus on scap position occ cues scaption Prone Exercise Name over red 55cm tball Side bilateral Equipment Used 1# Reps/Minutes x20 Comments focus on scap position mod cues Habd Prone Exercise Name over red 55cm tball Side bilateral Equipment Used 1# Reps/Minutes x20 Comments focus on head position & scap movement plank Prone Exercise Name tall on hands and feet Side bilateral Reps/Minutes 30 sec x2 Comments good scap position, occasional cue PPT/ glut fac Sidelying Exercises open book Side bilateral Resistance AROM Reps/Minutes x10 Comments cued awareness of scap depress /retract stabilization during fluid movement Other Exercises quadruped Other Exercise Name 1. serratus punch 2. alt hip ext Side bilateral Reps/Minutes 1.20 2. 12 B Manual Therapy Treatment Soft Tissue Mobilization UT Body Location R UT, LS Mobilization Type Rolling Intensity/Depth Moderate Body Position Sidelying Comments MWM head turn/ nod cervical paraspinals Body Location R Mobilization Type Myofascial Release,Rolling Comments MWM head turn/ nod SOR Body Location SOR Mobilization Type Sustained Pressure Intensity/Depth Moderate Body Position Hooklying SCM/scalenes Body Location R Mobilization Type Sustained Pressure,Trigger Point Release,Other Intensity/Depth Moderate Body Position Hooklying Comments head turn nod PT-OP-T Assessment and Plan Start: 10/11/20 15:35 Freq: Status: Active Protocol: Document 11/12/20 08:15 SP (Rec: 11/12/20 09:02 SP [id number]) Physical Therapy Assessment Goals quickdash Impairment 43.2 Short Term Goal (STG) Pt will imrpove quick dash score to 33 to show improved functional ability. STG Duration 11/14/20 [facility] Goal (LTG) Pt will improve quick dash score to 13 to show improved functional ability. LTG Duration 12/15/20 pain [facility] Goal (LTG) Pt will be able to awake without inc pain after sleeping. LTG Duration 12/15/20 posture [facility] Goal (LTG) Pt will improve posture as evidenced by improved VCT to 4 /5. LTG Duration 12/15/20 ROM Short Term Goal (STG) Pt will have full cervical rotation & ext w/o inc pain. STG Duration 11/14/20 [facility] Goal (LTG) Pt will have full ROM & strenth of UE without increased pain. LTG Duration 12/15/20 Assessment Summary Assessment Pt responded well to manual, decreased tension in neck/ R shld. Pt able to increase resistance to serratus press 3 # and HABD and ext 2#. Pt improving in self corrections and increase awareness of scap and head positioning for improved posture for tightness control. Physical Therapy Plan Frequency and Duration Frequency of Treatment 1-2x/week Duration of Treatment 2 months Plan of Care Start Date 10/15/20 Plan of Care End Date 12/15/20 Therapeutic Interventions Therapeutic Interventions Gait Training,Home Exercise Program,Joint Mobilizations, Manual Therapy,Neuromuscular Re-education,Patient/Caregiver Education,Self-Care/Home Management,Soft Tissue Mobilization,Taping, Therapeutic Activities, Therapeutic Exercises Modalities Cold Pack/Ice Massage,Electric Stimulation,Hot Packs, Traction- Mechanical, Ultrasound Next Visit Focus/Plan Next Note Type Treatment Note Next Visit Plan review exercises, cont to work manul to dec pain
--- NOTE | 2020-11-28 09:14 | PT.OTN ---
Current Diagnoses Cervical root disorders, not elsewhere classified (11/28/20) Arthralgia of temporomandibular joint, unspecified side (11/28/20) Abnormal posture (11/28/20) Headache, unspecified (11/28/20) Weakness (11/28/20) Physical Therapy Treatment Note PT-OP-A Visit Information Start: 10/11/20 15:35 Freq: Status: Active Protocol: Document 11/28/20 07:30 [facility] (Rec: 11/28/20 09:13 [facility] [id number]) Out-Patient Physical Therapy Visit Information Visit Information Visit Type Treatment Note Visit Start Time 07:30 Visit Stop Time 08:13 Total Visit Minutes 43 Visit Number 6 Number of WEB SITE DEVELOPER Visits 0 PT-OP-B Current Condition Start: 10/11/20 15:35 Freq: Status: Active Protocol: Document 10/15/20 08:18 [facility] (Rec: 10/15/20 08:59 [facility] [id number]) Current Condition History of Current Condition Current Complaints neck pain, head pain, arm pain History of Current Condition 10/15-Pt reports still getting tightness at back of head at a 5/10 daily. No jaw pain or ear pain or ringing in ears. Pain in head starts at the beginning of the day and it decreases towards the end of the day. Gets to a point at the end where she may not notice it. Does not notice pain when is very active like skiing. Pt is c/o neck and arm pain that is bothering her now daily. Notes she woke up last nighta nd wrist and hand were giving her pain. Notes she feels like her R wrist is swollen and Dr thought she had dec mm tone. From prior evaluation & referral:07/09-Pt reports head pain is in post occiput. Pt has occasional jaw pain. Pt had MD think that jaw may be the cause of of the DAVALOS. SHe has done PT for head and neck pain but it didn't help. Pt has mouth guard d/t clenching that she has had for 1 year from dentist. Does not think seh clenches during the day. no issues with opening and closing jaw or with eating. Uses CPAP and follows up w/ sleep specialist. Pt had diverticulitis in 2016 and took levofloxican and was unable to lift arms then felt like all mm tone left my body . Then 2016 she thinks that is when she started getting DAVALOS . Pt has no known cause. Pt notes sometimes arms and neck feel weak. Sometiems has R shoulder pain in [place] region. Pt reports since November she thought she had an ear infection but MD said no. Pt reports B ear pain that goes along with head and neck pain. Pt notes sometimes when bends over then comes back up, she frequently gets lightheaded (like blood rushed to head). Last only 1 sec or 2 Prior Treatments and Tests OMT treatment 4x, pain specialist Dr. Agustin-1x today and 1x last year- discussed doing some numbing to nerves to see if that helps with DAVALOS, chiro-did not help-said was so stiff it was hard to manip, PT-2 months ago (about 10 times), massage-feels good in the moment, PT for jaw and head imrpoved pain in head Treatment Goals Patient/Caregiver Goals Be painfree, dec pain to help w/motivation of doing things as sometimes pain dec pt wanting move as much PT-OP-C Subjective Start: 10/11/20 15:35 Freq: Status: Active Protocol: Document 11/28/20 07:30 [facility] (Rec: 11/28/20 09:13 [facility] [id number]) OP-PT Subjective Patient Comments Patient Comments Pt reports shoulder mostly hurts when sitting around. Head pain has been better. Notes occ head pain and she able ot jaw exercises to help. PT-OP-F Manual Assessment Start: 10/11/20 15:35 Freq: Status: Active Protocol: Document 10/15/20 08:18 [facility] (Rec: 10/15/20 08:59 [facility] [id number]) Manual Assessments Soft Tissue Assessment Soft Tissue Mobility Assessment R>L cervical tightness Joint Mobility Assessment Joint Mobility Assessment elevated 1st Rib R & clavice, scap winging B PT-OP-J Posture/Palpation/Skin Start: 10/11/20 15:35 Freq: Status: Active Protocol: Document 10/15/20 08:18 [facility] (Rec: 10/15/20 08:59 [facility] [id number]) Posture Evaluation Sonia Postural Classification System Sonia Postural Classifications Posterior/Posterior Vertebral Compression Test 2 Elbow Flexion Test 1 PT-OP-K Range of Motion Start: 10/11/20 15:35 Freq: Status: Active Protocol: Document 10/15/20 08:18 [facility] (Rec: 10/15/20 08:59 [facility] [id number]) Cervical Spine Range of Motion Cervical Spine Active Degrees Flexion 61 Extension 35 Rotation Left 51 Rotation Right 52 Lateral Flexion Left 45 Lateral Flexion Right 47 Comments pain in head w/ext, crunching w/SB, tight w/rot R Shoulder Goniometric Range of Motion Shoulder ROM Limitations Comments some discomfort in B shoulder w/90/90 ER, pain in R wrist w/ IR behind back R PT-OP-L Special Tests Start: 10/11/20 15:35 Freq: Status: Active Protocol: Document 10/15/20 08:18 [facility] (Rec: 10/15/20 08:59 [facility] [id number]) Special Tests Cervical Spine Special Tests Transverse Ligament Comments neg Spurling's Test Test Results neg Vertebral Artery Test Results neg Neural Special Tests- Upper Body Phalen's Test Results neg B Tinel Sign Test Results median n R-neg Ulnar Nerve Tension Test Results neg B Radial Nerve Tension Test Results neg B Median Nerve Tension Test Results neg B Upper Limb Tension Test Test Results 110 L w/slight shoulder discomfort, R 80 w/pain into neck PT-OP-M Strength Start: 10/11/20 15:35 Freq: Status: Active Protocol: Document 10/15/20 08:18 [facility] (Rec: 10/15/20 08:59 [facility] [id number]) Shoulder Strength Shoulder Manual Muscle Testing Right Flexion 5 Normal Extension 5 Normal Abduction (C5) 5 Normal External Rotation 5 Normal Internal Rotation 5 Normal Horizontal Abduction 5 Normal Horizontal Adduction 5 Normal Left Flexion 5 Normal Extension 5 Normal Abduction (C5) 5 Normal External Rotation 5 Normal Internal Rotation 5 Normal Horizontal Abduction 5 Normal Horizontal Adduction 5 Normal Elbow/Forearm Strength Elbow and Forearm Manual Muscle Testing Right Flexion (C6) 5 Normal Extension (C7) 5 Normal Pronation 5 Normal Supination 5 Normal Left Flexion (C6) 5 Normal Extension (C7) 5 Normal Pronation 5 Normal Supination 5 Normal Wrist Strength Wrist Manual Muscle Testing Right Flexion (C7) 4- Good- Extension (C6) 4- Good- Ulnar Deviation 4 Good Radial Deviation 4- Good- Comments pain w/radial deviation Left Flexion (C7) 5 Normal Extension (C6) 4+ Good+ Ulnar Deviation 5 Normal Radial Deviation 4+ Good+ Hand Electric Arc Welder/Pinch Strength Hand Strength Right Electric Arc Welder (lbs) 86 Left Electric Arc Welder (lbs) 87 PT-OP-Q Treatments Start: 10/11/20 15:35 Freq: Status: Active Protocol: Document 11/28/20 07:30 [facility] (Rec: 11/28/20 09:13 [facility] [id number]) Therapeutic Exercises Supine Exercises foam roll Supine Exercise Name Habd, flex, abd & tspine ext over roll Side bilateral Reps/Minutes 10 ea Sidelying Exercises open book Side right Resistance AROM Reps/Minutes 5 Comments cued awareness of scap depress /retract stabilization during fluid movement Therapeutic Activity Therapeutic Activity posture Comments reading in bed posture, seated posture for recliner & on couch w/use of pillows and throw blankets Manual Therapy Treatment Soft Tissue Mobilization scap Body Location R lat & subscap & thoracic paraspinals Mobilization Type Rolling,Strumming Intensity/Depth Moderate Body Position Sidelying Self-Care/Home Management Treatment Education Other Education discuss w/MD re: new midback pain that does not get worse w /movement. point tenderness to spine but not mm & pt noting bloating PT-OP-T Assessment and Plan Start: 10/11/20 15:35 Freq: Status: Active Protocol: Document 11/28/20 07:30 [facility] (Rec: 11/28/20 09:13 [facility] [id number]) Physical Therapy Assessment Goals quickdash Impairment 43.2 Short Term Goal (STG) Pt will imrpove quick dash score to 33 to show improved functional ability. STG Duration 11/14/20 Retirement Goal (LTG) Pt will improve quick dash score to 13 to show improved functional ability. LTG Duration 12/15/20 pain Gate Technician Goal (LTG) Pt will be able to awake without inc pain after sleeping. LTG Duration 12/15/20 posture Retirement Goal (LTG) Pt will improve posture as evidenced by improved VCT to 4 /5. LTG Duration 12/15/20 ROM Short Term Goal (STG) Pt will have full cervical rotation & ext w/o inc pain. STG Duration 11/14/20 Retirement Goal (LTG) Pt will have full ROM & strenth of UE without increased pain. LTG Duration 12/15/20 Assessment Summary Assessment Attempted to do tspine mobs but pt did not tolerate. She was point tender at T7 but could not feel if restricted d /t pt flinching away upon it being directly touched. SHe was given exercises for tspine mobility as working that region did improve ability for R scap to achieve post dep Physical Therapy Plan Frequency and Duration Frequency of Treatment 1-2x/week Duration of Treatment 2 months Plan of Care Start Date 10/15/20 Plan of Care End Date 12/15/20 Next Visit Focus/Plan Next Note Type Progress Note Next Visit Plan assess where pt is at this time
--- NOTE | 2020-12-12 10:37 | PT.OTN ---
Current Diagnoses Cervical root disorders, not elsewhere classified (12/12/20) Arthralgia of temporomandibular joint, unspecified side (12/12/20) Abnormal posture (12/12/20) Headache, unspecified (12/12/20) Weakness (12/12/20) Physical Therapy Treatment Note PT-OP-A Visit Information Start: 10/11/20 15:35 Freq: Status: Active Protocol: Document 12/12/20 08:19 [facility] (Rec: 12/12/20 09:50 [facility] [id number]) Out-Patient Physical Therapy Visit Information Visit Information Visit Type Progress Note Visit Start Time 08:20 Visit Stop Time 09:00 Total Visit Minutes 40 Visit Number 7 Number of SQL PROGRAMMER Visits 0 PT-OP-B Current Condition Start: 10/11/20 15:35 Freq: Status: Active Protocol: Document 10/15/20 08:18 [facility] (Rec: 10/15/20 08:59 [facility] [id number]) Current Condition History of Current Condition Current Complaints neck pain, head pain, arm pain History of Current Condition 10/15-Pt reports still getting tightness at back of head at a 5/10 daily. No jaw pain or ear pain or ringing in ears. Pain in head starts at the beginning of the day and it decreases towards the end of the day. Gets to a point at the end where she may not notice it. Does not notice pain when is very active like skiing. Pt is c/o neck and arm pain that is bothering her now daily. Notes she woke up last nighta nd wrist and hand were giving her pain. Notes she feels like her R wrist is swollen and Dr thought she had dec mm tone. From prior evaluation & referral:07/09-Pt reports head pain is in post occiput. Pt has occasional jaw pain. Pt had MD think that jaw may be the cause of of the DAVALOS. SHe has done PT for head and neck pain but it didn't help. Pt has mouth guard d/t clenching that she has had for 1 year from dentist. Does not think seh clenches during the day. no issues with opening and closing jaw or with eating. Uses CPAP and follows up w/ sleep specialist. Pt had diverticulitis in 2016 and took levofloxican and was unable to lift arms then felt like all mm tone left my body . Then 2016 she thinks that is when she started getting DAVALOS . Pt has no known cause. Pt notes sometimes arms and neck feel weak. Sometiems has R shoulder pain in UT region. Pt reports since November she thought she had an ear infection but MD said no. Pt reports B ear pain that goes along with head and neck pain. Pt notes sometimes when bends over then comes back up, she frequently gets lightheaded (like blood rushed to head). Last only 1 sec or 2 Prior Treatments and Tests OMT treatment 4x, pain specialist Dr. Agustin-1x today and 1x last year- discussed doing some numbing to nerves to see if that helps with DAVALOS, chiro-did not help-said was so stiff it was hard to manip, PT-2 months ago (about 10 times), massage-feels good in the moment, PT for jaw and head imrpoved pain in head Treatment Goals Patient/Caregiver Goals Be painfree, dec pain to help w/motivation of doing things as sometimes pain dec pt wanting move as much PT-OP-C Subjective Start: 10/11/20 15:35 Freq: Status: Active Protocol: Document 12/12/20 08:19 [facility] (Rec: 12/12/20 09:50 [facility] [id number]) OP-PT Subjective Patient Comments Patient Comments Pt reprots some shoulder fatigue on R daily and neck tightness daily starting in the AM and subside throughout the day. No longer gets the back paint hat changes w/ eating. Pt reports head tightness most days when wake up at about 4/10. Sometimes it lasts all day but occ goes down to a 2/10. PT-OP-F Manual Assessment Start: 10/11/20 15:35 Freq: Status: Active Protocol: Document 10/15/20 08:18 [facility] (Rec: 10/15/20 08:59 [facility] [id number]) Manual Assessments Soft Tissue Assessment Soft Tissue Mobility Assessment R>L cervical tightness Joint Mobility Assessment Joint Mobility Assessment elevated 1st Rib R & clavice, scap winging B PT-OP-J Posture/Palpation/Skin Start: 10/11/20 15:35 Freq: Status: Active Protocol: Document 12/12/20 08:19 [facility] (Rec: 12/12/20 09:50 [facility] [id number]) Posture Evaluation Sonia Postural Classification System Vertebral Compression Test 2 PT-OP-K Range of Motion Start: 10/11/20 15:35 Freq: Status: Active Protocol: Document 12/12/20 08:19 [facility] (Rec: 12/12/20 09:50 [facility] [id number]) Cervical Spine Range of Motion Cervical Spine Active Degrees Flexion 60 Extension 58 Rotation Left 58 Rotation Right 56 Lateral Flexion Left 50 Lateral Flexion Right 46 Comments tightness SB full shoulder ROM& strength w. o pain PT-OP-L Special Tests Start: 10/11/20 15:35 Freq: Status: Active Protocol: Document 10/15/20 08:18 [facility] (Rec: 10/15/20 08:59 [facility] [id number]) Special Tests Cervical Spine Special Tests Transverse Ligament Comments neg Spurling's Test Test Results neg Vertebral Artery Test Results neg Neural Special Tests- Upper Body Phalen's Test Results neg B Tinel Sign Test Results median n R-neg Ulnar Nerve Tension Test Results neg B Radial Nerve Tension Test Results neg B Median Nerve Tension Test Results neg B Upper Limb Tension Test Test Results 110 L w/slight shoulder discomfort, R 80 w/pain into neck PT-OP-M Strength Start: 10/11/20 15:35 Freq: Status: Active Protocol: Document 10/15/20 08:18 [facility] (Rec: 10/15/20 08:59 [facility] [id number]) Shoulder Strength Shoulder Manual Muscle Testing Right Flexion 5 Normal Extension 5 Normal Abduction (C5) 5 Normal External Rotation 5 Normal Internal Rotation 5 Normal Horizontal Abduction 5 Normal Horizontal Adduction 5 Normal Left Flexion 5 Normal Extension 5 Normal Abduction (C5) 5 Normal External Rotation 5 Normal Internal Rotation 5 Normal Horizontal Abduction 5 Normal Horizontal Adduction 5 Normal Elbow/Forearm Strength Elbow and Forearm Manual Muscle Testing Right Flexion (C6) 5 Normal Extension (C7) 5 Normal Pronation 5 Normal Supination 5 Normal Left Flexion (C6) 5 Normal Extension (C7) 5 Normal Pronation 5 Normal Supination 5 Normal Wrist Strength Wrist Manual Muscle Testing Right Flexion (C7) 4- Good- Extension (C6) 4- Good- Ulnar Deviation 4 Good Radial Deviation 4- Good- Comments pain w/radial deviation Left Flexion (C7) 5 Normal Extension (C6) 4+ Good+ Ulnar Deviation 5 Normal Radial Deviation 4+ Good+ Hand Model And Pattern Supervisor/Pinch Strength Hand Strength Right Model And Pattern Supervisor (lbs) 86 Left Model And Pattern Supervisor (lbs) 87 PT-OP-Q Treatments Start: 10/11/20 15:35 Freq: Status: Active Protocol: Document 12/12/20 08:19 [facility] (Rec: 12/12/20 09:50 [facility] [id number]) Therapeutic Activity Therapeutic Activity sleep Name CHAUNCEY training for sleep positon Comments worked on apprpiriate neck postion w/pillow and towels, worked on prop of leck to support spine, edu for why sleep postion is improtant, discussed trying different beds at home to find most comfortable. Manual Therapy Treatment Soft Tissue Mobilization SOR Body Location SOR Mobilization Type Sustained Pressure Intensity/Depth Moderate Body Position Hooklying SCM/scalenes Body Location R Mobilization Type Sustained Pressure,Trigger Point Release,Other Intensity/Depth Moderate Body Position Hooklying Comments head turn nod PT-OP-T Assessment and Plan Start: 10/11/20 15:35 Freq: Status: Active Protocol: Document 12/12/20 08:19 [facility] (Rec: 12/12/20 09:50 [facility] [id number]) Physical Therapy Assessment Goals quickdash Impairment 43.2 Short Term Goal (STG) Pt will imrpove quick dash score to 33 to show improved functional ability. STG Duration achieved to 18 Fisher Trap Goal (LTG) Pt will improve quick dash score to 13 to show improved functional ability. LTG Duration 8/9 pain Fisher Trap Goal (LTG) Pt will be able to awake without inc pain after sleeping. 6 stillmost pain in AM LTG Duration 8/9 posture Fisher Trap Goal (LTG) Pt will improve posture as evidenced by improved VCT to 4 /5. 12/12-can w/min cueing LTG Duration 8/9 ROM Short Term Goal (STG) Pt will have full cervical rotation & ext w/o inc pain. /-no pain, improved rot but still slgith dec STG Duration 7/9 Assisted Goal (LTG) Pt will have full ROM & strenth of UE without increased pain. LTG Duration achieved Assessment Summary Assessment Pt is making excellent progress towards goals and is improving with pain. Signfiicant time spent with sleep today d/t pt having pain upon waking whcih hopefully w /sleep position change seh will imrpove. she is able to irmpvoe posture to goo w/min cueing and is showing improved fucntional tolerance. Physical Therapy Plan Frequency and Duration Frequency of Treatment 1-2x/week Duration of Treatment 2 months Plan of Care Start Date 12/12/20 Plan of Care End Date 02/11/21 Therapeutic Interventions Therapeutic Interventions Gait Training,Home Exercise Program,Joint Mobilizations, Manual Therapy,Neuromuscular Re-education,Patient/Caregiver Education,Self-Care/Home Management,Soft Tissue Mobilization,Taping, Therapeutic Activities, Therapeutic Exercises Modalities Cold Pack/Ice Massage,Electric Stimulation,Hot Packs, Traction- Mechanical, Ultrasound Next Visit Focus/Plan Next Note Type Treatment Note Next Visit Plan assess how pt did w/sleep psotion
--- NOTE | 2020-12-12 10:37 | PT.OPPOC ---
Physical, Occupational & Speech Therapy At [facility] Current Diagnoses Cervical root disorders, not elsewhere classified (12/12/20) Arthralgia of temporomandibular joint, unspecified side (12/12/20) Abnormal posture (12/12/20) Headache, unspecified (12/12/20) Weakness (12/12/20) Visit Care Team Role Provider Type Kerrie Langford MD Attending Provider Non-Staff Primary Care Provider Referring Provider Specialty: Medical Address: [address] [place] [address], [id number] Email: Plan Of Care PT-OP-T Assessment and Plan Start: 10/11/20 15:35 Freq: Status: Active Protocol: Document 12/12/20 08:19 [facility] (Rec: 12/12/20 09:50 [facility] [id number]) Physical Therapy Assessment Goals quickdash Impairment 43.2 Short Term Goal (STG) Pt will imrpove quick dash score to 33 to show improved functional ability. STG Duration achieved to 18 Dietetic Assistant Goal (LTG) Pt will improve quick dash score to 13 to show improved functional ability. LTG Duration 8/9 pain Dietetic Assistant Goal (LTG) Pt will be able to awake without inc pain after sleeping. 12/12 stillmost pain in AM LTG Duration 8/9 posture Dietetic Assistant Goal (LTG) Pt will improve posture as evidenced by improved VCT to 4 /5. 12/12-can w/min cueing LTG Duration 8/9 ROM Short Term Goal (STG) Pt will have full cervical rotation & ext w/o inc pain. 12/12-no pain, improved rot but still slgith dec STG Duration 7/9 Intermediate Goal (LTG) Pt will have full ROM & strenth of UE without increased pain. LTG Duration achieved Assessment Summary Assessment Pt is making excellent progress towards goals and is improving with pain. Signfiicant time spent with sleep today d/t pt having pain upon waking whcih hopefully w /sleep position change seh will imrpove. she is able to irmpvoe posture to goo w/min cueing and is showing improved fucntional tolerance. Physical Therapy Plan Frequency and Duration Frequency of Treatment 1-2x/week Duration of Treatment 2 months Plan of Care Start Date 12/12/20 Plan of Care End Date 02/11/21 Therapeutic Interventions Therapeutic Interventions Gait Training,Home Exercise Program,Joint Mobilizations, Manual Therapy,Neuromuscular Re-education,Patient/Caregiver Education,Self-Care/Home Management,Soft Tissue Mobilization,Taping, Therapeutic Activities, Therapeutic Exercises Modalities Cold Pack/Ice Massage,Electric Stimulation,Hot Packs, Traction- Mechanical, Ultrasound Next Visit Focus/Plan Next Note Type Treatment Note Next Visit Plan assess how pt did w/sleep psotion Plan of Care Dates Plan of Care Start Date 12/12/20 Plan of Care End Date 02/11/21 Electronically Signed by: Jill Mina, PT 12/12/20 1037 Please Sign and Return: I have reviewed this Plan of Care and certify that the skilled therapy services above are required to meet the patient?s needs. Physician Signature Date Printed Name and Credentials Clinical Instructor Signature Printed Name and Credentials
--- NOTE | 2020-12-19 11:57 | PT.OTN ---
Current Diagnoses Cervical root disorders, not elsewhere classified (12/19/20) Arthralgia of temporomandibular joint, unspecified side (12/19/20) Abnormal posture (12/19/20) Headache, unspecified (12/19/20) Weakness (12/19/20) Physical Therapy Treatment Note PT-OP-A Visit Information Start: 10/11/20 15:35 Freq: Status: Active Protocol: Document 12/19/20 09:03 [facility] (Rec: 12/19/20 09:08 [facility] [id number]) Out-Patient Physical Therapy Visit Information Visit Information Visit Type Treatment Note Visit Start Time 08:20 Visit Stop Time 09:09 Total Visit Minutes 49 Visit Number 8 Number of MANAGER ENERGY Visits 0 PT-OP-B Current Condition Start: 10/11/20 15:35 Freq: Status: Active Protocol: Document 10/15/20 08:18 [facility] (Rec: 10/15/20 08:59 [facility] [id number]) Current Condition History of Current Condition Current Complaints neck pain, head pain, arm pain History of Current Condition 10/15-Pt reports still getting tightness at back of head at a 5/10 daily. No jaw pain or ear pain or ringing in ears. Pain in head starts at the beginning of the day and it decreases towards the end of the day. Gets to a point at the end where she may not notice it. Does not notice pain when is very active like skiing. Pt is c/o neck and arm pain that is bothering her now daily. Notes she woke up last nighta nd wrist and hand were giving her pain. Notes she feels like her R wrist is swollen and Dr thought she had dec mm tone. From prior evaluation & referral:07/09-Pt reports head pain is in post occiput. Pt has occasional jaw pain. Pt had MD think that jaw may be the cause of of the DAVALOS. SHe has done PT for head and neck pain but it didn't help. Pt has mouth guard d/t clenching that she has had for 1 year from dentist. Does not think seh clenches during the day. no issues with opening and closing jaw or with eating. Uses CPAP and follows up w/ sleep specialist. Pt had diverticulitis in 2016 and took levofloxican and was unable to lift arms then felt like all mm tone left my body . Then 2016 she thinks that is when she started getting DAVALOS . Pt has no known cause. Pt notes sometimes arms and neck feel weak. Sometiems has R shoulder pain in [place] region. Pt reports since November she thought she had an ear infection but MD said no. Pt reports B ear pain that goes along with head and neck pain. Pt notes sometimes when bends over then comes back up, she frequently gets lightheaded (like blood rushed to head). Last only 1 sec or 2 Prior Treatments and Tests OMT treatment 4x, pain specialist Dr. Agustin-1x today and 1x last year- discussed doing some numbing to nerves to see if that helps with DAVALOS, chiro-did not help-said was so stiff it was hard to manip, PT-2 months ago (about 10 times), massage-feels good in the moment, PT for jaw and head imrpoved pain in head Treatment Goals Patient/Caregiver Goals Be painfree, dec pain to help w/motivation of doing things as sometimes pain dec pt wanting move as much PT-OP-C Subjective Start: 10/11/20 15:35 Freq: Status: Active Protocol: Document 12/19/20 09:03 [facility] (Rec: 12/19/20 09:08 [facility] [id number]) OP-PT Subjective Patient Comments Patient Comments Pt reports she did okays leeping but pain still starting about 1 hour after waking PT-OP-F Manual Assessment Start: 10/11/20 15:35 Freq: Status: Active Protocol: Document 10/15/20 08:18 [facility] (Rec: 10/15/20 08:59 [facility] [id number]) Manual Assessments Soft Tissue Assessment Soft Tissue Mobility Assessment R>L cervical tightness Joint Mobility Assessment Joint Mobility Assessment elevated 1st Rib R & clavice, scap winging B PT-OP-J Posture/Palpation/Skin Start: 10/11/20 15:35 Freq: Status: Active Protocol: Document 12/12/20 08:19 [facility] (Rec: 12/12/20 09:50 [facility] [id number]) Posture Evaluation Sonia Postural Classification System Vertebral Compression Test 2 PT-OP-K Range of Motion Start: 10/11/20 15:35 Freq: Status: Active Protocol: Document 12/12/20 08:19 [facility] (Rec: 12/12/20 09:50 [facility] [id number]) Cervical Spine Range of Motion Cervical Spine Active Degrees Flexion 60 Extension 58 Rotation Left 58 Rotation Right 56 Lateral Flexion Left 50 Lateral Flexion Right 46 Comments tightness SB full shoulder ROM& strength w. o pain PT-OP-L Special Tests Start: 10/11/20 15:35 Freq: Status: Active Protocol: Document 10/15/20 08:18 [facility] (Rec: 10/15/20 08:59 [facility] [id number]) Special Tests Cervical Spine Special Tests Transverse Ligament Comments neg Spurling's Test Test Results neg Vertebral Artery Test Results neg Neural Special Tests- Upper Body Phalen's Test Results neg B Tinel Sign Test Results median n R-neg Ulnar Nerve Tension Test Results neg B Radial Nerve Tension Test Results neg B Median Nerve Tension Test Results neg B Upper Limb Tension Test Test Results 110 L w/slight shoulder discomfort, R 80 w/pain into neck PT-OP-M Strength Start: 10/11/20 15:35 Freq: Status: Active Protocol: Document 10/15/20 08:18 [facility] (Rec: 10/15/20 08:59 [facility] [id number]) Shoulder Strength Shoulder Manual Muscle Testing Right Flexion 5 Normal Extension 5 Normal Abduction (C5) 5 Normal External Rotation 5 Normal Internal Rotation 5 Normal Horizontal Abduction 5 Normal Horizontal Adduction 5 Normal Left Flexion 5 Normal Extension 5 Normal Abduction (C5) 5 Normal External Rotation 5 Normal Internal Rotation 5 Normal Horizontal Abduction 5 Normal Horizontal Adduction 5 Normal Elbow/Forearm Strength Elbow and Forearm Manual Muscle Testing Right Flexion (C6) 5 Normal Extension (C7) 5 Normal Pronation 5 Normal Supination 5 Normal Left Flexion (C6) 5 Normal Extension (C7) 5 Normal Pronation 5 Normal Supination 5 Normal Wrist Strength Wrist Manual Muscle Testing Right Flexion (C7) 4- Good- Extension (C6) 4- Good- Ulnar Deviation 4 Good Radial Deviation 4- Good- Comments pain w/radial deviation Left Flexion (C7) 5 Normal Extension (C6) 4+ Good+ Ulnar Deviation 5 Normal Radial Deviation 4+ Good+ Hand Home Inspector/Pinch Strength Hand Strength Right Home Inspector (lbs) 86 Left Home Inspector (lbs) 87 PT-OP-Q Treatments Start: 10/11/20 15:35 Freq: Status: Active Protocol: Document 12/19/20 09:03 [facility] (Rec: 12/19/20 09:08 [facility] [id number]) Manual Therapy Treatment Soft Tissue Mobilization UT Body Location R UT, LS Mobilization Type Rolling Intensity/Depth Moderate Body Position Sidelying Comments c/r w/ant elevation SCM/scalenes Body Location R Mobilization Type Sustained Pressure,Trigger Point Release,Other Intensity/Depth Moderate Body Position Hooklying Comments w/c/r ant elevation Joint Mobilizations ribs Joint R rib 6 caudal FM AC Joint R gapping SC Joint R inf glide FM 1st rib Joint R Direction caudal FM 1st & 2nd rib Self-Care/Home Management Treatment Education Other Education discussion re: keeping pain diary. Discussed possibly trying to dec inflamatory foods and making working with nautropath or MD & discussing supplementation if any deficiencies PT-OP-R Modalities Start: 10/11/20 15:35 Freq: Status: Active Protocol: Document 12/19/20 09:03 [facility] (Rec: 12/19/20 09:08 [facility] [id number]) Hot Pack/Cold Pack Treatment Cold Pack Location cervical Patient Position Hooklying Treatment Duration (minutes) 10 PT-OP-T Assessment and Plan Start: 10/11/20 15:35 Freq: Status: Active Protocol: Document 12/19/20 09:03 [facility] (Rec: 12/19/20 09:08 [facility] [id number]) Physical Therapy Assessment Goals quickdash Impairment 43.2 Short Term Goal (STG) Pt will imrpove quick dash score to 33 to show improved functional ability. STG Duration achieved to 18 Deputy Insurance Commissioner Goal (LTG) Pt will improve quick dash score to 13 to show improved functional ability. LTG Duration 8/9 pain Fci Goal (LTG) Pt will be able to awake without inc pain after sleeping. 6 stillmost pain in AM LTG Duration 8/9 posture Fci Goal (LTG) Pt will improve posture as evidenced by improved VCT to 4 /5. 6/-can w/min cueing LTG Duration 8/9 ROM Short Term Goal (STG) Pt will have full cervical rotation & ext w/o inc pain. /-no pain, improved rot but still slgith dec STG Duration 7/9 Fci Goal (LTG) Pt will have full ROM & strenth of UE without increased pain. LTG Duration achieved Physical Therapy Plan Frequency and Duration Frequency of Treatment 1-2x/week Duration of Treatment 2 months Plan of Care Start Date 12/12/20 Plan of Care End Date 02/11/21 Next Visit Focus/Plan Next Note Type Treatment Note Next Visit Plan cont to work on scap depression
--- NOTE | 2020-12-26 13:41 | PT.OTN ---
Current Diagnoses Cervical root disorders, not elsewhere classified (12/26/20) Arthralgia of temporomandibular joint, unspecified side (12/26/20) Abnormal posture (12/26/20) Headache, unspecified (12/26/20) Weakness (12/26/20) Physical Therapy Treatment Note PT-OP-A Visit Information Start: 10/11/20 15:35 Freq: Status: Active Protocol: Document 12/26/20 13:35 [facility] (Rec: 12/26/20 13:41 [facility] [id number]) Out-Patient Physical Therapy Visit Information Visit Information Visit Type Treatment Note Visit Start Time 08:18 Visit Stop Time 09:00 Total Visit Minutes 42 Visit Number 9 Number of SPECIAL EDUCATION KINDERGARTEN TEACHER Visits 0 PT-OP-B Current Condition Start: 10/11/20 15:35 Freq: Status: Active Protocol: Document 10/15/20 08:18 [facility] (Rec: 10/15/20 08:59 [facility] [id number]) Current Condition History of Current Condition Current Complaints neck pain, head pain, arm pain History of Current Condition 10/15-Pt reports still getting tightness at back of head at a 5/10 daily. No jaw pain or ear pain or ringing in ears. Pain in head starts at the beginning of the day and it decreases towards the end of the day. Gets to a point at the end where she may not notice it. Does not notice pain when is very active like skiing. Pt is c/o neck and arm pain that is bothering her now daily. Notes she woke up last nighta nd wrist and hand were giving her pain. Notes she feels like her R wrist is swollen and Dr thought she had dec mm tone. From prior evaluation & referral:07/09-Pt reports head pain is in post occiput. Pt has occasional jaw pain. Pt had MD think that jaw may be the cause of of the DAVALOS. SHe has done PT for head and neck pain but it didn't help. Pt has mouth guard d/t clenching that she has had for 1 year from dentist. Does not think seh clenches during the day. no issues with opening and closing jaw or with eating. Uses CPAP and follows up w/ sleep specialist. Pt had diverticulitis in 2015 and took levofloxican and was unable to lift arms then felt like all mm tone left my body . Then 2016 she thinks that is when she started getting DAVALOS . Pt has no known cause. Pt notes sometimes arms and neck feel weak. Sometiems has R shoulder pain in [place] region. Pt reports since November she thought she had an ear infection but MD said no. Pt reports B ear pain that goes along with head and neck pain. Pt notes sometimes when bends over then comes back up, she frequently gets lightheaded (like blood rushed to head). Last only 1 sec or 2 Prior Treatments and Tests OMT treatment 4x, pain specialist Dr. Agustin-1x today and 1x last year- discussed doing some numbing to nerves to see if that helps with DAVALOS, chiro-did not help-said was so stiff it was hard to manip, PT-2 months ago (about 10 times), massage-feels good in the moment, PT for jaw and head imrpoved pain in head Treatment Goals Patient/Caregiver Goals Be painfree, dec pain to help w/motivation of doing things as sometimes pain dec pt wanting move as much PT-OP-C Subjective Start: 10/11/20 15:35 Freq: Status: Active Protocol: Document 12/26/20 13:35 [facility] (Rec: 12/26/20 13:41 [facility] [id number]) OP-PT Subjective Patient Comments Patient Comments Pt reprots unsure what causes head pain. Took the med for heart burn and it has a side effect of DAVALOS and she got a DAVALOS that day when paddle boarding. Otherwise head tightenss and shoulder tightness daily. No pics of her sleeping and did not try showering at later tiem to see if that changes anything. PT-OP-F Manual Assessment Start: 10/11/20 15:35 Freq: Status: Active Protocol: Document 10/15/20 08:18 [facility] (Rec: 10/15/20 08:59 [facility] [id number]) Manual Assessments Soft Tissue Assessment Soft Tissue Mobility Assessment R>L cervical tightness Joint Mobility Assessment Joint Mobility Assessment elevated 1st Rib R & clavice, scap winging B PT-OP-J Posture/Palpation/Skin Start: 10/11/20 15:35 Freq: Status: Active Protocol: Document 12/12/20 08:19 [facility] (Rec: 12/12/20 09:50 [facility] [id number]) Posture Evaluation Sonia Postural Classification System Vertebral Compression Test 2 PT-OP-K Range of Motion Start: 10/11/20 15:35 Freq: Status: Active Protocol: Document 12/12/20 08:19 [facility] (Rec: 12/12/20 09:50 [facility] [id number]) Cervical Spine Range of Motion Cervical Spine Active Degrees Flexion 60 Extension 58 Rotation Left 58 Rotation Right 56 Lateral Flexion Left 50 Lateral Flexion Right 46 Comments tightness SB full shoulder ROM& strength w. o pain PT-OP-L Special Tests Start: 10/11/20 15:35 Freq: Status: Active Protocol: Document 10/15/20 08:18 [facility] (Rec: 10/15/20 08:59 [facility] [id number]) Special Tests Cervical Spine Special Tests Transverse Ligament Comments neg Spurling's Test Test Results neg Vertebral Artery Test Results neg Neural Special Tests- Upper Body Phalen's Test Results neg B Tinel Sign Test Results median n R-neg Ulnar Nerve Tension Test Results neg B Radial Nerve Tension Test Results neg B Median Nerve Tension Test Results neg B Upper Limb Tension Test Test Results 110 L w/slight shoulder discomfort, R 80 w/pain into neck PT-OP-M Strength Start: 10/11/20 15:35 Freq: Status: Active Protocol: Document 10/15/20 08:18 [facility] (Rec: 10/15/20 08:59 [facility] [id number]) Shoulder Strength Shoulder Manual Muscle Testing Right Flexion 5 Normal Extension 5 Normal Abduction (C5) 5 Normal External Rotation 5 Normal Internal Rotation 5 Normal Horizontal Abduction 5 Normal Horizontal Adduction 5 Normal Left Flexion 5 Normal Extension 5 Normal Abduction (C5) 5 Normal External Rotation 5 Normal Internal Rotation 5 Normal Horizontal Abduction 5 Normal Horizontal Adduction 5 Normal Elbow/Forearm Strength Elbow and Forearm Manual Muscle Testing Right Flexion (C6) 5 Normal Extension (C7) 5 Normal Pronation 5 Normal Supination 5 Normal Left Flexion (C6) 5 Normal Extension (C7) 5 Normal Pronation 5 Normal Supination 5 Normal Wrist Strength Wrist Manual Muscle Testing Right Flexion (C7) 4- Good- Extension (C6) 4- Good- Ulnar Deviation 4 Good Radial Deviation 4- Good- Comments pain w/radial deviation Left Flexion (C7) 5 Normal Extension (C6) 4+ Good+ Ulnar Deviation 5 Normal Radial Deviation 4+ Good+ Hand Cloud Consultant/Pinch Strength Hand Strength Right Cloud Consultant (lbs) 86 Left Cloud Consultant (lbs) 87 PT-OP-Q Treatments Start: 10/11/20 15:35 Freq: Status: Active Protocol: Document 12/26/20 13:35 [facility] (Rec: 12/26/20 13:41 [facility] [id number]) Manual Therapy Treatment Soft Tissue Mobilization SCM/scalenes Body Location R Mobilization Type Sustained Pressure,Trigger Point Release,Other Intensity/Depth Moderate Body Position Hooklying Comments w/c/r ant elevation Joint Mobilizations T spine Joint UPA & PA T6&7 ribs Joint R rib 6 caudal FM 1st rib Joint R Direction caudal FM 1st & 2nd rib Neuro Re-Education Treatment Other Activities PNF Details R scap post dep Comments 1. rhythmic initiation 2. sustained isometrics progressed to w/LE 3. prone prop w/facilitation w /traction thru UE for rhomboids. Self-Care/Home Management Treatment Education Other Education discussed trying shower at different time to see if soemthing w/shower aggrevates pt. Dsicussed trying to do some progressive relaxation and diaphragmatic breathing when pain starts, edu to cont to monitor and keep journal re : pain. PT-OP-R Modalities Start: 10/11/20 15:35 Freq: Status: Active Protocol: Document 12/19/20 09:03 [facility] (Rec: 12/19/20 09:08 [facility] [id number]) Hot Pack/Cold Pack Treatment Cold Pack Location cervical Patient Position Hooklying Treatment Duration (minutes) 10 PT-OP-T Assessment and Plan Start: 10/11/20 15:35 Freq: Status: Active Protocol: Document 12/26/20 13:35 [facility] (Rec: 12/26/20 13:41 [facility] [id number]) Physical Therapy Assessment Goals quickdash Impairment 43.2 Short Term Goal (STG) Pt will imrpove quick dash score to 33 to show improved functional ability. STG Duration achieved to 18 Liquid Fertilizer Servicer Goal (LTG) Pt will improve quick dash score to 13 to show improved functional ability. LTG Duration 8/9 pain Usp Goal (LTG) Pt will be able to awake without inc pain after sleeping. 6/9 stillmost pain in AM LTG Duration 8/9 posture Liquid Fertilizer Servicer Goal (LTG) Pt will improve posture as evidenced by improved VCT to 4 /5. 6/9-can w/min cueing LTG Duration 8/9 ROM Short Term Goal (STG) Pt will have full cervical rotation & ext w/o inc pain. 12/12-no pain, improved rot but still slgith dec STG Duration 01/11 Liquid Fertilizer Servicer Goal (LTG) Pt will have full ROM & strenth of UE without increased pain. LTG Duration achieved Assessment Summary Assessment Pt ahs stiffness at T6-7 and ribs 6e vated which likely limits abilityt fo rscap depression which may inc R shoulder pain along w/DAVALOS. Signfiicant time spend on edu re: trying to change soem of her routine to see if this changes pain. Physical Therapy Plan Frequency and Duration Frequency of Treatment 1-2x/week Duration of Treatment 2 months Plan of Care Start Date 12/12/20 Plan of Care End Date 02/11/21 Next Visit Focus/Plan Next Note Type Treatment Note Next Visit Plan cont to work on scap depression & R ribcage mobiliyt
--- NOTE | 2021-01-02 14:23 | PT.OTN ---
Current Diagnoses Cervical root disorders, not elsewhere classified (01/02/21) Arthralgia of temporomandibular joint, unspecified side (01/02/21) Abnormal posture (01/02/21) Headache, unspecified (01/02/21) Weakness (01/02/21) Physical Therapy Treatment Note PT-OP-A Visit Information Start: 10/11/20 15:35 Freq: Status: Active Protocol: Document 01/02/21 08:35 [facility] (Rec: 01/02/21 09:10 [facility] [id number]) Out-Patient Physical Therapy Visit Information Visit Information Visit Type Discharge Summary Visit Start Time 08:17 Visit Stop Time 09:11 Total Visit Minutes 54 Visit Number 10 Number of TAX COLLECTION COORDINATOR Visits 0 PT-OP-B Current Condition Start: 10/11/20 15:35 Freq: Status: Active Protocol: Document 10/15/20 08:18 [facility] (Rec: 10/15/20 08:59 [facility] [id number]) Current Condition History of Current Condition Current Complaints neck pain, head pain, arm pain History of Current Condition 10/15-Pt reports still getting tightness at back of head at a 5/10 daily. No jaw pain or ear pain or ringing in ears. Pain in head starts at the beginning of the day and it decreases towards the end of the day. Gets to a point at the end where she may not notice it. Does not notice pain when is very active like skiing. Pt is c/o neck and arm pain that is bothering her now daily. Notes she woke up last nighta nd wrist and hand were giving her pain. Notes she feels like her R wrist is swollen and Dr thought she had dec mm tone. From prior evaluation & referral:07/09-Pt reports head pain is in post occiput. Pt has occasional jaw pain. Pt had MD think that jaw may be the cause of of the DAVALOS. SHe has done PT for head and neck pain but it didn't help. Pt has mouth guard d/t clenching that she has had for 1 year from dentist. Does not think seh clenches during the day. no issues with opening and closing jaw or with eating. Uses CPAP and follows up w/ sleep specialist. Pt had diverticulitis in 2016 and took levofloxican and was unable to lift arms then felt like all mm tone left my body . Then 2016 she thinks that is when she started getting DAVALOS . Pt has no known cause. Pt notes sometimes arms and neck feel weak. Sometiems has R shoulder pain in [place] region. Pt reports since November she thought she had an ear infection but MD said no. Pt reports B ear pain that goes along with head and neck pain. Pt notes sometimes when bends over then comes back up, she frequently gets lightheaded (like blood rushed to head). Last only 1 sec or 2 Prior Treatments and Tests OMT treatment 4x, pain specialist Dr. Agustin-1x today and 1x last year- discussed doing some numbing to nerves to see if that helps with DAVALOS, chiro-did not help-said was so stiff it was hard to manip, PT-2 months ago (about 10 times), massage-feels good in the moment, PT for jaw and head imrpoved pain in head Treatment Goals Patient/Caregiver Goals Be painfree, dec pain to help w/motivation of doing things as sometimes pain dec pt wanting move as much PT-OP-C Subjective Start: 10/11/20 15:35 Freq: Status: Active Protocol: Document 01/02/21 08:35 [facility] (Rec: 01/02/21 09:10 [facility] [id number]) OP-PT Subjective Patient Comments Patient Comments Pt reports less head pain when showered at night vs AM PT-OP-F Manual Assessment Start: 10/11/20 15:35 Freq: Status: Active Protocol: Document 10/15/20 08:18 [facility] (Rec: 10/15/20 08:59 [facility] [id number]) Manual Assessments Soft Tissue Assessment Soft Tissue Mobility Assessment R>L cervical tightness Joint Mobility Assessment Joint Mobility Assessment elevated 1st Rib R & clavice, scap winging B PT-OP-J Posture/Palpation/Skin Start: 10/11/20 15:35 Freq: Status: Active Protocol: Document 12/12/20 08:19 [facility] (Rec: 12/12/20 09:50 [facility] [id number]) Posture Evaluation Sonia Postural Classification System Vertebral Compression Test 2 PT-OP-K Range of Motion Start: 10/11/20 15:35 Freq: Status: Active Protocol: Document 01/02/21 08:35 [facility] (Rec: 01/02/21 09:10 [facility] [id number]) Cervical Spine Range of Motion Cervical Spine Active Degrees Flexion 60 Extension 61 Rotation Left 60 Rotation Right 60 Lateral Flexion Left 48 Lateral Flexion Right 46 PT-OP-L Special Tests Start: 10/11/20 15:35 Freq: Status: Active Protocol: Document 10/15/20 08:18 [facility] (Rec: 10/15/20 08:59 [facility] [id number]) Special Tests Cervical Spine Special Tests Transverse Ligament Comments neg Spurling's Test Test Results neg Vertebral Artery Test Results neg Neural Special Tests- Upper Body Phalen's Test Results neg B Tinel Sign Test Results median n R-neg Ulnar Nerve Tension Test Results neg B Radial Nerve Tension Test Results neg B Median Nerve Tension Test Results neg B Upper Limb Tension Test Test Results 110 L w/slight shoulder discomfort, R 80 w/pain into neck PT-OP-M Strength Start: 10/11/20 15:35 Freq: Status: Active Protocol: Document 10/15/20 08:18 [facility] (Rec: 10/15/20 08:59 [facility] [id number]) Shoulder Strength Shoulder Manual Muscle Testing Right Flexion 5 Normal Extension 5 Normal Abduction (C5) 5 Normal External Rotation 5 Normal Internal Rotation 5 Normal Horizontal Abduction 5 Normal Horizontal Adduction 5 Normal Left Flexion 5 Normal Extension 5 Normal Abduction (C5) 5 Normal External Rotation 5 Normal Internal Rotation 5 Normal Horizontal Abduction 5 Normal Horizontal Adduction 5 Normal Elbow/Forearm Strength Elbow and Forearm Manual Muscle Testing Right Flexion (C6) 5 Normal Extension (C7) 5 Normal Pronation 5 Normal Supination 5 Normal Left Flexion (C6) 5 Normal Extension (C7) 5 Normal Pronation 5 Normal Supination 5 Normal Wrist Strength Wrist Manual Muscle Testing Right Flexion (C7) 4- Good- Extension (C6) 4- Good- Ulnar Deviation 4 Good Radial Deviation 4- Good- Comments pain w/radial deviation Left Flexion (C7) 5 Normal Extension (C6) 4+ Good+ Ulnar Deviation 5 Normal Radial Deviation 4+ Good+ Hand Boat Dispatcher/Pinch Strength Hand Strength Right Boat Dispatcher (lbs) 86 Left Boat Dispatcher (lbs) 87 PT-OP-Q Treatments Start: 10/11/20 15:35 Freq: Status: Active Protocol: Document 01/02/21 08:35 [facility] (Rec: 01/02/21 09:10 [facility] [id number]) Therapeutic Exercises Prone Exercises ext Prone Exercise Name over red 55cm tball Side bilateral Equipment Used 3# Reps/Minutes 15 Comments focus on scap position occ cues scaption Prone Exercise Name over red 55cm tball Side bilateral Equipment Used 3# Reps/Minutes 15 Comments focus on scap position mod cues Habd Prone Exercise Name over red 55cm tball Side bilateral Equipment Used 3# Reps/Minutes 15 Comments focus on head position & scap movement plank Prone Exercise Name forearms & knees Side bilateral Reps/Minutes 30 sec x2 Comments good scap position, occasional cue PPT/ glut fac Standing Exercises squat Standing Exercise Name working on back and neck position Side bilateral Reps/Minutes 2x15 Manual Therapy Treatment Soft Tissue Mobilization UT Body Location R UT, LS Mobilization Type Rolling Intensity/Depth Moderate Body Position Sidelying Comments c/r w/ant elevation SOR Body Location SOR Mobilization Type Sustained Pressure Intensity/Depth Moderate Body Position Hooklying SCM/scalenes Body Location R Mobilization Type Sustained Pressure,Trigger Point Release,Other Intensity/Depth Moderate Body Position Hooklying Comments w/c/r ant elevation Self-Care/Home Management Treatment Education Other Education Dsicussed cont to do some progressive relaxation and diaphragmatic breathing when pain starts, edu to cont to monitor and keep journal re: pain and to talk to ortho re: hands and ND re: possible inflamtion d/t widespread pain . edu to change shower from 30 min to less or schedule to dec pain PT-OP-R Modalities Start: 10/11/20 15:35 Freq: Status: Active Protocol: Document 01/02/21 08:35 [facility] (Rec: 01/02/21 09:10 [facility] [id number]) Hot Pack/Cold Pack Treatment Cold Pack Location cervical Patient Position Hooklying Treatment Duration (minutes) 10 PT-OP-T Assessment and Plan Start: 10/11/20 15:35 Freq: Status: Active Protocol: Document 01/02/21 08:35 [facility] (Rec: 01/02/21 09:10 [facility] [id number]) Physical Therapy Assessment Goals quickdash Impairment 43.2 Short Term Goal (STG) Pt will imrpove quick dash score to 33 to show improved functional ability. STG Duration achieved to 18 Audio Visual Production Specialist Goal (LTG) Pt will improve quick dash score to 13 to show improved functional ability. LTG Duration worse today but likely d/t pt reproting inc pain in hands, neural tension - pain Audio Visual Production Specialist Goal (LTG) Pt will be able to awake without inc pain after sleeping. 12/12 stillmost pain in AM LTG Duration less pain if does not take 30 min hot shower in AM posture Penitentiary Goal (LTG) Pt will improve posture as evidenced by improved VCT to 4 /5. 12/12-can w/min cueing LTG Duration can w/min cueing for posture ROM Short Term Goal (STG) Pt will have full cervical rotation & ext w/o inc pain. 12/12-no pain, improved rot but still slgith dec STG Duration no pain Audio Visual Production Specialist Goal (LTG) Pt will have full ROM & strenth of UE without increased pain. LTG Duration achieved Assessment Summary Assessment Pt has plateaued at this time w/therapy and full review of exercises given and pt encouraged to follow up w/ other professionals re: other pain (naturopathic doctor & ortho re: hands). She has made good improvements and has less pain when she does not take a long steam shower in the AM so discussed w/pt about adjusting this practice to keep DAVALOS down. Physical Therapy Plan Discharge Physical Therapy Discharge Reasons Plateau in Progress
== END 2021-01-03 07:45 | disposition home or self-care (01) ==
LOC: PHYS 08:15
PROVIDERS: PCP Student in an Organized Health Care Education/Training Program; Referring Provider Student in an Organized Health Care Education/Training Program; Visit Provider Student in an Organized Health Care Education/Training Program
DX: R51.9 Headache, unspecified (principal); M26.629 Arthralgia of temporomandibular joint, unspecified side; G54.2 Cervical root disorders, not elsewhere classified; R29.3 Abnormal posture; R53.1 Weakness
CPT/HCPCS: 97010; 97110; 97112; 97140; 97162; 97530; 97535

== ENCOUNTER → 2021-04-15 13:00 | Outpatient (CLI) | payer OTHER, SELFPAY ==
[2021-04-15 17:34] LABS: COVID19 -Nasal RAPID Negative (Negative)
== END ==
PROVIDERS: PCP Student in an Organized Health Care Education/Training Program; Visit Provider Nurse Practitioner Family
DX: Z20.822 Contact with and (suspected) exposure to COVID-19 (principal); Z01.812 Encounter for preprocedural laboratory examination
CPT/HCPCS: 87635

== ENCOUNTER → 2021-04-16 07:38 | Outpatient (CLI) | payer OTHER, SELFPAY ==
--- NOTE | 2021-04-16 | DI.NM.S_ITS ---
PROCEDURE: NM LISA PERF SPECT REST & STR Rest and exercise myocardial perfusion SPECT with gated imaging and ejection fraction RADIOPHARMACEUTICAL: 11.9 mCi Tc-99m sestamibi IV at rest and 26.0 mCi Tc-99m sestamibi IV at peak exercise. A one day-protocol was performed. INDICATIONS: Dyspnea, unspecified TECHNIQUE: Radiopharmaceutical was injected at peak stress test, and also at rest. SPECT images were obtained. SPECT myocardial perfusion images were displayed in short axis, horizontal long axis, and vertical long axis views. Gated images were reviewed using [employer] software. COMPARISON: None. CARDIAC STRESS: A standard Cecil treadmill exercise tolerance test was performed by the patient under the supervision of an attending staff. The patient exercised for 11 minutes and 1 seconds; functional aerobic impairment (MARCOS) is -19%. Hemodynamic data: There is normal blood pressure and heart rate response to exercise stress. Patient achieved 98% of maximum predicted heart rate at peak exercise. Symptoms: Patient denied chest pain during exercise. EKG: No diagnostic EKG changes of ischemia; rare PVCs. FINDINGS: Raw data: There is good myocardial labeling by radiotracer. No significant motion artifacts. Tafo-aq-woosb ratio is 0.28 (normal is less than 0.38 for sestamibi tracer, and less than 0.50 for thallium tracer). Left ventricle function: Gated images demonstrate normal left ventricle wall thickening. No segmental wall motion abnormality. No transient ischemic dilation; TID is 0.97 (normal less than 1.3). The left ventricle resting end-diastolic volume is 105 mL. Left ventricle stress ejection fraction is 70%; normal values are above 45%. Myocardial perfusion: There is normal distribution of activity in the left and right ventricular myocardium. No fixed or reversible perfusion defects. IMPRESSION: Low risk, normal treadmill nuclear stress test 1) No perfusion evidence of ischemia or infarction. 2) Normal left ventricular size, wall motion, and systolic function (EF post stress 70%). 3) No ECG evidence of ischemia. 4) No angina during the study. 5) Good exercise tolerance (11.7 METs, MARCOS -19%). Target heart rate achieved. Appropriate BP response to exercise. 6) Compared to the nuclear stress test done 10/29/2009, no significant change. Dictated by: Aurelio Nevarez MD on 04/16/2021 at 16:12 Approved by: Aurelio Nevarez MD on 04/16/2021 at 16:15
== END ==
PROVIDERS: PCP Student in an Organized Health Care Education/Training Program; Referring Provider Internal Medicine Cardiovascular Disease; Visit Provider Internal Medicine Cardiovascular Disease
DX: R06.00 Dyspnea, unspecified (principal)
CPT/HCPCS: 78452; 93017; A9502

== ENCOUNTER 2021-08-20 09:56 | Emergency (ER) | payer OTHER, SELFPAY ==
[2021-08-20 11:17] VITALS: BP 188/84; PULSE 70; RESP 12; TEMP 36.1; O2SAT 100; BMI 25.8
--- NOTE | 2021-08-20 11:26 | DI.RAD.S_ITS ---
PROCEDURE: XR CHEST 1V INDICATIONS: Possible stroke TECHNIQUE: One view of the chest was acquired. COMPARISON: [facility], CR, XR CHEST 1 VIEW, 01/03/2021, 13:47. [facility], CT, CT HEAD/BRAIN WO CON, 08/20/2021, 11:34. [facility], CR, XR CHEST 1V, 11/28/2020, 8:50. FINDINGS: Surgical changes and devices: None. Lungs and pleura: Lungs are clear. No pleural effusions or pneumothorax. Mediastinum: Mediastinal contours appear normal. Heart size is normal. There is a degree of compression seen upon the exiting nerve roots. Bones and chest wall: No suspicious bony lesions. Overlying soft tissues appear unremarkable. IMPRESSION: No acute cardiopulmonary process is seen. Dictated by: Sourav Zazueta M.D. on 08/20/2021 at 10:54 Approved by: Sourav Zazueta M.D. on 08/20/2021 at 10:54
--- NOTE | 2021-08-20 11:35 | DI.CT.S_ITS ---
PROCEDURE: CT HEAD/BRAIN WO CON INDICATIONS: Headache, intermittent visual changes last week TECHNIQUE: Noncontrast 4.5 mm thick angled axial sections acquired from the foramen magnum to the vertex, with coronal and sagittal reformats. For radiation dose reduction, the following was used: automated exposure control, adjustment of mA and/or kV according to patient size. COMPARISON: [facility], MR, MR BRAIN WITH/WITHOUT CONTRAST, 05/29/2020, 14:55. FINDINGS: Image quality: Excellent. CSF spaces: Basal cisterns are patent. No extra-axial fluid collections. Ventricles are normal in size and shape. Brain: No midline shift. No intracranial masses or hemorrhage. Colby-white matter interface is normal. Skull and face: Calvarium and visualized facial bones are intact, without suspicious lesions. Sinuses: Visualized sinuses and mastoids are clear. IMPRESSION: No acute intracranial abnormality. Dictated by: Bear Luther M.D. on 08/20/2021 at 11:42 Approved by: Bear Luther M.D. on 08/20/2021 at 11:43
[2021-08-20 12:39] LABS: Add Manual Diff / Slide Review NO; Basophils Absolute Auto 0 /uL (0-100); Basophils Percent Auto 0.8 % (0-2); Eosinophils Absolute Auto 100 /uL (0-450); Eosinophils Percent Auto 2.4 % (2-4); Hemoglobin 13.6 g/dL (12.0-16.0); Lymphocytes Absolute Auto 1400 /uL (1100-4500); Lymphocytes Percent Auto 28.2 % (25-40); Mean Corpuscular Hemoglobin 28.9 PG (26-34); Mean Corpuscular Volume 84.9 fL (80-100); Monocytes Absolute Auto 400 /uL (0-900); Monocytes Percent Auto 7.4 % (3-14); Neutrophils Absolute Auto 3000 /uL (1500-7000); Neutrophils Percent Auto 61.2 % (50-75); Platelet Count 245 X10^3/uL (150-400); Red Blood Cell Count 4.71 X10^6/uL (4.0-5.2); Red Cell Distribution Width 13.5 % (11.6-14.8); White Blood Cell Count 4.9 X10^3/uL (4.5-11.0)
[2021-08-20 12:57] LABS: Alanine Aminotransferase 24 IU/L (<35); Albumin 4.5 g/dL (3.5-5.0); Albumin Globulin Ratio 1.2 (1.0-2.8); Alkaline Phosphatase 71 U/L (38-126); Aspartate Aminotransferase 34 IU/L (14-36); BUN Creatinine Ratio 16.7 (6-22); Bilirubin Total 0.8 mg/dL (0.2-1.3); Blood Urea Nitrogen 13 mg/dL (7-17); Calcium 9.6 mg/dL (8.4-10.2); Carbon Dioxide 32 mmol/L (22-32); Chloride 103 mmol/L (98-107); Creatine Kinase 163 U/L (30-135); Estimated Glomerular Filt Rate > 60.0 mL/min (>60); Globulin 3.7 g/dL (1.7-4.1); Glucose 104 mg/dL (70-100); HEMOLYSIS < 15 (0-50); Potassium 3.9 mmol/L (3.4-5.1); Sodium 139 mmol/L (137-145); Total Protein 8.2 g/dL (6.3-8.2)
--- NOTE | 2021-08-20 13:04 | ED_ITS ---
HPI - Headache General Chief Complaint: Headache Stated Complaint: Right/back of head squeezing/tingling/numb today Time Seen by Provider: 08/20/21 10:12 Mode of arrival: Ambulatory History of Present Illness HPI Narrative: 61-year-old female nonsmoker with history of hypertension and atypical chest pain presents with a chief complaint of gradually worsening occipital headache over the past few days. There is no obvious provocation or palliation, nor radiation. She has no nausea or vomiting. She denies any trauma or injury. She states symptoms are gradually worsening and denies any rapid onset. She has no neck pain and does not use blood thinners. She denies neurologic symptoms such as blurred vision, trouble speech nor numbness, tingling or weakness of her extremities. Related Data Home Medications Medication Instructions Recorded Confirmed CA PANTOTHENATE/FOLIC ACID/VIT 1 tab PO QDAY #0 01/25/13 08/08/21 (MULTIVITAMIN) hydrochlorothiazide 12.5 mg tablet 50 mg PO QDAY #0 tab 11/18/18 08/08/21 Allergies Allergy/AdvReac Type Severity Reaction Status Date / Time ciprofloxacin [CIPROFLOXACIN] Allergy Unknown LEG PAIN Verified 08/20/21 11:23 levofloxacin [LEVOFLOXACIN] AdvReac Mild CAN'T LIFT Verified 08/20/21 11:23 ARMS AFTERWARD Review of Systems Review of Systems Narrative: GENERAL: Denies chills, fatigue, malaise, fever, sweats. HEENT: Denies sinus pain, ear pain, sore throat, difficulty swallowing, dizziness. RESPIRATORY: Denies dyspnea, cough, wheezing, hemoptysis, sputum. CARDIOVASCULAR: Denies chest pain, palpitations, orthopnea, edema, GASTROINTESTINAL: Denies nausea, vomiting, abdominal pain, diarrhea, con stipation, melena. : Denies dysuria, frequency, incontinence, hematuria, urinary retention. MUSCULOSKELETAL: denies weakness, joint pain, or bony pain SKIN: Denies rash, skin lesions, or other NEUROLOGIC: See HPI PSYCHIATRIC: No concerning psychosocial issues. 12 point review of systems is negative except for those stated above Patient History Medical History Breast cancer Chronic mixed headache syndrome Dyspepsia Hypertension LVH (left ventricular hypertrophy) Surgical History History of total mastectomy Status post hysterectomy Family History Father Diabetes mellitus Heart disease Hypertension High cholesterol Grandfather Diabetes mellitus Hypertension High cholesterol Grandmother Diabetes mellitus Mother Diabetes mellitus Heart disease Hypertension Social History Smoking Status: Never smoker Smoking Status: Never smoker alcohol intake frequency: holidays/special occasions only Substance Use Type: does not use Exam Narrative Exam Narrative: GENERAL: [61] year old patient appears stated age. Well-developed patient, in mild distress. HEAD: Atraumatic. Normocephalic. EYES: Pupils equal round and reactive. Extraocular motions intact. No scleral icterus. No injection or drainage. ENT: Nose without bleeding, purulent drainage. Throat without erythema, tonsillar hypertrophy or exudate. Airway patent. NECK: Trachea midline. Non tender CARDIOVASCULAR: Regular rate and rhythm without murmurs, gallops, or rubs. RESPIRATORY: Clear to auscultation. Breath sounds equal bilaterally. No wheezes, rales, or rhonchi. GASTROINTESTINAL: Abdomen soft, non-tender, nondistended. EXTREMITIES: No edema or joint tenderness. BACK: Nontender without deformity or crepitance. No flank tenderness. NEURO: AOx3. SKIN: No rash or erythema of visible areas NIH Stroke Scale 1a. LOC: Patient is alert and keenly responsive (0) 1b. LOC Questions: Patient answers both LOC questions accurately (0) 1c. LOC Commands: Patient performs both tasks correctly (0) 2. Best Gaze: Normal (0) 3. Visual: No visual loss (0) 4. Facial palsy: Normal symmetrical movements (0) 5. Motor arm: No drift (0) 6. Motor leg: No drift (0) 7. Limb ataxia: Absent (0) 8. Sensory: Normal (0) 9. Best language: No aphasia; normal (0) 10. Dysarthria: Normal (0) 11. Extinction and inattention: No abnormality (0) NIHSS: 0 Initial Vital Signs Initial Vital Signs: Vital Signs Temperature 96.9 F L 08/20/21 11:17 Pulse Rate 70 08/20/21 11:17 Respiratory Rate 12 08/20/21 11:17 Blood Pressure 188/84 H 08/20/21 11:17 Pulse Oximetry 100 08/20/21 11:17 Course Orders Ordered: Discontinued Medications Acetaminophen (Acetaminophen 325 Mg Tablet) 650 mg PO NOW ONE Stop: 08/20/21 13:19 Last Admin: 08/20/21 13:46 Dose: 650 mg Documented by: JAQUELINE Sodium Chloride (Normal Saline 0.9%) 1,000 mls @ 1,000 mls/hr IV BOLUS ONE Stop: 08/20/21 14:42 Last Infusion: 08/20/21 16:06 Dose: 0 mls/hr Documented by: Admin: 08/20/21 13:46 Dose: 1,000 mls/hr Documented by: JAQUELINE Ketorolac Tromethamine (Ketorolac 30 Mg/Ml Vial) 30 mg IM NOW ONE Stop: 08/20/21 13:19 Last Admin: 08/20/21 13:43 Dose: Not Given Documented by: JAQUELINE Ketorolac Tromethamine (Ketorolac 30 Mg/Ml Vial) 15 mg IV NOW ONE Stop: 08/20/21 13:44 Last Admin: 08/20/21 13:47 Dose: 15 mg Documented by: JAQUELINE Vital Signs Vital signs: Vital Signs - 8 hr 08/20/21 11:17 08/20/21 13:20 Temperature 96.9 F L Pulse Rate 70 53 L Respiratory Rate 12 Blood Pressure 188/84 H 189/88 H Pulse Oximetry 100 100 MDM - Headache Lab Data Result diagrams: 08/20/21 12:30 08/20/21 12:30 Labs: Lab Results 08/20/21 08/20/21 08/20/21 Range/Units 12:30 12:30 12:30 WBC 4.9 (4.5-11.0) X10^3/uL RBC 4.71 (4.0-5.2) X10^6/uL Hgb 13.6 (12.0-16.0) g/dL Hct 40.0 (36-46) % MCV 84.9 (80-100) fL MCH 28.9 (26-34) PG MCHC 34.0 (30-36) % RDW 13.5 (11.6-14.8) % Plt Count 245 (150-400) X10^3/uL Neut % (Auto) 61.2 (50-75) % Lymph % (Auto) 28.2 (25-40) % [place] % (Auto) 7.4 (3-14) % Eos % (Auto) 2.4 (2-4) % Baso % (Auto) 0.8 (0-2) % Neut # (Auto) 3000 (9587-1139) /uL Lymph # (Auto) 1400 (1982-8535) /uL [place] # (Auto) 400 (0-900) /uL Eos # (Auto) 100 (0-450) /uL Baso # (Auto) 0 (0-100) /uL ESR 9 (0-20) MM/HR Sodium 139 (137-145) mmol/L Potassium 3.9 (3.4-5.1) mmol/L Chloride 103 (98-107) mmol/L Carbon Dioxide 32 (22-32) mmol/L BUN 13 (7-17) mg/dL Creatinine 0.78 (0.52-1.04) mg/dL Estimated GFR > 60.0 (>60) mL/min BUN/Creatinine Ratio 16.7 (6-22) Glucose 104 H (70-100) mg/dL Calcium 9.6 (8.4-10.2) mg/dL Total Bilirubin 0.8 (0.2-1.3) mg/dL AST 34 (14-36) IU/L ALT 24 (<35) IU/L Alkaline Phosphatase 71 (38-126) U/L Total Creatine Kinase 163 H (30-135) U/L CK-MB (CK-2) 1.21 (<2.37) ng/mL CK-MB (CK-2) Rel Index 0.7 L (1.5-5.0) % Troponin I < 0.012 (0.01-0.034) ng/mL C-Reactive Protein (<1.0) mg/dL Total Protein 8.2 (6.3-8.2) g/dL Albumin 4.5 (3.5-5.0) g/dL Globulin 3.7 (1.7-4.1) g/dL Albumin/Globulin Ratio 1.2 (1.0-2.8) Urine RBC (0-5/HPF) Urine WBC (0-5/HPF) Urine Bacteria (None) Ur Culture Indicated? Micro UA Comment U Opiates 300ng/mL cut (Negative) Ur Oxycodone Screen (Negative) Urine Methadone Screen (Negative) Ur Barbiturates Screen (Negative) U Tricyclic Antidepress (Negative) Ur Phencyclidine Scrn (Negative) Ur Amphetamines Screen (Negative) U Methamphetamines Scrn (Negative) Ur MDMA Scrn (Ecstasy) (Negative) U Benzodiazepines Scrn (Negative) Urine Cocaine Screen (Negative) U Marijuana (THC) Screen (Negative) 08/20/21 08/20/21 08/20/21 Range/Units 12:30 14:29 14:29 WBC (4.5-11.0) X10^3/uL RBC (4.0-5.2) X10^6/uL Hgb (12.0-16.0) g/dL Hct (36-46) % MCV (80-100) fL MCH (26-34) PG MCHC (30-36) % RDW (11.6-14.8) % Plt Count (150-400) X10^3/uL Neut % (Auto) (50-75) % Lymph % (Auto) (25-40) % [place] % (Auto) (3-14) % Eos % (Auto) (2-4) % Baso % (Auto) (0-2) % Neut # (Auto) (0833-4584) /uL Lymph # (Auto) (0372-5151) /uL [place] # (Auto) (0-900) /uL Eos # (Auto) (0-450) /uL Baso # (Auto) (0-100) /uL ESR (0-20) MM/HR Sodium (137-145) mmol/L Potassium (3.4-5.1) mmol/L Chloride (98-107) mmol/L Carbon Dioxide (22-32) mmol/L BUN (7-17) mg/dL Creatinine (0.52-1.04) mg/dL Estimated GFR (>60) mL/min BUN/Creatinine Ratio (6-22) Glucose (70-100) mg/dL Calcium (8.4-10.2) mg/dL Total Bilirubin (0.2-1.3) mg/dL AST (14-36) IU/L ALT (<35) IU/L Alkaline Phosphatase (38-126) U/L Total Creatine Kinase (30-135) U/L CK-MB (CK-2) (<2.37) ng/mL CK-MB (CK-2) Rel Index (1.5-5.0) % Troponin I (0.01-0.034) ng/mL C-Reactive Protein < 0.5 (<1.0) mg/dL Total Protein (6.3-8.2) g/dL Albumin (3.5-5.0) g/dL Globulin (1.7-4.1) g/dL Albumin/Globulin Ratio (1.0-2.8) Urine RBC None seen (0-5/HPF) Urine WBC None seen (0-5/HPF) Urine Bacteria None seen (None) Ur Culture Indicated? Cult not indicated Micro UA Comment Microscopic normal U Opiates 300ng/mL cut Negative (Negative) Ur Oxycodone Screen Negative (Negative) Urine Methadone Screen Negative (Negative) Ur Barbiturates Screen Negative (Negative) U Tricyclic Antidepress Negative (Negative) Ur Phencyclidine Scrn Negative (Negative) Ur Amphetamines Screen Negative (Negative) U Methamphetamines Scrn Negative (Negative) Ur MDMA Scrn (Ecstasy) Negative (Negative) U Benzodiazepines Scrn Negative (Negative) Urine Cocaine Screen Negative (Negative) U Marijuana (THC) Screen Negative (Negative) Urine Dip Bedside Urine Glucose Negative Bedside Urine Bilirubin - Negative Bedside Urine Ketone - Negative Urine Specific [place] 1.030 Bedside Urine Occult Blood +++ Bedside Urine pH 5.5 Bedside Urine Protein - Negative Bedside Urine Urobilinogen - Negative Bedside Urine Nitrite - Negative Bedside Urine Leukocytes - Negative Esterase Imaging Data CT scan - head: Radiologist's Impression: [address] [address] [address] Scan Report Signed Patient: Krystal Kaminski MR#: [id number] : 1960 Acct:[id number] Age/Sex: 61 / F Date of Service: 08/20/21 Loc: ED Accession Number: [id number] ?? Procedure: CT head/brain wo con Ordering Provider: Juan Luis Jones D.O. PROCEDURE:? CT HEAD/BRAIN WO CON ? INDICATIONS:? Headache, intermittent visual changes last week ? TECHNIQUE:? Noncontrast 4.5 mm thick angled axial sections acquired from the foramen magnum to the vertex, with coronal and sagittal reformats.? For radiation dose reduction, the following was used:? automated exposure control, adjustment of mA and/or kV according to patient size.? ? COMPARISON:? [facility], MR, MR BRAIN WITH/WITHOUT CONTRAST, 05/29/2020, 14:55. ? FINDINGS:? Image quality:? Excellent.? ? CSF spaces:? Basal cisterns are patent.? No extra-axial fluid collections.? Ventricles are normal in size and shape.? ? Brain:? No midline shift.? No intracranial masses or hemorrhage.? [place]-white matter interface is normal.? ? Skull and face:? Calvarium and visualized facial bones are intact, without suspicious lesions.? ? Sinuses:? Visualized sinuses and mastoids are clear.? ? IMPRESSION:? No acute intracranial abnormality. ? ? Dictated by: Bear Luther M.D. on 08/20/2021 at 11:42 ? ? Approved by: Bear Luther M.D. on 08/20/2021 at 11:43 ? MDM Narrative Medical decision making narrative: Headache considerations include, but not limited to: Subarachnoid hemorrhage, but unlikely as patient denies sudden onset of pain, not worst of life, or neck pain Meningitis considered, but thought unlikely given lack of Brudzinski's, Kernig's sign, altered mental status or fever Giant cell arteritis considered, but thought unlikely given lack of unilateral findings, pain in confucianism, vision change HTN Emergency considered, but thought unlikely given normal vitals Other serious diagnoses considered unlikely given lack of red flag findings such as sudden onset, increasing frequency, immunocompromise, systemic signs (fever, chills, stiff neck, or rash), focal neurologic findings, trauma, blood thinners, etc. Discharge Plan Departure Patient Disposition: Home Clinical Impression: Headache Instructions: DI for Headache Activity Restrictions/Additional Instructions: *You have been diagnosed with [ Headache ]. As we discussed, your history and physical exam are very reassuring. Labs and CT scan demonstrate no sign of significant underlying diagnosis. Your blood pressure is creeping up, but as we discussed you have not yet taken her medications today and have not eaten. Please be sure to resume her medications as soon as you get home *What to do: *Take medications as directed *Follow up with your primary care provider in 2-3 days, call for an appointment. Let them know you were seen in the Emergency Department and that we ask that you be seen in follow up *Return to ER if you should have any new, worsening or concerning symptoms, such as [ fever > 101F, neck pain or stiffness, vomiting, confusion, seizure, focal weakness, vision change, speech deficit or other concerning symptoms ] Prescriptions: No Action CA PANTOTHENATE/FOLIC ACID/VIT (MULTIVITAMIN) 1 tab PO QDAY Qty: 0 0RF hydrochlorothiazide 12.5 mg tablet 50 mg PO QDAY Qty: 0 0RF Referrals: Kerrie Langford MD [Primary Care Provider] -
[2021-08-20 13:08] LABS: Troponin I < 0.012 ng/mL (0.01-0.034)
[2021-08-20 13:12] LABS: CKMB % Relative Index 0.7 % (1.5-5.0); Creatine Kinase MB 1.21 ng/mL (<2.37)
[2021-08-20 13:20] VITALS: BP 189/88; PULSE 53; O2SAT 100
[2021-08-20 13:25] LABS: C-Reactive Protein Quant < 0.5 mg/dL (<1.0)
[2021-08-20 13:29] LABS: Erythrocyte Sedimentation Rate 9 MM/HR (0-20)
[2021-08-20] MEDS: SODIUM CHLORIDE 0.9% 1,000 ML 1000 ML IV (13:46)
[2021-08-20] MEDS: ACETAMINOPHEN 325 MG TABLET 650 MG PO (13:46)
[2021-08-20] MEDS: KETOROLAC 30 MG/ML VIAL 15 MG IV (13:47)
[2021-08-20 14:31] LABS: UR Morphine/Opiate cutoff 300 Negative (Negative); Ur Creatinine Normal (Normal); Ur Specific Gravity Normal (Normal); Urine Amphetamines Negative (Negative); Urine Barbiturates Negative (Negative); Urine Benzodiazepines Negative (Negative); Urine Cocaine Negative (Negative); Urine MDMA Negative (Negative); Urine Methadone Negative (Negative); Urine Methamphetamines Negative (Negative); Urine Oxycodone Negative (Negative); Urine Phencyclidine Negative (Negative); Urine Tetrahydrocannabinol Negative (Negative); Urine Tricyclic Antidepressant Negative (Negative); Urine pH Normal (Normal)
[2021-08-20 14:33] LABS: Bacteria Urine None Seen; Culture Indicated Urine Cult Not Indicated; RBC Urine None Seen (0-5/HPF); Urine Comments Microscopic Normal; WBC Urine None Seen (0-5/HPF)
[2021-08-20 15:00] VITALS: PULSE 66; O2SAT 100
[2021-08-20 15:01] VITALS: BP 196/91; PULSE 66; O2SAT 100
[2021-08-20 15:30] VITALS: BP 164/77; PULSE 69; O2SAT 100
[2021-08-20 15:55] VITALS: BP 164/77; PULSE 58; RESP 18; O2SAT 100
== END 2021-08-20 15:55 | disposition home or self-care (01) ==
PROVIDERS: Emergency Provider Emergency Medicine; PCP Student in an Organized Health Care Education/Training Program
DX: R51.9 Headache, unspecified (principal)
CPT/HCPCS: 36415; 70450; 71045; 80053; 80305; 81003; 81015; 82550; 82553; 84484; 85025; 85651; 86140; 93005; 93010; 96361; 96374; 99284; J1885

== ENCOUNTER 2021-11-17 19:59 | Emergency (ER) | payer OTHER, SELFPAY ==
[2021-11-17] VITALS (7 sets, daily range): BP systolic 136–186; BP diastolic 68–92; PULSE 56–71; RESP 11–25; TEMP 36.7; O2SAT 99–100
--- NOTE | 2021-11-17 20:26 | DI.RAD.S_ITS ---
PROCEDURE: XR CHEST 1V INDICATIONS: chest pain TECHNIQUE: One view of the chest was acquired. COMPARISON: [facility], CR, XR CHEST 1V, 08/20/2021, 11:25. FINDINGS: Surgical changes and devices: None. Lungs and pleura: Lungs are clear. No pleural effusions or pneumothorax. Mediastinum: Mediastinal contours appear normal. Heart size is normal. Bones and chest wall: No suspicious bony lesions. Overlying soft tissues appear unremarkable. IMPRESSION: 1. No acute cardiopulmonary disease. Dictated by: Cholo Martines M.D. on 11/17/2021 at 21:04 Approved by: Cholo Martines M.D. on 11/17/2021 at 21:05
[2021-11-17 20:33] LABS: Add Manual Diff / Slide Review NO; Basophils Absolute Auto 0 /uL (0-100); Eosinophils Absolute Auto 0 /uL (0-450); Eosinophils Percent Auto 1.1 % (2-4); Hematocrit 35.1 % (36-46); Hemoglobin 12.1 g/dL (12.0-16.0); Lymphocytes Absolute Auto 1400 /uL (1100-4500); Mean Corpuscular HGB Conc 34.4 % (30-36); Mean Corpuscular Hemoglobin 29.4 PG (26-34); Mean Corpuscular Volume 85.5 fL (80-100); Monocytes Absolute Auto 500 /uL (0-900); Monocytes Percent Auto 11.3 % (3-14); Neutrophils Absolute Auto 2000 /uL (1500-7000); Neutrophils Percent Auto 50.6 % (50-75); Platelet Count 205 X10^3/uL (150-400); Red Blood Cell Count 4.11 X10^6/uL (4.0-5.2); Red Cell Distribution Width 13.5 % (11.6-14.8)
[2021-11-17 20:38] LABS: Alanine Aminotransferase 19 IU/L (<35); Albumin 4.1 g/dL (3.5-5.0); Albumin Globulin Ratio 1.2 (1.0-2.8); Alkaline Phosphatase 73 U/L (38-126); Aspartate Aminotransferase 35 IU/L (14-36); BUN Creatinine Ratio 22.5 (6-22); Bilirubin Total 0.8 mg/dL (0.2-1.3); Blood Urea Nitrogen 18 mg/dL (7-17); Calcium 8.6 mg/dL (8.4-10.2); Carbon Dioxide 29 mmol/L (22-32); Chloride 103 mmol/L (98-107); Creatine Kinase 394 U/L (30-135); Estimated Glomerular Filt Rate > 60 mL/min (>60); Globulin 3.5 g/dL (1.7-4.1); Glucose 105 mg/dL (70-100); HEMOLYSIS < 15 (0-50); Lipase 74 U/L (23-300); Magnesium 1.9 mg/dL (1.6-2.3); Potassium 3.9 mmol/L (3.4-5.1); Sodium 135 mmol/L (137-145); Total Protein 7.6 g/dL (6.3-8.2)
[2021-11-17 20:49] LABS: Troponin I < 0.012 ng/mL (0.01-0.034)
[2021-11-17 20:52] LABS: CKMB % Relative Index 0.6 % (1.5-5.0); Creatine Kinase MB 2.35 ng/mL (<2.37)
--- NOTE | 2021-11-17 23:23 | ED.CHESTPAIN ---
HPI - Chest Pain General Chief Complaint: Chest Pain Stated Complaint: Chest pains, dizziness Time Seen by Provider: 11/17/21 23:23 Source: patient Mode of arrival: Ambulatory History of Present Illness HPI narrative: 61-year-old woman with history of breast cancer currently in remission post bilateral mastectomy chemotherapy and radiation, history of hypertension who presents with a week of left-sided chest pain and tightness. She describes it as starting around the epigastrium and spreading up the left shoulder when it is particularly tight she feels some pulling in the back of her neck. When she stands up quickly she has noted that she can be somewhat lightheaded in over the last few nights she has had some hot flashes at night. She does not note that the pain gets any worse with activity and eating may seem to make it better. She has not been doing any specific unusual activities. She notes that blood pressure has been appropriate. She did try some Pepcid over the last couple of days and isn't sure that that influence anything. She is not noting abdominal pain, vomiting, diarrhea, palpitations, headache, fevers, lower extremity edema. Related Data Home Medications Medication Instructions Recorded Confirmed CA PANTOTHENATE/FOLIC ACID/VIT 1 tab PO QDAY #0 01/25/13 08/08/21 (MULTIVITAMIN) hydrochlorothiazide 12.5 mg tablet 50 mg PO QDAY #0 tab 11/18/18 08/08/21 Allergies Allergy/AdvReac Type Severity Reaction Status Date / Time ciprofloxacin [CIPROFLOXACIN] Allergy Unknown LEG PAIN Verified 08/20/21 11:23 levofloxacin [LEVOFLOXACIN] AdvReac Mild CAN'T LIFT Verified 08/20/21 11:23 ARMS AFTERWARD Review of Systems Review of Systems Narrative: Remainder of complete review of systems is otherwise unremarkable except for that included in the HPI. Patient History Medical History (Updated 11/18/21 @ 00:07 by Tamera Guzman MD) Breast cancer Chronic mixed headache syndrome Dyspepsia Hypertension LVH (left ventricular hypertrophy) Surgical History History of total mastectomy Status post hysterectomy Family History Father Diabetes mellitus Heart disease Hypertension High cholesterol Grandfather Diabetes mellitus Hypertension High cholesterol Grandmother Diabetes mellitus Mother Diabetes mellitus Heart disease Hypertension Social History Smoking Status: Never smoker Smoking Status: Never smoker alcohol intake frequency: holidays/special occasions only Substance Use Type: does not use Exam Initial Vital Signs Initial Vital Signs: Vital Signs Temperature 98.1 F 11/17/21 20:12 Pulse Rate 71 11/17/21 20:12 Respiratory Rate 20 11/17/21 20:12 Blood Pressure 186/92 H 11/17/21 20:12 Pulse Oximetry 100 11/17/21 20:12 General: Healthy appearing, in no acute distress. Able to give a complete and coherent history. Well-nourished well-developed HEENT: Moist mucous membranes, normal sclera with reactive pupils, Neck: No JVD, supple Respiratory: Lungs are clear to auscultation, no wheezing no rales no rhonchi. Full and symmetrical air movement Cardiac: Regular rate and rhythm, soft 2/4 systolic murmur, no bruits Chest: Exquisite tenderness over the upper left chest wall and along the left costochondral border. Bilateral mastectomies. Abdomen: Soft, nontender, good bowel tones, no flank pain Skin: Warm and dry, no rashes Neurologic: Grossly neurologically intact with no obvious asymmetries or abnormalities Extremities: No trauma, well perfused Psych: Cooperative, appropriate insight and affect Course Orders Ordered: ED Orders 11/17/21 20:26 XR chest 1V Stat Complete Blood Count AUTO DIFF Stat Comprehensive Metabolic Panel Stat Lipase Stat Magnesium Stat Troponin & CK Cardiac Panel Stat EKG-12 Lead Stat Discontinued Medications Ketorolac Tromethamine (Ketorolac 30 Mg/Ml Vial) 30 mg IM NOW ONE Stop: 11/18/21 00:01 Vital Signs Vital signs: Vital Signs - 8 hr 11/17/21 20:12 11/17/21 21:19 11/17/21 21:20 Temperature 98.1 F Pulse Rate 71 59 L 60 Respiratory Rate 20 25 H 16 Blood Pressure 186/92 H 166/81 H Pulse Oximetry 100 100 100 11/17/21 21:30 11/17/21 22:00 11/17/21 22:01 Temperature Pulse Rate 65 56 L 58 L Respiratory Rate 11 L 22 23 Blood Pressure 136/68 157/71 H Pulse Oximetry 100 99 100 11/17/21 22:30 Temperature Pulse Rate 59 L Respiratory Rate 17 Blood Pressure 147/70 H Pulse Oximetry 99 MDM - Chest Pain Lab Data Result diagrams: 11/17/21 20:26 11/17/21 20: Labs: Lab Results 11/17/21 11/17/21 Range/Units 20:26 20:26 WBC 4.0 L (4.5-11.0) X10^3/uL RBC 4.11 (4.0-5.2) X10^6/uL Hgb 12.1 (12.0-16.0) g/dL Hct 35.1 L (36-46) % MCV 85.5 (80-100) fL MCH 29.4 (26-34) PG MCHC 34.4 (30-36) % RDW 13.5 (11.6-14.8) % Plt Count 205 (150-400) X10^3/uL Neut % (Auto) 50.6 (50-75) % Lymph % (Auto) 36.0 (25-40) % [place] % (Auto) 11.3 (3-14) % Eos % (Auto) 1.1 L (2-4) % Baso % (Auto) 1.0 (0-2) % Neut # (Auto) 2000 (6763-3740) /uL Lymph # (Auto) 1400 (3000-4680) /uL [place] # (Auto) 500 (0-900) /uL Eos # (Auto) 0 (0-450) /uL Baso # (Auto) 0 (0-100) /uL Sodium 135 L (137-145) mmol/L Potassium 3.9 (3.4-5.1) mmol/L Chloride 103 (98-107) mmol/L Carbon Dioxide 29 (22-32) mmol/L BUN 18 H (7-17) mg/dL Creatinine 0.80 (0.52-1.04) mg/dL Estimated GFR > 60 (>60) mL/min BUN/Creatinine Ratio 22.5 H (6-22) Glucose 105 H (70-100) mg/dL Calcium 8.6 (8.4-10.2) mg/dL Magnesium 1.9 (1.6-2.3) mg/dL Total Bilirubin 0.8 (0.2-1.3) mg/dL AST 35 (14-36) IU/L ALT 19 (<35) IU/L Alkaline Phosphatase 73 (38-126) U/L Total Creatine Kinase 394 H (30-135) U/L CK-MB (CK-2) 2.35 (<2.37) ng/mL CK-MB (CK-2) Rel Index 0.6 L (1.5-5.0) % Troponin I < 0.012 (0.01-0.034) ng/mL Total Protein 7.6 (6.3-8.2) g/dL Albumin 4.1 (3.5-5.0) g/dL Globulin 3.5 (1.7-4.1) g/dL Albumin/Globulin Ratio 1.2 (1.0-2.8) Lipase 74 (23-300) U/L Imaging Data Chest x-ray: Radiologist's Impression: FINDINGS:? ? Surgical changes and devices:? None.? ? Lungs and pleura:? Lungs are clear.? No pleural effusions or pneumothorax.? ? Mediastinum:? Mediastinal contours appear normal.? Heart size is normal.? ? Bones and chest wall:? No suspicious bony lesions.? Overlying soft tissues appear unremarkable.? ? IMPRESSION:? ? 1.? No acute cardiopulmonary disease. ? ? ? Dictated by: Cholo Martines M.D. on 11/17/2021 at 21:04? ?? ECG Data Interpretation: Sinus rhythm at a rate of 66 Left ventricular hypertrophy No acute ischemic changes MDM Narrative Medical decision making narrative: 61-year-old woman with the week of left-sided chest pain seems to be present most of the time. Not exacerbated with exercise. Exquisitely tender to palpation along the left costochondral border. Labs are reassuring with normal troponin. EKG does not suggest any acute findings. Chest x-ray is unremarkable. At this point there is no evidence for infection, acute coronary syndrome, pneumothorax, and pulmonary embolism is less likely. most likely explanation is costochondritis given the exquisite tenderness with superficial palpation along the left chest wall. She is given a shot of Toradol with moderate relief of her pain and she is safe for home discharge. Discharge Plan Departure Patient Disposition: Home Clinical Impression: Acute costochondritis Instructions: DI for Costochondritis Activity Restrictions/Additional Instructions: Thank you for coming in this Your lab work, chest x-ray and EKG your very reassuring. This does not seem to be related to your lungs or your heart and you are not having heart attack. With the significant tenderness your having along the side of your breast bone and the left upper chest wall I believe that your pain is related to costochondritis. Using 400 mg of ibuprofen (2 [id number] pills) and 1 Tylenol every 6 hours can be very helpful in controlling pain. If you find that your symptoms are worsening feel free to return to the emergency department or follow-up with her primary care physician. Prescriptions: No Action CA PANTOTHENATE/FOLIC ACID/VIT (MULTIVITAMIN) 1 tab PO QDAY Qty: 0 0RF hydrochlorothiazide 12.5 mg tablet 50 mg PO QDAY Qty: 0 0RF Referrals: Kerrie Langford MD [Primary Care Provider] -
[2021-11-18 00:11] VITALS: BP 131/68; PULSE 55; O2SAT 100
[2021-11-18] MEDS: KETOROLAC 30 MG/ML VIAL IM (00:24)
== END 2021-11-18 00:24 | disposition home or self-care (01) ==
PROVIDERS: Emergency Provider Emergency Medicine; PCP Student in an Organized Health Care Education/Training Program
DX: M94.0 Chondrocostal junction syndrome [Tietze] (principal)
CPT/HCPCS: 71045; 80053; 82550; 82553; 83690; 83735; 84484; 85025; 93005; 93010; 96372; 99283; J1885

== ENCOUNTER 2022-03-18 13:41 | Emergency (ER) | payer OTHER, SELFPAY ==
[2022-03-18 13:48] VITALS: BP 185/89; PULSE 77; RESP 18; TEMP 37.1; O2SAT 99
--- NOTE | 2022-03-18 13:49 | DI.RAD.S_ITS ---
PROCEDURE: XR CHEST 1V INDICATIONS: chest pain TECHNIQUE: One view of the chest was acquired. COMPARISON: [facility], CR, XR CHEST 1V, 11/17/2021, 20:37. FINDINGS: Surgical changes and devices: None. Lungs and pleura: Lungs are clear. No pleural effusions or pneumothorax. Mediastinum: Mediastinal contours appear normal. Heart size is normal. Bones and chest wall: No suspicious bony lesions. Overlying soft tissues appear unremarkable. IMPRESSION: No acute cardiopulmonary findings. Dictated by: Qing Garcia M.D. on 03/18/2022 at 14:37 Approved by: Qing Garcia M.D. on 03/18/2022 at 14:37
--- NOTE | 2022-03-18 13:59 | PC.NURSE ---
pt states pain to R bicep, down R leg, and mid abd pain that radiates through to her mid back. PT had an episode of dizziness earlier today now resolved. denies SOB or chest pain
--- NOTE | 2022-03-18 14:15 | ED_ITS ---
HPI - Chest Pain General Chief Complaint: Chest Pain Stated Complaint: Chest pain Time Seen by Provider: 03/18/22 13:50 Source: patient Mode of arrival: Ambulatory History of Present Illness HPI narrative: Patient is a 61-year-old female history of hypertension remote history of breast cancer with bilateral mastectomy presenting today with ongoing chest discomfort and right arm discomfort has been ongoing for about the last 2 days. She states she does have a history of costochondritis it is reproducible with palpation on the left side. It does not seem to be positional. She also complains of right shoulder and arm pain. She knows that she has arthritis in her right shoulder she actually is scheduled to see an orthopedist here next week about it. She has felt like her right arm was a little bit tight combine with her chest d iscomfort she came to the ED. She describes her chest discomfort as tightness but mostly like short is appy like things. Come and go randomly. She got a new bicycle which she has been riding she was able to ride yesterday without stopping. She also played golf this morning without stopping. She has no shortness of breath. She has 1 sister who at the age of 65 from an [place], multiple other siblings do not have any cardiac issues. Related Data Home Medications Medication Instructions Recorded Confirmed CA PANTOTHENATE/FOLIC ACID/VIT 1 tab PO QDAY ##0 01/25/13 08/08/21 (MULTIVITAMIN) hydrochlorothiazide 12.5 mg tablet 50 mg PO QDAY #0 tabs 11/18/18 08/08/21 Allergies Allergy/AdvReac Type Severity Reaction Status Date / Time ciprofloxacin [CIPROFLOXACIN] Allergy Unknown LEG PAIN Verified 08/20/21 11:23 levofloxacin [LEVOFLOXACIN] AdvReac Mild CAN'T LIFT Verified 08/20/21 11:23 ARMS AFTERWARD Review of Systems Review of Systems Narrative: GENERAL: Denies chills, fatigue, malaise, fever, sweats, travel HEENT: Denies sinus pain, ear pain, sore throat, difficulty swallowing, neck pain RESPIRATORY: Denies dyspnea, cough, wheezing, hemoptysis, sputum. CARDIOVASCULAR: See HPI GASTROINTESTINAL: Denies nausea, vomiting, abdominal pain, diarrhea, constipation, melena. : Denies dysuria, frequency, incontinence, hematuria, urinary retention, flank pain. MUSCULOSKELETAL: Denies weakness, joint pain, or bony pain SKIN: No rash, no erythema, no pruritus NEUROLOGIC: Denies weakness, dizziness, headache, numbness, change in speech, confusion PSYCHIATRIC: No concerning psychosocial issues. 12 point review of systems is negative except for those stated above and HPI Patient History Medical History (Updated 03/18/22 @ 16:33 by Rosette Suh DO) Breast cancer Chronic mixed headache syndrome Dyspepsia Hypertension LVH (left ventricular hypertrophy) Surgical History History of total mastectomy Status post hysterectomy Family History Father Diabetes mellitus Heart disease Hypertension High cholesterol Grandfather Diabetes mellitus Hypertension High cholesterol Grandmother Diabetes mellitus Mother Diabetes mellitus Heart disease Hypertension Social History Smoking Status: Never smoker Smoking Status: Never smoker alcohol intake frequency: holidays/special occasions only Substance Use Type: does not use Exam Initial Vital Signs Initial Vital Signs: Vital Signs Temperature 98.7 F 03/18/22 13:48 Pulse Rate 77 03/18/22 13:48 Respiratory Rate 18 03/18/22 13:48 Blood Pressure 185/89 H 03/18/22 13:48 Pulse Oximetry 99 03/18/22 13:48 Oxygen Delivery Method 03/18/22 13:48 GENERAL: Alert very pleasant 61-year-old female and in no acute distress. HEENT: Head atraumatic,EOMI, pupils reactive, face symmetric, moist mucous membranes CARDIOVASCULAR: Regular rate and rhythm without murmurs, rubs or gallops. RESPIRATORY: Breath sounds equal bilaterally, no wheezes rales or rhonchi. ABDOMEN: Soft, nontender. Normoactive bowel sounds all 4 quadrants. No guarding or rebound. EXTREMITIES: Normal range of motion, no clubbing or edema. Neurovascularly intact NEUROLOGICAL: Alert and oriented x4.Normal gait and speech. SKIN: Warm, dry, no laceration, no petechiae, no rashes or lesions. Scores HEART Score Heart Score history: Moderately Suspicious Heart Score EKG: Normal Heart Score Age: 45-64 years old Heart Score risk factors: 1-2 risk factors Heart Score troponin: < or = to normal limit Heart Score Total: 3 Course Orders Ordered: ED Orders 03/18/22 13:49 XR chest 1V Stat EKG-12 Lead Stat 03/18/22 13:50 Complete Blood Count AUTO DIFF Stat Comprehensive Metabolic Panel Stat D Dimer Stat Lipase Stat Magnesium Stat Troponin & CK Cardiac Panel Stat 03/18/22 15:31 CT angio chest PE protocol Stat 03/18/22 15:54 Trop I [Troponin I] Stat Vital Signs Vital signs: Vital Signs - 8 hr 03/18/22 13:48 03/18/22 16:49 Temperature 98.7 F 98 F Pulse Rate 77 68 Respiratory Rate 18 18 Blood Pressure 185/89 H 163/76 H Pulse Oximetry 99 99 Oxygen Delivery Method Room Air Room Air MDM - Chest Pain Lab Data Result diagrams: 03/18/22 13:50 03/18/22 13:50 Labs: Lab Results 03/18/22 03/18/22 03/18/22 Range/Units 13:50 13:50 13:50 WBC 4.1 L (4.5-11.0) X10^3/uL RBC 4.54 (4.0-5.2) X10^6/uL Hgb 12.9 (12.0-16.0) g/dL Hct 37.9 (36-46) % MCV 83.6 (80-100) fL MCH 28.5 (26-34) PG MCHC 34.1 (30-36) % RDW 14.5 (11.6-14.8) % Plt Count 219 (150-400) X10^3/uL Neut % (Auto) 52.3 (50-75) % Lymph % (Auto) 35.4 (25-40) % [place] % (Auto) 11.0 (3-14) % Eos % (Auto) 0.4 L (2-4) % Baso % (Auto) 0.9 (0-2) % Neut # (Auto) 2200 (8069-2675) /uL Lymph # (Auto) 1500 (1078-4096) /uL [place] # (Auto) 500 (0-900) /uL Eos # (Auto) 0 (0-450) /uL Baso # (Auto) 0 (0-100) /uL D-Dimer 1339 H (<500) ng/ml Sodium 137 (137-145) mmol/L Potassium 3.8 (3.4-5.1) mmol/L Chloride 97 L (98-107) mmol/L Carbon Dioxide 32 (22-32) mmol/L BUN 17 (7-17) mg/dL Creatinine 0.89 (0.52-1.04) mg/dL Estimated GFR > 60 (>60) mL/min BUN/Creatinine Ratio 19.1 (6-22) Glucose 97 (70-100) mg/dL Calcium 9.5 (8.4-10.2) mg/dL Magnesium 2.1 (1.6-2.3) mg/dL Total Bilirubin 1.3 (0.2-1.3) mg/dL AST 34 (14-36) IU/L ALT 15 (<35) IU/L Alkaline Phosphatase 77 (38-126) U/L Total Creatine Kinase 143 H (30-135) U/L CK-MB (CK-2) 0.84 (<2.37) ng/mL CK-MB (CK-2) Rel Index 0.6 L (1.5-5.0) % Troponin I < 0.012 (0.01-0.034) ng/mL Total Protein 8.5 H (6.3-8.2) g/dL Albumin 4.6 (3.5-5.0) g/dL Globulin 3.9 (1.7-4.1) g/dL Albumin/Globulin Ratio 1.2 (1.0-2.8) Lipase 100 (23-300) U/L 03/18/22 Range/Units 15:54 WBC (4.5-11.0) X10^3/uL RBC (4.0-5.2) X10^6/uL Hgb (12.0-16.0) g/dL Hct (36-46) % MCV (80-100) fL MCH (26-34) PG MCHC (30-36) % RDW (11.6-14.8) % Plt Count (150-400) X10^3/uL Neut % (Auto) (50-75) % Lymph % (Auto) (25-40) % [place] % (Auto) (3-14) % Eos % (Auto) (2-4) % Baso % (Auto) (0-2) % Neut # (Auto) (9797-5509) /uL Lymph # (Auto) (8951-5268) /uL [place] # (Auto) (0-900) /uL Eos # (Auto) (0-450) /uL Baso # (Auto) (0-100) /uL D-Dimer (<500) ng/ml Sodium (137-145) mmol/L Potassium (3.4-5.1) mmol/L Chloride (98-107) mmol/L Carbon Dioxide (22-32) mmol/L BUN (7-17) mg/dL Creatinine (0.52-1.04) mg/dL Estimated GFR (>60) mL/min BUN/Creatinine Ratio (6-22) Glucose (70-100) mg/dL Calcium (8.4-10.2) mg/dL Magnesium (1.6-2.3) mg/dL Total Bilirubin (0.2-1.3) mg/dL AST (14-36) IU/L ALT (<35) IU/L Alkaline Phosphatase (38-126) U/L Total Creatine Kinase (30-135) U/L CK-MB (CK-2) (<2.37) ng/mL CK-MB (CK-2) Rel Index (1.5-5.0) % Troponin I < 0.012 (0.01-0.034) ng/mL Total Protein (6.3-8.2) g/dL Albumin (3.5-5.0) g/dL Globulin (1.7-4.1) g/dL Albumin/Globulin Ratio (1.0-2.8) Lipase (23-300) U/L Imaging Data Chest x-ray: Radiologist's Impression: XRay Report Signed Patient: Krystal Kaminski MR#: [id number] : 1960 Acct:[id number] Age/Sex: 61 / F Date of Service: 03/18/22 Loc: ED Accession Number: [id number] ?? Procedure: XR chest 1V Ordering Provider: Rosette Suh D.O. PROCEDURE:? XR CHEST 1V ? INDICATIONS:? chest pain ? TECHNIQUE:? One view of the chest was acquired.? ? COMPARISON:? [facility], , XR CHEST 1V, 11/17/2021, 20:37. ? FINDINGS:? ? Surgical changes and devices:? None.? ? Lungs and pleura:? Lungs are clear.? No pleural effusions or pneumothorax.? ? Mediastinum:? Mediastinal contours appear normal.? Heart size is normal.? ? Bones and chest wall:? No suspicious bony lesions.? Overlying soft tissues appear unremarkable.? ? IMPRESSION:? No acute cardiopulmonary findings. ? ? Dictated by: Qing Garcia M.D. on 03/18/2022 at 14:37 ? ? CT scan - chest: Radiologist's Impression: Signed Patient: Krystal Kaminski MR#: [id number] : 1960 Acct:[id number] Age/Sex: 61 / F Date of Service: 03/18/22 Loc: ED Accession Number: [id number] ?? Procedure: CT angio chest PE protocol Ordering Provider: Rosette Suh D.O. PROCEDURE:? CT ANGIO CHEST PE PROTOCOL ? INDICATIONS:? elevated dimer and chest pain ? TECHNIQUE:? After the administration of intravenous contrast, 2 mm thick sections acquired from the pulmonary apices to the posterior costophrenic angles.? 3-dimensional maximum intensity projection (MIP) coronal and sagittal reformats were then acquired through the thorax.? For radiation dose reduction, the following was used:? automated exposure control, adjustment of mA and/or kV according to patient size.? ? COMPARISON:? None. ? FINDINGS:? Image quality:? Excellent.? ? Pulmonary arteries:? Pulmonary arteries are normal in size, and demonstrate no intraluminal filling defects to suggest central pulmonary embolism.? ? Lungs and pleura:? Lungs are clear.? Probable radiation change and bronchiectasis is noted within the anterior aspect of the left upper lobe.? No pleural effusions or pneumothorax.? Central and peripheral airways are patent.? ? Mediastinum:? Heart size is normal, without pericardial effusion.? No mediastinal or hilar adenopathy.? Thoracic aorta is normal in caliber and enhancement.? Esophagus is normal in caliber, without hiatal hernia.? ? Bones and chest wall:? Patient is status post bilateral mastectomy.? No suspicious bony lesions.? Ribs and thoracic spine appear intact throughout.? Thyroid gland is unremarkable.? No axillary or supraclavicular adenopathy.? 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 ? Abdomen:? Visualized upper abdominal solid organs appear normal in the early arterial phase of enhancement.? ? IMPRESSION:? ? 1. No acute pulmonary embolus. ? 2. No acute pulmonary findings to explain chest pain.? ? ? Dictated by: Qing Garcia M.D. on 03/18/2022 at 15:54 ? ? ECG Data Interpretation: Normal sinus rhythm rate 67 NH interval 192 QRS 92 QTC 407 Q-wave noted in aVL and lead [address] changes all similar to previous EKG in 11/18/2019 to [facility] Narrative Medical decision making narrative: Patient is describing chest discomfort. However she was able to ride her bike and play around a golf today without any issue. His heart score is low at 3. D-dimer is checked for her previous history of cancer. It is elevated at 1300 she is not hypoxic or tachycardic however CT angio is ordered. Which does not show any sign of pulmonary embolism or abnormality. P troponin is negative. Patient really has not had any significant chest discomfort here in the ED. She does have a primary care provider whom she can follow-up with. At this time recommend outpatient follow-up for further testing if needed Discharge Plan Departure Patient Disposition: Home Clinical Impression: Atypical chest pain Instructions: DI for Atypical Chest Pain Activity Restrictions/Additional Instructions: *You have been diagnosed with atypical chest *What to do: At this time blood work and CT scan are overall reassuring. Poss ible costochondritis. Please talk with her primary care provider about stress test and echocardiogram *Continue to take medications as directed Aspirin 81 mg daily *Follow up with your primary care provider in 2-3 days or call [phone] *Return to ER if you should have increasing chest discomfort shortness of breath tightness or any new, worsening or concerning symptoms Prescriptions: No Action CA PANTOTHENATE/FOLIC ACID/VIT (MULTIVITAMIN) 1 tab PO QDAY Qty: 0 hydrochlorothiazide 12.5 mg tablet 50 mg PO QDAY Qty: 0 Referrals: Kerrie Langford MD [Primary Care Provider] - Visit Report Forms: Patient Portal/API
[2022-03-18 14:57] LABS: Add Manual Diff / Slide Review NO; Basophils Absolute Auto 0 /uL (0-100); Basophils Percent Auto 0.9 % (0-2); Eosinophils Absolute Auto 0 /uL (0-450); Eosinophils Percent Auto 0.4 % (2-4); Hematocrit 37.9 % (36-46); Hemoglobin 12.9 g/dL (12.0-16.0); Lymphocytes Absolute Auto 1500 /uL (1100-4500); Lymphocytes Percent Auto 35.4 % (25-40); Mean Corpuscular HGB Conc 34.1 % (30-36); Mean Corpuscular Hemoglobin 28.5 PG (26-34); Mean Corpuscular Volume 83.6 fL (80-100); Monocytes Absolute Auto 500 /uL (0-900); Neutrophils Absolute Auto 2200 /uL (1500-7000); Neutrophils Percent Auto 52.3 % (50-75); Platelet Count 219 X10^3/uL (150-400); Red Blood Cell Count 4.54 X10^6/uL (4.0-5.2); Red Cell Distribution Width 14.5 % (11.6-14.8); White Blood Cell Count 4.1 X10^3/uL (4.5-11.0)
[2022-03-18 14:58] LABS: D Dimer 1339 ng/ml (<500)
[2022-03-18 15:06] LABS: Alanine Aminotransferase 15 IU/L (<35); Albumin 4.6 g/dL (3.5-5.0); Albumin Globulin Ratio 1.2 (1.0-2.8); Alkaline Phosphatase 77 U/L (38-126); Aspartate Aminotransferase 34 IU/L (14-36); BUN Creatinine Ratio 19.1 (6-22); Bilirubin Total 1.3 mg/dL (0.2-1.3); Blood Urea Nitrogen 17 mg/dL (7-17); Calcium 9.5 mg/dL (8.4-10.2); Carbon Dioxide 32 mmol/L (22-32); Chloride 97 mmol/L (98-107); Creatine Kinase 143 U/L (30-135); Estimated Glomerular Filt Rate > 60 mL/min (>60); Globulin 3.9 g/dL (1.7-4.1); Glucose 97 mg/dL (70-100); HEMOLYSIS < 15 (0-50); Lipase 100 U/L (23-300); Magnesium 2.1 mg/dL (1.6-2.3); Potassium 3.8 mmol/L (3.4-5.1); Sodium 137 mmol/L (137-145); Total Protein 8.5 g/dL (6.3-8.2)
[2022-03-18 15:17] LABS: Troponin I < 0.012 ng/mL (0.01-0.034)
[2022-03-18 15:21] LABS: CKMB % Relative Index 0.6 % (1.5-5.0); Creatine Kinase MB 0.84 ng/mL (<2.37)
--- NOTE | 2022-03-18 15:31 | DI.CT.S_ITS ---
PROCEDURE: CT ANGIO CHEST PE PROTOCOL INDICATIONS: elevated dimer and chest pain TECHNIQUE: After the administration of intravenous contrast, 2 mm thick sections acquired from the pulmonary apices to the posterior costophrenic angles. 3-dimensional maximum intensity projection (MIP) coronal and sagittal reformats were then acquired through the thorax. For radiation dose reduction, the following was used: automated exposure control, adjustment of mA and/or kV according to patient size. COMPARISON: None. FINDINGS: Image quality: Excellent. Pulmonary arteries: Pulmonary arteries are normal in size, and demonstrate no intraluminal filling defects to suggest central pulmonary embolism. Lungs and pleura: Lungs are clear. Probable radiation change and bronchiectasis is noted within the anterior aspect of the left upper lobe. No pleural effusions or pneumothorax. Central and peripheral airways are patent. Mediastinum: Heart size is normal, without pericardial effusion. No mediastinal or hilar adenopathy. Thoracic aorta is normal in caliber and enhancement. Esophagus is normal in caliber, without hiatal hernia. Bones and chest wall: Patient is status post bilateral mastectomy. No suspicious bony lesions. Ribs and thoracic spine appear intact throughout. Thyroid gland is unremarkable. No axillary or supraclavicular adenopathy. 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 Abdomen: Visualized upper abdominal solid organs appear normal in the early arterial phase of enhancement. IMPRESSION: 1. No acute pulmonary embolus. 2. No acute pulmonary findings to explain chest pain. Dictated by: Qing Garcia M.D. on 03/18/2022 at 15:54 Approved by: Qing Garcia M.D. on 03/18/2022 at 15:57
[2022-03-18 16:24] LABS: Troponin I < 0.012 ng/mL (0.01-0.034)
[2022-03-18 16:49] VITALS: BP 163/76; PULSE 68; RESP 18; TEMP 36.6; O2SAT 99
== END 2022-03-18 16:49 | disposition home or self-care (01) ==
PROVIDERS: Emergency Provider Emergency Medicine; PCP Student in an Organized Health Care Education/Training Program
DX: R07.89 Other chest pain (principal); R79.89 Other specified abnormal findings of blood chemistry
CPT/HCPCS: 36415; 71045; 71275; 80053; 82550; 82553; 83690; 83735; 84484; 85025; 85379; 93005; 99284; Q9967

== ENCOUNTER 2022-03-30 11:50 | Emergency (ER) | payer OTHER, SELFPAY ==
--- NOTE | 2022-03-30 11:56 | DI.RAD.S_ITS ---
PROCEDURE: XR CHEST 1V INDICATIONS: chest pain TECHNIQUE: One view of the chest was acquired. COMPARISON: [facility], CR, XR CHEST 1V, 03/18/2022, 14:01. FINDINGS: Surgical changes and devices: None. Lungs and pleura: Lungs are clear. No pleural effusions or pneumothorax. Mediastinum: Mediastinal contours appear normal. Heart size is normal. Bones and chest wall: No suspicious bony lesions. Overlying soft tissues appear unremarkable. IMPRESSION: No acute pulmonary process. Dictated by: Tamela Ellis M.D. on 03/30/2022 at 12:16 Approved by: Tamela Ellis M.D. on 03/30/2022 at 12:16
[2022-03-30 11:57] VITALS: BP 175/87; PULSE 79; RESP 19; TEMP 36.3; O2SAT 99; BMI 24.7
[2022-03-30 13:14] LABS: Add Manual Diff / Slide Review NO; Basophils Absolute Auto 0 /uL (0-100); Basophils Percent Auto 0.6 % (0-2); Eosinophils Absolute Auto 0 /uL (0-450); Eosinophils Percent Auto 0.6 % (2-4); Hematocrit 32.4 % (36-46); Hemoglobin 11.2 g/dL (12.0-16.0); Lymphocytes Absolute Auto 1100 /uL (1100-4500); Lymphocytes Percent Auto 28.8 % (25-40); Mean Corpuscular HGB Conc 34.5 % (30-36); Mean Corpuscular Hemoglobin 28.7 PG (26-34); Mean Corpuscular Volume 83.3 fL (80-100); Monocytes Absolute Auto 400 /uL (0-900); Monocytes Percent Auto 10.4 % (3-14); Neutrophils Absolute Auto 2300 /uL (1500-7000); Neutrophils Percent Auto 59.6 % (50-75); Platelet Count 223 X10^3/uL (150-400); Red Blood Cell Count 3.89 X10^6/uL (4.0-5.2); Red Cell Distribution Width 14.3 % (11.6-14.8); White Blood Cell Count 3.8 X10^3/uL (4.5-11.0)
[2022-03-30 13:20] LABS: Alanine Aminotransferase 18 IU/L (<35); Albumin 4.1 g/dL (3.5-5.0); Albumin Globulin Ratio 1.2 (1.0-2.8); Alkaline Phosphatase 73 U/L (38-126); Aspartate Aminotransferase 33 IU/L (14-36); BUN Creatinine Ratio 14.3 (6-22); Blood Urea Nitrogen 11 mg/dL (7-17); Calcium 8.9 mg/dL (8.4-10.2); Carbon Dioxide 28 mmol/L (22-32); Chloride 101 mmol/L (98-107); Creatine Kinase 184 U/L (30-135); Estimated Glomerular Filt Rate > 60 mL/min (>60); Globulin 3.4 g/dL (1.7-4.1); Glucose 100 mg/dL (80-110); HEMOLYSIS < 15 (0-50); Lipase 46 U/L (23-300); Magnesium 1.9 mg/dL (1.6-2.3); Potassium 3.5 mmol/L (3.4-5.1); Sodium 138 mmol/L (137-145); Total Protein 7.5 g/dL (6.3-8.2)
[2022-03-30 13:31] LABS: Troponin I < 0.012 ng/mL (0.01-0.034)
[2022-03-30 13:35] LABS: CKMB % Relative Index 0.5 % (1.5-5.0); Creatine Kinase MB 0.98 ng/mL (<2.37)
[2022-03-30 15:30] VITALS: BP 143/77; PULSE 56; RESP 14; TEMP 36.5; O2SAT 100
[2022-03-30 17:11] LABS: Troponin I < 0.012 ng/mL (0.01-0.034)
--- NOTE | 2022-03-30 17:51 | ED.CHESTPAIN ---
HPI - Chest Pain General Chief Complaint: Chest Pain Stated Complaint: CHEST PAIN Time Seen by Provider: 03/30/22 16:41 Source: patient Mode of arrival: Family Vehicle Limitations: no limitations Limitations: no limitations History of Present Illness HPI narrative: 62-year-old female who is here for evaluation of last night having chest discomfort and back discomfort. That is resolved. She had similar symptoms a couple weeks ago and was evaluated emergency department and was started on what sounds like a GI prophylaxis medicine. Last night she had the symptoms and then today she had discomfort in her right shoulder that was somewhat worse with touching the area. She also states she was having discomfort on the front part of her right lower extremity. After her last ER visit she scheduled an appointment with a new primary doctor and has this appointment tomorrow. She is currently not having any symptoms. Denies palpitations. No lightheadedness. No shortness of breath. No abdominal pain. But she stated last night that she had reflux like symptoms. She has had reflux in the past. Has been on a PPI but. This approximately 10 days ago. Related Data Home Medications Medication Instructions Recorded Confirmed CA PANTOTHENATE/FOLIC ACID/VIT 1 tab PO QDAY ##0 01/25/13 08/08/21 (MULTIVITAMIN) hydrochlorothiazide 12.5 mg tablet 50 mg PO QDAY #0 tabs 11/18/18 08/08/21 Allergies Allergy/AdvReac Type Severity Reaction Status Date / Time ciprofloxacin [CIPROFLOXACIN] Allergy Unknown LEG PAIN Verified 08/20/21 11:23 levofloxacin [LEVOFLOXACIN] AdvReac Mild CAN'T LIFT Verified 08/20/21 11:23 ARMS AFTERWARD Review of Systems Review of Systems ROS Unobtainable: All systems reviewed & are unremarkable except as noted in HPI and below Patient History Medical History (Updated 03/30/22 @ 17:56 by Jeb Ngo DO) Breast cancer Chronic mixed headache syndrome Dyspepsia Hypertension LVH (left ventricular hypertrophy) Surgical History History of total mastectomy Status post hysterectomy Family History Father Diabetes mellitus Heart disease Hypertension High cholesterol Grandfather Diabetes mellitus Hypertension High cholesterol Grandmother Diabetes mellitus Mother Diabetes mellitus Heart disease Hypertension Social History (Reviewed 03/30/22 @ 17:52 by ALO Vizcaino Smoking Status: Never smoker Smoking Status: Never smoker alcohol intake frequency: holidays/special occasions only Substance Use Type: does not use Exam Initial Vital Signs Initial Vital Signs: Vital Signs Temperature 97.4 F L 03/30/22 11:57 Pulse Rate 79 03/30/22 11:57 Respiratory Rate 19 03/30/22 11:57 Blood Pressure 175/87 H 03/30/22 11:57 Pulse Oximetry 99 03/30/22 11:57 Oxygen Delivery Method 03/30/22 11:57 Const General: cooperative and comfortable HENMT Head: normal to inspection and normocephalic Chest Chest: No crepitus and tenderness (Right anterior chest) Resp Effort & Inspection: normal respiratory effort Auscultation: clear to auscultation bilaterally Cardio Rate: regular rate Rhythm: regular rhythm GI Inspection: normal to inspection Palpation: soft and No tender Back/Spine/Pelvis Back: normal to inspection Thoracic/Lumbar Spine: thoracic and lumbar spine normal to inspection Skin General: no rashes or lesions noted Neuro General: patient alert and moves all extremities Extrem General: normal to inspection and capillary refill normal Psych Appearance: grossly normal and well kempt Scores GCS [place] coma scale eye opening: Spontaneous [place] coma scale verbal response: Orientated [place] coma scale motor response: Obey commands [place] coma scale total score: 15 HEART Score Heart Score history: Slightly Suspicious Heart Score EKG: Non-Specific repolarization disturbance Heart Score Age: 45-64 years old Heart Score risk factors: 1-2 risk factors Heart Score troponin: < or = to normal limit Heart Score Total: 3 Course Orders Ordered: ED Orders 03/30/22 11:56 XR chest 1V Stat 03/30/22 12:02 EKG-12 Lead Stat 03/30/22 12:50 Complete Blood Count AUTO DIFF Stat Comprehensive Metabolic Panel Stat Lipase Stat Magnesium Stat Troponin & CK Cardiac Panel Stat 03/30/22 16:25 Troponin I Stat Vital Signs Vital signs: Vital Signs - 8 hr 03/30/22 11:57 03/30/22 15:30 Temperature 97.4 F L 97.7 F Pulse Rate 79 56 L Respiratory Rate 19 14 Blood Pressure 175/87 H 143/77 H Pulse Oximetry 99 100 Oxygen Delivery Method Room Air Room Air MDM - Chest Pain Lab Data Attestation: I reviewed the patient's lab results. Result diagrams: 03/30/22 12:50 03/30/22 12:50 Labs: Lab Results 03/30/22 03/30/22 03/30/22 Range/Units 12:50 12:50 16:25 WBC 3.8 L (4.5-11.0) X10^3/uL RBC 3.89 L (4.0-5.2) X10^6/uL Hgb 11.2 L (12.0-16.0) g/dL Hct 32.4 L (36-46) % MCV 83.3 (80-100) fL MCH 28.7 (26-34) PG MCHC 34.5 (30-36) % RDW 14.3 (11.6-14.8) % Plt Count 223 (150-400) X10^3/uL Neut % (Auto) 59.6 (50-75) % Lymph % (Auto) 28.8 (25-40) % [place] % (Auto) 10.4 (3-14) % Eos % (Auto) 0.6 L (2-4) % Baso % (Auto) 0.6 (0-2) % Neut # (Auto) 2300 (1914-9850) /uL Lymph # (Auto) 1100 (4658-8487) /uL [place] # (Auto) 400 (0-900) /uL Eos # (Auto) 0 (0-450) /uL Baso # (Auto) 0 (0-100) /uL Sodium 138 (137-145) mmol/L Potassium 3.5 (3.4-5.1) mmol/L Chloride 101 (98-107) mmol/L Carbon Dioxide 28 (22-32) mmol/L BUN 11 (7-17) mg/dL Creatinine 0.77 (0.52-1.04) mg/dL Estimated GFR > 60 (>60) mL/min BUN/Creatinine Ratio 14.3 (6-22) Glucose 100 (80-110) mg/dL Calcium 8.9 (8.4-10.2) mg/dL Magnesium 1.9 (1.6-2.3) mg/dL Total Bilirubin 1.0 (0.2-1.3) mg/dL AST 33 (14-36) IU/L ALT 18 (<35) IU/L Alkaline Phosphatase 73 (38-126) U/L Total Creatine Kinase 184 H (30-135) U/L CK-MB (CK-2) 0.98 (<2.37) ng/mL CK-MB (CK-2) Rel Index 0.5 L (1.5-5.0) % Troponin I < 0.012 < 0.012 (0.01-0.034) ng/mL Total Protein 7.5 (6.3-8.2) g/dL Albumin 4.1 (3.5-5.0) g/dL Globulin 3.4 (1.7-4.1) g/dL Albumin/Globulin Ratio 1.2 (1.0-2.8) Lipase 46 (23-300) U/L Urine Dip Bedside Urine Glucose Negative Bedside Urine Bilirubin - Negative Bedside Urine Ketone +/- 5 Urine Specific [place] 1.010 Bedside Urine Occult Blood + Bedside Urine pH 6.0 Bedside Urine Protein - Negative Bedside Urine Urobilinogen - Negative Bedside Urine Nitrite - Negative Bedside Urine Leukocytes - Negative Esterase Imaging Data Chest x-ray: Radiologist's Impression: [address] [address] XRay Report Signed Patient: Krystal Kaminski MR#: [id number] : 1960 Acct:[id number] Age/Sex: 62 / F Date of Service: 03/30/22 Loc: ED Accession Number: [id number] ?? Procedure: XR chest 1V Ordering Provider: Tamera Guzman MD PROCEDURE:? XR CHEST 1V ? INDICATIONS:? chest pain ? TECHNIQUE:? One view of the chest was acquired.? ? COMPARISON:? [facility], , XR CHEST 1V, 03/18/2022, 14:01. ? FINDINGS:? ? Surgical changes and devices:? None.? ? Lungs and pleura:? Lungs are clear.? No pleural effusions or pneumothorax.? ? Mediastinum:? Mediastinal contours appear normal.? Heart size is normal.? ? Bones and chest wall:? No suspicious bony lesions.? Overlying soft tissues appear unremarkable.? ? IMPRESSION:? No acute pulmonary process. ? ? Dictated by: Tamela Ellis M.D. on 03/30/2022 at 12:16 ? ? Approved by: Tamela Ellis M.D. on 03/30/2022 at 12:16?? ECG Data Attestation: I personally reviewed and interpreted this ECG as follows: Prior ECG tracings: available for review Interpretation: Sinus rhythm Ventricular rate is 71 Normal axis LVH Normal QRS Nonspecific ST T wave changes Unchanged from prior EKG MDM Narrative Medical decision making narrative: Asymptomatic, low risk heart score, unchanged EKG, negative chest x-ray, unremarkable vital signs and labs. Patient has a follow-up with her primary doctor scheduled for tomorrow. Informed her that she should talk with her primary doctor about either referral to see Gastroenterology or to discuss the indications for stress testing. She was given return precautions. She expressed understanding and agreement. Discharge Plan Departure Patient Disposition: Home Clinical Impression: Atypical chest pain Instructions: DI for Atypical Chest Pain Activity Restrictions/Additional Instructions: I recommend that you keep your appointment that you have with your primary doctor that is scheduled for tomorrow. Talk with your primary doctor about the indications for a stress test and to discuss the indications for referral to see Gastroenterology. Return to the emergency department for any new or worsening symptoms. Prescriptions: No Action CA PANTOTHENATE/FOLIC ACID/VIT (MULTIVITAMIN) 1 tab PO QDAY Qty: 0 hydrochlorothiazide 12.5 mg tablet 50 mg PO QDAY Qty: 0 Referrals: Kerrie Langford MD [Primary Care Provider] -
[2022-03-30 18:04] VITALS: BP 150/77; PULSE 77; RESP 16; O2SAT 100
== END 2022-03-30 18:06 | disposition home or self-care (01) ==
PROVIDERS: Emergency Medicine; Emergency Provider Emergency Medicine; PCP Student in an Organized Health Care Education/Training Program
DX: R07.89 Other chest pain (principal)
CPT/HCPCS: 36415; 71045; 80053; 81003; 82550; 82553; 83690; 83735; 84484; 85025; 93005; 99284

== ENCOUNTER 2022-04-10 16:04 | Emergency (ER) | payer OTHER, SELFPAY ==
[2022-04-10 16:15] VITALS: BP 192/89; PULSE 55; RESP 16; TEMP 36; O2SAT 100; BMI 24.7
--- NOTE | 2022-04-10 17:16 | DI.US.S_ITS ---
PROCEDURE: US ABDOMEN LIMITED INDICATIONS: RIGHT UPPER QUADRANT PAIN. NAUSEA. TECHNIQUE: Real-time scanning was performed of the abdominal and retroperitoneal organs, with image documentation. COMPARISON: None. FINDINGS: Liver: Liver is normal in size and homogeneous in echotexture. Probable 0.4 x 0.4 x 0.6 cm hepatic dome cyst. Gallbladder: Gallbladder is normal in sonographic appearance without gallstones, gallbladder wall thickening, pericholecystic fluid, or abnormal sonographic Lawrence's. Biliary ducts: Intrahepatic bile ducts are non-dilated. Extrahepatic bile duct caliber measures 2 mm. Normal is 6-7 mm or less in diameter, or 10 mm or less post-cholecystectomy. Pancreas: Subtle heterogeneous appearance of the pancreatic head and uncinate process. No focal abnormality seen. This may be artifactual. Otherwise, visualized portions of the pancreas are sonographically normal. IMPRESSION: 1. Normal sonographic evaluation of the gallbladder without evidence for cholelithiasis or acute cholecystitis. 2. Subtle heterogeneous echotexture of the pancreatic head and uncinate process which may be artifactual. Recommend clinical and laboratory correlation. Dictated by: Carlos Stoll M.D. on 04/10/2022 at 19:14 Approved by: Carlos Stoll M.D. on 04/10/2022 at 19:16
[2022-04-10 18:10] LABS: Add Manual Diff / Slide Review NO; Basophils Absolute Auto 0 /uL (0-100); Basophils Percent Auto 1.1 % (0-2); Eosinophils Absolute Auto 0 /uL (0-450); Eosinophils Percent Auto 0.7 % (2-4); Hematocrit 33.5 % (36-46); Hemoglobin 11.4 g/dL (12.0-16.0); Lymphocytes Absolute Auto 1400 /uL (1100-4500); Mean Corpuscular HGB Conc 33.9 % (30-36); Mean Corpuscular Hemoglobin 28.2 PG (26-34); Mean Corpuscular Volume 83.2 fL (80-100); Monocytes Absolute Auto 400 /uL (0-900); Monocytes Percent Auto 9.7 % (3-14); Neutrophils Absolute Auto 2000 /uL (1500-7000); Neutrophils Percent Auto 51.5 % (50-75); Platelet Count 226 X10^3/uL (150-400); Red Blood Cell Count 4.02 X10^6/uL (4.0-5.2); Red Cell Distribution Width 14.4 % (11.6-14.8); White Blood Cell Count 3.9 X10^3/uL (4.5-11.0)
[2022-04-10 18:16] LABS: Alanine Aminotransferase 16 IU/L (<35); Albumin 4.1 g/dL (3.5-5.0); Albumin Globulin Ratio 1.1 (1.0-2.8); Alkaline Phosphatase 70 U/L (38-126); Aspartate Aminotransferase 29 IU/L (14-36); BUN Creatinine Ratio 14.5 (6-22); Blood Urea Nitrogen 11 mg/dL (7-17); Calcium 9.1 mg/dL (8.4-10.2); Carbon Dioxide 30 mmol/L (22-32); Chloride 100 mmol/L (98-107); Estimated Glomerular Filt Rate > 60 mL/min (>60); Globulin 3.7 g/dL (1.7-4.1); Glucose 90 mg/dL (80-110); HEMOLYSIS < 15 (0-50); Lipase 64 U/L (23-300); Potassium 3.4 mmol/L (3.4-5.1); Sodium 138 mmol/L (137-145); Total Protein 7.8 g/dL (6.3-8.2)
[2022-04-10 18:52] LABS: Bacteria Urine None Seen; Culture Indicated Urine Cult Not Indicated; RBC Urine 0-1/HPF (0-5/HPF); WBC Urine None Seen (0-5/HPF)
[2022-04-10 19:22] VITALS: BP 157/74; PULSE 60; RESP 16; O2SAT 99
--- NOTE | 2022-04-10 20:08 | ED.ABDPAIN ---
HPI - Abdominal Pain General Chief Complaint: Abdominal Pain Stated Complaint: Rt side ABD pain, Nausea, Vomiting Time Seen by Provider: 04/10/22 19:55 History of Present Illness HPI narrative: 62-year-old female nonsmoker with noncontributory medical history presents with a chief complaint of about 6 days' worth of upper abdominal and right upper quadrant pain that seems to be getting worse over the course of the week. She denies any fever or chills but has become increasingly nauseated with decreased appetite. She denies obvious provocation or palliation but states it radiates to her back and shoulder. She denies any chest pain or shortness of breath. She is had no cough or hemoptysis. She denies constipation but has had a few episodes of loose stools. She denies dysuria, frequency or urgency. She denies recent injury, trauma or history of clot Related Data Home Medications Medication Instructions Recorded Confirmed CA PANTOTHENATE/FOLIC ACID/VIT 1 tab PO QDAY ##0 01/25/13 08/08/21 (MULTIVITAMIN) hydrochlorothiazide 12.5 mg tablet 50 mg PO QDAY #0 tabs 11/18/18 08/08/21 Allergies Allergy/AdvReac Type Severity Reaction Status Date / Time ciprofloxacin [CIPROFLOXACIN] Allergy Unknown LEG PAIN Verified 08/20/21 11:23 levofloxacin [LEVOFLOXACIN] AdvReac Mild CAN'T LIFT Verified 08/20/21 11:23 ARMS AFTERWARD Review of Systems Review of Systems Narrative: GENERAL: Denies chills, fatigue, malaise, fever, sweats. HEENT: Denies sinus pain, ear pain, sore throat, difficulty swallowing, dizziness. RESPIRATORY: Denies dyspnea, cough, wheezing, hemoptysis, sputum. CARDIOVASCULAR: Denies chest pain, palpitations, orthopnea, edema, GASTROINTESTINAL: See HPI : Denies dysuria, frequency, incontinence, hematuria, urinary retention. MUSCULOSKELETAL: denies weakness, joint pain, or bony pain SKIN: Denies rash, skin lesions, or other NEUROLOGIC: Denies weakness, headache, numbness, change in speech, confusion, seizures, incoordination. PSYCHIATRIC: No concerning psychosocial issues. 12 point review of systems is negative except for those stated above Patient History Medical History (Updated 04/10/22 @ 21:32 by Juan Luis Jones DO) Breast cancer Chronic mixed headache syndrome Dyspepsia Hypertension LVH (left ventricular hypertrophy) Surgical History History of total mastectomy Status post hysterectomy Family History Father Diabetes mellitus Heart disease Hypertension High cholesterol Grandfather Diabetes mellitus Hypertension High cholesterol Grandmother Diabetes mellitus Mother Diabetes mellitus Heart disease Hypertension Social History Smoking Status: Never smoker Smoking Status: Never smoker alcohol intake frequency: holidays/special occasions only Substance Use Type: does not use Exam Narrative Exam Narrative: GENERAL: [62] year old patient appears stated age. Well-developed patient, in mild distress. HEAD: Atraumatic. Normocephalic. EYES: Pupils equal round and reactive. Extraocular motions intact. No scleral icterus. No injection or drainage. ENT: Nose without bleeding, purulent drainage. Throat without erythema, tonsillar hypertrophy or exudate. Airway patent. NECK: Trachea midline. Non tender CARDIOVASCULAR: Regular rate and rhythm without murmurs, gallops, or rubs. RESPIRATORY: Clear to auscultation. Breath sounds equal bilaterally. No wheezes, rales, or rhonchi. GASTROINTESTINAL: Abdomen soft, epigastric and right upper quadrant tenderness, nondistended. Bowel sounds present in all 4 quadrants EXTREMITIES: No edema or joint tenderness. BACK: Nontender without deformity or crepitance. No flank tenderness. NEURO: AOx3. SKIN: No rash or erythema of visible areas Initial Vital Signs Initial Vital Signs: Vital Signs Temperature 96.8 F L 04/10/22 16:15 Pulse Rate 55 L 04/10/22 16:15 Respiratory Rate 16 04/10/22 16:15 Blood Pressure 192/89 H 04/10/22 16:15 Pulse Oximetry 100 04/10/22 16:15 Oxygen Delivery Method 04/10/22 16:15 Course Orders Ordered: ED Orders 04/10/22 20:14 CT abdomen pelvis w con Stat Discontinued Medications Sodium Chloride (Normal Saline 0.9%) 1,000 mls @ 1,000 mls/hr IV BOLUS ONE Stop: 04/10/22 21:13 Last Infusion: 04/10/22 21:45 Dose: 0 mls/hr Documented By: Admin: 04/10/22 20:45 Dose: 1,000 mls/hr Documented By: AT Ondansetron HCl (Ondansetron 4 Mg Odt Prepack) 1 bottle MISC SEEINSTR ONE Stop: 04/10/22 21:33 Last Admin: 04/10/22 21:41 Dose: 1 bottle Documented By: AT Pantoprazole Sodium (Pantoprazole 40 Mg Vial) 40 mg IV NOW ONE Stop: 04/10/22 20:15 Last Admin: 04/10/22 20:45 Dose: 40 mg Documented By: AT Vital Signs Vital signs: Vital Signs - 8 hr 04/10/22 16:15 04/10/22 19:22 Temperature 96.8 F L Pulse Rate 55 L 60 Respiratory Rate 16 16 Blood Pressure 192/89 H 157/74 H Pulse Oximetry 100 99 Oxygen Delivery Method Room Air Room Air MDM - Abdominal Pain Lab Data Result diagrams: 04/10/22 17:47 04/10/22 17:47 Labs: Lab Results 04/10/22 04/10/22 04/10/22 Range/Units 17:47 17:47 17:47 WBC 3.9 L (4.5-11.0) X10^3/uL RBC 4.02 (4.0-5.2) X10^6/uL Hgb 11.4 L (12.0-16.0) g/dL Hct 33.5 L (36-46) % MCV 83.2 (80-100) fL MCH 28.2 (26-34) PG MCHC 33.9 (30-36) % RDW 14.4 (11.6-14.8) % Plt Count 226 (150-400) X10^3/uL Neut % (Auto) 51.5 (50-75) % Lymph % (Auto) 37.0 (25-40) % [place] % (Auto) 9.7 (3-14) % Eos % (Auto) 0.7 L (2-4) % Baso % (Auto) 1.1 (0-2) % Neut # (Auto) 2000 (8580-0077) /uL Lymph # (Auto) 1400 (0514-0892) /uL [place] # (Auto) 400 (0-900) /uL Eos # (Auto) 0 (0-450) /uL Baso # (Auto) 0 (0-100) /uL Sodium 138 (137-145) mmol/L Potassium 3.4 (3.4-5.1) mmol/L Chloride 100 (98-107) mmol/L Carbon Dioxide 30 (22-32) mmol/L BUN 11 (7-17) mg/dL Creatinine 0.76 (0.52-1.04) mg/dL Estimated GFR > 60 (>60) mL/min BUN/Creatinine Ratio 14.5 (6-22) Glucose 90 (80-110) mg/dL Calcium 9.1 (8.4-10.2) mg/dL Total Bilirubin 1.0 (0.2-1.3) mg/dL AST 29 (14-36) IU/L ALT 16 (<35) IU/L Alkaline Phosphatase 70 (38-126) U/L Total Protein 7.8 (6.3-8.2) g/dL Albumin 4.1 (3.5-5.0) g/dL Globulin 3.7 (1.7-4.1) g/dL Albumin/Globulin Ratio 1.1 (1.0-2.8) Lipase 64 (23-300) U/L Urine RBC 0-1/hpf (0-5/HPF) Urine WBC None seen (0-5/HPF) Urine Bacteria None seen (None) Ur Culture Indicated? Cult not indicated Point of care testing: Point of Care Testing Test Results Not applicable Urine Dip Bedside Urine Glucose Negative Bedside Urine Bilirubin - Negative Bedside Urine Ketone - Negative Urine Specific [place] 1.010 Bedside Urine Occult Blood + Bedside Urine pH 6.0 Bedside Urine Protein - Negative Bedside Urine Urobilinogen - Negative Bedside Urine Nitrite - Negative Bedside Urine Leukocytes - Negative Esterase Imaging Data US - abdomen: Radiologist's Impression: [address] [address] Ultrasound Report Signed Patient: Krystal Kaminski MR#: [id number] : 1960 Acct:[id number] Age/Sex: 62 / F Date of Service: 04/10/22 Loc: ED Accession Number: [id number] ?? Procedure: US abdomen limited Ordering Provider: Levar Sam MD PROCEDURE:? US ABDOMEN LIMITED ? INDICATIONS:? RIGHT UPPER QUADRANT PAIN. NAUSEA. ? TECHNIQUE:? Real-time scanning was performed of the abdominal and retroperitoneal organs, with image documentation.? ? COMPARISON:? None. ? FINDINGS:? ? Liver:? Liver is normal in size and homogeneous in echotexture.? Probable 0.4 x 0.4 x 0.6 cm hepatic dome cyst.? ? Gallbladder:? Gallbladder is normal in sonographic appearance without gallstones, gallbladder wall thickening, pericholecystic fluid, or abnormal sonographic Lawrence's.? ? Biliary ducts:? Intrahepatic bile ducts are non-dilated.? Extrahepatic bile duct caliber measures 2 mm.? Normal is 6-7 mm or less in diameter, or 10 mm or less post-cholecystectomy.? ? Pancreas:? Subtle heterogeneous appearance of the pancreatic head and uncinate process.? No focal abnormality seen.? This may be artifactual.? Otherwise, visualized portions of the pancreas are sonographically normal.? ? IMPRESSION:? ? 1. Normal sonographic evaluation of the gallbladder without evidence for cholelithiasis or acute cholecystitis. ? 2. Subtle heterogeneous echotexture of the pancreatic head and uncinate process which may be artifactual.? Recommend clinical and laboratory correlation.? Dictated by: Carlos Stoll M.D. on 04/10/2022 at 19:14 ? ? Approved by: Carlos Stoll M.D. on 04/10/2022 at 19:16 ? MDM Narrative Medical decision making narrative: Multiple etiologies for patient's symptoms considered include, but not limited to: [Gallbladder disease versus liver versus pancreatitis versus bowel obstruction versus pyelonephritis versus other Patient's symptoms improved over duration of stay with above-stated therapies. History, physical exam, labs, imaging, and response to therapies have been reassuring. Findings and discharge diagnosis discussed with patient/family followed by verbalization of understanding Return precautions discussed with patient/family whom verbalize understanding. Pain has been well controlled and patient is tolerating oral hydration. Discharge Plan Departure Patient Disposition: Home Clinical Impression: Abdominal pain Instructions: DI for Abdominal Pain-Adult Activity Restrictions/Additional Instructions: *You have been diagnosed with [abdominal pain] * As we discussed your history and physical exam as well as labs and imaging are very reassuring. There is no evidence of any severe diagnoses that would require a specific or immediate intervention. *What to do: *Please continue to take your regular medications as directed. Zofran 4mg ODT every 4 hours for nausea/vomiting *Please follow up with your primary care provider in 2-3 days, call for an appointment. Let them know you were seen in the Emergency Department and that we ask that you be seen in follow up. We will electronically transmit a record of today's note if your PCP is in our system *Please consider a clear liquid diet for the next 24-48 hours and then slowly advance to regular as tolerated. Also, try to avoid alcohol, nicotine, caffeine, spicy, acidic or fatty foods as this may worsen your symptoms *If you do not have a primary care provider please contact the [facility] Resource line at [phone]. They will ask some questions about your medical history and help get you set up with a doctor in the community. *Return to Emergency Department if you should have any new, worsening or concerning symptoms, such as [fever greater than 101 F, shaking chills, worsening pain, persistent vomiting or other bothersome symptoms] Prescriptions: No Action CA PANTOTHENATE/FOLIC ACID/VIT (MULTIVITAMIN) 1 tab PO QDAY Qty: 0 hydrochlorothiazide 12.5 mg tablet 50 mg PO QDAY Qty: 0 Referrals: Kerrie Langford MD [Primary Care Provider] - Visit Report Forms: Patient Portal/API
--- NOTE | 2022-04-10 20:14 | DI.CT.S_ITS ---
PROCEDURE: CT ABDOMEN PELVIS W CON INDICATIONS: severe epigastric and RUQ pain TECHNIQUE: After the administration of IV contrast, axial sections were acquired from the lung bases to the pubic symphysis. Coronal and sagittal reformats were performed. For radiation dose reduction, the following was used: automated exposure control, adjustment of mA and/or kV according to patient size. COMPARISON: [facility], CT, CT KUB, 06/16/2019, 19:35. [facility], CT, CT ANGIO CHEST PE PROTOCOL, 03/18/2022, 15:28. FINDINGS: Image quality: Excellent. Lung bases: Unremarkable. Heart: Heart is normal in size. ABDOMEN: Liver: There is a small hypodense focus within the left hepatic lobe redemonstrated which is too small to characterize but likely represents a cyst. Mild focal fatty infiltration demonstrated within the anterior left hepatic lobe. Gallbladder: Within normal limits without calcified gallstones. Biliary ducts: No biliary ductal dilatation. Pancreas: No peripancreatic fat stranding or fluid collections to suggest acute pancreatitis. No pancreatic duct dilatation. Spleen: Normal in size. Adrenal Glands: No adrenal nodules. Kidneys and Ureters: No hydronephrosis. Stomach and Bowel: Stomach, small bowel loops, and colon are normal in caliber and wall thickness. The appendix is normal in appearance. There is colonic diverticulosis without acute diverticulitis. Peritoneum: No abnormal intraperitoneal fluid. No free air. Ventral Wall: No hernia. Abdominal Nodes: No retroperitoneal or mesenteric adenopathy by size criteria. Vessels: Aorta and inferior vena cava are normal in size. PELVIS: Pelvic Organs: Unremarkable. Bladder: Unremarkable. Pelvic Nodes: No enlarged lymph nodes. Miscellaneous: No inguinal hernias are seen. Bones: Visualized osseous structures demonstrate no suspicious focal lesions. IMPRESSION: 1. No definite acute intra-abdominal abnormality. 2. Colonic diverticulosis without acute diverticulitis. Dictated by: Cholo Martines M.D. on 04/10/2022 at 21:02 Approved by: Cholo Martines M.D. on 04/10/2022 at 21:13
[2022-04-10] MEDS: PANTOPRAZOLE 40 MG VIAL IV (20:45)
[2022-04-10] MEDS: SODIUM CHLORIDE 0.9% 1,000 ML 1000 ML IV (20:45)
[2022-04-10] MEDS: ONDANSETRON 4 MG ODT PREPACK 1 BOTTLE MISC (21:41)
== END 2022-04-10 21:46 | disposition home or self-care (01) ==
PROVIDERS: Emergency Medicine; Emergency Provider Emergency Medicine; PCP Student in an Organized Health Care Education/Training Program
DX: R10.11 Right upper quadrant pain (principal); R11.0 Nausea
CPT/HCPCS: 36415; 74177; 76705; 80053; 81003; 81015; 81025; 83690; 85025; 96361; 96374; 99284; C9113; Q9967

== ENCOUNTER → 2022-08-25 09:02 | Outpatient (CLI) | payer OTHER, SELFPAY ==
--- NOTE | 2022-08-25 09:03 | DI.NM.S_ITS ---
PROCEDURE: SC BONE SCAN WHOLE BODY RADIOPHARMACEUTICAL: 21 mCi Tc-99m MDP IV. INDICATIONS: breast cancer, bone pain (vertebra, and rt shoulder) TECHNIQUE: Delayed whole-body scintigrams were obtained approximately 3-4 hours after intravenous injection of radiotracer. Anterior and posterior views were acquired from vertex to feet. Additional 0 diffuse of the chest and pelvis were obtained. COMPARISON: [facility], CT, CT ABDOMEN PELVIS W CON, 04/10/2022, 20:26. [facility], [place], BONE SCAN WHOLE BODY, 04/02/2009, 11:33. FINDINGS: Normal radiotracer excretion is seen in the urinary system. No radiotracer uptake that is specific for bony metastases. Scattered degenerative changes are present, most notably in the shoulders. Asymmetric uptake along the left facets of the lower lumbar spine, also favored to be degenerative. IMPRESSION: No areas of radiotracer uptake specific for osteoblastic metastases. Scattered areas of uptake around the joints, favored to be degenerative. More focal uptake is seen along the posterior facets of the left lower lumbar spine, probably also degenerative. Attention on follow-up imaging. Dictated by: Bobby Do M.D. on 08/25/2022 at 13:38 Approved by: Bobby Do M.D. on 08/25/2022 at 13:42
== END ==
PROVIDERS: PCP Student in an Organized Health Care Education/Training Program; Referring Provider Internal Medicine Hematology & Oncology; Visit Provider Internal Medicine Hematology & Oncology
DX: C50.919 Malignant neoplasm of unspecified site of unspecified female breast (principal); M89.8X9 Other specified disorders of bone, unspecified site
CPT/HCPCS: 78306; A9503

== ENCOUNTER 2022-10-17 12:23 | Emergency (ER) | payer OTHER, SELFPAY ==
[2022-10-17 12:29] VITALS: BP 178/86; PULSE 75; RESP 16; TEMP 37; O2SAT 99; BMI 24.5
--- NOTE | 2022-10-17 12:35 | DI.RAD.S_ITS ---
PROCEDURE: XR CHEST 1V INDICATIONS: chest pain TECHNIQUE: One view of the chest was acquired. COMPARISON: [facility], CR, XR CHEST 1V, 03/30/2022, 11:59. FINDINGS: Surgical changes and devices: None. Lungs and pleura: Lungs are clear. No pleural effusions or pneumothorax. Mediastinum: Mediastinal contours appear normal. Heart size is normal. Bones and chest wall: No suspicious bony lesions. Overlying soft tissues appear unremarkable. IMPRESSION: No evidence acute pulmonary process. Dictated by: Antonio Coon M.D. on 10/17/2022 at 13:14 Approved by: Antonio Coon M.D. on 10/17/2022 at 13:14
[2022-10-17 12:52] LABS: Add Manual Diff / Slide Review NO; Basophils Absolute Auto 0 /uL (0-100); Eosinophils Absolute Auto 0 /uL (0-450); Eosinophils Percent Auto 0.7 % (2-4); Hematocrit 37.4 % (36-46); Hemoglobin 12.5 g/dL (12.0-16.0); Lymphocytes Absolute Auto 1200 /uL (1100-4500); Lymphocytes Percent Auto 34.9 % (25-40); Mean Corpuscular HGB Conc 33.3 % (30-36); Mean Corpuscular Hemoglobin 28.4 PG (26-34); Mean Corpuscular Volume 85.3 fL (80-100); Monocytes Absolute Auto 400 /uL (0-900); Monocytes Percent Auto 10.6 % (3-14); Neutrophils Absolute Auto 1800 /uL (1500-7000); Neutrophils Percent Auto 52.8 % (50-75); Platelet Count 224 X10^3/uL (150-400); Red Blood Cell Count 4.39 X10^6/uL (4.0-5.2); Red Cell Distribution Width 14.1 % (11.6-14.8); White Blood Cell Count 3.3 X10^3/uL (4.5-11.0)
[2022-10-17 13:02] LABS: INR 1.2 (0.9-1.3); Prothrombin Time 13.3 SECONDS (10.1-12.7)
[2022-10-17 13:05] LABS: PTT Partial Thromboplastin Tim 28 SECONDS (26-36)
[2022-10-17 13:09] LABS: Alanine Aminotransferase 21 IU/L (<35); Albumin 4.2 g/dL (3.5-5.0); Albumin Globulin Ratio 1.1 (1.0-2.8); Alkaline Phosphatase 77 U/L (38-126); Aspartate Aminotransferase 29 IU/L (14-36); BUN Creatinine Ratio 24.3 (6-22); Bilirubin Total 1.2 mg/dL (0.2-1.3); Blood Urea Nitrogen 18 mg/dL (7-17); Calcium 9.3 mg/dL (8.4-10.2); Carbon Dioxide 30 mmol/L (22-32); Chloride 101 mmol/L (98-107); Creatine Kinase 158 U/L (30-135); Estimated Glomerular Filt Rate > 60 mL/min (>60); Globulin 3.8 g/dL (1.7-4.1); Glucose 100 mg/dL (80-110); HEMOLYSIS < 15 (0-50); Lipase 61 U/L (23-300); Magnesium 1.9 mg/dL (1.6-2.3); Potassium 3.9 mmol/L (3.4-5.1); Sodium 137 mmol/L (137-145)
[2022-10-17 13:21] LABS: Troponin I < 0.012 ng/mL (0.01-0.034)
[2022-10-17 13:24] LABS: CKMB % Relative Index 0.5 % (1.5-5.0); Creatine Kinase MB 0.83 ng/mL (<2.37)
--- NOTE | 2022-10-17 14:31 | ED_ITS ---
HPI - Chest Pain General Chief Complaint: Chest Pain Stated Complaint: facial numbness,rt arm pain,chest discomfort Time Seen by Provider: 10/17/22 14:14 Source: patient Mode of arrival: Ambulatory Limitations: no limitations History of Present Illness HPI narrative: Patient is a 62-year-old female who is here for evaluation of 2 weeks of discomfort to the right side of her face. She states she is also having ti ngling around the both sides of her jaw on the right side of her face. She is also having pain in the top of her right shoulder radiating down her right arm to her right hand. No specific trauma. No problems eating or swallowing. No vision changes. No skin changes. She is having some pain to her right ear and also sinus congestion. She saw her dentist recently who stated that he did not think that this was a dental issue. She has been using topical pain relief patches for her right shoulder. Related Data Home Medications Medication Instructions Recorded Confirmed CA PANTOTHENATE/FOLIC ACID/VIT 1 tab PO QDAY ##0 01/25/13 08/28/22 (MULTIVITAMIN) hydrochlorothiazide 12.5 mg tablet 25 mg PO QDAY #0 tabs 11/18/18 08/28/22 propranolol 40 mg tablet 40 mg DAILY 08/18/22 08/28/22 Previous Rx's Medication Instructions Recorded prednisone 20 mg tablet 20 mg PO DAILY 3 days #3 tabs 10/17/22 Allergies Allergy/AdvReac Type Severity Reaction Status Date / Time levofloxacin [LEVOFLOXACIN] AdvReac Mild CAN'T LIFT Verified 10/17/22 12:35 ARMS AFTERWARD ciprofloxacin [CIPROFLOXACIN] AdvReac Unknown LEG PAIN Verified 10/17/22 12:39 Review of Systems Constitutional Constitutional: Reports system reviewed and no additional complaints, except as documented Eyes Eyes: Reports system reviewed and no additional complaints, except as documented ENT Ears, Nose, Mouth, and Throat: Reports system reviewed and no additional complaints, except as documented Respiratory Respiratory: Reports system reviewed and no additional complaints, except as documented Integumentary/Breasts Skin/Breast: Reports system reviewed and no additional complaints, except as documented Neurologic Neurologic: Reports system reviewed and no additional complaints, except as documented Hematologic/Lymphatic On Anticoagulants: No Patient History Medical History Breast cancer Chronic mixed headache syndrome Dyspepsia Hypertension LVH (left ventricular hypertrophy) Surgical History History of total mastectomy Status post hysterectomy Family History Father Diabetes mellitus Heart disease Hypertension High cholesterol Grandfather Diabetes mellitus Hypertension High cholesterol Grandmother Diabetes mellitus Mother Diabetes mellitus Heart disease Hypertension Social History Smoking Status: Never smoker Smoking Status: Never smoker alcohol intake frequency: holidays/special occasions only Substance Use Type: does not use Exam Initial Vital Signs Initial Vital Signs: Vital Signs Temperature 98.6 F 10/17/22 12:29 Pulse Rate 75 10/17/22 12:29 Respiratory Rate 16 10/17/22 12:29 Blood Pressure 178/86 H 10/17/22 12:29 Pulse Oximetry 99 10/17/22 12:29 Oxygen Delivery Method Room Air 10/17/22 12:29 Const General: cooperative and healthy appearing [facility] Head: normal to inspection and normocephalic Ears: TM normal on the left and TM abnormal bulging on the right Face and sinus: other (Pre auricular right-sided lymphadenopathy) Mouth: moist mucous membranes Teeth and gingiva: dentition normal Throat: posterior oropharynx normal Neck Other: No anterior lymphadenopathy felt. Several right-sided posterior cervical lymph nodes that are small felt. Resp Effort & Inspection: normal respiratory effort Auscultation: clear to auscultation bilaterally Cardio Rate: regular rate Skin General: no rashes or lesions noted Neuro General: patient alert, patient awake and moves all extremities Cognition: normal cognition Speech: speech normal Extrem General: normal to inspection and capillary refill normal Course Orders Ordered: ED Orders 10/17/22 12:35 XR chest 1V Stat 10/17/22 12:41 Complete Blood Count AUTO DIFF Stat Comprehensive Metabolic Panel Stat Lipase Stat Magnesium Stat PTT Partial Thromboplastin [place] Stat Prothrombin Time INR Stat Troponin & CK Cardiac Panel Stat 10/17/22 12:52 EKG-12 Lead Stat Discontinued Medications Aspirin (Aspirin 81 Mg Chew Tab) 324 mg PO NOW ONE Stop: 10/17/22 12:36 Last Admin: 10/17/22 14:41 Dose: Not Given Documented By: BS Vital Signs Vital signs: Vital Signs - 8 hr 10/17/22 12:29 10/17/22 14:47 Temperature 98.6 F 97.8 F Pulse Rate 75 55 L Respiratory Rate 16 16 Blood Pressure 178/86 H 169/81 H Pulse Oximetry 99 100 Oxygen Delivery Method Room Air Room Air MDM - Chest Pain Lab Data Attestation: I reviewed the patient's lab results. 10/17/22 12:41 10/17/22 12:41 Labs: Lab Results 10/17/22 10/17/22 10/17/22 Range/Units 12:41 12:41 12:41 WBC 3.3 L (4.5-11.0) X10^3/uL RBC 4.39 (4.0-5.2) X10^6/uL Hgb 12.5 (12.0-16.0) g/dL Hct 37.4 (36-46) % MCV 85.3 (80-100) fL MCH 28.4 (26-34) PG MCHC 33.3 (30-36) % RDW 14.1 (11.6-14.8) % Plt Count 224 (150-400) X10^3/uL Neut % (Auto) 52.8 (50-75) % Lymph % (Auto) 34.9 (25-40) % [place] % (Auto) 10.6 (3-14) % Eos % (Auto) 0.7 L (2-4) % Baso % (Auto) 1.0 (0-2) % Neut # (Auto) 1800 (1609-2959) /uL Lymph # (Auto) 1200 (0739-7596) /uL [place] # (Auto) 400 (0-900) /uL Eos # (Auto) 0 (0-450) /uL Baso # (Auto) 0 (0-100) /uL PT 13.3 H (10.1-12.7) SECONDS INR 1.2 (0.9-1.3) APTT 28 (26-36) SECONDS Sodium 137 (137-145) mmol/L Potassium 3.9 (3.4-5.1) mmol/L Chloride 101 (98-107) mmol/L Carbon Dioxide 30 (22-32) mmol/L BUN 18 H (7-17) mg/dL Creatinine 0.74 (0.52-1.04) mg/dL Estimated GFR > 60 (>60) mL/min BUN/Creatinine Ratio 24.3 H (6-22) Glucose 100 (80-110) mg/dL Calcium 9.3 (8.4-10.2) mg/dL Magnesium 1.9 (1.6-2.3) mg/dL Total Bilirubin 1.2 (0.2-1.3) mg/dL AST 29 (14-36) IU/L ALT 21 (<35) IU/L Alkaline Phosphatase 77 (38-126) U/L Total Creatine Kinase 158 H (30-135) U/L CK-MB (CK-2) 0.83 (<2.37) ng/mL CK-MB (CK-2) Rel Index 0.5 L (1.5-5.0) % Troponin I < 0.012 (0.01-0.034) ng/mL Total Protein 8.0 (6.3-8.2) g/dL Albumin 4.2 (3.5-5.0) g/dL Globulin 3.8 (1.7-4.1) g/dL Albumin/Globulin Ratio 1.1 (1.0-2.8) Lipase 61 (23-300) U/L Imaging Data Chest x-ray: Radiologist's Impression: PROCEDURE:? XR CHEST 1V ? INDICATIONS:? chest pain ? TECHNIQUE:? One view of the chest was acquired.? ? COMPARISON:? [facility], , XR CHEST 1V, 03/30/2022, 11:59. ? FINDINGS:? ? Surgical changes and devices:? None.? ? Lungs and pleura:? Lungs are clear.? No pleural effusions or pneumothorax.? ? Mediastinum:? Mediastinal contours appear normal.? Heart size is normal.? ? Bones and chest wall:? No suspicious bony lesions.? Overlying soft tissues appear unremarkable.? ? IMPRESSION:? No evidence acute pulmonary process ECG Data Attestation: I personally reviewed and interpreted this ECG as follows: Interpretation: Sinus rhythm Ventricular rate is 62 LVH Normal axis Normal QRS ST T wave changes MDM Narrative Medical decision making narrative: EKG is unremarkable. Chest x-ray is unremarkable. She does have a bulging right tympanic membrane that is not erythematous. Her left TM is unremarkable. Her oropharynx and dental exam are unremarkable. She does have multiple right- sided posterior cervical lymph nodes and a larger right-sided preauricular lymph node. This does appear to be separate than the parotid gland. There is no skin changes over the area. I suspect that the symptoms that she is getting is related to the swelling in the area in the compression of the nerves. This very well could be what is causing the discomfort down her right arm as well. Low suspicion for ACS. I will put her on steroids for the next couple days. She has been doing decongestants. She can continue to do these. If she returns she potentially could need further imaging however I feel that abscess is less likely today based on her exam. Also have low suspicion for cervical radiculopathy from a herniated disc. Will discharge patient home with these return precautions. She expressed understanding and agreement. Discharge Plan Departure Patient Disposition: Home Clinical Impression: Lymphadenopathy, preauricular, Facial paresthesia Instructions: DI for Lymphadenopathy, DI for Numbness/Tingling Activity Restrictions/Additional Instructions: I do recommend that you take the steroids as directed. You can start them today. I do recommend you contact your primary doctor to schedule a follow-up because if your symptoms do not improve or worsen you may need further workup. Prescriptions: New prednisone 20 mg tablet 20 mg PO DAILY 3 Days Qty: 3 0RF No Action CA PANTOTHENATE/FOLIC ACID/VIT (MULTIVITAMIN) 1 tab PO QDAY Qty: 0 hydrochlorothiazide 12.5 mg tablet 25 mg PO QDAY Qty: 0 propranolol 40 mg Tablet 40 mg DAILY Rx Instructions: PT UNSURE OF DOSE Referrals: Kerrie Langford MD [Primary Care Provider] - Stand Alone Forms: Patient Portal/API
[2022-10-17 14:47] VITALS: BP 169/81; PULSE 55; RESP 16; TEMP 36.6; O2SAT 100
== END 2022-10-17 14:48 | disposition home or self-care (01) ==
PROVIDERS: Emergency Provider Emergency Medicine; PCP Student in an Organized Health Care Education/Training Program
DX: R20.2 Paresthesia of skin (principal); R59.0 Localized enlarged lymph nodes; R07.9 Chest pain, unspecified
CPT/HCPCS: 36415; 71045; 80053; 82550; 82553; 83690; 83735; 84484; 85025; 85610; 85730; 93005; 93010; 99284

== ENCOUNTER 2023-08-09 11:30 | Emergency (ER) | payer OTHER, SELFPAY ==
[2023-08-09] VITALS (10 sets, daily range): BP systolic 164–193; BP diastolic 69–92; PULSE 51–67; RESP 12–18; TEMP 37; O2SAT 96–100; BMI 25.2
--- NOTE | 2023-08-09 11:44 | DI.CT.S_ITS ---
PROCEDURE: CT ABDOMEN PELVIS W CON INDICATIONS: R side abdomen and flank pain TECHNIQUE: After the administration of intravenous contrast, axial sections acquired from the lung bases to the pubic symphysis. Coronal and sagittal reformats were performed. For radiation dose reduction, the following was used: automated exposure control, adjustment of mA and/or kV according to patient size. COMPARISON: [facility], CT, CT ANGIO CHEST ABDOMEN PELVIS, 09/02/2022, 10:04. [facility], CT, CT ABDOMEN PELVIS W CON, 04/10/2022, 20:26. FINDINGS: Image quality: Diagnostic. Lower Chest: No significant findings. ABDOMEN: Liver: No solid mass. Gallbladder: Cholecystectomy. Biliary ducts: No biliary dilation. Pancreas: No ductal dilation. Spleen: Size is within normal limits. Adrenal Glands: No adrenal nodules. Kidneys and Ureters: No hydronephrosis. No solid mass. No complex renal cystic lesion which requires follow up. Stomach and Bowel: A normal appendix is seen, as on series 2, image 57. No right lower quadrant phlegm a magy change can be seen. Scattered areas of moderate colonic wall thickening can be seen, with mild surrounding inflammatory change. No dilated loops of small bowel are seen. The stomach demonstrates no significant abnormality. Peritoneum: No peritoneal abscess is seen. No abnormal intraperitoneal fluid. No free air. Ventral Wall: No significant ventral hernia. Abdominal Nodes: No retroperitoneal or mesenteric adenopathy by size criteria. Vessels: Aorta and inferior vena cava are normal in size. PELVIS: Pelvic Organs: This patient is status post hysterectomy. No adnexal masses are seen. Bladder: No bladder wall thickening, accounting for underdistention. Pelvic Nodes: No enlarged lymph nodes. Miscellaneous: No inguinal hernias are seen. Bones: No aggressive osseous abnormality. IMPRESSION: Normal appendix. Moderate scattered areas of colonic wall thickening can be seen. Please consider colitis. Additional findings: Cholecystectomy Hysterectomy Dictated by: Sourav Zazueta M.D. on 08/09/2023 at 11:46 Approved by: Sourav Zazueta M.D. on 08/09/2023 at 11:49
--- NOTE | 2023-08-09 11:49 | ED.GENADULT ---
HPI - General Adult General Chief complaint: Abdominal Pain Stated complaint: R/ ABD and back pain Time Seen by Provider: 08/09/23 11:43 Source: patient Mode of arrival: Ambulatory History of Present Illness HPI narrative: Patient is a 63-year-old female is here for evaluation of right-sided flank and abdominal discomfort. She has had the symptoms for the past 2 months. Has been seen at an outside facility several months ago for this discomfort. Had a CT scan performed. Was not given a specific diagnosis. Has not followed up since then. She is here today because she states the pain has continued and potentially worsened. No urinary symptoms. No change in. Related Data Home Medications Medication Instructions Recorded Confirmed CA PANTOTHENATE/FOLIC ACID/VIT 1 tab PO QDAY ##0 01/25/13 08/28/22 (MULTIVITAMIN) hydrochlorothiazide 12.5 mg tablet 25 mg PO QDAY #0 tabs 11/18/18 08/28/22 propranolol 40 mg tablet 40 mg DAILY 08/18/22 08/28/22 Allergies Allergy/AdvReac Type Severity Reaction Status Date / Time levofloxacin [LEVOFLOXACIN] AdvReac Mild CAN'T LIFT Verified 08/09/23 11:41 ARMS AFTERWARD ciprofloxacin [CIPROFLOXACIN] AdvReac Unknown LEG PAIN Verified 08/09/23 11:41 Review of Systems Constitutional Constitutional: Reports system reviewed and no additional complaints, except as documented Gastrointestinal Gastrointestinal: Reports system reviewed and no additional complaints, except as documented Genitourinary Genitourinary: Reports system reviewed and no additional complaints, except as documented Musculoskeletal Musculoskeletal: Reports system reviewed and no additional complaints, except as documented Integumentary/Breasts Skin/Breast: Reports system reviewed and no additional complaints, except as documented Hematologic/Lymphatic On Anticoagulants: No Patient History Medical History (Updated 08/09/23 @ 13:11 by Jeb Ngo DO) Breast cancer Chronic mixed headache syndrome Dyspepsia LVH (left ventricular hypertrophy) Hypertension Surgical History Status post hysterectomy History of total mastectomy Family History Father Diabetes mellitus Heart disease Hypertension High cholesterol Grandfather Diabetes mellitus Hypertension High cholesterol Grandmother Diabetes mellitus Mother Diabetes mellitus Heart disease Hypertension Social History (Reviewed 02/04/24 @ 11:50 by ALO Vizcaino Smoking Status: Never smoker Smoking Status: Never smoker alcohol intake frequency: holidays/special occasions only Substance Use Type: does not use Exam Initial Vital Signs Initial Vital Signs: Vital Signs Temperature 98.6 F 08/09/23 11:36 Pulse Rate 63 08/09/23 11:36 Respiratory Rate 18 08/09/23 11:36 Blood Pressure 193/92 H 08/09/23 11:36 Pulse Oximetry 100 08/09/23 11:36 Oxygen Delivery Method Room Air 08/09/23 11:36 [place] Head: normal to inspection and atraumatic Resp Effort & Inspection: normal respiratory effort Cardio Rate: regular rate GI Inspection: normal to inspection and non-distended Palpation: soft, No firm, No guarding and tender (Right-sided abdomen) Neuro General: patient alert and patient awake Course Orders Ordered: ED Orders 08/09/23 11:44 CT abdomen pelvis w con Stat 08/09/23 11:47 Urine Microscopic Stat 08/09/23 11:51 Complete Blood Count AUTO DIFF Stat Comprehensive Metabolic Panel Stat Lipase Stat Vital Signs Vital signs: Vital Signs - 8 hr 08/09/23 11:36 Temperature 98.6 F Pulse Rate 63 Respiratory Rate 18 Blood Pressure 193/92 H Pulse Oximetry 100 Oxygen Delivery Method Room Air Medical Decision Making Lab Data Lab results reviewed: Yes I reviewed the patient's lab results. 08/09/23 11:51 08/09/23 11:51 Labs: Lab Results 08/09/23 08/09/23 Range/Units 11:47 11:51 WBC 3.8 L (4.5-11.0) X10^3/uL RBC 4.55 (4.0-5.2) X10^6/uL Hgb 13.3 (12.0-16.0) g/dL Hct 39.3 (36-46) % MCV 86.3 (80-100) fL MCH 29.2 (26-34) PG MCHC 33.8 (30-36) % RDW 13.4 (11.6-14.8) % Plt Count 221 (150-400) X10^3/uL Neut % (Auto) 52.7 (50-75) % Lymph % (Auto) 34.9 (25-40) % [place] % (Auto) 10.2 (3-14) % Eos % (Auto) 1.5 L (2-4) % Baso % (Auto) 0.7 (0-2) % Neut # (Auto) 2000 (6890-4466) /uL Lymph # (Auto) 1300 (0172-7210) /uL [place] # (Auto) 400 (0-900) /uL Eos # (Auto) 100 (0-450) /uL Baso # (Auto) 0 (0-100) /uL Sodium 136 L (137-145) mmol/L Potassium 3.6 (3.4-5.1) mmol/L Chloride 101 (98-107) mmol/L Carbon Dioxide 31 (22-32) mmol/L BUN 16 (7-17) mg/dL Creatinine 0.74 (0.52-1.04) mg/dL Estimated GFR > 60 (>60) mL/min BUN/Creatinine Ratio 21.6 (6-22) Glucose 95 (80-110) mg/dL Calcium 9.2 (8.4-10.2) mg/dL Total Bilirubin 1.1 (0.2-1.3) mg/dL AST 25 (14-36) IU/L ALT 19 (<35) IU/L Alkaline Phosphatase 74 (38-126) U/L Total Protein 7.4 (6.3-8.2) g/dL Albumin 3.9 (3.5-5.0) g/dL Globulin 3.5 (1.7-4.1) g/dL Albumin/Globulin Ratio 1.1 (1.0-2.8) Lipase 101 (23-300) U/L Urine RBC 0-1/hpf (0-5/HPF) Urine WBC None seen (0-5/HPF) Ur Squamous Epith Cells None seen (0-5/HPF) Amorphous Sediment 1+ Urine Bacteria None seen (None) Ur Culture Indicated? Cult not indicated Vol Urine Centrifuged 10ml (spun) Urine Dip Bedside Urine Glucose Negative Bedside Urine Bilirubin - Negative Bedside Urine Ketone - Negative Urine Specific [place] 1.010 Bedside Urine Occult Blood ++ Bedside Urine pH 6.0 Bedside Urine Protein - Negative Bedside Urine Urobilinogen - Negative Bedside Urine Nitrite - Negative Bedside Urine Leukocytes - Negative Esterase Point of care testing: Urine Dip Bedside Urine Glucose Negative Bedside Urine Bilirubin - Negative Bedside Urine Ketone - Negative Urine Specific [place] 1.010 Bedside Urine Occult Blood ++ Bedside Urine pH 6.0 Bedside Urine Protein - Negative Bedside Urine Urobilinogen - Negative Bedside Urine Nitrite - Negative Bedside Urine Leukocytes - Negative Esterase Imaging Data CT scan - abdomen/pelvis: Radiologist's Impression: PROCEDURE: CT ABDOMEN PELVIS W CON INDICATIONS: R side abdomen and flank pain TECHNIQUE: After the administration of intravenous contrast, axial sections acquired from the lung bases to the pubic symphysis. Coronal and sagittal reformats were performed. For radiation dose reduction, the following was used: automated exposure control, adjustment of mA and/or kV according to patient size. COMPARISON: [facility], CT, CT ANGIO CHEST ABDOMEN PELVIS, 09/02/2022, 10:04. [facility], CT, CT ABDOMEN PELVIS W CON, 04/10/2022, 20:26. FINDINGS: Image quality: Diagnostic. Lower Chest: No significant findings. ABDOMEN: Liver: No solid mass. Gallbladder: Cholecystectomy. Biliary ducts: No biliary dilation. Pancreas: No ductal dilation. Spleen: Size is within normal limits. Adrenal Glands: No adrenal nodules. Kidneys and Ureters: No hydronephrosis. No solid mass. No complex renal cystic lesion which requires follow up. Stomach and Bowel: A normal appendix is seen, as on series 2, image 57. No right lower quadrant phlegm a magy change can be seen. Scattered areas of moderate colonic wall thickening can be seen, with mild surrounding inflammatory change. No dilated loops of small bowel are seen. The stomach demonstrates no significant abnormality. Peritoneum: No peritoneal abscess is seen. No abnormal intraperitoneal fluid. No free air. Ventral Wall: No significant ventral hernia. Abdominal Nodes: No retroperitoneal or mesenteric adenopathy by size criteria. Vessels: Aorta and inferior vena cava are normal in size. PELVIS: Pelvic Organs: This patient is status post hysterectomy. No adnexal masses are seen. Bladder: No bladder wall thickening, accounting for underdistention. Pelvic Nodes: No enlarged lymph nodes. Miscellaneous: No inguinal hernias are seen. Bones: No aggressive osseous abnormality. IMPRESSION: Normal appendix. Moderate scattered areas of colonic wall thickening can be seen. Please consider colitis. MDM Narrative Medical decision making narrative: Patient has a benign exam. Labs are unremarkable. CT scan shows nondescript colitis although she has not having any vomiting nor diarrhea. There was no indication for antibiotics. No indication for surgical consultation. Discuss this with the patient. Advised that she contact her primary doctor for referral to have colonoscopy. She was given return precautions. Discharge Plan Departure Patient Disposition: Home Clinical Impression: Abdominal pain, Colitis Instructions: DI for Abdominal Pain-Adult, DI for Colitis Activity Restrictions/Additional Instructions: Recommend that you talk with your primary doctor about a referral to have a colonoscopy. Until then I recommend a bland diet while you were having discomfort. You then can advance it as tolerated. Also recommend that you try a reflux medications such as famotidine/Pepcid. This is a medication that you can purchase [id number]. Return to the emergency department for new symptoms Prescriptions: No Action CA PANTOTHENATE/FOLIC ACID/VIT (MULTIVITAMIN) 1 tab PO QDAY Qty: 0 hydrochlorothiazide 12.5 mg tablet 25 mg PO QDAY Qty: 0 propranolol 40 mg Tablet 40 mg DAILY Rx Instructions: PT UNSURE OF DOSE Referrals: Kerrie Langford MD [Primary Care Provider] - Stand Alone Forms: Patient Portal/API
[2023-08-09 11:58] LABS: Add Manual Diff / Slide Review NO; Basophils Absolute Auto 0 /uL (0-100); Basophils Percent Auto 0.7 % (0-2); Eosinophils Absolute Auto 100 /uL (0-450); Eosinophils Percent Auto 1.5 % (2-4); Hematocrit 39.3 % (36-46); Hemoglobin 13.3 g/dL (12.0-16.0); Lymphocytes Absolute Auto 1300 /uL (1100-4500); Lymphocytes Percent Auto 34.9 % (25-40); Mean Corpuscular HGB Conc 33.8 % (30-36); Mean Corpuscular Hemoglobin 29.2 PG (26-34); Mean Corpuscular Volume 86.3 fL (80-100); Monocytes Absolute Auto 400 /uL (0-900); Monocytes Percent Auto 10.2 % (3-14); Neutrophils Absolute Auto 2000 /uL (1500-7000); Neutrophils Percent Auto 52.7 % (50-75); Platelet Count 221 X10^3/uL (150-400); Red Blood Cell Count 4.55 X10^6/uL (4.0-5.2); Red Cell Distribution Width 13.4 % (11.6-14.8); White Blood Cell Count 3.8 X10^3/uL (4.5-11.0)
[2023-08-09 12:10] LABS: Alanine Aminotransferase 19 IU/L (<35); Albumin 3.9 g/dL (3.5-5.0); Albumin Globulin Ratio 1.1 (1.0-2.8); Alkaline Phosphatase 74 U/L (38-126); Aspartate Aminotransferase 25 IU/L (14-36); BUN Creatinine Ratio 21.6 (6-22); Bilirubin Total 1.1 mg/dL (0.2-1.3); Blood Urea Nitrogen 16 mg/dL (7-17); Calcium 9.2 mg/dL (8.4-10.2); Carbon Dioxide 31 mmol/L (22-32); Chloride 101 mmol/L (98-107); Estimated Glomerular Filt Rate > 60 mL/min (>60); Globulin 3.5 g/dL (1.7-4.1); Glucose 95 mg/dL (80-110); HEMOLYSIS < 15 (0-50); Lipase 101 U/L (23-300); Potassium 3.6 mmol/L (3.4-5.1); Sodium 136 mmol/L (137-145); Total Protein 7.4 g/dL (6.3-8.2)
[2023-08-09 12:12] LABS: Amorphous Sediment Urine 1+; Bacteria Urine None Seen; Culture Indicated Urine Cult Not Indicated; RBC Urine 0-1/HPF (0-5/HPF); Squamous Epithelial Cell Urine None Seen (0-5/HPF); Urine Volume 10mL (spun); WBC Urine None Seen (0-5/HPF)
== END 2023-08-09 14:01 | disposition home or self-care (01) ==
PROVIDERS: Emergency Provider Emergency Medicine; PCP Student in an Organized Health Care Education/Training Program
DX: K52.9 Noninfective gastroenteritis and colitis, unspecified (principal); R10.9 Unspecified abdominal pain
CPT/HCPCS: 36415; 74177; 80053; 81003; 81015; 83690; 85025; 99284; Q9967

== ENCOUNTER 2023-09-27 19:25 | Emergency (ER) | payer OTHER, SELFPAY ==
[2023-09-27 19:32] VITALS: BP 161/83; PULSE 68; RESP 16; TEMP 36.9; O2SAT 99; BMI 25.2
--- NOTE | 2023-09-27 19:41 | ED_ITS ---
HPI - Neuro Symptoms/Deficit General Chief Complaint: Neuro Symptoms/Deficit Stated Complaint: nubness and tingling in face neck and shoulder Time Seen by Provider: 09/27/23 19:27 Source: patient Mode of arrival: Ambulatory History of Present Illness HPI Narrative: Patient is a 63-year-old female who stated that approximately 1 week ago she developed pain in her left evangelical. It lasted several days and then completely resolved. A couple days ago she started noticing pain on the right side of face. She also has right shoulder pain. No chest pain or shortness of breath. States it feels like the right side of her face has ?Novocain? in it. No vision changes. No problems swallowing. The right shoulder pain is tender to palpation. Problems swallowing or seeing. No headache. Has not tried anything for symptoms prior to arrival. On Anticoagulants: No Related Data Home Medications Medication Instructions Recorded Confirmed CA PANTOTHENATE/FOLIC ACID/VIT 1 tab PO QDAY ##0 01/25/13 08/28/22 (MULTIVITAMIN) hydrochlorothiazide 12.5 mg tablet 25 mg PO QDAY #0 tabs 11/18/18 08/28/22 propranolol 40 mg tablet 40 mg DAILY 08/18/22 08/28/22 Previous Rx's Medication Instructions Recorded cyclobenzaprine 10 mg tablet 10 mg PO TID PRN muscle spasm #20 09/27/23 tabs Allergies Allergy/AdvReac Type Severity Reaction Status Date / Time levofloxacin [LEVOFLOXACIN] AdvReac Mild CAN'T LIFT Verified 09/27/23 19:32 ARMS AFTERWARD ciprofloxacin [CIPROFLOXACIN] AdvReac Unknown LEG PAIN Verified 09/27/23 19:32 Review of Systems Review of Systems Narrative: See HPI Hematologic/Lymphatic On Anticoagulants: No Patient History Medical History Breast cancer Chronic mixed headache syndrome Dyspepsia LVH (left ventricular hypertrophy) Hypertension Surgical History Status post hysterectomy History of total mastectomy Family History Father Diabetes mellitus Heart disease Hypertension High cholesterol Grandfather Diabetes mellitus Hypertension High cholesterol Grandmother Diabetes mellitus Mother Diabetes mellitus Heart disease Hypertension Social History (Reviewed 09/28/23 @ 01:17 by ALO Vizcaino Smoking Status: Never smoker Smoking Status: Never smoker alcohol intake frequency: holidays/special occasions only Substance Use Type: does not use Exam Initial Vital Signs Initial Vital Signs: Vital Signs Temperature 98.4 F 09/27/23 19:32 Pulse Rate 68 09/27/23 19:32 Respiratory Rate 16 09/27/23 19:32 Blood Pressure 161/83 H 09/27/23 19:32 Pulse Oximetry 99 09/27/23 19:32 Oxygen Delivery Method Room Air 09/27/23 19:32 Const General: cooperative, comfortable and No ill appearing HENMT Head: normal to inspection and normocephalic Nose: external nose normal Face and sinus: normal facial exam Mouth: oral mucosae normal HENMT Other: No tenderness to palpation over the right temporal artery or the left temporal artery. Eyes Periorbital: periorbital findings normal Conjunctivae: conjunctivae normal Pupils: PERRL EOM: EOM intact bilaterally Resp Effort & Inspection: normal respiratory effort Auscultation: clear to auscultation bilaterally Cardio Rate: regular rate Rhythm: regular rhythm GI Inspection: normal to inspection and non-distended Back/Spine/Pelvis Other: Patient with reproducible tenderness to palpation over the right trapezius muscle. With a fullness in his muscle as well. Skin General: no rashes or lesions noted Neuro General: patient alert, patient awake, patient oriented x3 and moves all extremities Cognition: normal cognition Speech: speech normal Other: Cranial nerves intact except for subjective decreased sensation to light touch in the right side of the face. Extrem General: capillary refill normal Course Orders Ordered: ED Orders 09/27/23 19:53 Basic Metabolic Panel Stat C-Reactive Protein Quant Stat Complete Blood Count AUTO DIFF Stat Erythrocyte Sedimentation Rate Stat Discontinued Medications Cyclobenzaprine HCl (Cyclobenzaprine 10 Mg Prepack) 1 bottle MISC DIRECTED ONE Stop: 09/27/23 21:00 Last Admin: 09/27/23 21:18 Dose: 1 bottle Documented By: CARMELITA Ketorolac Tromethamine (Ketorolac 30 Mg/Ml Vial) 30 mg IM NOW ONE Stop: 09/27/23 21:00 Last Admin: 09/27/23 21:18 Dose: 30 mg Documented By: CARMELITA Vital Signs Vital signs: Vital Signs - 8 hr 09/27/23 19:32 Temperature 98.4 F Pulse Rate 68 Respiratory Rate 16 Blood Pressure 161/83 H Pulse Oximetry 99 Oxygen Delivery Method Room Air MDM - Neuro Symptoms/Deficit Lab Data Attestation: I reviewed the patient's lab results. 09/27/23 19:53 09/27/23 19:53 Labs: Lab Results 09/27/23 Range/Units 19:53 WBC 4.8 (4.5-11.0) X10^3/uL RBC 4.56 (4.0-5.2) X10^6/uL Hgb 13.5 (12.0-16.0) g/dL Hct 39.6 (36-46) % MCV 86.7 (80-100) fL MCH 29.6 (26-34) PG MCHC 34.1 (30-36) % RDW 13.0 (11.6-14.8) % Plt Count 247 (150-400) X10^3/uL Neut % (Auto) 50.1 (50-75) % Lymph % (Auto) 38.4 (25-40) % Grainger % (Auto) 9.3 (3-14) % Eos % (Auto) 1.7 L (2-4) % Baso % (Auto) 0.5 (0-2) % Neut # (Auto) 2400 (6318-2435) /uL Lymph # (Auto) 1800 (5739-3749) /uL Grainger # (Auto) 400 (0-900) /uL Eos # (Auto) 100 (0-450) /uL Baso # (Auto) 0 (0-100) /uL ESR 8 (0-20) MM/HR Sodium 139 (137-145) mmol/L Potassium 4.0 (3.4-5.1) mmol/L Chloride 101 (98-107) mmol/L Carbon Dioxide 32 (22-32) mmol/L BUN 22 H (7-17) mg/dL Creatinine 0.75 (0.52-1.04) mg/dL Estimated GFR > 60 (>60) mL/min BUN/Creatinine Ratio 29.3 H (6-22) Glucose 103 (80-110) mg/dL Calcium 9.6 (8.4-10.2) mg/dL C-Reactive Protein < 0.5 (<1.0) mg/dL MDM Narrative Medical decision making narrative: Low suspicion for ACS or CVA. Low suspicion for TIA. Labs unremarkable. ESR and CRP negative. She has no vision changes. Low suspicion for temporal arteritis. No dental pain. She does have fullness to the right trapezius muscle with tenderness to palpation over this area. No skin changes. Symptoms on for the past couple days no indication for radiologic studies based on her physical exam today. Will try muscle relaxers. Also has tried conservative measures to include anti-inflammatories. Will have her contact her primary doctor for follow-up. She expressed understanding and agreement with plan. Discharge Plan Departure Patient Disposition: Home Clinical Impression: Strain of right trapezius muscle, Facial paresthesia Instructions: DI for Muscle Strain Activity Restrictions/Additional Instructions: I do recommend that you continue with conservative measures to include Tylenol/ibuprofen and also massage and light stretching. You can use the muscle relaxers as needed. Contact your primary care doctor for a follow-up. Return to the emergency department for new symptoms. Prescriptions: New cyclobenzaprine 10 mg tablet 10 mg PO TID PRN (Reason: muscle spasm) Qty: 20 0RF No Action CA PANTOTHENATE/FOLIC ACID/VIT (MULTIVITAMIN) 1 tab PO QDAY Qty: 0 hydrochlorothiazide 12.5 mg tablet 25 mg PO QDAY Qty: 0 propranolol 40 mg Tablet 40 mg DAILY Rx Instructions: PT UNSURE OF DOSE Referrals: Kerrie Langford MD [Primary Care Provider] - Stand Alone Forms: Patient Portal/API
[2023-09-27 19:58] LABS: Add Manual Diff / Slide Review NO; Basophils Absolute Auto 0 /uL (0-100); Basophils Percent Auto 0.5 % (0-2); Eosinophils Absolute Auto 100 /uL (0-450); Eosinophils Percent Auto 1.7 % (2-4); Hematocrit 39.6 % (36-46); Hemoglobin 13.5 g/dL (12.0-16.0); Lymphocytes Absolute Auto 1800 /uL (1100-4500); Lymphocytes Percent Auto 38.4 % (25-40); Mean Corpuscular HGB Conc 34.1 % (30-36); Mean Corpuscular Hemoglobin 29.6 PG (26-34); Mean Corpuscular Volume 86.7 fL (80-100); Monocytes Absolute Auto 400 /uL (0-900); Monocytes Percent Auto 9.3 % (3-14); Neutrophils Absolute Auto 2400 /uL (1500-7000); Neutrophils Percent Auto 50.1 % (50-75); Platelet Count 247 X10^3/uL (150-400); Red Blood Cell Count 4.56 X10^6/uL (4.0-5.2); White Blood Cell Count 4.8 X10^3/uL (4.5-11.0)
[2023-09-27 20:14] LABS: BUN Creatinine Ratio 29.3 (6-22); Blood Urea Nitrogen 22 mg/dL (7-17); C-Reactive Protein Quant < 0.5 mg/dL (<1.0); Calcium 9.6 mg/dL (8.4-10.2); Carbon Dioxide 32 mmol/L (22-32); Chloride 101 mmol/L (98-107); Estimated Glomerular Filt Rate > 60 mL/min (>60); Glucose 103 mg/dL (80-110); HEMOLYSIS < 15 (0-50); Sodium 139 mmol/L (137-145)
[2023-09-27 20:31] LABS: Erythrocyte Sedimentation Rate 8 MM/HR (0-20)
[2023-09-27] MEDS: KETOROLAC 30 MG/ML VIAL IM (21:18)
[2023-09-27] MEDS: CYCLOBENZAPRINE 10 MG PREPACK 1 BOTTLE MISC (21:18)
== END 2023-09-27 21:23 | disposition home or self-care (01) ==
PROVIDERS: Emergency Provider Emergency Medicine; PCP Student in an Organized Health Care Education/Training Program
DX: S29.012A Strain of muscle and tendon of back wall of thorax, initial encounter (principal); R20.2 Paresthesia of skin
CPT/HCPCS: 36415; 80048; 85025; 85651; 86140; 96372; 99283; J1885

== ENCOUNTER 2024-01-27 17:10 | Emergency (ER) | payer OTHER, SELFPAY ==
[2024-01-27] VITALS (11 sets, daily range): BP systolic 150–175; BP diastolic 70–83; PULSE 58–71; RESP 13–21; TEMP 36.9; O2SAT 99–100; BMI 25.2
--- NOTE | 2024-01-27 17:24 | EKG_ITS ---
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
[2024-01-27 17:53] LABS: Add Manual Diff / Slide Review NO; Basophils Absolute Auto 0 /uL (0-100); Basophils Percent Auto 0.8 % (0-2); Eosinophils Absolute Auto 100 /uL (0-450); Eosinophils Percent Auto 1.5 % (2-4); Hematocrit 39.6 % (36-46); Hemoglobin 13.3 g/dL (12.0-16.0); Lymphocytes Absolute Auto 1800 /uL (1100-4500); Lymphocytes Percent Auto 31.3 % (25-40); Mean Corpuscular HGB Conc 33.5 % (30-36); Mean Corpuscular Hemoglobin 29.4 PG (26-34); Mean Corpuscular Volume 87.6 fL (80-100); Monocytes Absolute Auto 500 /uL (0-900); Monocytes Percent Auto 9.5 % (3-14); Neutrophils Absolute Auto 3200 /uL (1500-7000); Neutrophils Percent Auto 56.9 % (50-75); Platelet Count 233 X10^3/uL (150-400); Red Blood Cell Count 4.52 X10^6/uL (4.0-5.2); Red Cell Distribution Width 13.1 % (11.6-14.8); White Blood Cell Count 5.7 X10^3/uL (4.5-11.0)
[2024-01-27 18:03] LABS: Alanine Aminotransferase 17 IU/L (<35); Albumin 4.1 g/dL (3.5-5.0); Albumin Globulin Ratio 1.3 (1.0-2.8); Alkaline Phosphatase 66 U/L (38-126); Aspartate Aminotransferase 25 IU/L (14-36); BUN Creatinine Ratio 22.8 (6-22); Bacteria Urine Occasional (0-1); Blood Urea Nitrogen 18 mg/dL (7-17); Calcium 8.7 mg/dL (8.4-10.2); Calcium Oxalate Crystals Urine Many; Carbon Dioxide 27 mmol/L (22-32); Chloride 108 mmol/L (98-107); Culture Indicated Urine Specimen Cultured; Estimated Glomerular Filt Rate > 60 mL/min (>60); Globulin 3.1 g/dL (1.7-4.1); Glucose 90 mg/dL (80-110); HEMOLYSIS < 15 (0-50); Lipase 83 U/L (23-300); Mucus Urine 1+ (Negative); Potassium 3.8 mmol/L (3.4-5.1); RBC Urine 0-1/HPF (0-5/HPF); Sodium 141 mmol/L (137-145); Squamous Epithelial Cell Urine 0-1 /HPF (0-5/HPF); Total Protein 7.2 g/dL (6.3-8.2); Urine Volume 10mL (spun); WBC Urine 0-1/HPF (0-5/HPF)
--- NOTE | 2024-01-27 18:04 | ED_ITS ---
HPI - Abdominal Pain General Chief Complaint: Abdominal Pain Stated Complaint: upper abd pain moving to rt side Time Seen by Provider: 01/27/24 17:58 Source: patient Mode of arrival: Ambulatory History of Present Illness HPI narrative: 63-year-old female with history of cholecystectomy October 2022, no known ulcers, prior endoscopy couple of years ago, now with 2 weeks' duration epigastric pain wrapping around to the right side into the right back, increased last few days. No injury or trauma. No new activities. Denies nausea or vomiting. Denies black or red stools. Pain sometimes better with food. Not particularly changed with upright versus supine position. No change with bowel movements. No loose stools. She has not tried any antacid therapies. Not responsive to codr-lrh-jbdgshu medications. Denies history of known kidney stones, pancreatitis, ulcers. Related Data Home Medications Medication Instructions Recorded Confirmed CA PANTOTHENATE/FOLIC ACID/VIT 1 tab PO QDAY ##0 01/25/13 08/28/22 (MULTIVITAMIN) hydrochlorothiazide 12.5 mg tablet 25 mg PO QDAY #0 tabs 11/18/18 08/28/22 propranolol 40 mg tablet 40 mg DAILY 08/18/22 08/28/22 Previous Rx's Medication Instructions Recorded cyclobenzaprine 10 mg tablet 10 mg PO TID PRN muscle spasm #20 09/27/23 tabs omeprazole 20 mg capsule,delayed 20 mg PO DAILY upper abdominal 01/27/24 release pain 30 days #30 caps Allergies Allergy/AdvReac Type Severity Reaction Status Date / Time levofloxacin [LEVOFLOXACIN] AdvReac Mild CAN'T LIFT Verified 09/27/23 19:32 ARMS AFTERWARD ciprofloxacin [CIPROFLOXACIN] AdvReac Unknown LEG PAIN Verified 09/27/23 19:32 Review of Systems Review of Systems Narrative: see HPI Patient History Medical History (Updated 01/27/24 @ 21:13 by Tolu Sepulveda MD) Breast cancer Chronic mixed headache syndrome Dyspepsia LVH (left ventricular hypertrophy) Hypertension Surgical History Status post hysterectomy History of total mastectomy Family History Father Diabetes mellitus Heart disease Hypertension High cholesterol Grandfather Diabetes mellitus Hypertension High cholesterol Grandmother Diabetes mellitus Mother Diabetes mellitus Heart disease Hypertension Social History Smoking Status: Never smoker Smoking Status: Never smoker alcohol intake frequency: holidays/special occasions only Substance Use Type: does not use Exam Narrative Exam Narrative: GENERAL: Well-developed patient, in mild distress. HEAD: Atraumatic. Normocephalic. EYES: Pupils equal round and reactive. Extraocular motions intact. No scleral icterus. No injection or drainage. ENT: Nose without bleeding, purulent drainage. Throat without erythema, tonsillar hypertrophy or exudate. Airway patent. NECK: Trachea midline. Non tender CARDIOVASCULAR: Regular rate and rhythm without murmurs, gallops, or rubs. RESPIRATORY: Clear to auscultation. Breath sounds equal bilaterally. No wheezes, rales, or rhonchi. GASTROINTESTINAL: Abdomen soft, mild tenderness epigastrium, no tenderness right upper quadrant, nondistended. Nondistended. No guarding or rebound tenderness. EXTREMITIES: No edema or joint tenderness. BACK: Nontender without deformity or crepitance. No flank tenderness. NEURO: AOx3. SKIN: No rash or erythema of visible areas Initial Vital Signs Initial Vital Signs: Vital Signs Temperature 98.4 F 01/27/24 17:16 Pulse Rate 69 01/27/24 17:16 Respiratory Rate 16 01/27/24 17:16 Blood Pressure 175/83 H 01/27/24 17:16 Pulse Oximetry 99 01/27/24 17:16 Oxygen Delivery Method Room Air 01/27/24 17:16 Course Orders Ordered: ED Orders 01/27/24 19:23 CT abdomen pelvis w con Stat Discontinued Medications Famotidine (Famotidine 20 Mg/2 Ml Vial) 20 mg IV NOW ANGELA Last Admin: 01/27/24 20:39 Dose: 20 mg Documented By: BRITTNEY Ondansetron HCl (Ondansetron 4 Mg/2 Ml Inj) 4 mg IV NOW PRN PRN Reason: Nausea And Vomiting Vital Signs Vital signs: Vital Signs - 8 hr 01/27/24 19:00 01/27/24 19:00 01/27/24 19:30 Pulse Rate 61 71 Respiratory Rate 18 20 Blood Pressure 166/81 H Pulse Oximetry 100 100 01/27/24 19:30 01/27/24 20:00 01/27/24 20:30 Pulse Rate 69 66 Respiratory Rate 20 18 Blood Pressure 161/78 H Pulse Oximetry 100 99 01/27/24 20:44 01/27/24 20:44 01/27/24 21:00 Pulse Rate 71 70 Respiratory Rate 21 13 Blood Pressure 174/79 H Pulse Oximetry 100 99 01/27/24 21:00 Pulse Rate Respiratory Rate Blood Pressure 162/70 H Pulse Oximetry MDM - Abdominal Pain Lab Data Attestation: I reviewed the patient's lab results. 01/27/24 17:35 01/27/24 17:35 Labs: Lab Results 01/27/24 Range/Units 17:35 WBC 5.7 (4.5-11.0) X10^3/uL RBC 4.52 (4.0-5.2) X10^6/uL Hgb 13.3 (12.0-16.0) g/dL Hct 39.6 (36-46) % MCV 87.6 (80-100) fL MCH 29.4 (26-34) PG MCHC 33.5 (30-36) % RDW 13.1 (11.6-14.8) % Plt Count 233 (150-400) X10^3/uL Neut % (Auto) 56.9 (50-75) % Lymph % (Auto) 31.3 (25-40) % Dare % (Auto) 9.5 (3-14) % Eos % (Auto) 1.5 L (2-4) % Baso % (Auto) 0.8 (0-2) % Neut # (Auto) 3200 (3178-0213) /uL Lymph # (Auto) 1800 (8861-2051) /uL Dare # (Auto) 500 (0-900) /uL Eos # (Auto) 100 (0-450) /uL Baso # (Auto) 0 (0-100) /uL Sodium 141 (137-145) mmol/L Potassium 3.8 (3.4-5.1) mmol/L Chloride 108 H (98-107) mmol/L Carbon Dioxide 27 (22-32) mmol/L BUN 18 H (7-17) mg/dL Creatinine 0.79 (0.52-1.04) mg/dL Estimated GFR > 60 (>60) mL/min BUN/Creatinine Ratio 22.8 H (6-22) Glucose 90 (80-110) mg/dL Calcium 8.7 (8.4-10.2) mg/dL Total Bilirubin 1.0 (0.2-1.3) mg/dL AST 25 (14-36) IU/L ALT 17 (<35) IU/L Alkaline Phosphatase 66 (38-126) U/L Total Protein 7.2 (6.3-8.2) g/dL Albumin 4.1 (3.5-5.0) g/dL Globulin 3.1 (1.7-4.1) g/dL Albumin/Globulin Ratio 1.3 (1.0-2.8) Lipase 83 (23-300) U/L Urine RBC 0-1/hpf (0-5/HPF) Urine WBC 0-1/hpf (0-5/HPF) Ur Squamous Epith Cells 0-1 /hpf (0-5/HPF) Calcium Oxalate Crystal Many H Urine Bacteria Occasional (0-1) (None) Urine Mucus 1+ H (Negative) Ur Culture Indicated? Specimen cultured Vol Urine Centrifuged 10ml (spun) Point of care testing: Urine Dip Bedside Urine Glucose Negative Bedside Urine Bilirubin - Negative Bedside Urine Ketone +/- 5 Urine Specific Calypso 1.030 Bedside Urine Occult Blood + Bedside Urine pH 5.5 Bedside Urine Protein +/- 15 Bedside Urine Urobilinogen - Negative Bedside Urine Nitrite - Negative Bedside Urine Leukocytes +/- [address] scan - abdomen/pelvis: Radiologist's Impression: [address] [address] [address] Scan Report Signed Patient: Krystal Kaminski MR#: [id number] : 1960 Acct:[id number] Age/Sex: 63 / F Date of Service: 01/27/24 Loc: ED Accession Number: [id number] Procedure: CT abdomen pelvis w con Ordering Provider: Tolu Sepulveda MD PROCEDURE: CT ABDOMEN PELVIS W CON INDICATIONS: R flank/RUQ/Epig pain TECHNIQUE: After the administration of intravenous contrast, axial sections acquired from the lung bases to the pubic symphysis. Coronal and sagittal reformats were performed. For radiation dose reduction, the following was used: automated exposure control, adjustment of mA and/or kV according to patient size. COMPARISON: None. FINDINGS: Image quality: Diagnostic. Lower Chest: No significant findings. ABDOMEN: Liver: No solid mass. Gallbladder: Gallbladder is surgically absent. Biliary ducts: No biliary dilation. Pancreas: No ductal dilation. Spleen: Size is within normal limits. Adrenal Glands: No adrenal nodules. Kidneys and Ureters: No hydronephrosis. No solid mass. No complex renal cystic lesion which requires follow up. Stomach and Bowel: There is suggestion of distal esophageal wall thickening. There is no bowel obstruction. No abnormal bowel wall thickening or mesenteric fat stranding. Mild fecal stasis in the colon is seen. Appendix is not visualized. No inflammatory changes are seen in right lower quadrant abdomen. Peritoneum: No abnormal intraperitoneal fluid. No free air. Ventral Wall: No significant ventral hernia. Abdominal Nodes: No retroperitoneal or mesenteric adenopathy by size criteria. Vessels: Aorta and inferior vena cava are normal in size. PELVIS: Pelvic Organs: Unremarkable. Bladder: No bladder wall thickening, accounting for underdistention. Pelvic Nodes: No enlarged lymph nodes. Miscellaneous: No inguinal hernias are seen. Bones: No aggressive osseous abnormality. IMPRESSION: 1. Distal esophageal wall thickening concerning for esophagitis. No bowel obstruction. No other area of abnormal bowel wall thickening. No free fluid or free air. 2. No renal stones or hydronephrosis. 3. Gallbladder is surgically absent. No biliary ductal dilatation. Dictated by: Sergey Talamantes M.D. on 01/27/2024 at 20:07 Approved by: Sergey Talamantes M.D. on 01/27/2024 at 20:09 [facility] Narrative Medical decision making narrative: 63-year-old female with history of remote cholecystectomy, prior negative upper endoscopy, with epigastric and right upper quadrant and right flank pain for the last 2 weeks, increasing last few days. No known history of kidney stones. No fevers or chills. Afebrile, sirs screen negative. Not particularly tender on exam, but increasing pain symptoms on unclear cause. DX consider peptic ulcer, gastritis, gastroesophageal reflux, esophagitis, choledocholithiasis, UTI, pyelonephritis, colitis, diverticulitis, ureteral stone, other. Screening labs showed normal white blood cell count, normal renal function, LFTs unremarkable. Urinalysis not obvious for infection but does show some calcium oxalate crystals, consider ureteral stone. CT abdomen and pelvis ordered. Patient declines pain medications for now. IV Pepcid pending imaging results CT abdomen and pelvis shows surgically absent gallbladder, unremarkable biliary ducts, some thickening esophagitis changes to the distal esophagus. Patient given copy of the report. Encouraged to try a trial of regular antacid, prescription omeprazole sent to pharmacy. Consider upper endoscopy, might need biopsy for thickening to rule out neoplastic change. Return precautions discussed Discharge Plan Departure Patient Disposition: Home Clinical Impression: Acute upper abdominal pain, Esophagitis Instructions: DI for Gastroesophageal Reflux Disease (GERD), DI for Abdominal Pain-Adult Activity Restrictions/Additional Instructions: Upper middle and right-sided abdominal pain, history of remote gallbladder surgical removal. No fever. Unremarkable screening labs. CT abdomen and pelvis showed esophageal thickening inflammatory change, consistent with esophagitis, no other acute changes, this may be the source of your upper abdominal discomfort. Trial of omeprazole antacid suggested. Consider upper endoscopy in case a biopsy is needed to make sure this is not a cancer like change of thickening. Recheck symptoms next few days with your regular doctor, consider referral for upper endoscopy. Return to this/nearest emergency department for any change worsening symptoms or any concerns prior Prescriptions: New omeprazole 20 mg capsule,delayed release(DR/EC) 20 mg PO DAILY 30 Days Qty: 30 0RF No Action CA PANTOTHENATE/FOLIC ACID/VIT (MULTIVITAMIN) 1 tab PO QDAY Qty: 0 hydrochlorothiazide 12.5 mg tablet 25 mg PO QDAY Qty: 0 propranolol 40 mg Tablet 40 mg DAILY Rx Instructions: PT UNSURE OF DOSE cyclobenzaprine 10 mg tablet 10 mg PO TID PRN (Reason: muscle spasm) Qty: 20 0RF Referrals: Kerrie Langford MD [Primary Care Provider] - Stand Alone Forms: Patient Portal/API
--- NOTE | 2024-01-27 19:23 | DI.CT.S_ITS ---
PROCEDURE: CT ABDOMEN PELVIS W CON INDICATIONS: R flank/RUQ/Epig pain TECHNIQUE: After the administration of intravenous contrast, axial sections acquired from the lung bases to the pubic symphysis. Coronal and sagittal reformats were performed. For radiation dose reduction, the following was used: automated exposure control, adjustment of mA and/or kV according to patient size. COMPARISON: None. FINDINGS: Image quality: Diagnostic. Lower Chest: No significant findings. ABDOMEN: Liver: No solid mass. Gallbladder: Gallbladder is surgically absent. Biliary ducts: No biliary dilation. Pancreas: No ductal dilation. Spleen: Size is within normal limits. Adrenal Glands: No adrenal nodules. Kidneys and Ureters: No hydronephrosis. No solid mass. No complex renal cystic lesion which requires follow up. Stomach and Bowel: There is suggestion of distal esophageal wall thickening. There is no bowel obstruction. No abnormal bowel wall thickening or mesenteric fat stranding. Mild fecal stasis in the colon is seen. Appendix is not visualized. No inflammatory changes are seen in right lower quadrant abdomen. Peritoneum: No abnormal intraperitoneal fluid. No free air. Ventral Wall: No significant ventral hernia. Abdominal Nodes: No retroperitoneal or mesenteric adenopathy by size criteria. Vessels: Aorta and inferior vena cava are normal in size. PELVIS: Pelvic Organs: Unremarkable. Bladder: No bladder wall thickening, accounting for underdistention. Pelvic Nodes: No enlarged lymph nodes. Miscellaneous: No inguinal hernias are seen. Bones: No aggressive osseous abnormality. IMPRESSION: 1. Distal esophageal wall thickening concerning for esophagitis. No bowel obstruction. No other area of abnormal bowel wall thickening. No free fluid or free air. 2. No renal stones or hydronephrosis. 3. Gallbladder is surgically absent. No biliary ductal dilatation. Dictated by: Sergey Talamantes M.D. on 01/27/2024 at 20:07 Approved by: Sergey Talamantes M.D. on 01/27/2024 at 20:09
[2024-01-27] MEDS: FAMOTIDINE 20 MG/2 ML VIAL IV (20:39)
== END 2024-01-27 21:20 | disposition home or self-care (01) ==
PROVIDERS: Emergency Medicine; Emergency Provider Emergency Medicine; PCP Student in an Organized Health Care Education/Training Program
DX: R10.11 Right upper quadrant pain (principal); R10.13 Epigastric pain
CPT/HCPCS: 36415; 74177; 80053; 81003; 81015; 83690; 85025; 87086; 93005; 96374; 99284

== ENCOUNTER 2024-09-05 15:45 | Emergency (ER) | payer OTHER, SELFPAY ==
[2024-09-05 15:56] VITALS: BP 202/94; PULSE 71; RESP 17; TEMP 36.6; O2SAT 99; BMI 25.2
--- NOTE | 2024-09-05 15:56 | DI.RAD.S_ITS ---
PROCEDURE: XR CHEST 1V INDICATIONS: chest pain TECHNIQUE: One view of the chest was acquired. COMPARISON: [facility], CR, XR CHEST 1V, 10/17/2022, 12:34. [facility], CR, XR CHEST 1V, 03/30/2022, 11:59. FINDINGS: Surgical changes and devices: None. Lungs and pleura: Lungs are clear. No pleural effusions or pneumothorax. Mediastinum: Mediastinal contours appear normal. Heart size is normal. Bones and chest wall: No suspicious bony lesions. Overlying soft tissues appear unremarkable. IMPRESSION: No acute cardiopulmonary abnormality is seen. Dictated by: Willem Cisneros M.D. on 09/05/2024 at 16:34 Approved by: Willem Cisneros M.D. on 09/05/2024 at 16:34
--- NOTE | 2024-09-05 15:56 | EKG_ITS ---
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
[2024-09-05 16:00] VITALS: BP 179/81; PULSE 59; RESP 16; O2SAT 100
[2024-09-05] MEDS: ASPIRIN 81 MG CHEW TAB 324 MG PO (16:05)
[2024-09-05 16:07] LABS: Add Manual Diff / Slide Review NO; Basophils Absolute Auto 0 /uL (0-100); Basophils Percent Auto 0.8 % (0-2); Eosinophils Absolute Auto 100 /uL (0-450); Hematocrit 40.9 % (36-46); Hemoglobin 13.7 g/dL (12.0-16.0); Lymphocytes Absolute Auto 1700 /uL (1100-4500); Lymphocytes Percent Auto 36.3 % (25-40); Mean Corpuscular HGB Conc 33.4 % (30-36); Mean Corpuscular Hemoglobin 29.2 PG (26-34); Mean Corpuscular Volume 87.4 fL (80-100); Monocytes Absolute Auto 400 /uL (0-900); Monocytes Percent Auto 7.7 % (3-14); Neutrophils Absolute Auto 2500 /uL (1500-7000); Neutrophils Percent Auto 53.2 % (50-75); Platelet Count 236 X10^3/uL (150-400); Red Blood Cell Count 4.68 X10^6/uL (4.0-5.2); Red Cell Distribution Width 13.2 % (11.6-14.8); White Blood Cell Count 4.6 X10^3/uL (4.5-11.0)
[2024-09-05 16:13] LABS: INR 1.1 (0.9-1.3); Prothrombin Time 12.2 SECONDS (9.4-12.5)
[2024-09-05 16:16] LABS: PTT Partial Thromboplastin Tim 27 SECONDS (25.1-36.5)
[2024-09-05 16:17] LABS: Alanine Aminotransferase 25 IU/L (<35); Albumin 4.6 g/dL (3.5-5.0); Albumin Globulin Ratio 1.3 (1.0-2.8); Alkaline Phosphatase 84 U/L (38-126); Aspartate Aminotransferase 38 IU/L (14-36); Bilirubin Total 0.8 mg/dL (0.2-1.3); Blood Urea Nitrogen 15 mg/dL (7-17); Calcium 9.2 mg/dL (8.4-10.2); Carbon Dioxide 29 mmol/L (22-32); Chloride 102 mmol/L (98-107); Creatine Kinase 190 U/L (30-135); Estimated Glomerular Filt Rate > 60 mL/min (>60); Globulin 3.5 g/dL (1.7-4.1); Glucose 94 mg/dL (80-110); HEMOLYSIS < 15 (0-50); Lipase 80 U/L (23-300); Magnesium 1.8 mg/dL (1.6-2.3); Potassium 3.3 mmol/L (3.4-5.1); Sodium 140 mmol/L (137-145); Total Protein 8.1 g/dL (6.3-8.2)
[2024-09-05 16:28] LABS: NT-proBNP (BNP-Adult 18+) 48 pg/mL (<125); Troponin I < 0.012 ng/mL (0.01-0.034)
[2024-09-05 16:30] VITALS: BP 173/83; PULSE 65; RESP 28; O2SAT 100
--- NOTE | 2024-09-05 16:42 | ED_ITS ---
HPI - Chest Pain General Chief Complaint: Chest Pain Stated Complaint: chest and back pain Time Seen by Provider: 09/05/24 16:11 Source: patient Mode of arrival: Ambulatory History of Present Illness HPI narrative: Patient here with evolving and increasing frequency of left-sided chest pain now substernal chest discomfort pressure achy type. Pain is reproducible on touching the left chest and mid back.. She did try stopping her omeprazole to see if it made any difference but it did not. No exertional chest pain or shortness of breath. No nausea or sweating. Pain is substernal now and radiating to the back. Strong family history of coronary disease, sister of coronary disease and mother had bypass surgery. Related Data Home Medications Medication Instructions Recorded Confirmed hydrochlorothiazide 12.5 mg tablet 12.5 mg PO DAILY 09/05/24 09/05/24 eexomq-lftkybnl-efubaly cap PO 09/05/24 36,000-114,000-180,000 unit capsule,delay rel (Creon) losartan 25 mg tablet 25 mg PO DAILY 09/05/24 09/05/24 Allergies Allergy/AdvReac Type Severity Reaction Status Date / Time Quinolones Allergy Verified 09/05/24 16:03 levofloxacin [LEVOFLOXACIN] AdvReac Mild CAN'T LIFT Verified 09/05/24 15:59 ARMS AFTERWARD ciprofloxacin [CIPROFLOXACIN] AdvReac Unknown LEG PAIN Verified 09/05/24 15:59 Review of Systems Review of Systems Narrative: GENERAL: Negative chills, fatigue, malaise, fever, sweats. HEENT: Negative sinus pain, ear pain, sore throat RESPIRATORY: Negative dyspnea, cough CARDIOVASCULAR: Positive chest pain, negative palpitations GASTROINTESTINAL: Negative vomiting, nausea, abdominal pain : Negative dysuria, frequency, hematuria MUSCULOSKELETAL: Negative muscle or bony pain SKIN: Negative rash, skin lesions NEUROLOGIC: Negative weakness, numbness ROS Unobtainable: All systems reviewed & are unremarkable except as noted in HPI and below Patient History Medical History (Updated 09/05/24 @ 18:32 by Levar Sam MD) Breast cancer Chronic mixed headache syndrome Dyspepsia LVH (left ventricular hypertrophy) Hypertension Surgical History Status post hysterectomy History of total mastectomy Family History Father Diabetes mellitus Heart disease Hypertension High cholesterol Grandfather Diabetes mellitus Hypertension High cholesterol Grandmother Diabetes mellitus Mother Diabetes mellitus Heart disease Hypertension Social History Smoking Status: Never smoker Smoking Status: Never smoker alcohol intake frequency: holidays/special occasions only Exam Narrative Exam Narrative: GENERAL: in no distress, not toxic not dyspneic HEAD: Normocephalic. EYES: Pupils equal round ENT: Mucous membranes moist. NECK: Trachea midline. CARDIOVASCULAR: Regular rate and rhythm, reproducible left pectoral muscle tenderness and interscapular thoracic spine muscular tenderness. RESPIRATORY: Clear to auscultation. Breath sounds equal bilaterally. No wheezes, rales, or rhonchi. GASTROINTESTINAL: Abdomen soft, non-tender EXTREMITIES: No gross deformities. BACK: No flank tenderness. There is reproducible interscapular thoracic spine tenderness but no step-off. NEURO: AOx4. Clear speech SKIN: Warm and dry PSYCH: Not anxious, is cooperative Initial Vital Signs Initial Vital Signs: Vital Signs Temperature 98 F 09/05/24 15:56 Pulse Rate 71 09/05/24 15:56 Respiratory Rate 17 09/05/24 15:56 Blood Pressure 202/94 H 09/05/24 15:56 Pulse Oximetry 99 09/05/24 15:56 Oxygen Delivery Method Room Air 09/05/24 15:56 Course Orders Ordered: Discontinued Medications Aspirin (Aspirin 81 Mg Chew Tab) 324 mg PO NOW ONE Stop: 09/05/24 15:57 Last Admin: 09/05/24 16:05 Dose: 324 mg Documented By: DAJUAN Al Hydrox/Mg Hydrox/Simethicone 20 ml/ Lidocaine HCl 15 ml 0 ml PO NOW ONE Stop: 09/05/24 16:43 Last Admin: 09/05/24 16:54 Dose: 20 ml Documented By: Nitroglycerin (Nitroglycerin Oint 1 Inch/Gm Oint...G.) 1 inch TOP NOW ONE Stop: 09/05/24 16:43 Last Admin: 09/05/24 16:54 Dose: 1 inch Documented By: Vital Signs Vital signs: Vital Signs - 8 hr 09/05/24 15:56 09/05/24 16:00 09/05/24 16:00 Temperature 98 F Pulse Rate 71 59 L Respiratory Rate 17 16 Blood Pressure 202/94 H 179/81 H Pulse Oximetry 99 100 Oxygen Delivery Method Room Air Room Air 09/05/24 16:30 09/05/24 16:30 09/05/24 16:54 Temperature Pulse Rate 65 69 Respiratory Rate 28 H Blood Pressure 173/83 H 173/87 H Pulse Oximetry 100 Oxygen Delivery Method MDM - Chest Pain Lab Data 09/05/24 15:55 09/05/24 15:55 Labs: Lab Results 09/05/24 Range/Units 15:55 WBC 4.6 (4.5-11.0) X10^3/uL RBC 4.68 (4.0-5.2) X10^6/uL Hgb 13.7 (12.0-16.0) g/dL Hct 40.9 (36-46) % MCV 87.4 (80-100) fL MCH 29.2 (26-34) PG MCHC 33.4 (30-36) % RDW 13.2 (11.6-14.8) % Plt Count 236 (150-400) X10^3/uL Neut % (Auto) 53.2 (50-75) % Lymph % (Auto) 36.3 (25-40) % [place] % (Auto) 7.7 (3-14) % Eos % (Auto) 2.0 (2-4) % Baso % (Auto) 0.8 (0-2) % Neut # (Auto) 2500 (9287-3721) /uL Lymph # (Auto) 1700 (2552-2131) /uL [place] # (Auto) 400 (0-900) /uL Eos # (Auto) 100 (0-450) /uL Baso # (Auto) 0 (0-100) /uL PT 12.2 (9.4-12.5) SECONDS INR 1.1 (0.9-1.3) APTT 27 (25.1-36.5) SECONDS Sodium 140 (137-145) mmol/L Potassium 3.3 L (3.4-5.1) mmol/L Chloride 102 (98-107) mmol/L Carbon Dioxide 29 (22-32) mmol/L BUN 15 (7-17) mg/dL Creatinine 0.79 (0.52-1.04) mg/dL Estimated GFR > 60 (>60) mL/min BUN/Creatinine Ratio 19.0 (6-22) Glucose 94 (80-110) mg/dL Calcium 9.2 (8.4-10.2) mg/dL Magnesium 1.8 (1.6-2.3) mg/dL Total Bilirubin 0.8 (0.2-1.3) mg/dL AST 38 H (14-36) IU/L ALT 25 (<35) IU/L Alkaline Phosphatase 84 (38-126) U/L Total Creatine Kinase 190 H (30-135) U/L Troponin I < 0.012 (0.01-0.034) ng/mL NT-Pro-B Natriuret Pep 48 (<125) pg/mL Total Protein 8.1 (6.3-8.2) g/dL Albumin 4.6 (3.5-5.0) g/dL Globulin 3.5 (1.7-4.1) g/dL Albumin/Globulin Ratio 1.3 (1.0-2.8) Lipase 80 (23-300) U/L Imaging Data Chest x-ray: Radiologist's Impression: [address] [address] XRay Report Signed Patient: Krystal Kaminski MR#: [id number] : 1960 Acct:[id number] Age/Sex: 64 / F Date of Service: 09/05/24 Loc: ED Accession Number: [id number] Procedure: XR chest 1V Ordering Provider: Levar Sam MD PROCEDURE: XR CHEST 1V INDICATIONS: chest pain TECHNIQUE: One view of the chest was acquired. COMPARISON: [facility], XR CHEST 1V, 10/17/2022, 12:34. [facility], XR CHEST 1V, 03/30/2022, 11:59. FINDINGS: Surgical changes and devices: None. Lungs and pleura: Lungs are clear. No pleural effusions or pneumothorax. Mediastinum: Mediastinal contours appear normal. Heart size is normal. Bones and chest wall: No suspicious bony lesions. Overlying soft tissues appear unremarkable. IMPRESSION: No acute cardiopulmonary abnormality is seen. Dictated by: Willem Cisneros M.D. on 09/05/2024 at 16:34 Approved by: Willem Cisneros M.D. on 09/05/2024 at 16:34 [facility] Narrative Medical decision making narrative: Patient here with evolving and increasing frequency of left-sided chest pain now substernal chest discomfort pressure achy type. Pain is reproducible on touching the left chest and mid back. She did try stopping her omeprazole to see if it made any difference but it did not. No exertional chest pain or shortness of breath. No nausea or sweating. Pain is substernal now and radiating to the back. Strong family history of coronary disease, sister of coronary disease and mother had bypass surgery. After history and exam, CBC CMP EKG troponin chest x-ray aspirin nitro paste GI cocktail [facility] Medical records reviewed: No recent visit for this complaint Differential considered: Includes but not limited to STEMI non-STEMI unstable angina stable angina gastritis esophagitis Lab Test results independently reviewed as above. Pertinent findings: WBC 4.6 hemoglobin 13.7 sodium 140 INR 1.1 potassium 3.3 troponin less than 0.012 lipase 80 Independently reviewed EKG sinus bradycardia rate 53 Imaging studies independently reviewed: Chest x-ray no acute finding Consultations: None indicated at this time. Treatments: Aspirin nitro paste Maalox Re-evaluations: 6:30 p.m.. Updated patient results. They are reassuring and exam is reassuring. Patient now recalls her physical therapist had her do new stretching exercise with her arms and chest. Likely the source of her discomfort. Since pain is reproducible. Return precautions reviewed. She desires discharge home. There was no change in discomfort with Maalox and nitro paste. Blood pressure did improve 163/75 pulse 68. Discussion: Appropriate for discharge home. Pain is reproducible secondary to likely new physical therapy exercise patient has been doing with chest and arms. Return precautions reviewed. She desires discharge home. Chest wall left side discomfort is reproducible as well as mid upper back Diagnosis: Chest wall pain Discharge Plan Departure Patient Disposition: Home Clinical Impression: Acute chest wall pain Instructions: DI for Atypical Chest Pain Activity Restrictions/Additional Instructions: Your exam is reassuring and laboratory studies are reassuring. Your chest pain is likely due to the physical therapy maneuvers you have been doing recently stretching the muscles in your chest and ribs. You may continue physical therapy. Please do started taking Tylenol and doing warm compresses to the muscles for relief. See family doctor within a week for re-evaluation of your blood pressure. Return if worse if any questions or concerns. Prescriptions: No Action losartan 25 mg tablet 25 mg PO DAILY hydrochlorothiazide 12.5 mg tablet 12.5 mg PO DAILY Creon 36,000-114,000- 180,000 unit capsule,delayed release(DR/EC) PO Patient Comments: [NO ORIGINAL SIG] Referrals: Kerrie Langford MD [Primary Care Provider] - Stand Alone Forms: Patient Portal/API/Survey
[2024-09-05 16:54] VITALS: BP 173/87; PULSE 69
[2024-09-05] MEDS: NITROGLYCERIN OINT 1 INCH/GM OINT...G. TOP (16:54)
[2024-09-05] MEDS: MAG HYDROX/ALUMINUM/SIMETH SUS 20 ML, LIDOCAINE VISCOUS 2% 15 ML PO (16:54)
[2024-09-05 18:45] VITALS: BP 163/75; PULSE 68; RESP 16; TEMP 36.9; O2SAT 98
== END 2024-09-05 18:46 | disposition home or self-care (01) ==
PROVIDERS: Emergency Provider Emergency Medicine; PCP Student in an Organized Health Care Education/Training Program
DX: R07.89 Other chest pain (principal); R00.1 Bradycardia, unspecified; Z82.49 Family history of ischemic heart disease and other diseases of the circulatory system
CPT/HCPCS: 36415; 71045; 80053; 82550; 83690; 83735; 83880; 84484; 85025; 85610; 85730; 93005; 99284

== ENCOUNTER 2024-12-28 13:10 | Emergency (ER) | payer OTHER, SELFPAY ==
[2024-12-28] VITALS (8 sets, daily range): BP systolic 174–190; BP diastolic 80–88; PULSE 50–64; RESP 9–21; TEMP 36.5; O2SAT 99–100; BMI 25.2
--- NOTE | 2024-12-28 13:14 | DI.RAD.S_ITS ---
PROCEDURE: XR CHEST 1V INDICATIONS: Chest Pain TECHNIQUE: One view of the chest was acquired. COMPARISON: [facility], CR, XR CHEST 1V, 09/05/2024, 16:07. [facility], CR, XR CHEST 1V, 10/17/2022, 12:34. FINDINGS: Surgical changes and devices: None. Lungs and pleura: Lungs are clear. No pleural effusions or pneumothorax. Mediastinum: Mediastinal contours appear normal. Heart size is normal. Bones and chest wall: No suspicious bony lesions. Overlying soft tissues appear unremarkable. IMPRESSION: No acute cardiopulmonary abnormality is seen. Dictated by: Willem Cisneros M.D. on 12/28/2024 at 13:51 Approved by: Willem Cisneros M.D. on 12/28/2024 at 13:51
--- NOTE | 2024-12-28 13:14 | EKG_ITS ---
[address] [address] Test Date: 2024-12-28 Pat Name: Krystal Kaminski Department: Room: Gender: Female Reconsignment Clerk: ANNELISE : 1960 Requested By: Order Number: [id number] Reading MD: Dominik Herring Measurements Intervals [place] Rate: 56 P: 55 SD: 194 QRS: -27 QRSD: 106 T: 47 QT: 406 QTc: 391 Interpretive Statements Sinus bradycardia Voltage criteria for left ventricular hypertrophy ( R in aVL , Sokolow-Bland , [place] product ) Electronically Signed On 12-29-2024 7:26:30 PDT by Dominik Herring
[2024-12-28 13:34] LABS: Add Manual Diff / Slide Review NO; Basophils Absolute Auto 0 /uL (0-100); Eosinophils Absolute Auto 100 /uL (0-450); Eosinophils Percent Auto 1.6 % (2-4); Hematocrit 39.3 % (36-46); Hemoglobin 13.5 g/dL (12.0-16.0); Lymphocytes Absolute Auto 1700 /uL (1100-4500); Lymphocytes Percent Auto 37.7 % (25-40); Mean Corpuscular HGB Conc 34.4 % (30-36); Mean Corpuscular Hemoglobin 30.2 PG (26-34); Mean Corpuscular Volume 87.8 fL (80-100); Monocytes Absolute Auto 500 /uL (0-900); Monocytes Percent Auto 10.6 % (3-14); Neutrophils Absolute Auto 2200 /uL (1500-7000); Neutrophils Percent Auto 49.1 % (50-75); Platelet Count 207 X10^3/uL (150-400); Red Blood Cell Count 4.48 X10^6/uL (4.0-5.2); Red Cell Distribution Width 13.2 % (11.6-14.8); White Blood Cell Count 4.4 X10^3/uL (4.5-11.0)
[2024-12-28 13:36] LABS: INR 1.1 (0.9-1.3); Prothrombin Time 11.9 SECONDS (9.4-12.5)
[2024-12-28 13:39] LABS: PTT Partial Thromboplastin Tim 30 SECONDS (25.1-36.5)
[2024-12-28 13:41] LABS: Alanine Aminotransferase 20 IU/L (<35); Albumin 4.3 g/dL (3.5-5.0); Albumin Globulin Ratio 1.3 (1.0-2.8); Alkaline Phosphatase 82 U/L (38-126); Aspartate Aminotransferase 37 IU/L (14-36); BUN Creatinine Ratio 20.8 (6-22); Bilirubin Total 1.3 mg/dL (0.2-1.3); Blood Urea Nitrogen 16 mg/dL (7-17); Carbon Dioxide 28 mmol/L (22-32); Chloride 102 mmol/L (98-107); Creatine Kinase 124 U/L (30-135); Estimated Glomerular Filt Rate > 60 mL/min (>60); Globulin 3.4 g/dL (1.7-4.1); Glucose 98 mg/dL (70-99); HEMOLYSIS 19 (0-50); Lipase 42 U/L (23-300); Magnesium 1.6 mg/dL (1.6-2.3); Potassium 3.6 mmol/L (3.4-5.1); Sodium 137 mmol/L (137-145); Total Protein 7.7 g/dL (6.3-8.2)
[2024-12-28 13:52] LABS: NT-proBNP (BNP-Adult 18+) 44 pg/mL (<125); Troponin I < 0.012 ng/mL (0.01-0.034)
--- NOTE | 2024-12-28 14:00 | ED.CHESTPAIN ---
HPI - Chest Pain General Chief Complaint: Chest Pain Stated Complaint: Shoulder pain, Numbness in hand, chest pain Time Seen by Provider: 12/28/24 13:46 Source: patient Mode of arrival: Ambulatory Limitations: no limitations History of Present Illness HPI narrative: Patient is a 64-year-old female past medical history of hypertension, comes into the ED from home for evaluation of chest pain, shoulder and hand pain she states it is primarily to her right hand but states it is also affecting her left. She states that symptoms have been ongoing persistent for approximately 1-1/2 weeks. She denies any other symptoms such as headache visual disturbances shortness of breath fever chills nausea vomiting abdominal pain or any other GI/ symptoms time. No trauma or falls not on any blood thinners Related Data Home Medications ?Medication ?Instructions ?Recorded ?Confirmed hydrochlorothiazide 12.5 mg tablet 12.5 mg PO DAILY 09/05/24 09/05/24 hxkbqk-cifjspjo-mchheto cap PO 09/05/24 36,000-114,000-180,000 unit capsule,delay rel (Creon) losartan 25 mg tablet 25 mg PO DAILY 09/05/24 09/05/24 Allergies Allergy/AdvReac Type Severity Reaction Status Date / Time Quinolones Allergy Verified 12/28/24 13:20 levofloxacin (LEVOFLOXACIN) AdvReac Mild CAN'T LIFT Verified 12/28/24 13:20 ARMS AFTERWARD ciprofloxacin (CIPROFLOXACIN) AdvReac Unknown LEG PAIN Verified 12/28/24 13:20 Review of Systems Review of Systems Narrative: General: Denies fever, chills, weight loss HEENT: Denies headache, eye drainage, eye irritation, head trauma, sore throat, voice change Cardiovascular: Positive chest pain denies, palpitations, tachycardia Respiratory: Denies any shortness of breath, cough, wheeze, stridor GI/: Denies any abdominal pain, nausea, vomiting, diarrhea, bright red blood per rectum, melanotic stools, urinary frequency, urinary retention, dysuria, hematuria MSK: Denies any joint pain, muscle pains, swelling Skin: Denies any rashes, lesions, discoloration Neuro: Tingling sensations to bilateral hands Denies any headache, lightheadedness, dizziness, fainting, weakness Psych: Denies SI/HI Patient History Medical History (Updated 12/28/24 @ 14:19 by Ronald Richard DO) Breast cancer Chronic mixed headache syndrome Dyspepsia LVH (left ventricular hypertrophy) Hypertension Surgical History Status post hysterectomy History of total mastectomy Family History Father Diabetes mellitus Heart disease Hypertension High cholesterol Grandfather Diabetes mellitus Hypertension High cholesterol Grandmother Diabetes mellitus Mother Diabetes mellitus Heart disease Hypertension Social History Smoking Status: Never smoker Smoking Status: Never smoker alcohol intake frequency: holidays/special occasions only Exam Narrative Exam Narrative: General: Cooperative, well-developed, not in acute distress HEENT: Normocephalic, atraumatic, PERRLA, normal sclera, eyelids normal Neck: Active full range of motion, atraumatic Chest: Normal to inspection, negative crepitus, no overlying erythema ecchymosis Respiratory: Normal respiratory effort, not in acute respiratory distress, clear to auscultation bilaterally negative cough, wheeze, tachypnea, rhonchi, rales Cardiology: Regular rate rhythm negative gallop, murmur, rubs GI/: No tenderness to palpation, soft, non rigid, normal to inspection, exam deferred MSK: Full active range of motion in all 4 extremities, atraumatic, no tenderness to palpation of any bony prominences Skin: No rashes or lesions noted Neuro: NIH of 0, no focal deficits Alert awake oriented x3, moves all 4 extremities spontaneously, cranial nerves intact, able to answer all questions appropriately follows commands appropriately Psych: Cooperative, negative suicidal or homicidal ideations Initial Vital Signs Initial Vital Signs: Vital Signs Temperature 97.7 F 12/28/24 13:19 Pulse Rate 61 12/28/24 13:19 Respiratory Rate 16 12/28/24 13:19 Blood Pressure 190/88 H 12/28/24 13:19 Pulse Oximetry 99 12/28/24 13:19 Oxygen Delivery Method Room Air 12/28/24 13:19 Course Orders Ordered: ED Orders 12/28/24 13:14 XR chest 1V Stat EKG-12 Lead Stat 12/28/24 13:20 Complete Blood Count AUTO DIFF Stat Comprehensive Metabolic Panel Stat Lipase Stat Magnesium Stat NT-proBNP (BNP-Adult 18+) Stat PTT Partial Thromboplastin [place] Stat Prothrombin Time INR Stat Troponin & CK Cardiac Panel Stat Discontinued Medications Aspirin (Aspirin 81 Mg Chew Tab) 324 mg PO NOW ONE Stop: 12/28/24 13:15 Vital Signs Vital signs: Vital Signs - 8 hr 12/28/24 13:19 Temperature 97.7 F Pulse Rate 61 Respiratory Rate 16 Blood Pressure 190/88 H Pulse Oximetry 99 Oxygen Delivery Method Room Air MDM - Chest Pain Differential Diagnosis Differential diagnosis: Likely atypical chest pain, st elevation myocardial infarction, costochondritis, chest pain and other (Cervical radiculopathy, pneumonia, electrolyte abnormality) Lab Data 12/28/24 13:20 12/28/24 13:20 Labs: Lab Results 12/28/24 Range/Units 13:20 WBC 4.4 L (4.5-11.0) X10^3/uL RBC 4.48 (4.0-5.2) X10^6/uL Hgb 13.5 (12.0-16.0) g/dL Hct 39.3 (36-46) % MCV 87.8 (80-100) fL MCH 30.2 (26-34) PG MCHC 34.4 (30-36) % RDW 13.2 (11.6-14.8) % Plt Count 207 (150-400) X10^3/uL Neut % (Auto) 49.1 L (50-75) % Lymph % (Auto) 37.7 (25-40) % [place] % (Auto) 10.6 (3-14) % Eos % (Auto) 1.6 L (2-4) % Baso % (Auto) 1.0 (0-2) % Neut # (Auto) 2200 (5502-3353) /uL Lymph # (Auto) 1700 (1558-6162) /uL [place] # (Auto) 500 (0-900) /uL Eos # (Auto) 100 (0-450) /uL Baso # (Auto) 0 (0-100) /uL PT 11.9 (9.4-12.5) SECONDS INR 1.1 (0.9-1.3) APTT 30 (25.1-36.5) SECONDS Sodium 137 (137-145) mmol/L Potassium 3.6 (3.4-5.1) mmol/L Chloride 102 (98-107) mmol/L Carbon Dioxide 28 (22-32) mmol/L BUN 16 (7-17) mg/dL Creatinine 0.77 (0.52-1.04) mg/dL Estimated GFR > 60 (>60) mL/min BUN/Creatinine Ratio 20.8 (6-22) Glucose 98 (70-99) mg/dL Calcium 9.0 (8.4-10.2) mg/dL Magnesium 1.6 (1.6-2.3) mg/dL Total Bilirubin 1.3 (0.2-1.3) mg/dL AST 37 H (14-36) IU/L ALT 20 (<35) IU/L Alkaline Phosphatase 82 (38-126) U/L Total Creatine Kinase 124 (30-135) U/L Troponin I < 0.012 (0.01-0.034) ng/mL NT-Pro-B Natriuret Pep 44 (<125) pg/mL Total Protein 7.7 (6.3-8.2) g/dL Albumin 4.3 (3.5-5.0) g/dL Globulin 3.4 (1.7-4.1) g/dL Albumin/Globulin Ratio 1.3 (1.0-2.8) Lipase 42 (23-300) U/L Imaging Data Chest x-ray: Radiologist's Impression: [address] [address] XRay Report Signed Patient: Krystal Kaminski MR#: [id number] : 1960 Acct:[id number] Age/Sex: 64 / F Date of Service: 12/28/24 Loc: ED Accession Number: [id number] Procedure: XR chest 1V Ordering Provider: Ronald Richard D.O. PROCEDURE: XR CHEST 1V INDICATIONS: Chest Pain TECHNIQUE: One view of the chest was acquired. COMPARISON: [facility], CR, XR CHEST 1V, 09/05/2024, 16:07. [facility], CR, XR CHEST 1V, 10/17/2022, 12:34. FINDINGS: Surgical changes and devices: None. Lungs and pleura: Lungs are clear. No pleural effusions or pneumothorax. Mediastinum: Mediastinal contours appear normal. Heart size is normal. Bones and chest wall: No suspicious bony lesions. Overlying soft tissues appear unremarkable. IMPRESSION: No acute cardiopulmonary abnormality is seen. ECG Data Interpretation: EKG interpreted by ED physician, sinus bradycardia 56 beats per minute QTC 391, left axis deviation no STEMI MDM Narrative Medical decision making narrative: Patient is a 64-year-old female with a past medical history of hypertension presenting for 1-1/2 weeks of chest pain as well as bilateral hand tingling sensation. She states that she has not had any trauma or falls. Chest x-ray without any acute cardiopulmonary abnormality, EKG nonischemic in nature, lab work performed in the emergency department without any leukocytosis Chem panel unremarkable, troponin negative, patient with a heart score of 2. Patient also states that she was recently diagnosed with carpal tunnel to her right hand, she states that her symptoms did get worse after lifting some bricks few weeks ago, states that she started noticing repeat sensation in her left hand but was never diagnosed with carpal tunnel there. On exam patient with positive Phalen's sign. Patient states that she does see a neurologist for this, did give symptomatic treatment here she was given strict return precautions in agrees with being discharged home with outpatient follow up Discharge Plan Departure Patient Disposition: Home Clinical Impression: Chest pain, Carpal tunnel syndrome Instructions: DI for Carpal Tunnel Syndrome, DI for Chest Pain Activity Restrictions/Additional Instructions: Please continue to follow up with your utility repairer and neurologist for your symptoms Please read the discharge instructions sheet carefully and bring all papers to all doctor follow-up visits, as it may contain information that your doctor may want to see. Disease processes change and evolve, if your symptoms worsen or if you develop any new symptoms that are concerning to you please return for evaluation. Your evaluation today does not show any evidence of any life-threatening/serious illnesses requiring admission to the hospital or surgery. Please follow-up with your doctor for re-evaluation in approximately 1 day. Seek immediate medical attention for any worrisome symptoms. *If you do not have a primary care provider please contact the [facility] Resource line at [phone]. They will ask some questions about your medical history and help get you set up with a doctor in the community. Prescriptions: No Action losartan 25 mg tablet 25 mg PO DAILY hydrochlorothiazide 12.5 mg tablet 12.5 mg PO DAILY Creon 36,000-114,000- 180,000 unit capsule,delayed release(DR/EC) PO Patient Comments: [NO ORIGINAL SIG] Referrals: Kerrie Langford MD [Primary Care Provider, Medical] Stand Alone Forms: Patient Portal/API
[2024-12-28] MEDS: KETOROLAC 30 MG/ML VIAL 15 MG IV (14:32)
== END 2024-12-28 14:39 | disposition home or self-care (01) ==
PROVIDERS: Emergency Provider Student in an Organized Health Care Education/Training Program; PCP Student in an Organized Health Care Education/Training Program
DX: R07.9 Chest pain, unspecified (principal); G56.03 Carpal tunnel syndrome, bilateral upper limbs
CPT/HCPCS: 36415; 71045; 80053; 82550; 83690; 83735; 83880; 84484; 85025; 85610; 85730; 93005; 96374; 99284; J1885

== ENCOUNTER 2025-03-16 18:07 | Emergency (ER) | payer OTHER, SELFPAY ==
[2025-03-16] VITALS (7 sets, daily range): BP systolic 144–169; BP diastolic 64–85; PULSE 51–70; RESP 14–20; TEMP 36.5; O2SAT 98–99; BMI 25.2
--- NOTE | 2025-03-16 21:32 | ED.HA ---
HPI - Headache General Chief Complaint: Headache Stated Complaint: headache/pressure, lightheaded x 1 week Time Seen by Provider: 03/16/25 21:32 Mode of arrival: Ambulatory History of Present Illness HPI Narrative: 62-year-old female complains of 2 weeks duration of global headache, does not usually have headaches. No focal weakness. Feels some lightheadedness. No chest pain or shortness of breath. No neck pain, no photophobia. No focal weakness to face arm or leg. No focal numbness to face arm or leg. Related Data Home Medications ?Medication ?Instructions ?Recorded ?Confirmed hydrochlorothiazide 12.5 mg tablet 12.5 mg PO DAILY 09/05/24 09/05/24 exdeze-cvmkwtci-ksbbqko cap PO 09/05/24 36,000-114,000-180,000 unit capsule,delay rel (Creon) losartan 25 mg tablet 25 mg PO DAILY 09/05/24 09/05/24 Allergies Allergy/AdvReac Type Severity Reaction Status Date / Time Quinolones Allergy Verified 03/16/25 18:46 levofloxacin (LEVOFLOXACIN) AdvReac Mild CAN'T LIFT Verified 03/16/25 18:46 ARMS AFTERWARD ciprofloxacin (CIPROFLOXACIN) AdvReac Unknown LEG PAIN Verified 03/16/25 18:46 Patient History Medical History (Updated 03/17/25 @ 01:21 by Tolu Sepulveda MD) Breast cancer Chronic mixed headache syndrome Dyspepsia LVH (left ventricular hypertrophy) Hypertension Surgical History Status post hysterectomy History of total mastectomy Family History Father Diabetes mellitus Heart disease Hypertension High cholesterol Grandfather Diabetes mellitus Hypertension High cholesterol Grandmother Diabetes mellitus Mother Diabetes mellitus Heart disease Hypertension Social History Smoking Status: Never smoker Smoking Status: Never smoker alcohol intake frequency: holidays/special occasions only Exam Narrative Exam Narrative: GENERAL: Well-developed patient, in mild distress. HEAD: Atraumatic. Normocephalic. EYES: Pupils equal round and reactive. Extraocular motions intact. No scleral icterus. No injection or drainage. ENT: Nose without bleeding, purulent drainage. Throat without erythema, tonsillar hypertrophy or exudate. Airway patent. NECK: Trachea midline. Non tender CARDIOVASCULAR: Regular rate and rhythm without murmurs, gallops, or rubs. RESPIRATORY: Clear to auscultation. Breath sounds equal bilaterally. No wheezes, rales, or rhonchi. GASTROINTESTINAL: Abdomen soft, non-tender, nondistended. EXTREMITIES: No edema or joint tenderness. BACK: Nontender without deformity or crepitance. No flank tenderness. NEURO: AOx3. Motor functions grossly nonfocal. SKIN: No rash or erythema of visible areas Initial Vital Signs Initial Vital Signs: Vital Signs Temperature 97.7 F 03/16/25 18:42 Pulse Rate 70 03/16/25 18:42 Respiratory Rate 18 03/16/25 18:42 Blood Pressure 168/85 H 03/16/25 18:42 Pulse Oximetry 98 03/16/25 18:42 Oxygen Delivery Method Room Air 03/16/25 18:42 Course Orders Ordered: ED Orders 03/16/25 21:44 CT head/brain wo con Stat Discontinued Medications Ketorolac Tromethamine (Ketorolac 30 Mg/Ml Vial) 30 mg IM NOW ONE Stop: 03/17/25 00:19 Last Admin: 03/17/25 00:23 Dose: Not Given Documented By: ALEJANDRO Ketorolac Tromethamine (Ketorolac 30 Mg/Ml Vial) 15 mg IV NOW ONE Stop: 03/17/25 00:22 Last Admin: 03/17/25 00:28 Dose: 15 mg Documented By: ALEJANDRO Vital Signs Vital signs: Vital Signs - 8 hr 03/16/25 22:00 03/16/25 22:30 03/16/25 23:00 Pulse Rate 56 L 56 L 51 L Respiratory Rate 14 19 20 Blood Pressure 144/70 H 152/64 H Pulse Oximetry 98 98 99 Oxygen Delivery Method Room Air Room Air Room Air 03/16/25 23:20 03/16/25 23:28 03/16/25 23:28 Pulse Rate 56 L 56 L Respiratory Rate 14 15 Blood Pressure 169/72 H Pulse Oximetry 99 99 Oxygen Delivery Method 03/16/25 23:30 03/16/25 23:30 03/17/25 00:00 Pulse Rate 52 L 49 L Respiratory Rate 17 Blood Pressure 150/71 H Pulse Oximetry 98 97 Oxygen Delivery Method 03/17/25 00:21 03/17/25 00:21 03/17/25 00:30 Pulse Rate 48 L 49 L Respiratory Rate 14 Blood Pressure 132/65 Pulse Oximetry 99 97 Oxygen Delivery Method 03/17/25 00:30 03/17/25 01:00 03/17/25 01:00 Pulse Rate 47 L Respiratory Rate 13 Blood Pressure 129/67 129/60 Pulse Oximetry 97 Oxygen Delivery Method 03/17/25 01:30 03/17/25 01:30 Pulse Rate 48 L Respiratory Rate 15 Blood Pressure 130/63 Pulse Oximetry 98 Oxygen Delivery Method Room Air MDM - Headache Imaging Data CT scan - head: Radiologist's Impression: [address] [address] [address] Scan Report Signed Patient: Krystal Kaminski MR#: [id number] : 1960 Acct:[id number] Age/Sex: 64 / F Date of Service: 03/16/25 Loc: ED Accession Number: [id number] Procedure: CT head/brain wo con Ordering Provider: Tolu Sepulveda MD PROCEDURE: CT HEAD/BRAIN WO CON INDICATIONS: headache TECHNIQUE: Noncontrast 4.5 mm thick angled axial sections acquired from the foramen magnum to the vertex, with coronal and sagittal reformats. For radiation dose reduction, the following was used: automated exposure control, adjustment of mA and/or kV according to patient size. COMPARISON: [facility], CT, CT HEAD/BRAIN WO CON, 08/20/2021, 11:34. FINDINGS: Image quality: Diagnostic. CSF spaces: Basal cisterns are patent. No extra-axial fluid collections. Ventricles are normal in size and shape. Brain: No midline shift. No intracranial mass effect or hemorrhage. [place]-white matter interface is normal. Skull and face: Calvarium and visualized facial bones are intact, without suspicious lesions. Sinuses: Visualized sinuses and mastoids are clear. IMPRESSION: No acute intracranial pathology. Dictated by: Tamela Ellis M.D. on 03/16/2025 at 22:59 Approved by: Tamela Ellis M.D. on 03/16/2025 at 23:00 [facility] Narrative Medical decision making narrative: 64-year-old with recent 2 weeks duration of headache to vertex and posterior scalp, no trauma, no focal neuro symptoms. No lateralizing symptoms, blurred vision, history of migraines. Afebrile, sirs screen negative. Consider imaging. CT head ordered. CT head no acute changes. No mentioned of any mass effects or edema or lesions. See radiology report. We discussed therapeutic treatment, she would like treatment, IV Toradol. She would like to hold off another headache related medications to assess response to treatment. Symptoms seemed to be improved. We discussed further treatment with [id number] Motrin and/or Tylenol to use as needed. She seems satisfied with this approach. She would not have any further questions. Discharged home. Follow up with PCP as needed. Discharge Plan Departure Patient Disposition: Home Clinical Impression: Headache Activity Restrictions/Additional Instructions: Posterior headache unclear cause for the last 2 weeks. No fever injury. Reassuring examination. CT head noncontrast study showed no acute changes, no brain mass or other lesions noted. IV dose of Toradol given, symptoms incompletely resolved but significantly improved. You declined any further treatments for now. Advised [id number] Tylenol and/or Motrin as needed for pain control. You feel comfortable with this plan. Recheck symptoms with your regular doctor if not improved in the next couple of days. Return to this/nearest emergency department for any change worsening symptoms or any concerns prior. Prescriptions: No Action losartan 25 mg tablet 25 mg PO DAILY hydrochlorothiazide 12.5 mg tablet 12.5 mg PO DAILY Creon 36,000-114,000- 180,000 unit capsule,delayed release(DR/EC) PO Patient Comments: [NO ORIGINAL SIG] Referrals: Kerrie Langford MD [Primary Care Provider, Medical] Stand Alone Forms: Patient Portal/API
--- NOTE | 2025-03-16 21:44 | DI.CT.S_ITS ---
PROCEDURE: CT HEAD/BRAIN WO CON INDICATIONS: headache TECHNIQUE: Noncontrast 4.5 mm thick angled axial sections acquired from the foramen magnum to the vertex, with coronal and sagittal reformats. For radiation dose reduction, the following was used: automated exposure control, adjustment of mA and/or kV according to patient size. COMPARISON: [facility], CT, CT HEAD/BRAIN WO CON, 08/20/2021, 11:34. FINDINGS: Image quality: Diagnostic. CSF spaces: Basal cisterns are patent. No extra-axial fluid collections. Ventricles are normal in size and shape. Brain: No midline shift. No intracranial mass effect or hemorrhage. [place]- white matter interface is normal. Skull and face: Calvarium and visualized facial bones are intact, without suspicious lesions. Sinuses: Visualized sinuses and mastoids are clear. IMPRESSION: No acute intracranial pathology. Dictated by: Tamela Ellis M.D. on 03/16/2025 at 22:59 Approved by: Tamela Ellis M.D. on 03/16/2025 at 23:00
[2025-03-17] VITALS: PULSE 49; O2SAT 97
[2025-03-17 00:21] VITALS: BP 132/65; PULSE 48; O2SAT 99
[2025-03-17] MEDS: KETOROLAC 30 MG/ML VIAL 15 MG IV (00:28)
[2025-03-17 00:30] VITALS: BP 129/67; PULSE 49; RESP 14; O2SAT 97
[2025-03-17 01:00] VITALS: BP 129/60; PULSE 47; RESP 13; O2SAT 97
[2025-03-17 01:30] VITALS: BP 130/63; PULSE 48; RESP 15; O2SAT 98
== END 2025-03-17 01:42 | disposition home or self-care (01) ==
PROVIDERS: Emergency Provider Emergency Medicine; PCP Student in an Organized Health Care Education/Training Program
DX: R51.9 Headache, unspecified (principal); R42 Dizziness and giddiness
CPT/HCPCS: 36415; 70450; 99284; J1885

== ENCOUNTER 2025-05-05 10:55 | Emergency (ER) | payer OTHER, SELFPAY ==
[2025-05-05] VITALS (7 sets, daily range): BP systolic 134–197; BP diastolic 70–98; PULSE 56–69; RESP 16–28; TEMP 36.5; O2SAT 99–100; BMI 25.7
--- NOTE | 2025-05-05 11:08 | EKG_ITS ---
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
--- NOTE | 2025-05-05 11:10 | DI.RAD.S_ITS ---
PROCEDURE: XR CHEST 1V INDICATIONS: Chest Pain TECHNIQUE: One view of the chest was acquired. COMPARISON: [facility], CR, XR CHEST 1V, 12/28/2024, 13:20. FINDINGS: Surgical changes and devices: None. Lungs and pleura: Lungs are clear. No pleural effusions or pneumothorax. Mediastinum: Mediastinal contours appear normal. Heart size is normal. Bones and chest wall: No suspicious bony lesions. Overlying soft tissues appear unremarkable. IMPRESSION: No acute cardiopulmonary abnormality is seen. Dictated by: Antonio Coon M.D. on 05/05/2025 at 11:45 Approved by: Antonio Coon M.D. on 05/05/2025 at 11:45
[2025-05-05 11:35] LABS: INR 1.0 (0.9-1.3); Prothrombin Time 11.4 SECONDS (9.4-12.5)
[2025-05-05 11:38] LABS: Add Manual Diff / Slide Review NO; Hematocrit 39.6 % (36-46); Hemoglobin 13.5 g/dL (12.0-16.0); Lymphocytes Absolute Auto 1100 /uL (1100-4500); Mean Corpuscular HGB Conc 34.0 % (30-36); Mean Corpuscular Hemoglobin 29.2 PG (26-34); Mean Corpuscular Volume 85.9 fL (80-100); PTT Partial Thromboplastin Tim 29 SECONDS (25.1-36.5); Platelet Count 222 X10^3/uL (150-400)
[2025-05-05 11:40] LABS: Alanine Aminotransferase 21 IU/L (<35); Albumin 4.7 g/dL (3.5-5.0); Albumin Globulin Ratio 1.3 (1.0-2.8); Alkaline Phosphatase 81 U/L (38-126); Blood Urea Nitrogen 17 mg/dL (7-17); Calcium 9.2 mg/dL (8.4-10.2); Carbon Dioxide 28 mmol/L (22-32); Chloride 100 mmol/L (98-107); Creatine Kinase 171 U/L (30-135); Estimated Glomerular Filt Rate > 60 mL/min (>60); Globulin 3.7 g/dL (1.7-4.1); Glucose 108 mg/dL (70-99); HEMOLYSIS < 15 (0-50); Lipase 49 U/L (23-300); Magnesium 1.8 mg/dL (1.6-2.3); Potassium 3.6 mmol/L (3.4-5.1); Sodium 137 mmol/L (137-145); Total Protein 8.4 g/dL (6.3-8.2)
[2025-05-05] MEDS: ASPIRIN 81 MG CHEW TAB 324 MG PO (11:49)
[2025-05-05 11:52] LABS: NT-proBNP (BNP-Adult 18+) 77 pg/mL (<125); Troponin I < 0.012 ng/mL (0.01-0.034)
[2025-05-05 14:57] LABS: Troponin I < 0.012 ng/mL (0.01-0.034)
[2025-05-05] MEDS: MAG HYDROX/ALUMINUM/SIMETH SUS 30 ML, LIDOCAINE VISCOUS 2% 15 ML PO (16:03)
--- NOTE | 2025-05-05 16:28 | ED.CHESTPAIN ---
HPI - Chest Pain General Chief Complaint: Chest Pain Stated Complaint: Chest and back pain x 4 days Time Seen by Provider: 05/05/25 11:29 Source: patient Mode of arrival: Ambulatory History of Present Illness HPI narrative: This very pleasant 65 yo female presents with acute onset of lower substernal chest pain radiating into back. Does have a history of reflux and has been drinking alot of hibiscus tea. Not currently on any medications for same . Pain has been present for 4 days Related Data Home Medications ?Medication ?Instructions ?Recorded ?Confirmed hydrochlorothiazide 12.5 mg tablet 12.5 mg PO DAILY 09/05/24 09/05/24 aibmda-wuxuhlwu-burvjjv cap PO 09/05/24 36,000-114,000-180,000 unit capsule,delay rel (Creon) losartan 25 mg tablet 25 mg PO DAILY 09/05/24 09/05/24 Allergies Allergy/AdvReac Type Severity Reaction Status Date / Time Quinolones Allergy Verified 05/05/25 11:10 levofloxacin (LEVOFLOXACIN) AdvReac Mild CAN'T LIFT Verified 05/05/25 11:10 ARMS AFTERWARD ciprofloxacin (CIPROFLOXACIN) AdvReac Unknown LEG PAIN Verified 05/05/25 11:10 Review of Systems Review of Systems ROS Unobtainable: All systems reviewed & are unremarkable except as noted in HPI and below Constitutional Comments: Malaise secondary to lower substernal chest pain radiating into back. Slightly heavy in nature. No shortness of breath. Cardiovascular Comments: No history of CA or angina. Respiratory Respiratory: Reports system reviewed and no additional complaints, except as documented Gastrointestinal Comments: History of reflux, used to take Prilosec Has at home . Drinking alot of hisbiscus tea of late. Musculoskeletal Comments: No leg pains or edema. Patient History Medical History (Updated 05/05/25 @ 16:31 by Sharri Carrizales MD) Breast cancer Chronic mixed headache syndrome Dyspepsia LVH (left ventricular hypertrophy) Hypertension Surgical History Status post hysterectomy History of total mastectomy Family History Father Diabetes mellitus Heart disease Hypertension High cholesterol Grandfather Diabetes mellitus Hypertension High cholesterol Grandmother Diabetes mellitus Mother Diabetes mellitus Heart disease Hypertension Smoking Status: Never smoker alcohol intake frequency: holidays/special occasions only Exam Initial Vital Signs Initial Vital Signs: Vital Signs Temperature 97.7 F 05/05/25 11:10 Pulse Rate 69 05/05/25 11:10 Respiratory Rate 18 05/05/25 11:10 Blood Pressure 197/98 H 05/05/25 11:10 Pulse Oximetry 99 05/05/25 11:10 Oxygen Delivery Method Room Air 05/05/25 11:10 Const General: cooperative and other (no apparent distress. ) HENMT Head: normal to inspection and normocephalic Eyes Pupils: PERRL EOM: EOM intact bilaterally Neck Neck: normal visual inspection and full ROM Chest Other: Pin indicated low substernal into back Resp Effort & Inspection: normal respiratory effort Auscultation: clear to auscultation bilaterally Cardio Rate: regular rate Rhythm: regular rhythm GI Inspection: normal to inspection Other: no epigastric tenderness, adequate BS Course Orders Ordered: ED Orders 05/05/25 14:25 Trop I [Troponin I] Stat Discontinued Medications Aspirin (Aspirin 81 Mg Chew Tab) 324 mg PO NOW ONE Stop: 05/05/25 11:11 Last Admin: 05/05/25 11:49 Dose: 324 mg Documented By: CB Al Hydrox/Mg Hydrox/Simethicone 30 ml/ Lidocaine HCl 15 ml 0 ml PO NOW ONE Stop: 05/05/25 15:28 Last Admin: 05/05/25 16:03 Dose: 45 ml Documented By: JEB Vital Signs Vital signs: Vital Signs - 8 hr 05/05/25 14:29 05/05/25 14:30 05/05/25 14:30 Pulse Rate 62 68 Respiratory Rate 24 18 Blood Pressure 154/84 H 154/84 H Pulse Oximetry 100 100 05/05/25 14:30 05/05/25 15:00 05/05/25 15:00 Pulse Rate 60 63 Respiratory Rate 16 28 H Blood Pressure 156/81 H Pulse Oximetry 99 100 05/05/25 15:30 05/05/25 15:30 05/05/25 16:00 Pulse Rate 62 Respiratory Rate 25 H Blood Pressure 134/70 139/74 Pulse Oximetry 99 05/05/25 16:00 05/05/25 16:30 05/05/25 16:30 Pulse Rate 60 Respiratory Rate 16 Blood Pressure 165/79 H 165/79 H Pulse Oximetry 100 05/05/25 16:30 Pulse Rate 56 L Respiratory Rate Blood Pressure Pulse Oximetry 100 MDM - Chest Pain Lab Data Attestation: I reviewed the patient's lab results. 05/05/25 11:10 05/05/25 11:10 Labs: Lab Results 05/05/25 05/05/25 Range/Units 11:10 14:25 WBC 4.8 (4.5-11.0) X10^3/uL RBC 4.61 (4.0-5.2) X10^6/uL Hgb 13.5 (12.0-16.0) g/dL Hct 39.6 (36-46) % MCV 85.9 (80-100) fL MCH 29.2 (26-34) PG MCHC 34.0 (30-36) % RDW 14.1 (11.6-14.8) % Plt Count 222 (150-400) X10^3/uL Neut % (Auto) 66.8 (50-75) % Lymph % (Auto) 22.6 L (25-40) % [place] % (Auto) 9.0 (3-14) % Eos % (Auto) 0.8 L (2-4) % Baso % (Auto) 0.8 (0-2) % Neut # (Auto) 3200 (0224-6235) /uL Lymph # (Auto) 1100 (6813-4407) /uL [place] # (Auto) 400 (0-900) /uL Eos # (Auto) 0 (0-450) /uL Baso # (Auto) 0 (0-100) /uL PT 11.4 (9.4-12.5) SECONDS INR 1.0 (0.9-1.3) APTT 29 (25.1-36.5) SECONDS Sodium 137 (137-145) mmol/L Potassium 3.6 (3.4-5.1) mmol/L Chloride 100 (98-107) mmol/L Carbon Dioxide 28 (22-32) mmol/L BUN 17 (7-17) mg/dL Creatinine 0.75 (0.52-1.04) mg/dL Estimated GFR > 60 (>60) mL/min BUN/Creatinine Ratio 22.7 H (6-22) Glucose 108 H (70-99) mg/dL Calcium 9.2 (8.4-10.2) mg/dL Magnesium 1.8 (1.6-2.3) mg/dL Total Bilirubin 1.7 H (0.2-1.3) mg/dL AST 31 (14-36) IU/L ALT 21 (<35) IU/L Alkaline Phosphatase 81 (38-126) U/L Total Creatine Kinase 171 H (30-135) U/L Troponin I < 0.012 < 0.012 (0.01-0.034) ng/mL NT-Pro-B Natriuret Pep 77 (<125) pg/mL Total Protein 8.4 H (6.3-8.2) g/dL Albumin 4.7 (3.5-5.0) g/dL Globulin 3.7 (1.7-4.1) g/dL Albumin/Globulin Ratio 1.3 (1.0-2.8) Lipase 49 (23-300) U/L ECG Data Attestation: I personally reviewed and interpreted this ECG as follows: (Sinus rate 80, LAD, Poor R wave V1-V3) [facility] Narrative Medical decision making narrative: This 65 yo female presents with acute low substernal chest pain radiating into back. Lab reveals normal WBC, normal troponin times 2, and normal BNP. CXR- negative. EKG revealed sinus rhythm with occasional PAC. suspected that patient has GERD and not angina or CA or dissection. Given GI cocktail and felt somewhat better. Encouraged to follow-up with provider next week and get scheduled for myocardial perfusion scan stresst test to make sure no angina on exertion, Meanwhile resume Prilosec has at home daily. may need future endoscopy if pain continues. Discharge Plan Departure Patient Disposition: Home Clinical Impression: Gastroesophageal reflux Instructions: DI for Gastroesophageal Reflux Disease (GERD) Activity Restrictions/Additional Instructions: Take omeprazole 20 mg daily that has at home . Avoid excessive caffeine or acidic foods. Prescriptions: No Action losartan 25 mg tablet 25 mg PO DAILY hydrochlorothiazide 12.5 mg tablet 12.5 mg PO DAILY Creon 36,000-114,000- 180,000 unit capsule,delayed release(DR/EC) PO Patient Comments: [NO ORIGINAL SIG] Referrals: Kerrie Langford MD [Primary Care Provider, Medical] - 05/10/25 Referral Note: Need myocardial perfusion scan to be performed as stress test on patient in next 1-2 weeks since presented with chest pain - However, diagnosis appears to be gastroesophageal reflux Stand Alone Forms: Patient Portal/API
== END 2025-05-05 16:40 | disposition home or self-care (01) ==
PROVIDERS: Emergency Provider Emergency Medicine; PCP Student in an Organized Health Care Education/Training Program
DX: K21.9 Gastro-esophageal reflux disease without esophagitis (principal)
CPT/HCPCS: 36415; 71045; 80053; 82550; 83690; 83735; 83880; 84484; 85025; 85610; 85730; 93005; 93010; 99284